=== PATIENT | female | born 1985 | race American Indian/Alaskan Native ===

== ENCOUNTER 2016-11-04 12:05 | Emergency (ER) | payer MEDICARE, OTHER ==
--- NOTE | 2016-11-04 12:19 | C.PDOC ---
History Of Present Illness 31F c/o pain in both knees after a fall last night. she says she was walking and tripped outside on the street and fell forward onto both knees. she was able to walk home after. today pain mainly in left knee. has not taken anything for pain. Time Seen by Provider: 11/04/16 12:19 Chief Complaint (Nursing): Lower Extremity Problem/Injury Past Medical History Vital Signs: Last Vital Signs Temp 97.9 F 11/04/16 12:12 Pulse 92 H 11/04/16 12:12 Resp 18 11/04/16 12:12 BP 122/84 11/04/16 12:12 Pulse Ox 99 11/04/16 12:29 - Medical History PMH: Diabetes, Gastritis, Multiple Sclerosis (Pseudo), Chronic Kidney Disease - [facility] Procedures CENTRAL VENOUS CATHETER PLACEMENT WITH GUIDANCE (04/06/14) INCIS W REM OF FORIEGN BODY OR DEV FROM SKIN & SUBCUT TISSUE (02/28/14) INSERTION OF TOTALLY IMPLANTABLE VASC ACCESS DEVIC (02/13/14) SERUM TRANSFUSION NEC (02/13/14) THERAPEUTIC PLASMAPHERESIS (02/13/14) Family History: States: Other Other Family History: nc - Social History Hx Tobacco Use: No Hx Alcohol Use: No Hx Substance Use: No - Immunization History Hx Tetanus Toxoid Vaccination: Yes Hx Influenza Vaccination: No Hx Pneumococcal Vaccination: No Review Of Systems Constitutional: Negative for: Fever Cardiovascular: Negative for: Chest Pain Respiratory: Negative for: Shortness of Breath Gastrointestinal: Negative for: Vomiting Musculoskeletal: Negative for: Neck Pain Neurological: Negative for: Headache Physical Exam - Physical Exam Appears: Well, Non-toxic, No Acute Distress Skin: Warm, Dry Head: Atraumatic Oral Mucosa: Moist Neck: Normal ROM Cardiovascular: Rhythm Regular Respiratory: No Accessory Muscle Use Extremity: Normal ROM, No Deformity, Other (superficial abrasion over left anterior knee. ttp over both anterior knees. rom is wnl. strength normal. DP pulses 2+. ankles and tib/fib non-tender. ) Neurological/Psych: Oriented x3, Normal Motor, Normal Sensation ED Course And Treatment O2 Sat by Pulse Oximetry: 99 Medical Decision Making Medical Decision Making: xr kay knees- no acute fracture seen Disposition - Disposition Disposition: HOME/ ROUTINE Disposition Time: 12:51 Condition: STABLE Forms: [employer] (Vietnamese) - Clinical Impression Clinical Impression: Knee injury
[2016-11-04 12:21] VITALS: BP 122/84; RESP 18; TEMP 97.9
[2016-11-04 12:22] VITALS: BMI 27.4
--- NOTE | 2016-11-04 12:53 | RAD ---
PROCEDURE: Bilateral Knee Radiographs. HISTORY: fell on both knees COMPARISON: 12/20/2014 FINDINGS: BONES: No fracture. The bilateral patchy D mineralization and lesser and sclerotic changes throughout each distal femur and each proximal tibia is similar in appearance a benign bone island in the left proximal diaphysis is appreciated on the current study likely due to current greater field of view JOINTS: Right Knee: Mild osteoarthritis. Medial femoral tibial knee joint line spurring progressive since prior exam Left knee: Normal. No osteoarthritis. SOFT TISSUES: Right Knee: Normal. Left Knee: Normal. JOINT EFFUSION: Right Knee: Interval small right effusion Left Knee: None. OTHER FINDINGS: None. IMPRESSION: The patchy bone mineralization mostly demineralized pattern is similar in appearance this patient with prior history provided of neuromyelitis optica . No interval fracture or lytic lesion. Interval right progressive medial femoral tibial osteoarthrosis. Interval right small joint effusion
[2016-11-04] MEDS ORDERED: Bacitracin 500 Units/gm Oint Foilpak UD ONE (13:05)
[2016-11-04 13:08] VITALS: PULSE 85; O2SAT 98
== END 2016-11-04 13:08 | disposition home or self-care (01) ==
LOC: C.ER 12:05
DX: S80.212A Abrasion, left knee, initial encounter (principal); S89.91XA Unspecified injury of right lower leg, initial encounter; W01.0XXA Fall on same level from slipping, tripping and stumbling without subsequent striking against object, initial encounter; Y93.01 Activity, walking, marching and hiking; Y92.414 Local residential or business street as the place of occurrence of the external cause
CPT/HCPCS: 73562; 96372; 99285; J1885

== ENCOUNTER 2017-12-09 16:36 | Inpatient (IN) | payer MEDICAID, MEDICARE ==
[2017-12-09 16:53] VITALS: BMI 28.3
--- NOTE | 2017-12-09 18:50 | C.PDOC ---
History Of Present Illness Patient is a 32 y/o female with PMHx of Rajat tumor, s/p left kidney removal, type 1 diabetes mellitus, and neuromyelitis optica, for which she receives chemotherapy via port q6 months. Patient presents with complaints of pressure in her head, especially behind her eyes and ears, developing for the past 2 days. Family and friends also noticed swelling throughout her face, neck, and around eyes. Otherwise she denies difficulty breathing or swelling of the lips/tongue. Also complains of having some palpitations today. She went to see Dr. Guillermo in the office, was found to be tachycardic at 130, and sent here for evaluation. Time Seen by Provider: 12/09/17 18:22 Chief Complaint (Nursing): Abnormal Skin Integrity History Per: Patient History/Exam Limitations: no limitations Onset/Duration Of Symptoms: Days Current Symptoms Are (Timing): Still Present Past Medical History Reviewed: Historical Data, Nursing Documentation, Vital Signs Vital Signs: Last Vital Signs Temp 97.6 F 12/09/17 16:53 Pulse 93 H 12/09/17 16:53 Resp 20 12/09/17 16:53 BP 124/83 12/09/17 16:53 Pulse Ox 100 12/09/17 16:53 - Medical History PMH: Diabetes, Gastritis, Multiple Sclerosis (Pseudo), Chronic Kidney Disease Other PMH: neuromyelitis optica Other Surgeries: Left nephrectomy - [facility] Procedures CENTRAL VENOUS CATHETER PLACEMENT WITH GUIDANCE (04/06/14) INCIS W REM OF FORIEGN BODY OR DEV FROM SKIN & SUBCUT TISSUE (02/28/14) INSERTION OF TOTALLY IMPLANTABLE VASC ACCESS DEVIC (02/13/14) SERUM TRANSFUSION NEC (02/13/14) THERAPEUTIC PLASMAPHERESIS (02/13/14) Family History: States: Unknown Family Hx - Social History Hx Tobacco Use: No Hx Alcohol Use: No Hx Substance Use: No - Immunization History Hx Tetanus Toxoid Vaccination: Yes Hx Influenza Vaccination: No Hx Pneumococcal Vaccination: No Review Of Systems Constitutional: Negative for: Fever ENT: Positive for: Other (Swelling to face, neck, and around eyes). Negative for: Mouth Swelling, Throat Swelling Cardiovascular: Positive for: Palpitations Respiratory: Negative for: Cough, Shortness of Breath Gastrointestinal: Negative for: Vomiting, Abdominal Pain, Diarrhea Neurological: Positive for: Headache (pressure-like, behind eyes and ears). Negative for: Weakness, Numbness, Dizziness Physical Exam - Physical Exam Appears: Non-toxic, No Acute Distress Skin: Normal Color, Warm, Dry Head: Atraumatic, Normacephalic, Other (Swelling throughout cheeks, neck, and supraclavicular areas) Eye(s): bilateral: Normal Inspection (with no eyelid inflammation/swelling), PERRL, EOMI Neck: Normal ROM, Supple Chest: Symmetrical, No Tenderness, No Subcutaneous Emphysema Cardiovascular: Rhythm Regular (but tachycardic) Respiratory: Normal Breath Sounds, No Rales, No Rhonchi, No Wheezing Gastrointestinal/Abdominal: Soft, No Tenderness, No Distention Extremity: Bilateral: Atraumatic, Normal Color And Temperature, Normal ROM Neurological/Psych: Oriented x3, Normal Speech, Normal Cranial Nerves, Other (Neurologically intact) ED Course And Treatment - Laboratory Results Result Diagrams: 12/09/17 19:24 12/09/17 19:24 Lab Interpretation: No Acute Changes O2 Sat by Pulse Oximetry: 100 (RA) Pulse Ox Interpretation: Normal - CT Scan/US CT Neck Soft Tissue Other Rad Studies (CT/US): Read By Radiologist, Radiology Report Reviewed CT/US Interpretation: Name:MITCHELL SOLER Exam Date:Dec 09, 2017 8:29:03 PM EDT. Modality Type:CT. Description:CT - NECK SOFT TISSUE. Gender:F Laterality:Not applicable. :83 Referring Physician:Sharita Pacheco). EXAM: CT Neck with Intravenous Contrast. CLINICAL HISTORY: Right side face and neck swelling. TECHNIQUE: Axial computed tomography images of the neck with 100 mL of Visipaque intravenous contrast. Sagittal and coronal reformatted images were generated. CONTRAST: With; VISI 100 MLS. COMPARISON: None provided. FINDINGS: PHARYNX: Unremarkable appearance of the nasopharynx, oropharyx, and hypopharynx. No pharyngeal mucosal based mass lesions. LARYNX: The larynx is unremarkable. The epiglottis appears normal. RETROPHARYNGEAL SPACE: No retropharyngeal soft ti ssue swelling or gas. SALIVARY GLANDS: No salivary gland abnormality evident. Unremarkable appearance of the parotid, submandibular, and sublingual glands. LYMPH NODES: there is bilateral cervical adenopathy. THYROID: The thyroid gland is unremarkable. No nodule is evident. BONES: although study was not performed in bone algorithm, there appears to be a moderately large periapical abscess around the right second mandibular molar. Additionally,coronal image 34 demonstrates an osseous density within the right side of the mandible which may be a third molar remanent. Other etiologies exist. Subcutaneous tissues: There is stranding of the subcutaneous tissues especially around the level of the mandible more prominently on the right side.there is a Port-A-Cath in the right chest subcutaneous tissues entering the IVC via the right IJ approach. Mediastinum: Images through the upper thorax demonstrate soft tissue density, denser than a thymus, in the superior mediastinum. impression: Suspect moderately large dental abscess as described above. Cervical adenopathy. Superior mediastinal soft tissue density. Predominantly right sided inflammatory changes in the subcutaneous tissues. Recommend CT of the chest with contrast. The reason the patient has a Port-A-Cath Within It with the Patient's Presence State. The Reason for the Port-A-Cath Is Unknown. . Electronically signed on Dec 09, 2017 9:16:57 PM EDT by: Ronaldo Napoles M.D., Certified by [facility] CT CHEST Other Rad Studies (CT/US): Read By Radiologist, Radiology Report Reviewed CT/US Interpretation: Name:MITCHELL SOLER Exam Date:Dec 09, 2017 8:32:42 PM EDT. Modality Type:CT. Description:CT - CHEST. Gender:F Laterality:Not applicable. :83 Referring Physician:Sharita Pacheco). EXAM: CT Chest with Intravenous Contrast. CLINICAL HISTORY: Right side neck and chest swelling,. TECHNIQUE: Axial computed tomography images of the chest with intravenous contrast. 365.78 mGy-cm. CONTRAST: With; VISI 100 MLS. COMPARISON: None provided. FINDINGS: LUNGS: The lungs appear essentially clear. No pulmonary mass. PLEURAL SPACES: No pneumothorax evident. No pleural effusions. HEART: No cardiomegaly. No significant pericardial effusion. LYMPH NODES: No lymphadenopathy is evident. BONES: No focal osseous abnormality or acute fracture. UPPER ABDOMEN: The upper abdominal solid organs are unremarkable. MISCELLANEOUS: Port-A-Cath is in place. Nonspecific anterior chest wall swelling, somewhat more prominent on the right. Incidentally noted relatively severe gastroenteritis. IMPRESSION: 1. Port-A-Cath is in place. 2. Nonspecific anterior chest wall swelling, somewhat more prominent on the right. 3. Incidentally noted relatively severe gastroenteritis. . Electronically signed on Dec 09, 2017 9:23:47 PM EDT by: Vaughn Zamora M.D., MBA Certified By [facility] & [facility]. Fellowship Trained MRI and CT Specialist - Physician Consult Information Time Consulting Physician Contacted: 21:40 Physician Contacted: Manpreet Guillermo Outcome Of Conversation: patient to be admitted to service, needs OMF consult. 21:[address] Fontenot. He will accept patient on his service and arrange for antibiotics and comsultations. Medical Decision Making Medical Decision Making: Plan: --EKG --CMP --Thyroid panel --Pro-BNP --CBC --Urine HCG --UA --Chest x-ray --Reassess and dispo CT scans of the Neck/Soft Tissue and Chest ordered with contrast. Reviewed radiology reports and labs. Paged Dr. Guillermo Disposition - Disposition Disposition: HOSPITALIZED Disposition Time: 21:59 Condition: STABLE - POA Present On Arrival: None - Clinical Impression Clinical Impression: Neuromyelitis optica, Dental abscess, UTI (urinary tract infection) - Scribe Statement The provider has reviewed the documentation as recorded by the Scribe (Kayla Pat) Provider Attestation: All medical record entries made by the Scribe were at my direction and personally dictated by me. I have reviewed the chart and agree that the record accurately reflects my personal performance of the history, physical exam, [facility] decision making, and the department course for this patient. I have also personally directed, reviewed, and agree with the discharge instructions and disposition.
[2017-12-09 19:30] LABS: BASO % 0.4 % (0.0-2.0); EOS # 0.1 K/uL (0.0-0.7); EOS % 1.6 % (0.0-4.0); HEMOGLOBIN 11.2 g/dL (11.0-16.0); LYMPH # 2.2 K/uL (1.0-4.3); LYMPH % 31.1 % (20.0-40.0); MEAN CORPUSCULAR HEMOGLOBIN 31.3 pg (27.0-31.0); MEAN CORPUSCULAR HGB CONC 33.4 g/dL (33.0-37.0); MEAN PLATELET VOLUME 9.3 fL (7.2-11.7); MONO # 0.7 K/uL (0.0-0.8); MONO % 9.7 % (0.0-10.0); NEUT # 4.1 K/uL (1.8-7.0); NEUT % 57.2 % (50.0-75.0); RBC 3.57 Mil/uL (3.80-5.20); RED CELL DISTRIBUTION WIDTH 14.3 % (11.5-14.5); WHITE BLOOD COUNT 7.2 K/uL (4.8-10.8)
[2017-12-09 19:32] LABS: MEAN CELL VOLUME 93.6 fL (81.0-99.0)
[2017-12-09 19:35] LABS: HCG,QUALITATIVE URINE NEGATIVE (NEGATIVE)
[2017-12-09 19:40] LABS: SQUAMOUS EPITHIAL 5 /hpf (0-5); URINE BACTERIA MANY (<OCC); URINE BILIRUBIN NEGATIVE (NEGATIVE); URINE BLOOD 2+ (NEGATIVE); URINE CLARITY Hazy (Clear); URINE COLOR Yellow (YELLOW); URINE GLUCOSE (UA) NORMAL (Normal); URINE LEUKOCYTE ESTERASE 2+ Leu/uL (Negative); URINE PROTEIN 1+ mg/dL (NEGATIVE); URINE UROBILINOGEN NORMAL mg/dL (0.2-1.0)
[2017-12-09 19:45] LABS: ALB/GLOB RATIO 1.5 (1.0-2.1); ALBUMIN 4.6 g/dL (3.5-5.0); ALT/SGPT 21 U/L (9-52); AST/SGOT 13 U/L (14-36); BLOOD UREA NITROGEN 8 mg/dL (7-17); GFR NON-AFRICAN AMERICAN > 60
[2017-12-09 19:59] LABS: B-TYPE NATRIURETIC PEPTIDE 47.3 pg/mL (0-450)
[2017-12-09] MEDS ORDERED: Iodixanol 320 MG/ML 100 ML BOTTLE IV ONE (20:11)
[2017-12-09 20:23] LABS: FREE T4 1.41 ng/dL (0.78-2.19)
[2017-12-09] MEDS ORDERED: DiphenhydrAMINE 50 mg/ml Inj IVP STA (20:57)
[2017-12-09] MEDS ORDERED: DiphenhydrAMINE 50 mg/ml Inj ONE (21:01)
[2017-12-09] MEDS ORDERED: Piperacillin/Tazobact 3.375 gm 100 ML IVPB ONE (22:46)
[2017-12-09] MEDS: Sodium Chloride 0.9% 1,000 ML IV SCH (23:02)
[2017-12-09] MEDS: Piperacillin/Tazobact 3.375 GM in Sodium Chloride 100 ML IVPB SCH (23:03)
[2017-12-10] MEDS: Piperacillin/Tazobact 3.375 GM in Sodium Chloride 100 ML IVPB SCH ×4 (03:40→22:17)
[2017-12-10] MEDS ORDERED: Morphine 4 MG/ML VIAL IM PRN (03:45)
[2017-12-10 04:46] VITALS: RESP 20
[2017-12-10] MEDS: Sodium Chloride 0.9% 1,000 ML IV SCH ×2 (08:51→19:05)
[2017-12-10] MEDS: DiphenhydrAMINE 50 mg/ml Inj IVP PRN ×2 (08:51→22:59)
--- NOTE | 2017-12-10 11:35 | CT ---
Date of service: 12/09/2017 PROCEDURE: CT NECK WITH CONTRAST HISTORY: neck swelling COMPARISON: 02/15/2016 MRI brain and orbits TECHNIQUE: CT of the neck with intravenous contrast. Coronal and sagittal reformats generated. Intravenous contrast dose: 100 cc Visipaque 320. Radiation dose: DLP 528.57. mGy-cm This CT exam was performed using one or more of the following dose reduction techniques: Automated exposure control, adjustment of the mA and/or kV according to patient size, and/or use of iterative reconstruction technique. FINDINGS: NASOPHARYNX: Unremarkable. SUPRAHYOID NECK: Unremarkable oropharynx, oral cavity, parapharyngeal space and retropharyngeal space. INFRAHYOID NECK: Unremarkable larynx, hypopharynx, and supraglottic space. Vocal cords intact. MASS: None. GLANDS: Parotid and submandibular glands unremarkable. Normal size thyroid gland, without nodule. LYMPH NODES: Normal. No lymphadenopathy. CERVICAL SPINE: No fracture or focal lesion. Reversal of the anatomic lordosis with kyphosis. Degree: Mild. VASCULAR STRUCTURES: Unremarkable. OTHER FINDINGS: Unilateral, right facial soft tissue swelling. This extends posteriorly from the body of the mandible to the masseter muscle and adjacent soft tissues. Soft tissue swelling about the Port-A-Cath insertion site. No discrete collection. IMPRESSION: Right facial soft tissue swelling without drainable collection. Additional benign and/or incidental findings described above. Concordant results (preliminary interpretation) provided by [facility]. Procedure Completed: 20:31. Preliminary Report: Dictated and Authenticated: 21:16 Final Interpretation: 23:32. December 09, 2017
--- NOTE | 2017-12-10 11:38 | CT ---
Date of service: 12/09/2017 PROCEDURE: CT Chest with contrast HISTORY: neck swelling with hx port COMPARISON: None available. TECHNIQUE: Contiguous axial images were obtained through the chest with intravenous contrast enhancement. Sagittal and coronal reconstructions were performed. IV contrast: 100 cc Visipaque 320. Radiation dose (DLP): 365.78 mGy-cm. This CT exam was performed using one or more of the following dose reduction techniques: Automated exposure control, adjustment of the mA and/or kV according to patient size, and/or use of iterative reconstruction technique. FINDINGS: LUNGS: Clear lungs. Visualized airway clear. MEDIASTINUM: Unremarkable thoracic aorta. No aneurysm or dissection. Normal sized heart. Main pulmonary artery unremarkable. No vascular congestion. No lymphadenopathy. PLEURA: No pleural fluid. No pneumothorax. BONES: No fracture. No destructive lesion. UPPER ABDOMEN: Grossly unremarkable. OTHER FINDINGS: Port-A-Cath identified in satisfactory position. Mild soft tissue swelling about the catheter site insertion without discrete collection. No evidence of associated IJ thrombosis. No collaterals identified. The catheter appears to be in satisfactory position. IMPRESSION: Soft tissue swelling anterior right chest without drainable collection. No evidence of IJ thrombosis or other vascular pathologic process. No suspicious pulmonary nodules or masses.
--- NOTE | 2017-12-10 12:14 | RAD ---
Date of service: 12/09/2017 HISTORY: SOB COMPARISON: 03/07/2016. TECHNIQUE: Chest PA and lateral FINDINGS: LUNGS: No active pulmonary disease. PLEURA: No significant pleural effusion identified. No pneumothorax apparent. CARDIOVASCULAR: Normal.Venous access catheter in stable, satisfactory position. OSSEOUS STRUCTURES: No significant abnormalities. VISUALIZED UPPER ABDOMEN: Normal. OTHER FINDINGS: None. IMPRESSION: No active disease. No significant interval change compared to the prior examination(s).
[2017-12-10 13:24] LABS: BASO % 0.8 % (0.0-2.0); EOS # 0.1 K/uL (0.0-0.7); EOS % 1.9 % (0.0-4.0); LYMPH # 1.4 K/uL (1.0-4.3); LYMPH % 27.5 % (20.0-40.0); MEAN CELL VOLUME 94.9 fL (81.0-99.0); MEAN CORPUSCULAR HEMOGLOBIN 31.7 pg (27.0-31.0); MEAN CORPUSCULAR HGB CONC 33.4 g/dL (33.0-37.0); MEAN PLATELET VOLUME 9.9 fL (7.2-11.7); MONO # 0.5 K/uL (0.0-0.8); MONO % 9.8 % (0.0-10.0); NRBC % 0.1 % (0.0-2.0); RBC 2.76 Mil/uL (3.80-5.20); RED CELL DISTRIBUTION WIDTH 14.6 % (11.5-14.5)
[2017-12-10 13:28] LABS: HEMOGLOBIN 8.8 g/dL (11.0-16.0)
[2017-12-10 14:37] LABS: ALB/GLOB RATIO 1.1 (1.0-2.1); ALT/SGPT 24 U/L (9-52); AST/SGOT 10 U/L (14-36); BLOOD UREA NITROGEN 5 mg/dL (7-17); GFR NON-AFRICAN AMERICAN > 60
[2017-12-10 14:48] LABS: ALBUMIN 2.6 g/dL (3.5-5.0); CALCIUM 6.8 mg/dl (8.6-10.4)
[2017-12-10 15:26] LABS: HEMOGLOBIN 10.5 g/dL (11.0-16.0); MEAN CELL VOLUME 94.1 fL (81.0-99.0); MEAN CORPUSCULAR HGB CONC 32.9 g/dL (33.0-37.0); RBC 3.39 Mil/uL (3.80-5.20); RED CELL DISTRIBUTION WIDTH 14.2 % (11.5-14.5); WHITE BLOOD COUNT 6.8 K/uL (4.8-10.8)
[2017-12-10 16:11] LABS: ALB/GLOB RATIO 1.3 (1.0-2.1); ALBUMIN 3.7 g/dL (3.5-5.0); ALT/SGPT 18 U/L (9-52); AST/SGOT 13 U/L (14-36); BLOOD UREA NITROGEN 7 mg/dL (7-17); GFR NON-AFRICAN AMERICAN > 60
--- NOTE | 2017-12-10 17:28 | CP.PCM.CON ---
History of Present Illness - History of Present Illness History of Present Illness: 32 year old female with a history of Wilms tumor s/p left nephrectomy in 1991, DM, neuromyelitis optica s/p rituximab treatment in 03/2017, admitted with facial swelling. The patient notes sudden swelling of her face this past weekend. She denies pain, fevers, and chills. She also notes to swelling of her right arm but no pain. She denies trauma. Past medical history: Wilms tumor s/p left nephrectomy in 1991, DM, neuromyelitis optica s/p rituximab, DM Past surgical history: Nephrectomy, right leg infection surgery Family history: Denies hematologic and oncologic problems Social history: Denies tobacco, alcohol, and illicit drug use Allergies: Iohexol Review of systems: All remaining review of systems including HEENT, cardiovascular, respiratory, gastrointestinal, genitourinary, musculoskeletal, dermatologic, neurologic, and psychiatric are negative unless mentioned in the HPI. 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 - RENAL Hx Chronic Kidney Disease: Yes - ENDOCRINE/METABOLIC Hx Endocrine Disorders: Yes Hx Diabetes Mellitus Type 1: Yes - HEMATOLOGICAL/ONCOLOGICAL Hx Blood Disorders: Yes Hx Blood Transfusions: Yes (2014) Hx Blood Transfusion Reaction: No Other/Comment: wilms tumor 7yo - INTEGUMENTARY Hx Dermatological Problems: No - MUSCULOSKELETAL/RHEUMATOLOGICAL Hx Musculoskeletal Disorders: Yes Hx Falls: No Hx Osteomyelitis: Yes - GASTROINTESTINAL Hx Gastrointestinal Disorders: Yes Hx Gastritis: Yes - GENITOURINARY/GYNECOLOGICAL Hx Genitourinary Disorders: No - PSYCHIATRIC Hx Psychophysiologic Disorder: No Hx Substance Use: No - SURGICAL HISTORY Hx Surgeries: Yes Hx Amputation: No Hx Orthopedic Surgery: Yes Other/Comment: RIGHT LEG SURGERY;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;LEFT NEPHRECTOMY/INSERTION AND REMOVAL OF LIFEPORT-2X - ANESTHESIA Hx Anesthesia: Yes Hx Anesthesia Reactions: No Hx Malignant Hyperthermia: No Meds Allergies/Adverse Reactions: Allergies Allergy/AdvReac Type Severity Reaction Status Date / Time iohexol [From Omnipaque] Allergy Verified 12/09/17 22:08 - Medications Medications: Current Medications Diphenhydramine HCl (Benadryl) 25 mg IVP Q6 PRN PRN Reason: Itching / Pruritus Last Admin: 12/10/17 08:51 Dose: 25 mg Sodium Chloride (Sodium Chloride 0.9%) 1,000 mls @ 100 mls/hr IV .Q10H KIMBERLY Last Admin: 12/10/17 08:51 Dose: 100 mls/hr Piperacillin Sod/Tazobactam (Sod 3.375 gm/ Sodium Chloride) 100 mls @ 200 mls/hr IVPB Q6H KIMBERLY; Protocol Last Admin: 12/10/17 09:49 Dose: 200 mls/hr Insulin Detemir (Levemir) 8 unit SC DAILY ON LICENSE OF [facility] Metformin HCl (Glucophage) 1,000 mg PO BIDCC ON LICENSE OF [facility] Morphine Sulfate (Morphine) 2 mg IV Q4 PRN PRN Reason: Pain, moderate (4-7) Last Admin: 12/10/17 13:57 Dose: 2 mg Physical Exam - Head Exam Head Exam: ATRAUMATIC - Eye Exam Eye Exam: Normal appearance - ENT Exam ENT Exam: Mucous Membranes Dry - Respiratory Exam Respiratory Exam: NORMAL BREATHING PATTERN - Cardiovascular Exam Cardiovascular Exam: +S1, +S2 - GI/Abdominal Exam GI & Abdominal Exam: Normal Bowel Sounds - Extremities Exam Extremities exam: Positive for: normal inspection Results - Vital Signs Recent Vital Signs: Last Vital Signs Temp 97.5 F L 12/10/17 15:00 Pulse 88 12/10/17 15:00 Resp 20 12/10/17 15:00 BP 118/80 12/10/17 15:00 Pulse Ox 99 12/10/17 15:00 - Labs Result Diagrams: 12/10/17 15:22 12/10/17 15:22 Labs: Laboratory Results - last 24 hr 12/09/17 12/09/17 12/09/17 19:24 19:24 19:24 WBC 7.2 RBC 3.57 L Hgb 11.2 Hct 33.4 L MCV 93.6 D MCH 31.3 H MCHC 33.4 RDW 14.3 Plt Count 256 MPV 9.3 Neut % (Auto) 57.2 Lymph % (Auto) 31.1 [place] % (Auto) 9.7 Eos % (Auto) 1.6 Baso % (Auto) 0.4 Neut # (Auto) 4.1 Lymph # (Auto) 2.2 [place] # (Auto) 0.7 Eos # (Auto) 0.1 Baso # (Auto) 0.0 Sodium 139 Potassium 3.7 Chloride 103 Carbon Dioxide 24 Anion Gap 16 BUN 8 Creatinine 0.5 L Est GFR ( Amer) > 60 Est GFR (Non-Af Amer) > 60 POC Glucose (mg/dL) Random Glucose 152 H Calcium 10.0 Total Bilirubin 0.4 AST 13 L ALT 21 Alkaline Phosphatase 118 NT-Pro-B Natriuret Pep 47.3 Total Protein 7.7 Albumin 4.6 Globulin 3.1 Albumin/Globulin Ratio 1.5 Free T4 TSH 3rd Generation Urine Color Yellow Urine Clarity Hazy Urine pH 6.0 Ur Specific [place] 1.018 Urine Protein 1+ H Urine Glucose (UA) Normal Urine Ketones Negative Urine Blood 2+ H Urine Nitrate Positive H Urine Bilirubin Negative Urine Urobilinogen Normal Ur Leukocyte Esterase 2+ H Urine WBC (Auto) 25 H Urine RBC (Auto) 17 H Ur Squamous Epith Cells 5 Urine Bacteria Many H Urine HCG, Qual Negative 12/09/17 12/10/17 12/10/17 19:24 00:15 06:26 WBC RBC Hgb Hct MCV MCH MCHC RDW Plt Count MPV Neut % (Auto) Lymph % (Auto) [place] % (Auto) Eos % (Auto) Baso % (Auto) Neut # (Auto) Lymph # (Auto) [place] # (Auto) Eos # (Auto) Baso # (Auto) Sodium Potassium Chloride Carbon Dioxide Anion Gap BUN Creatinine Est GFR ( Amer) Est GFR (Non-Af Amer) POC Glucose (mg/dL) 244 H 265 H Random Glucose Calcium Total Bilirubin AST ALT Alkaline Phosphatase NT-Pro-B Natriuret Pep Total Protein Albumin Globulin Albumin/Globulin Ratio Free T4 1.41 TSH 3rd Generation 0.74 Urine Color Urine Clarity Urine pH Ur Specific [place] Urine Protein Urine Glucose (UA) Urine Ketones Urine Blood Urine Nitrate Urine Bilirubin Urine Urobilinogen Ur Leukocyte Esterase Urine WBC (Auto) Urine RBC (Auto) Ur Squamous Epith Cells Urine Bacteria Urine HCG, Qual 12/10/17 12/10/17 12/10/17 13:19 13:19 15:22 WBC 5.0 6.8 RBC 2.76 L 3.39 L Hgb 8.8 L D 10.5 L Hct 26.2 L 31.9 L MCV 94.9 94.1 MCH 31.7 H 31.0 MCHC 33.4 32.9 L RDW 14.6 H 14.2 Plt Count 138 D 218 MPV 9.9 10.0 Neut % (Auto) 60.0 Lymph % (Auto) 27.5 [place] % (Auto) 9.8 Eos % (Auto) 1.9 Baso % (Auto) 0.8 Neut # (Auto) 3.0 Lymph # (Auto) 1.4 [place] # (Auto) 0.5 Eos # (Auto) 0.1 Baso # (Auto) 0.0 Sodium 140 Potassium 2.8 L Chloride 114 H Carbon Dioxide 17 L Anion Gap 12 BUN 5 L Creatinine 0.5 L Est GFR ( Amer) > 60 Est GFR (Non-Af Amer) > 60 POC Glucose (mg/dL) Random Glucose 237 H Calcium 6.8 L Total Bilirubin 0.3 AST 10 L D ALT 24 Alkaline Phosphatase 71 NT-Pro-B Natriuret Pep Total Protein 5.1 L Albumin 2.6 L D Globulin 2.4 Albumin/Globulin Ratio 1.1 Free T4 TSH 3rd Generation Urine Color Urine Clarity Urine pH Ur Specific [place] Urine Protein Urine Glucose (UA) Urine Ketones Urine Blood Urine Nitrate Urine Bilirubin Urine Urobilinogen Ur Leukocyte Esterase Urine WBC (Auto) Urine RBC (Auto) Ur Squamous Epith Cells Urine Bacteria Urine HCG, Qual 12/10/17 15:22 WBC RBC Hgb Hct MCV MCH MCHC RDW Plt Count MPV Neut % (Auto) Lymph % (Auto) [place] % (Auto) Eos % (Auto) Baso % (Auto) Neut # (Auto) Lymph # (Auto) [place] # (Auto) Eos # (Auto) Baso # (Auto) Sodium 138 Potassium 4.1 Chloride 107 Carbon Dioxide 20 L Anion Gap 15 BUN 7 Creatinine 0.7 Est GFR ( Amer) > 60 Est GFR (Non-Af Amer) > 60 POC Glucose (mg/dL) Random Glucose 258 H Calcium 9.0 Total Bilirubin 0.5 AST 13 L D ALT 18 Alkaline Phosphatase 99 NT-Pro-B Natriuret Pep Total Protein 6.7 Albumin 3.7 Globulin 3.0 Albumin/Globulin Ratio 1.3 Free T4 TSH 3rd Generation Urine Color Urine Clarity Urine pH Ur Specific [place] Urine Protein Urine Glucose (UA) Urine Ketones Urine Blood Urine Nitrate Urine Bilirubin Urine Urobilinogen Ur Leukocyte Esterase Urine WBC (Auto) Urine RBC (Auto) Ur Squamous Epith Cells Urine Bacteria Urine HCG, Qual Assessment & Plan (1) Neuromyelitis optica Assessment and Plan: s/p Rituximab, treated 03/2017 will check quantitative immunoglobulins given past Rituximab and current soft tissue infection/swelling Status: Acute Priority: High Onset Date: 01/24/14 (2) Anemia Assessment and Plan: will check retic count, b12, folate, ferritin to further characterize Thank you for this interesting consult. Status: Acute
--- NOTE | 2017-12-10 22:19 | CP.PCM.HP ---
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 - RENAL Hx Chronic Kidney Disease: Yes - ENDOCRINE/METABOLIC Hx Endocrine Disorders: Yes Hx Diabetes Mellitus Type 1: Yes - HEMATOLOGICAL/ONCOLOGICAL Hx Blood Disorders: Yes Hx Blood Transfusions: Yes (2014) Hx Blood Transfusion Reaction: No Other/Comment: wilms tumor 7yo - INTEGUMENTARY Hx Dermatological Problems: No - MUSCULOSKELETAL/RHEUMATOLOGICAL Hx Musculoskeletal Disorders: Yes Hx Falls: No Hx Osteomyelitis: Yes - GASTROINTESTINAL Hx Gastrointestinal Disorders: Yes Hx Gastritis: Yes - GENITOURINARY/GYNECOLOGICAL Hx Genitourinary Disorders: No - PSYCHIATRIC Hx Psychophysiologic Disorder: No Hx Substance Use: No - SURGICAL HISTORY Hx Surgeries: Yes Hx Amputation: No Hx Orthopedic Surgery: Yes Other/Comment: RIGHT LEG SURGERY;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;LEFT NEPHRECTOMY/INSERTION AND REMOVAL OF LIFEPORT-2X - ANESTHESIA Hx Anesthesia: Yes Hx Anesthesia Reactions: No Hx Malignant Hyperthermia: No Meds Allergies/Adverse Reactions: Allergies Allergy/AdvReac Type Severity Reaction Status Date / Time iohexol [From Omnipaque] Allergy Verified 12/09/17 22:08 Results - Vital Signs Recent Vital Signs: Last Vital Signs Temp 97.5 F L 12/10/17 15:00 Pulse 88 12/10/17 15:00 Resp 20 12/10/17 15:00 BP 118/80 12/10/17 15:00 Pulse Ox 99 12/10/17 15:00 - Labs Result Diagrams: 12/10/17 15:22 12/10/17 15:22 Labs: Laboratory Results - last 24 hr 12/10/17 12/10/17 12/10/17 00:15 06:26 10:53 WBC RBC Hgb Hct MCV MCH MCHC RDW Plt Count MPV Neut % (Auto) Lymph % (Auto) [place] % (Auto) Eos % (Auto) Baso % (Auto) Neut # (Auto) Lymph # (Auto) [place] # (Auto) Eos # (Auto) Baso # (Auto) Sodium Potassium Chloride Carbon Dioxide Anion Gap BUN Creatinine Est GFR ( Amer) Est GFR (Non-Af Amer) POC Glucose (mg/dL) 244 H 265 H 221 H Random Glucose Calcium Total Bilirubin AST ALT Alkaline Phosphatase Total Protein Albumin Globulin Albumin/Globulin Ratio 12/10/17 12/10/17 12/10/17 13:19 13:19 15:22 WBC 5.0 6.8 RBC 2.76 L 3.39 L Hgb 8.8 L D 10.5 L Hct 26.2 L 31.9 L MCV 94.9 94.1 MCH 31.7 H 31.0 MCHC 33.4 32.9 L RDW 14.6 H 14.2 Plt Count 138 D 218 MPV 9.9 10.0 Neut % (Auto) 60.0 Lymph % (Auto) 27.5 [place] % (Auto) 9.8 Eos % (Auto) 1.9 Baso % (Auto) 0.8 Neut # (Auto) 3.0 Lymph # (Auto) 1.4 [place] # (Auto) 0.5 Eos # (Auto) 0.1 Baso # (Auto) 0.0 Sodium 140 Potassium 2.8 L Chloride 114 H Carbon Dioxide 17 L Anion Gap 12 BUN 5 L Creatinine 0.5 L Est GFR ( Amer) > 60 Est GFR (Non-Af Amer) > 60 POC Glucose (mg/dL) Random Glucose 237 H Calcium 6.8 L Total Bilirubin 0.3 AST 10 L D ALT 24 Alkaline Phosphatase 71 Total Protein 5.1 L Albumin 2.6 L D Globulin 2.4 Albumin/Globulin Ratio 1.1 12/10/17 12/10/17 12/10/17 15:22 16:40 21:09 WBC RBC Hgb Hct MCV MCH MCHC RDW Plt Count MPV Neut % (Auto) Lymph % (Auto) [place] % (Auto) Eos % (Auto) Baso % (Auto) Neut # (Auto) Lymph # (Auto) [place] # (Auto) Eos # (Auto) Baso # (Auto) Sodium 138 Potassium 4.1 Chloride 107 Carbon Dioxide 20 L Anion Gap 15 BUN 7 Creatinine 0.7 Est GFR ( Amer) > 60 Est GFR (Non-Af Amer) > 60 POC Glucose (mg/dL) 282 H 252 H Random Glucose 258 H Calcium 9.0 Total Bilirubin 0.5 AST 13 L D ALT 18 Alkaline Phosphatase 99 Total Protein 6.7 Albumin 3.7 Globulin 3.0 Albumin/Globulin Ratio 1.3
--- NOTE | 2017-12-10 23:05 | CARD ---
APPROVED REPORT Date of service: 12/09/2017 EKG Measurement Heart [id number] <Conclusion> Normal sinus rhythm Normal EKG
[2017-12-11] MEDS: Piperacillin/Tazobact 3.375 GM in Sodium Chloride 100 ML IVPB SCH ×4 (03:50→22:12)
[2017-12-11] MEDS: Sodium Chloride 0.9% 1,000 ML IV SCH ×3 (04:00→22:11)
[2017-12-11] MEDS: DiphenhydrAMINE 50 mg/ml Inj IVP PRN ×3 (06:11→22:59)
--- NOTE | 2017-12-11 06:50 | HP ---
HISTORY OF PRESENT ILLNESS: This is a 32-year-old female with a history of diabetes, hypertension, morbid obesity who has a history of Wilms tumor, status post left-sided nephrectomy in 1991. She had neuromyelitis optica, status post rituximab treatment in 03/2017. The patient is in her usual state of health, is ambulatory and independent in activities of daily living. She is compliant with diet, medication, and followup and since the weekend she is having swelling of the face as well as the lower jaw. She is having a lot of pain, body aches, tiredness. According to the patient, she also has pain in the right arm. The patient felt feverish. She felt a lot of headache. She denies any blurring of vision. She has pressure in the head which is behind the eyes, swelling in the face, neck, jaw and around the eyes was noticeable. She also complained of palpitation on the day of admission. She was seen in the Hematology/Oncology as she was tachycardic, and she was sent to emergency room. There is no history of abdominal pain, nausea, or vomiting. She denies any history of polyuria, polydipsia, polyphagia. She has frequency of urination. She denies any nausea. She denies any chest pain or neck pain. She denies any history of sneezing, itchy eyes, itchy nose. PAST MEDICAL HISTORY: Type 2 diabetes, Wilms tumor, chronic kidney disease, hypertension, morbid obesity, neuromyelitis optica. SOCIAL HISTORY: She is nonsmoker, non-ETOH user. CURRENT MEDICATIONS: At home, she is on Ambien, Toprol-XL, Glucophage, Levemir, and NovoLog. PHYSICAL EXAMINATION: GENERAL: Young female, in no distress. She has lot of complaints. VITAL SIGNS: Blood pressure 114/70, pulse 78, respiratory rate 20, temperature 98.4. SKIN: No rashes. No bruises. No purpura. HEENT: The patient has extensive swelling of the face including eyes, jaw, and neck. Extraocular movements are intact. Oral cavity, she has some caries teeth. NECK: Supple. Flat neck veins. No JVD. She has submandibular lymph node positive. LUNGS: Bilaterally clear. No rales. No rhonchi. CEREBROVASCULAR SYSTEM: S1 and S2, regular. No heave. No thrill. ABDOMEN: Soft. Nontender. Bowel sounds are positive. EXTREMITIES: No cyanosis, clubbing, or edema. CENTRAL NERVOUS SYSTEM: Awake, alert, oriented x3. ASSESSMENT: 1. Most likely it is gum infection which is extensive. 2. Hypertension. 3. Type 2 diabetes. 4. Wilms tumor, status post nephrectomy and neuromyelitis optica. PLAN: Accu-Chek, sliding scale. Antibiotic. ENT consult. Monitor the patient. Dru Fontenot MD
[2017-12-11] MEDS: Insulin Detemir 100 units/ml Vial (Levemir) SC SCH (09:17)
[2017-12-11 11:48] LABS: BASO % 0.7 % (0.0-2.0); EOS # 0.2 K/uL (0.0-0.7); EOS % 2.7 % (0.0-4.0); HEMOGLOBIN 10.2 g/dL (11.0-16.0); LYMPH # 1.7 K/uL (1.0-4.3); LYMPH % 26.4 % (20.0-40.0); MEAN CELL VOLUME 93.4 fL (81.0-99.0); MEAN CORPUSCULAR HEMOGLOBIN 31.7 pg (27.0-31.0); MEAN CORPUSCULAR HGB CONC 33.9 g/dL (33.0-37.0); MEAN PLATELET VOLUME 9.9 fL (7.2-11.7); MONO # 0.6 K/uL (0.0-0.8); MONO % 9.1 % (0.0-10.0); NEUT % 61.1 % (50.0-75.0); RBC 3.22 Mil/uL (3.80-5.20); RED CELL DISTRIBUTION WIDTH 14.6 % (11.5-14.5); WHITE BLOOD COUNT 6.5 K/uL (4.8-10.8)
[2017-12-11 12:33] LABS: IMMUNOGLOBULIN A 192.6 mg/dL (70.0-400.0); IMMUNOGLOBULIN G 693.9 mg/dL (700.0-1600.0); IMMUNOGLOBULIN M 50.2 mg/dL (40.0-230.0)
[2017-12-11] MEDS: (Novolog) Insulin Aspart, Recombinant 100 u/ml 10 ml vial SC SCH ×3 (12:53→22:10)
--- NOTE | 2017-12-11 13:11 | CP.PCM.PN ---
Subjective - Date & Time of Evaluation Date of Evaluation: 12/11/17 Time of Evaluation: 13:00 - Subjective Subjective: Feeling better, facial swelling. Objective - Vital Signs/Intake and Output Vital Signs (last 24 hours): Temp Pulse Resp BP Pulse Ox 98.0 F 85 20 119/75 100 12/11/17 07:00 12/11/17 07:00 12/11/17 07:00 12/11/17 07:00 12/11/17 07:00 Intake and Output: 12/11/17 12/11/17 06:59 18:59 Intake Total 1280 Balance 1280 - Medications Medications: Current Medications Diphenhydramine HCl (Benadryl) 25 mg IVP Q6 PRN PRN Reason: Itching / Pruritus Last Admin: 12/11/17 06:11 Dose: 25 mg Sodium Chloride (Sodium Chloride 0.9%) 1,000 mls @ 100 mls/hr IV .Q10H [facility] Last Admin: 12/11/17 13:09 Dose: Not Given Piperacillin Sod/Tazobactam (Sod 3.375 gm/ Sodium Chloride) 100 mls @ 200 mls/hr IVPB Q6H [facility]; Protocol Last Admin: 12/11/17 09:21 Dose: 200 mls/hr Insulin Aspart (Novolog) 0 unit SC ACHS [facility]; Protocol Last Admin: 12/11/17 12:53 Dose: 3 units Insulin Detemir (Levemir) 8 unit SC DAILY [facility] Last Admin: 12/11/17 09:17 Dose: 8 units Metformin HCl (Glucophage) 1,000 mg PO BIDCC [facility] Last Admin: 12/11/17 09:12 Dose: 1,000 mg Morphine Sulfate (Morphine) 2 mg IV Q4 PRN PRN Reason: Pain, moderate (4-7) Last Admin: 12/11/17 12:50 Dose: 2 mg Rosuvastatin Calcium (Crestor) 10 mg PO HS [facility] - Labs Labs: 12/11/17 11:29 12/10/17 15:22 - Head Exam Head Exam: ATRAUMATIC - Eye Exam Eye Exam: Normal appearance - ENT Exam ENT Exam: Mucous Membranes Dry - Respiratory Exam Respiratory Exam: NORMAL BREATHING PATTERN - Cardiovascular Exam Cardiovascular Exam: +S1, +S2 - GI/Abdominal Exam GI & Abdominal Exam: Normal Bowel Sounds Assessment and Plan (1) Neuromyelitis optica Assessment & Plan: s/p Rituximab, treated 03/2017 quantitative immunoglobulins do not suggest significant deficiency Status: Acute (2) Anemia Assessment & Plan: f/u retic count, b12, folate, ferritin to further characterize Status: Acute
[2017-12-11 13:28] LABS: FOLATE 7.3 ng/mL
--- NOTE | 2017-12-11 16:05 | CP.PCM.PN ---
Subjective - Date & Time of Evaluation Date of Evaluation: 12/11/17 Time of Evaluation: 15:58 - Subjective Subjective: PT SEEN BY DR. WALKER THIS AFTERNOON FOR DENTAL ABSCESS. PER DR. WALKER, HE RECOMMENDS THAT PT NOT BE D/C HOME WITH PO ABX AND INSTEAD BE TRANSFERRED TO ANOTHER HOSPITAL FOR FURTHER TREATMENT. PER DR. KLEIN, "START THE PROCESS" FOR TRANSFER. [facility] DOES NOT HAVE A MAXILLOFACIAL SURGEON WAREHOUSE PRODUCTION WORKER; I CALLED [facility] TO SEE IF THEY HAVE ONE BUT PER THE CUTTER AND PRESSER THEY DO NOT. I CALLED [facility] ([phone]) TO DISCUSS PT CASE AND SEE IF THE FACILITY CAN ACCEPT THE PT FOR TRANSFER. MESSAGE LEFT WITH ANSWERING SERVICE SINCE OFFICE HOURS ON FRIDAYS ARE FROM 8AM-12PM. REQUESTED A CALL BACK STAT TO DISCUSS CASE, HOWEVER, I STILL HAVE NOT REC'D A CALL BACK (LEFT MY HOSPITAL CELL NUMBER AND THE 6 TOWER NUMBER). PT IN AGREEMENT WITH TRANSFER PENDING ACCEPTING FACILITY AND PROVIDER. PT HAS NO VOICE HOARSENESS OR DYSPHAGIA AND TOLERATED LUNCH VERY WELL. PT ALSO C/O RUE SWELLING WITHOUT PAIN THAT START YESTERDAY. PT DOES HAVE A SUNDEEP CATH TO THE RIGHT ACW; PER RN ANA SUNDEEP CATH HAS NO BLOOD FLOW HOWEVER IVF AND IV MEDS HAVE BEEN INFUSING TO SUNDEEP CATH SINCE ADMISSION. PT SENT FOR A STAT VENOUS DOPPLER OF THE UPPER EXTREMITIES TO R/O DVT RUE. DR. KLEIN TO BE NOTIFIED IF DOPPLER IS POSITIVE. DR. KLEIN ALSO MADE AWARE OF THE TRANSFER SITUATION; NO RESPONSE FROM HIM OF YET. I WILL LEAVE A REPORT FOR THURSDAY STOCK GRADER AND REQUEST THAT HE F/U WITH THE TRANSFER. NO FURTHER ORDERS. Objective - Vital Signs/Intake and Output Vital Signs (last 24 hours): Temp Pulse Resp BP Pulse Ox 98 F 90 20 99/63 L 98 12/11/17 15:00 12/11/17 15:00 12/11/17 15:00 12/11/17 15:00 12/11/17 15:00 Intake and Output: 12/11/17 12/11/17 06:59 18:59 Intake Total 1280 1100 Balance 1280 1100 - Medications Medications: Current Medications Diphenhydramine HCl (Benadryl) 25 mg IVP Q6 PRN PRN Reason: Itching / Pruritus Last Admin: 12/11/17 06:11 Dose: 25 mg Sodium Chloride (Sodium Chloride 0.9%) 1,000 mls @ 100 mls/hr IV .Q10H [facility] Last Admin: 12/11/17 13:09 Dose: Not Given Piperacillin Sod/Tazobactam (Sod 3.375 gm/ Sodium Chloride) 100 mls @ 200 mls/hr IVPB Q6H [facility]; Protocol Last Admin: 12/11/17 09:21 Dose: 200 mls/hr Insulin Aspart (Novolog) 0 unit SC ACHS [facility]; Protocol Last Admin: 12/11/17 12:53 Dose: 3 units Insulin Detemir (Levemir) 8 unit SC DAILY [facility] Last Admin: 12/11/17 09:17 Dose: 8 units Metformin HCl (Glucophage) 1,000 mg PO BIDCC [facility] Last Admin: 12/11/17 09:12 Dose: 1,000 mg Morphine Sulfate (Morphine) 2 mg IV Q4 PRN PRN Reason: Pain, moderate (4-7) Last Admin: 12/11/17 12:50 Dose: 2 mg Rosuvastatin Calcium (Crestor) 10 mg PO HS [facility] - Labs Labs: 12/11/17 11:29 12/10/17 15:22
--- NOTE | 2017-12-11 23:37 | CP.PCM.PN ---
Subjective - Subjective Subjective: dictated Objective - Vital Signs/Intake and Output Vital Signs (last 24 hours): Temp Pulse Resp BP Pulse Ox 98 F 90 20 99/63 L 98 12/11/17 15:00 12/11/17 15:00 12/11/17 15:00 12/11/17 15:00 12/11/17 15:00 Intake and Output: 12/11/17 12/12/17 18:59 06:59 Intake Total 1100 Balance 1100 - Medications Medications: Current Medications Diphenhydramine HCl (Benadryl) 25 mg IVP Q6 PRN PRN Reason: Itching / Pruritus Last Admin: 12/11/17 22:59 Dose: 25 mg Sodium Chloride (Sodium Chloride 0.9%) 1,000 mls @ 100 mls/hr IV .Q10H [facility] Last Admin: 12/11/17 22:11 Dose: 100 mls/hr Piperacillin Sod/Tazobactam (Sod 3.375 gm/ Sodium Chloride) 100 mls @ 200 mls/hr IVPB Q6H [facility]; Protocol Last Admin: 12/11/17 22:12 Dose: 200 mls/hr Insulin Aspart (Novolog) 0 unit SC ACHS [facility]; Protocol Last Admin: 12/11/17 22:10 Dose: 2 units Insulin Detemir (Levemir) 8 unit SC DAILY [facility] Last Admin: 12/11/17 09:17 Dose: 8 units Metformin HCl (Glucophage) 1,000 mg PO BIDCC [facility] Last Admin: 12/11/17 16:58 Dose: 1,000 mg Morphine Sulfate (Morphine) 2 mg IV Q4 PRN PRN Reason: Pain, moderate (4-7) Last Admin: 12/11/17 22:59 Dose: 2 mg Rosuvastatin Calcium (Crestor) 10 mg PO HS [facility] Last Admin: 12/11/17 22:01 Dose: 10 mg - Labs Labs: 12/11/17 11:29 12/10/17 15:22
--- NOTE | 2017-12-11 23:56 | CON ---
DATE: 12/11/2017 REFERRING PHYSICIAN: Dr. Fontenot. REASON FOR CONSULTATION: Dental abscess and facial swelling. HISTORY: This is a 32-year-old female with one-week history of right facial swelling and pain. It is constant, moderate in intensity on the right. No trismus, no dysphagia, no difficulty breathing. PAST MEDICAL HISTORY: As noted in the chart by me. MEDICATIONS: As noted in the chart by me. PHYSICAL EXAMINATION: HEAD: Atraumatic, normocephalic. FACE: Good facial movements bilaterally. There is mild edema of the right face. EXTERNAL NOSE AND EARS: No masses. No lesions. No erythema. No edema. COMMUNICATION: Communicates well and appropriately. CONSTITUTIONAL: Well fed, well nourished. INTERNAL NOSE: Deviated septum. No masses. No lesions. No erythema. No edema. ORAL CAVITY AND OROPHARYNX: No masses. No lesions. No erythema. No edema. No trismus. LIPS AND GUMS: No masses. No lesions. No erythema. No edema. NECK: There is edema of the right superior aspect of the neck, going over to the midline of the neck superiorly. LYMPH NODES: No lymphadenopathy of the neck palpated. THYROID: No thyromegaly, no goiter. LABORATORY DATA: A CAT scan was done, which shows a dental abscess/dental infection. ASSESSMENT: 1. Facial edema. 2. Dental abscess/dental infection. PLAN: Recommend transferring the patient to a hospital that has an oral surgeon or a dentist. Jl Perez MD
[2017-12-12] MEDS: Piperacillin/Tazobact 3.375 GM in Sodium Chloride 100 ML IVPB SCH ×3 (04:37→15:57)
[2017-12-12] MEDS: DiphenhydrAMINE 50 mg/ml Inj IVP PRN ×2 (07:06→14:14)
[2017-12-12] MEDS: (Novolog) Insulin Aspart, Recombinant 100 u/ml 10 ml vial SC SCH ×3 (08:00→17:41)
[2017-12-12] MEDS: Insulin Detemir 100 units/ml Vial (Levemir) SC SCH (10:15)
[2017-12-12] MEDS: Sodium Chloride 0.9% 1,000 ML IV SCH ×2 (10:23)
[2017-12-12 18:35] VITALS: BP 149/97; PULSE 129; TEMP 97.9; O2SAT 96
--- NOTE | 2017-12-12 22:09 | CP.PCM.DIS ---
Provider - Provider Date of Admission: 12/09/17 22:01 Attending physician: Dru Fontenot MD Hospital Course - Lab Results Lab Results: Micro Results 12/09/17 20:08 Urine,Clean Catch Urine Culture - Final 50-100,000 CFU/ML. MULTIPLE SPECIES. SUGGEST REPEAT SPECIMEN. Most Recent Lab Values WBC 6.5 K/uL (4.8-10.8) 12/11/17 11: RBC 3.22 Mil/uL (3.80-5.20) L 12/11/17 11:29 Hgb 10.2 g/dL (11.0-16.0) L 12/11/17 11:29 Hct 30.0 % (34.0-47.0) L 12/11/17 11: MCV 93.4 fL (81.0-99.0) 12/11/17 11:29 MCH 31.7 pg (27.0-31.0) H 12/11/17 11: MCHC 33.9 g/dL (33.0-37.0) 12/11/17 11:29 RDW 14.6 % (11.5-14.5) H 12/11/17 11:29 Plt Count 222 K/uL (130-400) 12/11/17 11: MPV 9.9 fL (7.2-11.7) 12/11/17 11: Neut % (Auto) 61.1 % (50.0-75.0) 12/11/17 11: Lymph % (Auto) 26.4 % (20.0-40.0) 12/11/17 11:29 [place] % (Auto) 9.1 % (0.0-10.0) 12/11/17 11:29 Eos % (Auto) 2.7 % (0.0-4.0) 12/11/17 11: Baso % (Auto) 0.7 % (0.0-2.0) 12/11/17 11:29 Neut # (Auto) 4.0 K/uL (1.8-7.0) 12/11/17 11:29 Lymph # (Auto) 1.7 K/uL (1.0-4.3) 12/11/17 11:29 [place] # (Auto) 0.6 K/uL (0.0-0.8) 12/11/17 11:29 Eos # (Auto) 0.2 K/uL (0.0-0.7) 12/11/17 11:29 Baso # (Auto) 0.0 K/uL (0.0-0.2) 12/11/17 11:29 Retic Count 1.3 % (0.5-1.5) 12/11/17 11:29 Sodium 138 mmol/L (132-148) 12/10/17 15:22 Potassium 4.1 mmol/L (3.6-5.2) 12/10/17 15:22 Chloride 107 mmol/L (98-107) 12/10/17 15:22 Carbon Dioxide 20 mmol/L (22-30) L 12/10/17 15:22 Anion Gap 15 (10-20) 12/10/17 15:22 BUN 7 mg/dL (7-17) 12/10/17 15:22 Creatinine 0.7 mg/dL (0.7-1.2) 12/10/17 15:22 Est GFR ( Amer) > 60 12/10/17 15:22 Est GFR (Non-Af Amer) > 60 12/10/17 15:22 POC Glucose (mg/dL) 98 mg/dL (65-110) 12/12/17 16:47 Random Glucose 258 mg/dL (65-105) H 12/10/17 15:22 Calcium 9.0 mg/dl (8.6-10.4) 12/10/17 15:22 Ferritin 61.0 ng/mL 12/11/17 11:29 Total Bilirubin 0.5 mg/dL (0.2-1.3) 12/10/17 15:22 AST 13 U/L (14-36) L D 12/10/17 15:22 ALT 18 U/L (9-52) 12/10/17 15:22 Alkaline Phosphatase 99 U/L (38-126) 12/10/17 15:22 NT-Pro-B Natriuret Pep 47.3 pg/mL (0-450) 12/09/17 19:24 Total Protein 6.7 g/dL (6.3-8.3) 12/10/17 15:22 Albumin 3.7 g/dL (3.5-5.0) 12/10/17 15:22 Globulin 3.0 gm/dL (2.2-3.9) 12/10/17 15:22 Albumin/Globulin Ratio 1.3 (1.0-2.1) 12/10/17 15:22 Vitamin B12 617 pg/mL (239-931) 12/11/17 11:29 Folate 7.3 ng/mL 12/11/17 11:29 Free T4 1.41 ng/dL (0.78-2.19) 12/09/17 19:24 TSH 3rd Generation 0.74 mIU/L (0.46-4.68) 12/09/17 19:24 Urine Color Yellow (YELLOW) 12/09/17 19:24 Urine Clarity Hazy (Clear) 12/09/17 19:24 Urine pH 6.0 (5.0-8.0) 12/09/17 19:24 Ur Specific [place] 1.018 (1.003-1.030) 12/09/17 19:24 Urine Protein 1+ mg/dL (NEGATIVE) H 12/09/17 19:24 Urine Glucose (UA) Normal mg/dL (Normal) 12/09/17 19:24 Urine Ketones Negative mg/dL (NEGATIVE) 12/09/17 19:24 Urine Blood 2+ (NEGATIVE) H 12/09/17 19:24 Urine Nitrate Positive (NEGATIVE) H 12/09/17 19:24 Urine Bilirubin Negative (NEGATIVE) 12/09/17 19:24 Urine Urobilinogen Normal mg/dL (0.2-1.0) 12/09/17 19:24 Ur Leukocyte Esterase 2+ Celia/uL (Negative) H 12/09/17 19:24 Urine WBC (Auto) 25 /hpf (0-5) H 12/09/17 19:24 Urine RBC (Auto) 17 /hpf (0-3) H 12/09/17 19:24 Ur Squamous Epith Cells 5 /hpf (0-5) 12/09/17 19:24 Urine Bacteria Many (<OCC) H 12/09/17 19:24 Urine HCG, Qual Negative (NEGATIVE) 12/09/17 19:24 IgG 693.9 mg/dL (700.0-1600.0) L 12/11/17 11:29 IgA 192.6 mg/dL (70.0-400.0) 12/11/17 11:29 IgM 50.2 mg/dL (40.0-230.0) 12/11/17 11:29 IgE 16 kU/L (<jc=134) 12/11/17 11:29 Discharge Exam - Head Exam Head Exam: ATRAUMATIC Discharge Plan - Follow Up Plan Condition: STABLE Disposition: Trans to Other Acute Care Hosp
--- NOTE | 2017-12-13 22:07 | CP.PCM.PN ---
Subjective - Date & Time of Evaluation Date of Evaluation: 12/12/17 Time of Evaluation: 16:00 - Subjective Subjective: Face is swollen Objective - Vital Signs/Intake and Output Vital Signs (last 24 hours): Temp Pulse Resp BP Pulse Ox 97.9 F 129 H 20 149/97 H 96 12/12/17 18:34 12/12/17 18:34 12/12/17 18:34 12/12/17 18:34 12/12/17 18:34 - Labs Labs: 12/11/17 11:29 12/10/17 15:22 - Head Exam Head Exam: ATRAUMATIC - ENT Exam ENT Exam: Mucous Membranes Dry - Respiratory Exam Respiratory Exam: NORMAL BREATHING PATTERN - Cardiovascular Exam Cardiovascular Exam: +S1, +S2 - GI/Abdominal Exam GI & Abdominal Exam: Normal Bowel Sounds Assessment and Plan (1) Neuromyelitis optica Assessment & Plan: s/p Rituximab, treated 03/2017 quantitative immunoglobulins do not suggest significant deficiency Status: Acute (2) Anemia Assessment & Plan: chronic disease Status: Acute
--- NOTE | 2017-12-14 09:06 | DS ---
ADMISSION DIAGNOSIS: Headache. DISCHARGE DIAGNOSES: 1. Rule out osteomyelitis of the jaw. 2. Wilms tumor, status post resection. 3. Type 2 diabetes. 4. Neuromyelitis optica. HISTORY OF PRESENT ILLNESS: This is a 32-year-old female with a history of obesity, diabetes, hypertension, Wilms tumor, status post resection six years ago with history of neuromyelitis optica, and she is under treatment of oncologist. She gets chemotherapy. Energy status well. The patient is ambulatory and independent on activities of daily living. She came in because of headache, pain and swelling in the jaw area. The patient was admitted to the floor, found to have urinary tract infection as well. She was placed on Zosyn covering both UTI and oral infection. The patient needed to be seen by oral and maxillofacial surgeon. We do not have an oral maxillofacial surgeon available on staff at , and the patient is for transfer to [facility] for OMF consult. PHYSICAL EXAMINATION: VITAL SIGNS: BP 132/88, pulse 108, respiratory rate 20, temperature 98.5. LUNGS: Clear. CARDIOVASCULAR SYSTEM: S1 and S2, regular. ABDOMEN: Soft. PLAN: Discharge the patient to [facility]. Follow up IV. Dru Fontenot MD
== END 2017-12-12 19:30 | disposition short-term general hospital (02) | DRG 158 ==
LOC: C.ER 16:36 → C.9E 22:01 → C.6T 23:03
PROVIDERS: ADMIT Internal Medicine; ATTEND Internal Medicine
DX: K04.7 Periapical abscess without sinus (principal); G36.0 Neuromyelitis optica [Devic]; N39.0 Urinary tract infection, site not specified; Z79.4 Long term (current) use of insulin; N18.9 Chronic kidney disease, unspecified; I12.9 Hypertensive chronic kidney disease with stage 1 through stage 4 chronic kidney disease, or unspecified chronic kidney disease; K05.10 Chronic gingivitis, plaque induced; Z85.528 Personal history of other malignant neoplasm of kidney; G35 Multiple sclerosis; E66.01 Morbid (severe) obesity due to excess calories; E11.22 Type 2 diabetes mellitus with diabetic chronic kidney disease; Z68.28 Body mass index [BMI] 28.0-28.9, adult

== ENCOUNTER 2018-05-17 17:32 | Inpatient (IN) | payer MEDICARE, MEDICAID ==
[2018-05-17 17:57] VITALS: BMI 24.2
[2018-05-17] MEDS ORDERED: Sodium Chloride 0.9% 1,000 ML IV ONE ×2 (18:11→18:32)
[2018-05-17] MEDS ORDERED: Insulin Human Regular 100 UNIT in Sodium Chloride 0.9% 99 ML IV STA (18:35)
[2018-05-17 18:51] LABS: HEMOGLOBIN 9.6 g/dL (11.0-16.0); LYMPH # 0.9 K/uL (1.0-4.3); LYMPH % 3.5 % (20.0-40.0); MEAN CELL VOLUME 91.4 fL (81.0-99.0); MEAN CORPUSCULAR HEMOGLOBIN 27.9 pg (27.0-31.0); MEAN CORPUSCULAR HGB CONC 30.5 g/dL (33.0-37.0); MEAN PLATELET VOLUME 10.6 fL (7.2-11.7); MONO # 1.7 K/uL (0.0-0.8); MONO % 6.4 % (0.0-10.0); NEUT # 23.9 K/uL (1.8-7.0); NEUT % 90.1 % (50.0-75.0); PLATELET COUNT 366 K/uL (130-400); RBC 3.43 Mil/uL (3.80-5.20); RED CELL DISTRIBUTION WIDTH 15.9 % (11.5-14.5); WHITE BLOOD COUNT 26.6 K/uL (4.8-10.8)
[2018-05-17 18:59] LABS: ABG ALLEN TEST POS; ARTERIAL BLOOD GAS HCO3 16.2 mmol/L (21-28); ARTERIAL BLOOD GAS HEMOGLOBIN 8.9 g/dL (11.7-17.4); ARTERIAL BLOOD GAS PCO2 21 mm/Hg (35-45); ARTERIAL BLOOD GAS PH 7.38 (7.35-7.45); ARTERIAL BLOOD GAS PO2 102 mm/Hg (80-100)
[2018-05-17 19:01] LABS: ALB/GLOB RATIO 1.2 (1.0-2.1); ALBUMIN 3.8 g/dL (3.5-5.0); ALT/SGPT < 6 U/L (9-52); AST/SGOT 7 U/L (14-36); BLOOD UREA NITROGEN 24 mg/dL (7-17); CALCIUM 9.6 mg/dl (8.6-10.4); GFR NON-AFRICAN AMERICAN 51; LIPASE 49 U/L (23-300)
--- NOTE | 2018-05-17 19:05 | C.PDOC ---
History Of Present Illness 33 year old female presents to ED with complaint of generalized weakness, lack of appetite, and shortness of breath for the past 2 weeks. Patient has a PMHx of diabetes. Patient is currently taking metformin and eliquis. Patient states that she has been urinating frequently has only moved her bowels twice since she has not been eating. Patient states that she is allergic to iodine. Patient denies nausea, vomiting, cough, chills, and fever. <Yris Chang - Last Filed: 05/17/18 19:29> History Per: Patient History/Exam Limitations: no limitations Onset/Duration Of Symptoms: Other (2 weeks) Current Symptoms Are (Timing): Still Present Associated Symptoms: denies: Fever, Chills, Chest Pain, Productive Cough <Yris Chang - Last Filed: 05/17/18 19:29> <Christina Dominguez - Last Filed: 05/17/18 21:04> Time Seen by Provider: 05/17/18 18:07 Chief Complaint (Nursing): Shortness Of Breath Past Medical History Reviewed: Historical Data, Nursing Documentation, Vital Signs Vital Signs: Last Vital Signs Temp 98.4 F 05/17/18 17:57 Pulse 157 H 05/17/18 17:57 Resp 20 05/17/18 18:19 BP 126/84 05/17/18 17:57 Pulse Ox 100 05/17/18 18:19 - Medical History PMH: Diabetes, Gastritis, HTN, Multiple Sclerosis (Pseudo), Chronic Kidney Disease Surgical History: No Surg Hx - [facility] Procedures CENTRAL VENOUS CATHETER PLACEMENT WITH GUIDANCE (04/06/14) INCIS W REM OF FORIEGN BODY OR DEV FROM SKIN & SUBCUT TISSUE (02/28/14) INSERTION OF TOTALLY IMPLANTABLE VASC ACCESS DEVIC (02/13/14) SERUM TRANSFUSION NEC (02/13/14) THERAPEUTIC PLASMAPHERESIS (02/13/14) Family History: States: Unknown Family Hx - Social History Hx Tobacco Use: No Hx Alcohol Use: No Hx Substance Use: No - Immunization History Hx Tetanus Toxoid Vaccination: Yes Hx Influenza Vaccination: No Hx Pneumococcal Vaccination: No <Yris Chang - Last Filed: 05/17/18 19:29> Vital Signs: Last Vital Signs Temp 98.4 F 05/17/18 17:57 Pulse 157 H 05/17/18 17:57 Resp 20 05/17/18 18:19 BP 126/84 05/17/18 17:57 Pulse Ox 100 05/17/18 19:29 - [facility] Procedures CENTRAL VENOUS CATHETER PLACEMENT WITH GUIDANCE (04/06/14) INCIS W REM OF FORIEGN BODY OR DEV FROM SKIN & SUBCUT TISSUE (02/28/14) INSERTION OF TOTALLY IMPLANTABLE VASC ACCESS DEVIC (02/13/14) SERUM TRANSFUSION NEC (02/13/14) THERAPEUTIC PLASMAPHERESIS (02/13/14) <Christina Dominguez - Last Filed: 05/17/18 21:04> Review Of Systems Constitutional: Positive for: Weakness, Other (decreased PO intake). Negative for: Fever, Chills Cardiovascular: Negative for: Chest Pain, Palpitations Respiratory: Positive for: Shortness of Breath Gastrointestinal: Negative for: Nausea, Vomiting Genitourinary: Positive for: Frequency Neurological: Negative for: Weakness, Numbness, Dizziness <Yris Chang - Last Filed: 05/17/18 19:29> Physical Exam - Physical Exam Appears: Non-toxic Skin: Normal Color, Warm, Dry Head: Atraumatic, Normacephalic Oral Mucosa: Dry Neck: Normal ROM, Supple Chest: Deformity, No Tenderness, Other (right chest port) Cardiovascular: Rhythm Regular, Other (tachycardic) Respiratory: No Accessory Muscle Use, No Rales, No Rhonchi, No Wheezing Gastrointestinal/Abdominal: Bowel Sounds, Soft, Tenderness (epigastric area) Extremity: Bilateral: Atraumatic, Normal Color And Temperature, Normal ROM Pulses: Left Dorsalis Pedis: Normal, Right Dorsalis Pedis: Normal Neurological/Psych: Oriented x3, Normal Speech, Normal Cognition <Yris Chang - Last Filed: 05/17/18 19:29> ED Course And Treatment - Laboratory Results Result Diagrams: 05/17/18 18:38 05/17/18 18:38 Lab Results: Puncture Site Rba 05/17/18 18:57 pCO2 21 mm/Hg (35-45) L 05/17/18 18:57 pO2 102 mm/Hg (80-100) H 05/17/18 18:57 HCO3 16.2 mmol/L (21-28) L 05/17/18 18:57 ABG pH 7.38 (7.35-7.45) 05/17/18 18:57 ABG Total CO2 13.0 mmol/L (22-28) L 05/17/18 18:57 ABG O2 Saturation 99.0 % (95-98) H 05/17/18 18:57 ABG Base Excess -11.2 mmol/L (-2.0-3.0) L 05/17/18 18:57 ABG Hemoglobin 8.9 g/dL (11.7-17.4) L 05/17/18 18:57 ABG Carboxyhemoglobin 2.1 % (0.5-1.5) H 05/17/18 18:57 POC ABG HHb (Measured) 1.0 % (0.0-5.0) 05/17/18 18:57 ABG Methemoglobin 1.5 % (0.0-3.0) 05/17/18 18:57 Renzo Test Pos 05/17/18 18:57 A-a O2 Difference 21.0 mm/Hg 05/17/18 18:57 Respiratory Index 0.2 05/17/18 18:57 Hgb O2 Saturation 95.4 % (95.0-98.0) 05/17/18 18:57 Liter Flow 0 05/17/18 18:57 FiO2 21.0 % 05/17/18 18:57 Total Bilirubin 0.6 mg/dL (0.2-1.3) 05/17/18 18:38 AST 7 U/L (14-36) L D 05/17/18 18:38 ALT < 6 U/L (9-52) L D 05/17/18 18:38 Alkaline Phosphatase 187 U/L (38-126) H D 05/17/18 18:38 Total Protein 7.0 g/dL (6.3-8.3) 05/17/18 18:38 Albumin 3.8 g/dL (3.5-5.0) 05/17/18 18:38 Globulin 3.1 gm/dL (2.2-3.9) 05/17/18 18:38 Albumin/Globulin Ratio 1.2 (1.0-2.1) 05/17/18 18:38 Lipase 49 U/L (23-300) 05/17/18 18:38 ECG: Interpreted By Me, Viewed By Me ECG Rhythm: Sinus Tachycardia Interpretation Of ECG: Normal interval. Normal axis. No ST-elevation or depression. Rate From EC O2 Sat by Pulse Oximetry: 100 (in RA) <Yris Chang - Last Filed: 05/17/18 19:29> - Laboratory Results Result Diagrams: 05/17/18 18:38 05/17/18 18:38 Lab Results: Puncture Site Rba 05/17/18 18:57 pCO2 21 mm/Hg (35-45) L 05/17/18 18:57 pO2 102 mm/Hg (80-100) H 05/17/18 18:57 HCO3 16.2 mmol/L (21-28) L 05/17/18 18:57 ABG pH 7.38 (7.35-7.45) 05/17/18 18:57 ABG Total CO2 13.0 mmol/L (22-28) L 05/17/18 18:57 ABG O2 Saturation 99.0 % (95-98) H 05/17/18 18:57 ABG Base Excess -11.2 mmol/L (-2.0-3.0) L 05/17/18 18:57 ABG Hemoglobin 8.9 g/dL (11.7-17.4) L 05/17/18 18:57 ABG Carboxyhemoglobin 2.1 % (0.5-1.5) H 05/17/18 18:57 POC ABG HHb (Measured) 1.0 % (0.0-5.0) 05/17/18 18:57 ABG Methemoglobin 1.5 % (0.0-3.0) 05/17/18 18:57 Renzo Test Pos 05/17/18 18:57 A-a O2 Difference 21.0 mm/Hg 05/17/18 18:57 Respiratory Index 0.2 05/17/18 18:57 Hgb O2 Saturation 95.4 % (95.0-98.0) 05/17/18 18:57 Liter Flow 0 05/17/18 18:57 FiO2 21.0 % 05/17/18 18:57 Troponin I < 0.0120 ng/mL (0.00-0.120) 05/17/18 18:38 Total Bilirubin 0.6 mg/dL (0.2-1.3) 05/17/18 18:38 AST 7 U/L (14-36) L D 05/17/18 18:38 ALT < 6 U/L (9-52) L D 05/17/18 18:38 Alkaline Phosphatase 187 U/L (38-126) H D 05/17/18 18:38 Total Protein 7.0 g/dL (6.3-8.3) 05/17/18 18:38 Albumin 3.8 g/dL (3.5-5.0) 05/17/18 18:38 Globulin 3.1 gm/dL (2.2-3.9) 05/17/18 18:38 Albumin/Globulin Ratio 1.2 (1.0-2.1) 05/17/18 18:38 Lipase 49 U/L (23-300) 05/17/18 18:38 <Christina Dominguez - Last Filed: 05/17/18 21:04> Progress - Re-Evaluation Re-evaluation Note: 05/17/18 19:36 history of Wilms tumor s/p left nephrectomy in 1991, DM, neuromyelitis optica s/p rituximab treatment in 03/2017 INTERMIT GEN WEAKNESS, DECR APPETITE, SUBJ FEVER, ABD PAIN X 2 WEEKS. PS COMPLIANT W DM MEDS, STATES BASELINE GLU "IN THE 300S". EXAM MOD DIST NONTOXIC VSS. IVF INSULIN DRIP, IN PROGRESS. D/W DR ROMO AWARE OF ER FINDINGS. NOT AN ICU CANDIDATE AT THIS TIME. ADVISES CT, IVF, INSULIN 05/17/18 21:04 D/W DR SULMA DUCKWORTH [employer] MANAGER AWARE OF ER FINDINGS WILL ADMIT. CT PENDING - Data Reviewed Data Reviewed: Lab, Diagnostic imaging, EKG, Old records - Critical Care Citical Care: Excluding Proc Time Critical Care Time: 90 minutes <Christina Dominguez - Last Filed: 05/17/18 21:04> Medical Decision Making Medical Decision Making: Impression: 33 year old female with generalized weakness, SOB, and lack of appetite Plan: EKG and CXR ordered for patient Patient given IV fluids and Novolon Labs ordered with ABG and UA CXR:right chest port. unchanged prior. no infiltrate <Yris Chnag - Last Filed: 05/17/18 19:29> Disposition <Yris Chang - Last Filed: 05/17/18 19:29> Counseled Patient/Family Regarding: Studies Performed, Diagnosis - Disposition Disposition Time: 21:04 - POA Present On Arrival: Poor Glycemic Control <Christina Dominguez - Last Filed: 05/17/18 21:04> - Disposition Disposition: HOSPITALIZED Condition: SERIOUS Forms: [facility] ([place]) - Clinical Impression Clinical Impression: UTI (urinary tract infection), Uncontrolled diabetes mellitus, Abdominal pain - Scribe Statement The provider has reviewed the documentation as recorded by the Scribe (Karla Serrano) All medical record entries made by the Scribe were at my direction and personally dictated by me. I have reviewed the chart and agree that the record accurately reflects my personal performance of the history, physical exam, medical decision making, and the department course for this patient. I have also personally directed, reviewed, and agree with the discharge instructions and disposition. <Yris Chang - Last Filed: 05/17/18 19:29> Physician Patient Turnover Patient Signed Over To: Christina Dominguez Handoff Comments: pending labs, cxr, dispo <Yris Chang - Last Filed: 05/17/18 19:29>
[2018-05-17 19:13] LABS: CK-MB < 0.22 ng/mL (0.0-3.38)
[2018-05-17 20:20] LABS: VENOUS BLOOD GAS BASE EXCESS -10.6 mmol/L (0.0-2.0); VENOUS BLOOD GAS PCO2 27 mmHg (40-60); VENOUS BLOOD GAS PO2 34 mm/Hg (30-55); VENOUS BLOOD PH 7.32 (7.32-7.43)
[2018-05-17 20:56] LABS: SQUAMOUS EPITHIAL 4 /hpf (0-5); URINE BACTERIA FEW (<OCC); URINE BILIRUBIN NEGATIVE (NEGATIVE); URINE BLOOD 3+ (NEGATIVE); URINE CLARITY Hazy (Clear); URINE COLOR Yellow (YELLOW); URINE GLUCOSE (UA) 3+ mg/dL (Normal); URINE LEUKOCYTE ESTERASE 2+ Leu/uL (Negative); URINE PROTEIN NEGATIVE (NEGATIVE); URINE UROBILINOGEN NORMAL mg/dL (0.2-1.0)
[2018-05-17] MEDS ORDERED: Piperacillin/Tazobact 3.375 gm 100 ML IV STA (20:59)
[2018-05-17] MEDS ORDERED: Iodixanol 320 MG/ML 100 ML BOTTLE IV ONE (20:59)
[2018-05-17] MEDS ORDERED: Piperacillin/Tazobact 3.375 gm 100 ML IVPB ONE (21:37)
[2018-05-17 23:49] LABS: PLATELET ESTIMATE NORMAL (NORMAL)
[2018-05-17 23:51] LABS: BANDS 9 % (0-2); LYMPHOCYTE 5 % (20-40); MONOCYTE 5 % (0-10); NEUTROPHIL 81 % (50-75); TOTAL CELLS COUNTED 100
[2018-05-17 23:52] LABS: ANISOCYTOSIS SLIGHT; HYPERSEGMENTATION PRESENT; HYPOCHROMIC SLIGHT; LARGE PLATELETS PRESENT; MICROCYTOSIS SLIGHT; POIKILOCYTOSIS SLIGHT; POLYCHROMIC SLIGHT; SMUDGE CELLS PRESENT; SPHEROCYTES SLIGHT; TEARDROP CELLS SLIGHT
[2018-05-18] MEDS: (Novolog) Insulin Aspart, Recombinant 100 u/ml 10 ml vial SC SCH ×7 (00:29→21:14)
[2018-05-18 02:10] LABS: ALBUMIN 3.1 g/dL (3.5-5.0); ALT/SGPT < 6 U/L (9-52); AST/SGOT 16 U/L (14-36); BLOOD UREA NITROGEN 15 mg/dL (7-17); CALCIUM 8.5 mg/dl (8.6-10.4); GFR NON-AFRICAN AMERICAN > 60
[2018-05-18] MEDS ORDERED: Sodium Chloride 0.9% 1,000 ML IV ONE ×2 (02:28→06:46)
[2018-05-18] MEDS: Insulin Detemir 100 units/ml Vial (Levemir) SC SCH ×2 (09:07→18:28)
[2018-05-18] MEDS: Enoxaparin 40 mg Syringe SC SCH (09:07)
[2018-05-18] MEDS: Metoprolol Succinate 100 mg XL Tab PO SCH ×3 (09:08→14:01)
[2018-05-18] MEDS ORDERED: Metoprolol 1 mg/ml Inj IVP ONE (09:30)
--- NOTE | 2018-05-18 09:56 | RAD ---
Date of service: 05/17/2018 HISTORY: Diabetic COMPARISON: 12/09/2017 FINDINGS: LUNGS: No focal infiltrate or effusion. Mild venous congestion. Mild right hilar prominence. Bibasilar breast and nipple shadows. PLEURA: No significant pleural effusion identified, no pneumothorax apparent. CARDIOVASCULAR: No aortic atherosclerotic calcification present. Normal cardiac size. Mild venous congestion. OSSEOUS STRUCTURES: No significant abnormalities. VISUALIZED UPPER ABDOMEN: Normal. OTHER FINDINGS: None. IMPRESSION: No focal infiltrate or effusion. Mild venous congestion. Mild right hilar prominence. Bibasilar breast and nipple shadows.
[2018-05-18] MEDS ORDERED: (Novolog) Insulin Aspart, Recombinant 100 u/ml 10 ml vial SC SCH (10:00)
[2018-05-18] MEDS ORDERED: cefTRIAXone IV 1 gm in Dextros 1 GM in Dextrose 5% In Water 50 ML IVPB SCH (10:00)
--- NOTE | 2018-05-18 10:59 | CT ---
PROCEDURE: CT Abdomen and Pelvis without Oral or IV contrast. HISTORY: ABD PAIN COMPARISON: CT abdomen and pelvis without IV contrast performed 02/29/16 TECHNIQUE: Contiguous axial images of the abdomen and pelvis. No oral or IV contrast administered. Coronal and Sagittal reformats generated and reviewed. Radiation dose: Total exam DLP = 526.41 mGy-cm. This CT exam was performed using one or more of the following dose reduction techniques: Automated exposure control, adjustment of the mA and/or kV according to patient size, and/or use of iterative reconstruction technique. FINDINGS: There is limited evaluation of the solid organs without the administration of IV contrast. LOWER THORAX: No visible consolidation, pleural effusion, or pneumothorax. LIVER: Unremarkable unenhanced appearance. GALLBLADDER AND BILE DUCTS: Unremarkable unenhanced appearance. PANCREAS: Unremarkable unenhanced appearance. SPLEEN: Unremarkable unenhanced appearance. ADRENALS: Unremarkable unenhanced appearance. KIDNEYS AND URETERS: Left nephrectomy. Evidence of compensatory hypertrophy of the right kidney. Subtle right renal edema/peripheral haziness suggestive of infection/pyelonephritis. No obstructing calculus identified. BLADDER: The urinary bladder appears unremarkable. REPRODUCTIVE: Uterus is present. APPENDIX: The appendix appears within normal limits of caliber. No secondary signs of acute appendicitis. BOWEL: The stomach is nondistended. Lack of oral contrast limits evaluation for bowel pathology. The bowel loops appear within normal limits of caliber without evidence of intestinal obstruction. PERITONEUM: No significant free fluid. No definite free air. LYMPH NODES: No bulky lymphadenopathy identified. VASCULATURE: Atherosclerotic calcifications. No aortic aneurysm. BONES: No acute osseous abnormality is detected. OTHER FINDINGS: None. IMPRESSION: Evidence of compensatory hypertrophy of the right kidney. Subtle right renal edema/peripheral haziness suggestive of infection/pyelonephritis. No obstructing calculus identified. Correlate clinically. Left nephrectomy. Preliminary impression was provided by [facility]
--- NOTE | 2018-05-18 12:13 | CP.PCM.CON ---
History of Present Illness - History of Present Illness History of Present Illness: INFECTIOUS DISEASE CONSULT; DICTATED; DICTATION #[id number]. SEE ORDER SHEETS 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 - RENAL Hx Chronic Kidney Disease: Yes - ENDOCRINE/METABOLIC Hx Endocrine Disorders: Yes Hx Diabetes Mellitus Type 1: Yes - HEMATOLOGICAL/ONCOLOGICAL Hx Blood Disorders: Yes Hx Blood Transfusions: Yes (2014) Hx Blood Transfusion Reaction: No Other/Comment: wilms tumor 7yo - INTEGUMENTARY Hx Dermatological Problems: No - MUSCULOSKELETAL/RHEUMATOLOGICAL Hx Musculoskeletal Disorders: Yes Hx Falls: No Hx Osteomyelitis: Yes - GASTROINTESTINAL Hx Gastritis: Yes Other/Comment: SBO - GENITOURINARY/GYNECOLOGICAL Hx Genitourinary Disorders: No - PSYCHIATRIC Hx Substance Use: No - SURGICAL HISTORY Hx Surgeries: Yes Hx Amputation: No Hx Orthopedic Surgery: Yes Other/Comment: RIGHT LEG SURGERY;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;LEFT NEPHRECTOMY/INSERTION AND REMOVAL OF LIFEPORT-2X - ANESTHESIA Hx Anesthesia: Yes Hx Anesthesia Reactions: No Hx Malignant Hyperthermia: No Meds Allergies/Adverse Reactions: Allergies Allergy/AdvReac Type Severity Reaction Status Date / Time Iodinated Contrast- Oral and Allergy Verified 05/17/18 21:29 IV Dye iohexol [From Omnipaque] Allergy RASH Verified 05/17/18 17:55 - Medications Medications: Current Medications Acetaminophen (Tylenol 325mg Tab) 650 mg PO Q6 PRN PRN Reason: Other Last Admin: 05/18/18 09:08 Dose: 650 mg Enoxaparin Sodium (Lovenox) 40 mg SC DAILY [facility] Last Admin: 05/18/18 09:07 Dose: 40 mg Imipenem/Cilastatin Sodium 500 (mg/ Sodium Chloride) 100 mls @ 100 mls/hr IVPB Q6H [facility]; Protocol Insulin Aspart (Novolog) 0 unit SC ACHS [facility]; Protocol Last Admin: 05/18/18 11:53 Dose: Not Given Insulin Aspart (Novolog) 12 unit SC TIDCC [facility] Last Admin: 05/18/18 11:54 Dose: Not Given Insulin Detemir (Levemir) 8 unit SC BID [facility] Last Admin: 05/18/18 09:07 Dose: 8 unit Metformin HCl (Glucophage) 1,000 mg PO BIDCC [facility] Metoprolol Succinate (Toprol Xl) 100 mg PO DAILY [facility] Last Admin: 05/18/18 09:08 Dose: 100 mg Tramadol HCl (Ultram) 50 mg PO TID PRN PRN Reason: Pain, severe (8-10) Last Admin: 05/18/18 06:22 Dose: 50 mg Zolpidem Tartrate (Ambien) 5 mg PO HS PRN PRN Reason: Insomnia Last Admin: 05/18/18 03:25 Dose: 5 mg Results - Vital Signs Recent Vital Signs: Last Vital Signs Temp 100.4 F H 05/18/18 09:08 Pulse 120 H 05/18/18 10:00 Resp 20 05/18/18 07:48 BP 132/83 05/18/18 07:48 Pulse Ox 99 05/18/18 07:48 - Labs Result Diagrams: 05/17/18 18:38 05/18/18 01:23 Labs: Laboratory Results - last 24 hr 05/17/18 05/17/18 05/17/18 18:03 18:38 18:38 WBC 26.6 H D RBC 3.43 L Hgb 9.6 L Hct 31.4 L MCV 91.4 D MCH 27.9 MCHC 30.5 L RDW 15.9 H Plt Count 366 D MPV 10.6 Neut % (Auto) 90.1 H Lymph % (Auto) 3.5 L [place] % (Auto) 6.4 Eos % (Auto) 0.0 Baso % (Auto) 0.0 Neut # (Auto) 23.9 H Lymph # (Auto) 0.9 L [place] # (Auto) 1.7 H Eos # (Auto) 0.0 Baso # (Auto) 0.0 Neutrophils % (Manual) 81 H Band Neutrophils % 9 H Lymphocytes % (Manual) 5 L Monocytes % (Manual) 5 Hypersegmented Polys Present Smudge Cells Present Platelet Estimate Normal Large Platelets Present Polychromasia Slight Hypochromasia (manual) Slight Poikilocytosis (manual Slight Anisocytosis (manual) Slight Microcytosis (manual) Slight Spherocytes Slight Tear Drop Cells Slight Puncture Site pCO2 pO2 HCO3 ABG pH ABG Total CO2 ABG O2 Saturation ABG Base Excess ABG Hemoglobin ABG Carboxyhemoglobin POC ABG HHb (Measured) ABG Methemoglobin Renzo Test VBG pH VBG pCO2 VBG HCO3 VBG Total CO2 VBG O2 Sat (Calc) VBG Base Excess VBG Potassium A-a O2 Difference Respiratory Index Hgb O2 Saturation Glucose Lactate Liter Flow FiO2 Crit Value Called To Crit Value Called By Crit Value Read Back Blood Gas Notified Time Sodium 130 L Potassium 4.3 Chloride 89 L Carbon Dioxide 17 L Anion Gap 29 H BUN 24 H Creatinine 1.2 Est GFR ( Amer) > 60 Est GFR (Non-Af Amer) 51 POC Glucose (mg/dL) > 500 H* Random Glucose 774 H* D Calcium 9.6 Total Bilirubin 0.6 AST 7 L D ALT < 6 L D Alkaline Phosphatase 187 H D Total Creatine Kinase < 20 L CK-MB (Mass) < 0.22 Troponin I < 0.0120 Total Protein 7.0 Albumin 3.8 Globulin 3.1 Albumin/Globulin Ratio 1.2 Lipase 49 Venous Blood Potassium Urine Color Urine Clarity Urine pH Ur Specific [place] Urine Protein Urine Glucose (UA) Urine Ketones Urine Blood Urine Nitrate Urine Bilirubin Urine Urobilinogen Ur Leukocyte Esterase Urine WBC (Auto) Urine RBC (Auto) Ur Squamous Epith Cells Urine Bacteria B-Hydroxybutyrate 7.69 H 05/17/18 05/17/18 05/17/18 18:57 20:16 20:34 WBC RBC Hgb Hct MCV MCH MCHC RDW Plt Count MPV Neut % (Auto) Lymph % (Auto) [place] % (Auto) Eos % (Auto) Baso % (Auto) Neut # (Auto) Lymph # (Auto) [place] # (Auto) Eos # (Auto) Baso # (Auto) Neutrophils % (Manual) Band Neutrophils % Lymphocytes % (Manual) Monocytes % (Manual) Hypersegmented Polys Smudge Cells Platelet Estimate Large Platelets Polychromasia Hypochromasia (manual) Poikilocytosis (manual Anisocytosis (manual) Microcytosis (manual) Spherocytes Tear Drop Cells Puncture Site Rba pCO2 21 L pO2 102 H 34 HCO3 16.2 L ABG pH 7.38 ABG Total CO2 13.0 L ABG O2 Saturation 99.0 H ABG Base Excess -11.2 L ABG Hemoglobin 8.9 L ABG Carboxyhemoglobin 2.1 H POC ABG HHb (Measured) 1.0 ABG Methemoglobin 1.5 Renzo Test Pos VBG pH 7.32 VBG pCO2 27 L VBG HCO3 15.6 VBG Total CO2 14.7 L VBG O2 Sat (Calc) 64.2 VBG Base Excess -10.6 L VBG Potassium 4.1 A-a O2 Difference 21.0 Respiratory Index 0.2 Hgb O2 Saturation 95.4 Glucose 486 H* Lactate 1.6 Liter Flow 0 FiO2 21.0 Crit Value Called To pushpa Oconnell Crit Value Called By Justin guzmán Crit Value Read Back Y Blood Gas Notified Time 2019 Sodium 137.0 Potassium Chloride 103.0 Carbon Dioxide Anion Gap BUN Creatinine Est GFR ( Amer) Est GFR (Non-Af Amer) POC Glucose (mg/dL) Random Glucose Calcium Total Bilirubin AST ALT Alkaline Phosphatase Total Creatine Kinase CK-MB (Mass) Troponin I Total Protein Albumin Globulin Albumin/Globulin Ratio Lipase Venous Blood Potassium 4.1 Urine Color Yellow Urine Clarity Hazy Urine pH 5.0 Ur Specific [place] 1.018 Urine Protein Negative Urine Glucose (UA) 3+ H Urine Ketones 1+ H Urine Blood 3+ H Urine Nitrate Positive H Urine Bilirubin Negative Urine Urobilinogen Normal Ur Leukocyte Esterase 2+ H Urine WBC (Auto) 55 H Urine RBC (Auto) 56 H Ur Squamous Epith Cells 4 Urine Bacteria Few H B-Hydroxybutyrate 05/17/18 05/18/18 05/18/18 22:28 00:21 01:23 WBC RBC Hgb Hct MCV MCH MCHC RDW Plt Count MPV Neut % (Auto) Lymph % (Auto) [place] % (Auto) Eos % (Auto) Baso % (Auto) Neut # (Auto) Lymph # (Auto) [place] # (Auto) Eos # (Auto) Baso # (Auto) Neutrophils % (Manual) Band Neutrophils % Lymphocytes % (Manual) Monocytes % (Manual) Hypersegmented Polys Smudge Cells Platelet Estimate Large Platelets Polychromasia Hypochromasia (manual) Poikilocytosis (manual Anisocytosis (manual) Microcytosis (manual) Spherocytes Tear Drop Cells Puncture Site pCO2 pO2 HCO3 ABG pH ABG Total CO2 ABG O2 Saturation ABG Base Excess ABG Hemoglobin ABG Carboxyhemoglobin POC ABG HHb (Measured) ABG Methemoglobin Renzo Test VBG pH VBG pCO2 VBG HCO3 VBG Total CO2 VBG O2 Sat (Calc) VBG Base Excess VBG Potassium A-a O2 Difference Respiratory Index Hgb O2 Saturation Glucose Lactate Liter Flow FiO2 Crit Value Called To Crit Value Called By Crit Value Read Back Blood Gas Notified Time Sodium 139 Potassium 3.9 Chloride 107 D Carbon Dioxide 15 L Anion Gap 20 BUN 15 Creatinine 0.9 Est GFR ( Amer) > 60 Est GFR (Non-Af Amer) > 60 POC Glucose (mg/dL) 372 H 348 H Random Glucose 319 H D Calcium 8.5 L Total Bilirubin 0.7 AST 16 ALT < 6 L Alkaline Phosphatase 149 H D Total Creatine Kinase CK-MB (Mass) Troponin I Total Protein 6.1 L Albumin 3.1 L Globulin 3.0 Albumin/Globulin Ratio 1.0 Lipase Venous Blood Potassium Urine Color Urine Clarity Urine pH Ur Specific [place] Urine Protein Urine Glucose (UA) Urine Ketones Urine Blood Urine Nitrate Urine Bilirubin Urine Urobilinogen Ur Leukocyte Esterase Urine WBC (Auto) Urine RBC (Auto) Ur Squamous Epith Cells Urine Bacteria B-Hydroxybutyrate 05/18/18 05/18/18 06:41 11:40 WBC RBC Hgb Hct MCV MCH MCHC RDW Plt Count MPV Neut % (Auto) Lymph % (Auto) [place] % (Auto) Eos % (Auto) Baso % (Auto) Neut # (Auto) Lymph # (Auto) [place] # (Auto) Eos # (Auto) Baso # (Auto) Neutrophils % (Manual) Band Neutrophils % Lymphocytes % (Manual) Monocytes % (Manual) Hypersegmented Polys Smudge Cells Platelet Estimate Large Platelets Polychromasia Hypochromasia (manual) Poikilocytosis (manual Anisocytosis (manual) Microcytosis (manual) Spherocytes Tear Drop Cells Puncture Site pCO2 pO2 HCO3 ABG pH ABG Total CO2 ABG O2 Saturation ABG Base Excess ABG Hemoglobin ABG Carboxyhemoglobin POC ABG HHb (Measured) ABG Methemoglobin Renzo Test VBG pH VBG pCO2 VBG HCO3 VBG Total CO2 VBG O2 Sat (Calc) VBG Base Excess VBG Potassium A-a O2 Difference Respiratory Index Hgb O2 Saturation Glucose Lactate Liter Flow FiO2 Crit Value Called To Crit Value Called By Crit Value Read Back Blood Gas Notified Time Sodium Potassium Chloride Carbon Dioxide Anion Gap BUN Creatinine Est GFR ( Amer) Est GFR (Non-Af Amer) POC Glucose (mg/dL) 267 H 127 H Random Glucose Calcium Total Bilirubin AST ALT Alkaline Phosphatase Total Creatine Kinase CK-MB (Mass) Troponin I Total Protein Albumin Globulin Albumin/Globulin Ratio Lipase Venous Blood Potassium Urine Color Urine Clarity Urine pH Ur Specific [place] Urine Protein Urine Glucose (UA) Urine Ketones Urine Blood Urine Nitrate Urine Bilirubin Urine Urobilinogen Ur Leukocyte Esterase Urine WBC (Auto) Urine RBC (Auto) Ur Squamous Epith Cells Urine Bacteria B-Hydroxybutyrate
--- NOTE | 2018-05-18 12:45 | CARD ---
APPROVED REPORT Date of service: 05/17/2018 EKG Measurement Heart [id number] <Conclusion> Sinus tachycardia Possible Left atrial enlargement Nonspecific T wave abnormality Abnormal ECG
[2018-05-18 17:02] LABS: HDL CHOLESTEROL 19 mg/dL (30-70)
[2018-05-18 17:13] LABS: LDL CHOLESTEROL 60 mg/dL (0-129)
[2018-05-18 17:29] LABS: IRON < 10 ug/dL (37-170); TOTAL IRON BINDING CAPACITY 182 ug/dL (250-450)
[2018-05-18 18:05] LABS: % IRON SATURATION 0.53 (20-55)
[2018-05-18 18:52] LABS: FOLATE 7.6 ng/mL
--- NOTE | 2018-05-18 19:01 | CP.PCM.CON ---
History of Present Illness - History of Present Illness History of Present Illness: 33 year old female presents to ED with complaint of generalized weakness, lack of appetite, and shortness of breath for the past 2 weeks. Patient has a PMHx of diabetes. Patient is currently taking metformin and eliquis. Patient states that she has been urinating frequently has only moved her bowels twice since she has not been eating. Patient states that she is allergic to iodine. Patient denies nausea, vomiting, cough, chills, and fever. At the time of not much alert or want to talk. I have told them everything. we were called for tachycardia. 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 - RENAL Hx Chronic Kidney Disease: Yes - ENDOCRINE/METABOLIC Hx Endocrine Disorders: Yes Hx Diabetes Mellitus Type 1: Yes - HEMATOLOGICAL/ONCOLOGICAL Hx Blood Disorders: Yes Hx Blood Transfusions: Yes (2014) Hx Blood Transfusion Reaction: No Other/Comment: wilms tumor 7yo - INTEGUMENTARY Hx Dermatological Problems: No - MUSCULOSKELETAL/RHEUMATOLOGICAL Hx Musculoskeletal Disorders: Yes Hx Falls: No Hx Osteomyelitis: Yes - GASTROINTESTINAL Hx Gastritis: Yes Other/Comment: SBO - GENITOURINARY/GYNECOLOGICAL Hx Genitourinary Disorders: No - PSYCHIATRIC Hx Substance Use: No - SURGICAL HISTORY Hx Surgeries: Yes Hx Amputation: No Hx Orthopedic Surgery: Yes Other/Comment: RIGHT LEG SURGERY;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;LEFT NEPHRECTOMY/INSERTION AND REMOVAL OF LIFEPORT-2X - ANESTHESIA Hx Anesthesia: Yes Hx Anesthesia Reactions: No Hx Malignant Hyperthermia: No Meds Allergies/Adverse Reactions: Allergies Allergy/AdvReac Type Severity Reaction Status Date / Time Iodinated Contrast- Oral and Allergy Verified 05/17/18 21:29 IV Dye iohexol [From Omnipaque] Allergy RASH Verified 05/17/18 17:55 - Medications Medications: Current Medications Acetaminophen (Tylenol 325mg Tab) 650 mg PO Q6 PRN PRN Reason: Other Last Admin: 05/18/18 13:52 Dose: 650 mg Enoxaparin Sodium (Lovenox) 40 mg SC DAILY [facility] Last Admin: 05/18/18 09:07 Dose: 40 mg Imipenem/Cilastatin Sodium 500 (mg/ Sodium Chloride) 100 mls @ 100 mls/hr IVPB Q6H [facility]; Protocol Last Admin: 05/18/18 17:02 Dose: Not Given Insulin Aspart (Novolog) 0 unit SC ACHS [facility]; Protocol Last Admin: 05/18/18 16:50 Dose: Not Given Insulin Aspart (Novolog) 12 unit SC TIDCC [facility] Last Admin: 05/18/18 17:01 Dose: Not Given Insulin Detemir (Levemir) 8 unit SC BID [facility] Last Admin: 05/18/18 18:28 Dose: Not Given Metformin HCl (Glucophage) 1,000 mg PO BIDCC [facility] Last Admin: 05/18/18 17:01 Dose: Not Given Metoprolol Succinate (Toprol Xl) 100 mg PO DAILY [facility] Last Admin: 05/18/18 14:01 Dose: 100 mg Metoprolol Tartrate (Lopressor) 5 mg IVP Q8H PRN PRN Reason: Other Tramadol HCl (Ultram) 50 mg PO TID PRN PRN Reason: Pain, severe (8-10) Last Admin: 05/18/18 12:31 Dose: 50 mg Zolpidem Tartrate (Ambien) 5 mg PO HS PRN PRN Reason: Insomnia Last Admin: 05/18/18 03:25 Dose: 5 mg Physical Exam - Head Exam Head Exam: NORMOCEPHALIC - Neck Exam Neck exam: Positive for: Normal Inspection - Respiratory Exam Respiratory Exam: NORMAL BREATHING PATTERN - Cardiovascular Exam Cardiovascular Exam: Tachycardia - Extremities Exam Extremities exam: Positive for: normal inspection - Neurological Exam Neurological exam: Alert Results - Vital Signs Recent Vital Signs: Last Vital Signs Temp 99.6 F 05/18/18 15:00 Pulse 117 H 05/18/18 16:20 Resp 20 05/18/18 15:00 BP 113/69 05/18/18 15:00 Pulse Ox 97 05/18/18 15:00 - Labs Result Diagrams: 05/19/18 07:23 05/19/18 07:23 Labs: Laboratory Results - last 24 hr 05/17/18 05/17/18 05/17/18 18:38 18:38 18:57 WBC 26.6 H D RBC 3.43 L Hgb 9.6 L Hct 31.4 L MCV 91.4 D MCH 27.9 MCHC 30.5 L RDW 15.9 H Plt Count 366 D MPV 10.6 Neut % (Auto) 90.1 H Lymph % (Auto) 3.5 L [place] % (Auto) 6.4 Eos % (Auto) 0.0 Baso % (Auto) 0.0 Neut # (Auto) 23.9 H Lymph # (Auto) 0.9 L [place] # (Auto) 1.7 H Eos # (Auto) 0.0 Baso # (Auto) 0.0 Neutrophils % (Manual) 81 H Band Neutrophils % 9 H Lymphocytes % (Manual) 5 L Monocytes % (Manual) 5 Hypersegmented Polys Present Smudge Cells Present Platelet Estimate Normal Large Platelets Present Polychromasia Slight Hypochromasia (manual) Slight Poikilocytosis (manual Slight Anisocytosis (manual) Slight Microcytosis (manual) Slight Spherocytes Slight Tear Drop Cells Slight Puncture Site Rba pCO2 21 L pO2 102 H HCO3 16.2 L ABG pH 7.38 ABG Total CO2 13.0 L ABG O2 Saturation 99.0 H ABG Base Excess -11.2 L ABG Hemoglobin 8.9 L ABG Carboxyhemoglobin 2.1 H POC ABG HHb (Measured) 1.0 ABG Methemoglobin 1.5 Renzo Test Pos VBG pH VBG pCO2 VBG HCO3 VBG Total CO2 VBG O2 Sat (Calc) VBG Base Excess VBG Potassium A-a O2 Difference 21.0 Respiratory Index 0.2 Hgb O2 Saturation 95.4 Glucose Lactate Liter Flow 0 FiO2 21.0 Crit Value Called To Crit Value Called By Crit Value Read Back Blood Gas Notified Time Sodium 130 L Potassium 4.3 Chloride 89 L Carbon Dioxide 17 L Anion Gap 29 H BUN 24 H Creatinine 1.2 Est GFR ( Amer) > 60 Est GFR (Non-Af Amer) 51 POC Glucose (mg/dL) Random Glucose 774 H* D Hemoglobin A1c Calcium 9.6 Iron TIBC % Saturation Total Bilirubin 0.6 AST 7 L D ALT < 6 L D Alkaline Phosphatase 187 H D Total Creatine Kinase < 20 L CK-MB (Mass) < 0.22 Troponin I < 0.0120 Total Protein 7.0 Albumin 3.8 Globulin 3.1 Albumin/Globulin Ratio 1.2 Triglycerides Cholesterol LDL Cholesterol Direct HDL Cholesterol Lipase 49 Vitamin B12 Folate Venous Blood Potassium Urine Color Urine Clarity Urine pH Ur Specific [place] Urine Protein Urine Glucose (UA) Urine Ketones Urine Blood Urine Nitrate Urine Bilirubin Urine Urobilinogen Ur Leukocyte Esterase Urine WBC (Auto) Urine RBC (Auto) Ur Squamous Epith Cells Urine Bacteria B-Hydroxybutyrate 7.69 H 05/17/18 05/17/18 05/17/18 20:16 20:34 22:28 WBC RBC Hgb Hct MCV MCH MCHC RDW Plt Count MPV Neut % (Auto) Lymph % (Auto) [place] % (Auto) Eos % (Auto) Baso % (Auto) Neut # (Auto) Lymph # (Auto) [place] # (Auto) Eos # (Auto) Baso # (Auto) Neutrophils % (Manual) Band Neutrophils % Lymphocytes % (Manual) Monocytes % (Manual) Hypersegmented Polys Smudge Cells Platelet Estimate Large Platelets Polychromasia Hypochromasia (manual) Poikilocytosis (manual Anisocytosis (manual) Microcytosis (manual) Spherocytes Tear Drop Cells Puncture Site pCO2 pO2 34 HCO3 ABG pH ABG Total CO2 ABG O2 Saturation ABG Base Excess ABG Hemoglobin ABG Carboxyhemoglobin POC ABG HHb (Measured) ABG Methemoglobin Renzo Test VBG pH 7.32 VBG pCO2 27 L VBG HCO3 15.6 VBG Total CO2 14.7 L VBG O2 Sat (Calc) 64.2 VBG Base Excess -10.6 L VBG Potassium 4.1 A-a O2 Difference Respiratory Index Hgb O2 Saturation Glucose 486 H* Lactate 1.6 Liter Flow FiO2 Crit Value Called To pushpa Oconnell Crit Value Called By Justin guzmán Crit Value Read Back Y Blood Gas Notified Time 2019 Sodium 137.0 Potassium Chloride 103.0 Carbon Dioxide Anion Gap BUN Creatinine Est GFR ( Amer) Est GFR (Non-Af Amer) POC Glucose (mg/dL) 372 H Random Glucose Hemoglobin A1c Calcium Iron TIBC % Saturation Total Bilirubin AST ALT Alkaline Phosphatase Total Creatine Kinase CK-MB (Mass) Troponin I Total Protein Albumin Globulin Albumin/Globulin Ratio Triglycerides Cholesterol LDL Cholesterol Direct HDL Cholesterol Lipase Vitamin B12 Folate Venous Blood Potassium 4.1 Urine Color Yellow Urine Clarity Hazy Urine pH 5.0 Ur Specific [place] 1.018 Urine Protein Negative Urine Glucose (UA) 3+ H Urine Ketones 1+ H Urine Blood 3+ H Urine Nitrate Positive H Urine Bilirubin Negative Urine Urobilinogen Normal Ur Leukocyte Esterase 2+ H Urine WBC (Auto) 55 H Urine RBC (Auto) 56 H Ur Squamous Epith Cells 4 Urine Bacteria Few H B-Hydroxybutyrate 05/18/18 05/18/18 05/18/18 00:21 01:23 06:41 WBC RBC Hgb Hct MCV MCH MCHC RDW Plt Count MPV Neut % (Auto) Lymph % (Auto) [place] % (Auto) Eos % (Auto) Baso % (Auto) Neut # (Auto) Lymph # (Auto) [place] # (Auto) Eos # (Auto) Baso # (Auto) Neutrophils % (Manual) Band Neutrophils % Lymphocytes % (Manual) Monocytes % (Manual) Hypersegmented Polys Smudge Cells Platelet Estimate Large Platelets Polychromasia Hypochromasia (manual) Poikilocytosis (manual Anisocytosis (manual) Microcytosis (manual) Spherocytes Tear Drop Cells Puncture Site pCO2 pO2 HCO3 ABG pH ABG Total CO2 ABG O2 Saturation ABG Base Excess ABG Hemoglobin ABG Carboxyhemoglobin POC ABG HHb (Measured) ABG Methemoglobin Renzo Test VBG pH VBG pCO2 VBG HCO3 VBG Total CO2 VBG O2 Sat (Calc) VBG Base Excess VBG Potassium A-a O2 Difference Respiratory Index Hgb O2 Saturation Glucose Lactate Liter Flow FiO2 Crit Value Called To Crit Value Called By Crit Value Read Back Blood Gas Notified Time Sodium 139 Potassium 3.9 Chloride 107 D Carbon Dioxide 15 L Anion Gap 20 BUN 15 Creatinine 0.9 Est GFR ( Amer) > 60 Est GFR (Non-Af Amer) > 60 POC Glucose (mg/dL) 348 H 267 H Random Glucose 319 H D Hemoglobin A1c Calcium 8.5 L Iron TIBC % Saturation Total Bilirubin 0.7 AST 16 ALT < 6 L Alkaline Phosphatase 149 H D Total Creatine Kinase CK-MB (Mass) Troponin I Total Protein 6.1 L Albumin 3.1 L Globulin 3.0 Albumin/Globulin Ratio 1.0 Triglycerides Cholesterol LDL Cholesterol Direct HDL Cholesterol Lipase Vitamin B12 Folate Venous Blood Potassium Urine Color Urine Clarity Urine pH Ur Specific [place] Urine Protein Urine Glucose (UA) Urine Ketones Urine Blood Urine Nitrate Urine Bilirubin Urine Urobilinogen Ur Leukocyte Esterase Urine WBC (Auto) Urine RBC (Auto) Ur Squamous Epith Cells Urine Bacteria B-Hydroxybutyrate 05/18/18 05/18/18 05/18/18 11:40 16:26 16:46 WBC RBC Hgb Hct MCV MCH MCHC RDW Plt Count MPV Neut % (Auto) Lymph % (Auto) [place] % (Auto) Eos % (Auto) Baso % (Auto) Neut # (Auto) Lymph # (Auto) [place] # (Auto) Eos # (Auto) Baso # (Auto) Neutrophils % (Manual) Band Neutrophils % Lymphocytes % (Manual) Monocytes % (Manual) Hypersegmented Polys Smudge Cells Platelet Estimate Large Platelets Polychromasia Hypochromasia (manual) Poikilocytosis (manual Anisocytosis (manual) Microcytosis (manual) Spherocytes Tear Drop Cells Puncture Site pCO2 pO2 HCO3 ABG pH ABG Total CO2 ABG O2 Saturation ABG Base Excess ABG Hemoglobin ABG Carboxyhemoglobin POC ABG HHb (Measured) ABG Methemoglobin Renzo Test VBG pH VBG pCO2 VBG HCO3 VBG Total CO2 VBG O2 Sat (Calc) VBG Base Excess VBG Potassium A-a O2 Difference Respiratory Index Hgb O2 Saturation Glucose Lactate Liter Flow FiO2 Crit Value Called To Crit Value Called By Crit Value Read Back Blood Gas Notified Time Sodium Potassium Chloride Carbon Dioxide Anion Gap BUN Creatinine Est GFR ( Amer) Est GFR (Non-Af Amer) POC Glucose (mg/dL) 127 H 99 Random Glucose Hemoglobin A1c Calcium Iron TIBC % Saturation Total Bilirubin AST ALT Alkaline Phosphatase Total Creatine Kinase CK-MB (Mass) Troponin I Total Protein Albumin Globulin Albumin/Globulin Ratio Triglycerides 81 Cholesterol 84 LDL Cholesterol Direct 60 HDL Cholesterol 19 L Lipase Vitamin B12 > 1000 H Folate 7.6 Venous Blood Potassium Urine Color Urine Clarity Urine pH Ur Specific [place] Urine Protein Urine Glucose (UA) Urine Ketones Urine Blood Urine Nitrate Urine Bilirubin Urine Urobilinogen Ur Leukocyte Esterase Urine WBC (Auto) Urine RBC (Auto) Ur Squamous Epith Cells Urine Bacteria B-Hydroxybutyrate 05/18/18 05/18/18 16:46 16:46 WBC RBC Hgb Hct MCV MCH MCHC RDW Plt Count MPV Neut % (Auto) Lymph % (Auto) [place] % (Auto) Eos % (Auto) Baso % (Auto) Neut # (Auto) Lymph # (Auto) [place] # (Auto) Eos # (Auto) Baso # (Auto) Neutrophils % (Manual) Band Neutrophils % Lymphocytes % (Manual) Monocytes % (Manual) Hypersegmented Polys Smudge Cells Platelet Estimate Large Platelets Polychromasia Hypochromasia (manual) Poikilocytosis (manual Anisocytosis (manual) Microcytosis (manual) Spherocytes Tear Drop Cells Puncture Site pCO2 pO2 HCO3 ABG pH ABG Total CO2 ABG O2 Saturation ABG Base Excess ABG Hemoglobin ABG Carboxyhemoglobin POC ABG HHb (Measured) ABG Methemoglobin Renzo Test VBG pH VBG pCO2 VBG HCO3 VBG Total CO2 VBG O2 Sat (Calc) VBG Base Excess VBG Potassium A-a O2 Difference Respiratory Index Hgb O2 Saturation Glucose Lactate Liter Flow FiO2 Crit Value Called To Crit Value Called By Crit Value Read Back Blood Gas Notified Time Sodium Potassium Chloride Carbon Dioxide Anion Gap BUN Creatinine Est GFR ( Amer) Est GFR (Non-Af Amer) POC Glucose (mg/dL) Random Glucose Hemoglobin A1c 13.5 H Calcium Iron < 10 L TIBC 182 L % Saturation 0.53 L Total Bilirubin AST ALT Alkaline Phosphatase Total Creatine Kinase CK-MB (Mass) Troponin I Total Protein Albumin Globulin Albumin/Globulin Ratio Triglycerides Cholesterol LDL Cholesterol Direct HDL Cholesterol Lipase Vitamin B12 Folate Venous Blood Potassium Urine Color Urine Clarity Urine pH Ur Specific [place] Urine Protein Urine Glucose (UA) Urine Ketones Urine Blood Urine Nitrate Urine Bilirubin Urine Urobilinogen Ur Leukocyte Esterase Urine WBC (Auto) Urine RBC (Auto) Ur Squamous Epith Cells Urine Bacteria B-Hydroxybutyrate Assessment & Plan (1) Sinus tachycardia Assessment and Plan: Multiple causes, discussed wit team, PRN IV beta blockers. Continue PO beta blockers. Most of her symptoms are secondary to non-compliance with medicine an diet. Correct underlying electrolyte abnormalities. discussed with team. Status: Acute
--- NOTE | 2018-05-18 19:24 | CARD ---
APPROVED REPORT Date of service: 05/18/2018 EXAM: Two-dimensional and M-mode echocardiogram with Doppler and color Doppler. Other Information Quality : GoodRhythm : INDICATION Infection: LV Function:Systolic RISK FACTORS Hypertension Diabetes 2D DIMENSIONS IVSd0.8 (0.7-1.1cm)LVDd4.2 (3.9-5.9cm) PWd0.7 (0.7-1.1cm)LA Tyekks96 (18-58mL) LVDs3.4 (2.5-4.0cm)FS (%) 19.8 % LVEF (%)41.0 (>50%)LVEF (Marroquin's)50.24 % IVC0.00 cm M-Mode DIMENSIONS RVDd1.44 (2.1-3.2cm)Left Atrium (MM)3.47 (2.5-4.0cm) IVSd0.51 (0.7-1.1cm)Aortic Root2.75 (2.2-3.7cm) LVDd4.85 (4.0-5.6cm)Aortic Cusp Exc.1.93 (1.5-2.0cm) PWd0.65 (0.7-1.1cm)FS (%) 20 % LVDs3.86 (2.0-3.8cm)LVEF (%)42 (>50%) Mitral Valve MV E Uyjmzqkh83.6cm/sMV A Dmdpkjuq555.9cm/sE/A ratio0.6 TDI Lateral E' Peak V16.22cm/sMedial E' Peak V10.42cm/sE/Lateral E'3.5 E/Medial E'5.4 Tricuspid Valve TR Peak Desvrfum829zp/sTR Peak Gr.[id number] LEFT VENTRICLE The left ventricle is normal size. There is normal left ventricular wall thickness. Left ventricle systolic function is borderline. The Ejection Fraction is 50-55%.Tachycardia can under estimate EF There is normal LV segmental wall motion. The left ventricular diastolic function is normal. There is no ventricular septal defect visualized. RIGHT VENTRICLE The right ventricle is normal size. The right ventricular systolic function is normal. ATRIA The left atrium size is normal. The right atrium size is normal. AORTIC VALVE The aortic valve is tri-cuspid. The aortic valve is normal in structure. No aortic regurgitation is present. There is no aortic valvular stenosis. MITRAL VALVE The mitral valve is normal in structure. There is no evidence of mitral valve prolapse. There is no mitral valve regurgitation noted. TRICUSPID VALVE The tricuspid valve is normal in structure. There is trace tricuspid regurgitation. Right ventricular systolic pressure is estimated at less than 30 mmHg. There is no pulmonary hypertension. PULMONIC VALVE The pulmonary valve is normal in structure. There is no pulmonic valvular regurgitation. GREAT VESSELS The aortic root is normal in size. The ascending aorta is normal in size. The IVC is normal in size and collapses >50% with inspiration. PERICARDIAL EFFUSION There is no pericardial effusion. <Conclusion> Left ventricle systolic function is borderline. The Ejection Fraction is 50-55%.Tachycardia can under estimate EF The left ventricular diastolic function is normal.
--- NOTE | 2018-05-18 20:49 | CP.PCM.CON ---
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 - RENAL Hx Chronic Kidney Disease: Yes - ENDOCRINE/METABOLIC Hx Endocrine Disorders: Yes Hx Diabetes Mellitus Type 1: Yes - HEMATOLOGICAL/ONCOLOGICAL Hx Blood Disorders: Yes Hx Blood Transfusions: Yes (2014) Hx Blood Transfusion Reaction: No Other/Comment: wilms tumor 7yo - INTEGUMENTARY Hx Dermatological Problems: No - MUSCULOSKELETAL/RHEUMATOLOGICAL Hx Musculoskeletal Disorders: Yes Hx Falls: No Hx Osteomyelitis: Yes - GASTROINTESTINAL Hx Gastritis: Yes Other/Comment: SBO - GENITOURINARY/GYNECOLOGICAL Hx Genitourinary Disorders: No - PSYCHIATRIC Hx Substance Use: No - SURGICAL HISTORY Hx Surgeries: Yes Hx Amputation: No Hx Orthopedic Surgery: Yes Other/Comment: RIGHT LEG SURGERY;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;LEFT NEPHRECTOMY/INSERTION AND REMOVAL OF LIFEPORT-2X - ANESTHESIA Hx Anesthesia: Yes Hx Anesthesia Reactions: No Hx Malignant Hyperthermia: No Meds Allergies/Adverse Reactions: Allergies Allergy/AdvReac Type Severity Reaction Status Date / Time Iodinated Contrast- Oral and Allergy Verified 05/17/18 21:29 IV Dye iohexol [From Omnipaque] Allergy RASH Verified 05/17/18 17:55 - Medications Medications: Current Medications Acetaminophen (Tylenol 325mg Tab) 650 mg PO Q6 PRN PRN Reason: Other Last Admin: 05/18/18 13:52 Dose: 650 mg Enoxaparin Sodium (Lovenox) 40 mg SC DAILY [facility] Last Admin: 05/18/18 09:07 Dose: 40 mg Imipenem/Cilastatin Sodium 500 (mg/ Sodium Chloride) 100 mls @ 100 mls/hr IVPB Q6H [facility]; Protocol Last Admin: 05/18/18 17:02 Dose: Not Given Insulin Aspart (Novolog) 0 unit SC ACHS [facility]; Protocol Last Admin: 05/18/18 16:50 Dose: Not Given Insulin Aspart (Novolog) 12 unit SC TIDCC [facility] Last Admin: 05/18/18 17:01 Dose: Not Given Insulin Detemir (Levemir) 8 unit SC BID [facility] Last Admin: 05/18/18 18:28 Dose: Not Given Metformin HCl (Glucophage) 1,000 mg PO BIDCC [facility] Last Admin: 05/18/18 17:01 Dose: Not Given Metoprolol Succinate (Toprol Xl) 100 mg PO DAILY [facility] Last Admin: 05/18/18 14:01 Dose: 100 mg Metoprolol Tartrate (Lopressor) 5 mg IVP Q8H PRN PRN Reason: Other Tramadol HCl (Ultram) 50 mg PO TID PRN PRN Reason: Pain, severe (8-10) Last Admin: 05/18/18 20:31 Dose: 50 mg Zolpidem Tartrate (Ambien) 5 mg PO HS PRN PRN Reason: Insomnia Last Admin: 05/18/18 03:25 Dose: 5 mg Results - Vital Signs Recent Vital Signs: Last Vital Signs Temp 99.6 F 05/18/18 15:00 Pulse 117 H 05/18/18 16:20 Resp 20 05/18/18 15:00 BP 113/69 05/18/18 15:00 Pulse Ox 97 05/18/18 15:00 - Labs Result Diagrams: 05/17/18 18:38 05/18/18 01:23 Labs: Laboratory Results - last 24 hr 05/17/18 05/17/18 05/17/18 18:38 20:34 22:28 Neutrophils % (Manual) 81 H Band Neutrophils % 9 H Lymphocytes % (Manual) 5 L Monocytes % (Manual) 5 Hypersegmented Polys Present Smudge Cells Present Platelet Estimate Normal Large Platelets Present Polychromasia Slight Hypochromasia (manual) Slight Poikilocytosis (manual Slight Anisocytosis (manual) Slight Microcytosis (manual) Slight Spherocytes Slight Tear Drop Cells Slight Sodium Potassium Chloride Carbon Dioxide Anion Gap BUN Creatinine Est GFR ( Amer) Est GFR (Non-Af Amer) POC Glucose (mg/dL) 372 H Random Glucose Hemoglobin A1c Calcium Iron TIBC % Saturation Total Bilirubin AST ALT Alkaline Phosphatase Total Protein Albumin Globulin Albumin/Globulin Ratio Triglycerides Cholesterol LDL Cholesterol Direct HDL Cholesterol Vitamin B12 Folate Urine Color Yellow Urine Clarity Hazy Urine pH 5.0 Ur Specific [place] 1.018 Urine Protein Negative Urine Glucose (UA) 3+ H Urine Ketones 1+ H Urine Blood 3+ H Urine Nitrate Positive H Urine Bilirubin Negative Urine Urobilinogen Normal Ur Leukocyte Esterase 2+ H Urine WBC (Auto) 55 H Urine RBC (Auto) 56 H Ur Squamous Epith Cells 4 Urine Bacteria Few H 05/18/18 05/18/18 05/18/18 00:21 01:23 06:41 Neutrophils % (Manual) Band Neutrophils % Lymphocytes % (Manual) Monocytes % (Manual) Hypersegmented Polys Smudge Cells Platelet Estimate Large Platelets Polychromasia Hypochromasia (manual) Poikilocytosis (manual Anisocytosis (manual) Microcytosis (manual) Spherocytes Tear Drop Cells Sodium 139 Potassium 3.9 Chloride 107 D Carbon Dioxide 15 L Anion Gap 20 BUN 15 Creatinine 0.9 Est GFR ( Amer) > 60 Est GFR (Non-Af Amer) > 60 POC Glucose (mg/dL) 348 H 267 H Random Glucose 319 H D Hemoglobin A1c Calcium 8.5 L Iron TIBC % Saturation Total Bilirubin 0.7 AST 16 ALT < 6 L Alkaline Phosphatase 149 H D Total Protein 6.1 L Albumin 3.1 L Globulin 3.0 Albumin/Globulin Ratio 1.0 Triglycerides Cholesterol LDL Cholesterol Direct HDL Cholesterol Vitamin B12 Folate Urine Color Urine Clarity Urine pH Ur Specific [place] Urine Protein Urine Glucose (UA) Urine Ketones Urine Blood Urine Nitrate Urine Bilirubin Urine Urobilinogen Ur Leukocyte Esterase Urine WBC (Auto) Urine RBC (Auto) Ur Squamous Epith Cells Urine Bacteria 05/18/18 05/18/18 05/18/18 11:40 16:26 16:46 Neutrophils % (Manual) Band Neutrophils % Lymphocytes % (Manual) Monocytes % (Manual) Hypersegmented Polys Smudge Cells Platelet Estimate Large Platelets Polychromasia Hypochromasia (manual) Poikilocytosis (manual Anisocytosis (manual) Microcytosis (manual) Spherocytes Tear Drop Cells Sodium Potassium Chloride Carbon Dioxide Anion Gap BUN Creatinine Est GFR ( Amer) Est GFR (Non-Af Amer) POC Glucose (mg/dL) 127 H 99 Random Glucose Hemoglobin A1c Calcium Iron TIBC % Saturation Total Bilirubin AST ALT Alkaline Phosphatase Total Protein Albumin Globulin Albumin/Globulin Ratio Triglycerides 81 Cholesterol 84 LDL Cholesterol Direct 60 HDL Cholesterol 19 L Vitamin B12 > 1000 H Folate 7.6 Urine Color Urine Clarity Urine pH Ur Specific [place] Urine Protein Urine Glucose (UA) Urine Ketones Urine Blood Urine Nitrate Urine Bilirubin Urine Urobilinogen Ur Leukocyte Esterase Urine WBC (Auto) Urine RBC (Auto) Ur Squamous Epith Cells Urine Bacteria 05/18/18 05/18/18 16:46 16:46 Neutrophils % (Manual) Band Neutrophils % Lymphocytes % (Manual) Monocytes % (Manual) Hypersegmented Polys Smudge Cells Platelet Estimate Large Platelets Polychromasia Hypochromasia (manual) Poikilocytosis (manual Anisocytosis (manual) Microcytosis (manual) Spherocytes Tear Drop Cells Sodium Potassium Chloride Carbon Dioxide Anion Gap BUN Creatinine Est GFR ( Amer) Est GFR (Non-Af Amer) POC Glucose (mg/dL) Random Glucose Hemoglobin A1c 13.5 H Calcium Iron < 10 L TIBC 182 L % Saturation 0.53 L Total Bilirubin AST ALT Alkaline Phosphatase Total Protein Albumin Globulin Albumin/Globulin Ratio Triglycerides Cholesterol LDL Cholesterol Direct HDL Cholesterol Vitamin B12 Folate Urine Color Urine Clarity Urine pH Ur Specific [place] Urine Protein Urine Glucose (UA) Urine Ketones Urine Blood Urine Nitrate Urine Bilirubin Urine Urobilinogen Ur Leukocyte Esterase Urine WBC (Auto) Urine RBC (Auto) Ur Squamous Epith Cells Urine Bacteria Assessment & Plan - Assessment and Plan (Free Text) Assessment: IMP: UTI R 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
[2018-05-18] MEDS ORDERED: Magnesium Hydroxide Susp 30 ml UD PO ONE (21:26)
--- NOTE | 2018-05-19 05:19 | CON ---
DATE: 05/18/2018 INFECTIOUS DISEASE CONSULTATION REQUESTED BY: Sommer Spaulding MD REASON FOR CONSULTATION: Leukocytosis, sepsis, UTI, history of diabetes mellitus. 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 The patient states she has been currently taking her metformin and Eliquis as before but does not understand why she is feeling so weak. The patient also states she has been urinating frequently but denies any dysuria or hematuria. She states she has been taking liquids most of the time in the past two weeks and has moved her bowels only twice as she has not been eating well. Presently, she denies any nausea or vomiting. Denies any cough. The patient also spiked a fever of 100.8 in the ER as reported by the nurse. The patient denies any headaches or seizure disorder. She was started on Zosyn 3.375 g one dose was given and was placed on ceftriaxone 1 g every 24 hourly by the private MD. On admission, she was found to have leukocytosis with a WBC count of 26.6 and an elevated blood sugar of 744. Also, she was positive for beta-hydroxybutyric acid with a level of 7.69. Infectious Disease consultation was requested by the PMD for sepsis, probable pyelonephritis, and UTI. The patient had a CAT scan of the abdomen and pelvis done today that is 05/18/2018 which showed right renal peripheral edema and peripheral haziness consistent with questionable evolving infection and pyelonephritis. There were no obstructive calculi seen in the CAT scan, and history of left nephrectomy was noted. PAST MEDICAL HISTORY: As above, history of diabetes mellitus, multiple sclerosis, hypertension, gastritis, chronic kidney disease. PAST SURGICAL HISTORY: Consists of left nephrectomy in 1991 because of Wilms tumor. The patient also has history of neuromyelitis optica, status post rituximab in 2018 treatment as stated by her. SOCIAL HISTORY: The patient denies any smoking or drinking. Denies any substance abuse. ALLERGIES: ONLY TO IODINATED CONTRAST, ORAL AND IV DYE, AND IOHEXOL. IMMUNIZATION HISTORY: She is up-to-date on tetanus. Denies any history of influenza vaccination or pneumococcal vaccination. The patient is not very sure. REVIEW OF SYSTEMS: RESPIRATORY: Denies any cough but does complain of some difficulty or shortness of breath intermittently. CARDIOVASCULAR: Denies any chest discomfort, chest pain or pleuritic pain. Only complains of tachycardia. She states she has history of rapid heart rate. ABDOMEN: Does complain of abdominal pain which she states started today on admission. GASTROINTESTINAL: As reported above. Denies any diarrhea or obstipation. Does complain of abdominal pain and some nausea but no vomiting. GENITOURINARY: Frequency of urination. No hematuria. No history of kidney stones or bladder stones. ALLERGIES: As reported above. Rest of the review of systems is unremarkable. MEDICATIONS: As per chart reviewed. See MAR. PHYSICAL EXAMINATION: VITAL SIGNS: The patient's temperature is 100.8, blood pressure 126/84, respirations 20, pulse ox was 100%. HEENT: Pupils are equal and reactive to light and accommodation. Extraocular movements full. Fundus negative. Sclerae nonicteric. Conjunctivae normal. JVP not elevated. NECK: Appears to be supple. LUNGS: Fair air entry. CARDIOVASCULAR SYSTEM: Sinus tachycardia. Heart rate of 130 to 157 as noted. RESPIRATORY: No rales or rhonchi. No wheeze. No accessory muscles noted. GASTROINTESTINAL: Some tenderness in the epigastric and upper quadrants noted especially both upper quadrants. EXTREMITIES: No cyanosis, clubbing, or edema. CENTRAL NERVOUS SYSTEM: No gross deficits. Moves all extremities. Reflexes are equal and symmetrical. Normal cognition. Normal speech. Oriented x3. LABORATORY DATA: WBC is 26.6, H and H of 9.6 and 31.4, platelets 366. Creatinine 1.2, BUN of 24. Blood sugar on admission was 774. BUN and creatinine on 05/18/2018, creatinine of 0.9 and BUN of 15. Liver function tests: LFTs noted to be decreasing alkaline phosphatase. Transaminase is normal. Blood sugar this morning was 319. Urinalysis is 2+ leukocyte esterase, positive nitrites, wbc's 55, rbc's 56. Chest x-ray was unremarkable. CT of the abdomen and pelvis as reported right renal edema and peripheral haziness consistent with evolving infection versus pyelonephritis. No obstructive calculi seen. History of left nephrectomy. IMPRESSION: 1. Leukocytosis, rule out septicemia. 2. Abdominal pain with etiology not very clear. 3. Right pyelonephritis with positive CT scan findings. 4. History of left nephrectomy in 1991 for Wilms tumor. 5. Uncontrolled diabetes mellitus. 6. History of neuromyelitis optica, status post rituximab. 7. History of Port-A-Cath in place. PLAN: Claudio cultures. We will get sed rate and C reactive protein. Blood cultures x2 stat, not done in the ER. Follow up urine cultures. Discontinue IV ceftriaxone. We will start her on IV Primaxin 500 every 6 hourly one stat dose. Follow up blood work, CBC, SMA-19, and lipid profile in the morning. We will follow up with you and make further recommendations as needed. Awaiting cultures. Consider evaluation also. The patient has history of left nephrectomy and only one kidney. Thank you very much for allowing me to participate in the care of your patient. We will discuss with PMD. Bonnie Cornejo MD
--- NOTE | 2018-05-19 06:53 | HP ---
CHIEF COMPLAINT: Lower abdominal pain. HISTORY OF PRESENT ILLNESS: The patient is a 33-year-old female who came into [facility] emergency room with generalized weakness, lack of appetite, and shortness of breath for the past two weeks. The patient has history of diabetes. The patient is currently taking metformin and Eliquis. The patient said she has been urinating frequently but has only moved her bowels twice since she has not been eating. The patient states that she is allergic to iodine. The patient denies nausea, vomiting, cough, or chills, fever, hematuria, hematochezia and complaining of shortness of breath. PAST MEDICAL HISTORY: Diabetes mellitus, gastritis, hypertension, multiple sclerosis pseudo, chronic kidney disease. FAMILY HISTORY: Father and mother noncontributory. HABITS: No smoking, no drugs, no ethanol. REVIEW OF SYSTEMS: The patient was seen and examined at the bedside, looking comfortable. Still complaining about lower abdominal pain and shortness of breath. No fever, no chills, no hematuria, no hematochezia. PHYSICAL EXAMINATION: VITAL SIGNS: Temperature 98.4, pulse 157, respiratory rate 20, blood pressure 120/84, pulse oximetry 100. HEENT: Head: Normocephalic, atraumatic. Eyes: PERRLA. Extraocular muscles intact. Conjunctivae clear. Nose patent. Mucosal membranes moist. NECK: Supple. No carotid bruit. No JVD or thyromegaly. CHEST: Bilaterally symmetrical. HEART: S1 and S2 positive. LUNGS: Clear to auscultation. ABDOMEN: Soft. Bowel sounds present. No organomegaly. EXTREMITIES: No edema. No cyanosis. NEUROLOGICAL: The patient is awake and alert, moving all four extremities. No focal deficits. LABORATORY DATA: White blood cell 26.6, hemoglobin 9.6, hematocrit 31.4, platelets 366. Sodium 130, potassium 4.3, BUN 24, creatinine 1.2, glucose 774. ASSESSMENT AND PLAN: The patient is 33-year-old female with leukocytosis, anemia, hyponatremia, hypochloremia, hyperglycemia, history of diabetes mellitus, gastritis, hypertension, and multiple sclerosis pseudo, chronic kidney disease, came with shortness of breath. CAT scan of the abdomen and pelvis was done, shows evidence of compensatory hypertrophy of the right kidney, subtle right renal edema/peripheral haziness, suggestive of infections/pyelonephritis, nonobstructing left nephrectomy. Seen by Dr. Bonnie Cornejo, Infectious Disease. Continue antibiotics as per Infectious Disease. I saw notes of Dr. Bonnie Cornejo, but they did not plan. We will call consult with the Urology, cultures are sent. Consult called with Dr. Emile Stubbs, facility maintenance supervisor; Dr. Izzy Vidal, social media analyst; Dr. Bonnie Cornejo, Infectious Disease. We will call Nephrology also. Continue metformin, normal saline, Lovenox, Zyvox. Repeat labs. We will follow up. Sommer Spaulding MD MTDD
[2018-05-19 07:36] LABS: BASO % 0.2 % (0.0-2.0); EOS # 0.1 K/uL (0.0-0.7); EOS % 0.5 % (0.0-4.0); LYMPH # 1.5 K/uL (1.0-4.3); LYMPH % 8.2 % (20.0-40.0); MEAN CELL VOLUME 90.1 fL (81.0-99.0); MEAN CORPUSCULAR HEMOGLOBIN 28.7 pg (27.0-31.0); MEAN CORPUSCULAR HGB CONC 31.8 g/dL (33.0-37.0); MEAN PLATELET VOLUME 9.8 fL (7.2-11.7); MONO # 1.5 K/uL (0.0-0.8); MONO % 8.6 % (0.0-10.0); NEUT # 14.8 K/uL (1.8-7.0); NEUT % 82.5 % (50.0-75.0); RBC 2.57 Mil/uL (3.80-5.20); RED CELL DISTRIBUTION WIDTH 15.9 % (11.5-14.5); WHITE BLOOD COUNT 17.9 K/uL (4.8-10.8)
[2018-05-19 07:45] LABS: HEMOGLOBIN 7.4 g/dL (11.0-16.0); PLATELET COUNT 259 K/uL (130-400)
[2018-05-19 07:48] LABS: ALBUMIN 2.7 g/dL (3.5-5.0); ALT/SGPT 8 U/L (9-52); AST/SGOT 17 U/L (14-36); BLOOD UREA NITROGEN 9 mg/dL (7-17); GFR NON-AFRICAN AMERICAN > 60
[2018-05-19] MEDS: (Novolog) Insulin Aspart, Recombinant 100 u/ml 10 ml vial SC SCH ×7 (08:30→21:08)
[2018-05-19 08:44] LABS: BANDS 1 % (0-2); LYMPHOCYTE 4 % (20-40); MONOCYTE 2 % (0-10); NEUTROPHIL 93 % (50-75); TOTAL CELLS COUNTED 100
[2018-05-19 08:45] LABS: ANISOCYTOSIS SLIGHT; HYPOCHROMIC SLIGHT; PLATELET ESTIMATE NORMAL (NORMAL)
[2018-05-19 08:46] LABS: POLYCHROMIC SLIGHT
[2018-05-19] MEDS: Insulin Detemir 100 units/ml Vial (Levemir) SC SCH ×2 (09:10→17:07)
[2018-05-19] MEDS: Enoxaparin 40 mg Syringe SC SCH (09:12)
[2018-05-19] MEDS: Metoprolol Succinate 100 mg XL Tab PO SCH (09:17)
[2018-05-19] MEDS ORDERED: Amikacin Sulfate 1,000 MG in Sodium Chloride 0.9% 250 ML IVPB ONE (11:30)
[2018-05-19] MEDS ORDERED: Potassium Chloride 20 mEq ER Tab PO ONE (13:30)
--- NOTE | 2018-05-19 14:10 | CP.PCM.PN ---
Subjective - Date & Time of Evaluation Date of Evaluation: 05/19/18 Time of Evaluation: 14:10 - Subjective Subjective: CHIEF COMPLAINTS TODAY : TMAX 100, VS BP 109/61 C/O RT FLANK PAIN GOING TO THE BACK. ROS. HEENT : N. Resp : No cough, wheezing ,pleuritic CP ,or hemoptysis Cardio : No anginal CP, PND, orthopnea, palpitation GI : +VE RT FLANK AND EPIGASTRIC PAIN, NO n/v ,diarrhea or GI bleeding . PHYSICIAN OBSTETRICIAN : No headache, vertigo, focal deficit. Musculoskel : No joint swelling , Derm : No rash Psych : Normal affect. Ext : No swelling ,calf pain PE. Pt. is alert awake in no distress. V.S As noted in the chart Head ,ear nose,throat and eyes : Normal. Neck : Supple with normal carotids. Lungs: Clear air entry. Heart : S1 & S2 normal, SINUS TACHYCARDIA Abd : SOFT , MILD TENDERNESS RT FLANK AND CVA, with normal bowel sounds. Neuro : Moves all ext. with no localized deficit. Ext : No edema with intact pulses.Non tender calves Derm : No rashes or decubitus ulcer. LABS/RADIOLOGY: wbc 17.9, H/H /7.4 23.2 PLATELETS ADEQUATE RENAL FUNCTIONS OKAY 0.6//bun 9 BLOOD CULTURES 05/18/18 2: 2 SETS +VE GRAM-NEGATIVE DIEGO. URINE CULTURE 05/18/18 -GRAM-NEGATIVE DIEGO ASSESSMENT GRAM-NEGATIVE BACTEREMIA RT. PYELONEPHRITIS-COMPLICATED/? DEVELOPING ABSCESS HISTORY OF LEFT NEPHRECTOMY. ( WILMS TUMOUR ) DKA.-IDDM HX OF NEUROMYELITIS OPTICA S/P RITUXIMAB-2018 ANAEMIA- IRON DEFICIENCY/ CH BLOOD LOSS PLAN : CONTINUE iv PRIMAXIN 500 MG EVERY 6 HOURLY 05/18/18. STAT DOSE OF IV AMIKACIN 1000MG IVPB TODAY 05/19/18. ADD IV FLAGYL 500MG IVPB Q 8HRLY 05/19/18 fOLLOW-UP CULTURES TO ADJUST ANTIBIOTICS. ON BOARD . PER pmd AND CONSULTANTS Objective - Vital Signs/Intake and Output Vital Signs (last 24 hours): Temp Pulse Resp BP Pulse Ox 97.9 F 110 H 18 100/65 100 05/19/18 07:30 05/19/18 09:17 05/19/18 07:30 05/19/18 09:17 05/19/18 07:30 Intake and Output: 05/19/18 05/19/18 06:59 18:59 Intake Total 3760 Balance 3760 - Medications Medications: Current Medications Acetaminophen (Tylenol 325mg Tab) 650 mg PO Q6 PRN PRN Reason: Other Last Admin: 05/19/18 01:00 Dose: 650 mg Enoxaparin Sodium (Lovenox) 40 mg SC DAILY [facility] Last Admin: 05/19/18 09:12 Dose: Not Given Imipenem/Cilastatin Sodium 500 (mg/ Sodium Chloride) 100 mls @ 100 mls/hr IVPB Q6H [facility]; Protocol Last Admin: 05/19/18 10:23 Dose: 100 mls/hr Insulin Aspart (Novolog) 0 unit SC ACHS [facility]; Protocol Last Admin: 05/19/18 12:30 Dose: Not Given Insulin Aspart (Novolog) 12 unit SC TIDCC [facility] Last Admin: 05/19/18 13:20 Dose: 12 units Insulin Detemir (Levemir) 8 unit SC BID [facility] Last Admin: 05/19/18 09:10 Dose: 8 unit [facility] Admin: 05/19/18 09:00 Dose: 1,000 mg Metoprolol Succinate (Toprol Xl) 100 mg PO DAILY [facility] Last Admin: 05/19/18 09:17 Dose: Not Given Metoprolol Tartrate (Lopressor) 5 mg IVP Q8H PRN PRN Reason: Other Tramadol HCl (Ultram) 50 mg PO TID PRN PRN Reason: Pain, severe (8-10) Last Admin: 05/19/18 10:23 Dose: 50 mg Zolpidem Tartrate (Ambien) 5 mg PO HS PRN PRN Reason: Insomnia Last Admin: 05/18/18 23:46 Dose: 5 mg - Labs Labs: 05/19/18 07:23 05/19/18 07:23
--- NOTE | 2018-05-19 18:29 | CP.PCM.PN ---
Subjective - Date & Time of Evaluation Date of Evaluation: 05/19/18 Time of Evaluation: 18:29 - Subjective Subjective: Today appears to be more alerted. However still in not a good mood. Palpitation has improved. Objective - Vital Signs/Intake and Output Vital Signs (last 24 hours): Temp Pulse Resp BP Pulse Ox 98.8 F 130 H 20 125/68 100 05/19/18 15:00 05/19/18 16:24 05/19/18 15:00 05/19/18 15:00 05/19/18 15:00 Intake and Output: 05/19/18 05/19/18 06:59 18:59 Intake Total 3760 Balance 3760 - Medications Medications: Current Medications Acetaminophen (Tylenol 325mg Tab) 650 mg PO Q6 PRN PRN Reason: Other Last Admin: 05/19/18 01:00 Dose: 650 mg Enoxaparin Sodium (Lovenox) 40 mg SC DAILY [facility] Last Admin: 05/19/18 09:12 Dose: Not Given Imipenem/Cilastatin Sodium 500 (mg/ Sodium Chloride) 100 mls @ 100 mls/hr IVPB Q6H [facility]; Protocol Last Admin: 05/19/18 17:14 Dose: 100 mls/hr Insulin Aspart (Novolog) 0 unit SC ACHS [facility]; Protocol Last Admin: 05/19/18 16:20 Dose: Not Given Insulin Aspart (Novolog) 12 unit SC TIDCC [facility] Last Admin: 05/19/18 16:20 Dose: Not Given Insulin Detemir (Levemir) 8 unit SC BID [facility] Last Admin: 05/19/18 17:07 Dose: Not Given [facility] Admin: 05/19/18 17:08 Dose: Not Given Metoprolol Succinate (Toprol Xl) 100 mg PO DAILY [facility] Last Admin: 05/19/18 09:17 Dose: Not Given Metoprolol Tartrate (Lopressor) 5 mg IVP Q8H PRN PRN Reason: Other Tramadol HCl (Ultram) 50 mg PO TID PRN PRN Reason: Pain, severe (8-10) Last Admin: 05/19/18 17:16 Dose: 50 mg Zolpidem Tartrate (Ambien) 5 mg PO HS PRN PRN Reason: Insomnia Last Admin: 05/18/18 23:46 Dose: 5 mg - Labs Labs: 05/19/18 07:23 05/19/18 07:23 - Head Exam Head Exam: NORMOCEPHALIC - Neck Exam Neck Exam: Normal Inspection - Respiratory Exam Respiratory Exam: NORMAL BREATHING PATTERN - Cardiovascular Exam Cardiovascular Exam: REGULAR RHYTHM - Extremities Exam Extremities Exam: Normal Inspection - Neurological Exam Neurological Exam: Alert, Oriented x3 Assessment and Plan (1) Sinus tachycardia Assessment & Plan: Sinus tachycardia has improved. Adjust beta blockers as needed. Maintain fluid and electrolyte balance. Status: Acute
--- NOTE | 2018-05-19 21:39 | CP.PCM.CON ---
History of Present Illness - History of Present Illness History of Present Illness: uncontrolled IDDM 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 - RENAL Hx Chronic Kidney Disease: Yes - ENDOCRINE/METABOLIC Hx Endocrine Disorders: Yes Hx Diabetes Mellitus Type 1: Yes - HEMATOLOGICAL/ONCOLOGICAL Hx Blood Disorders: Yes Hx Blood Transfusions: Yes (2014) Hx Blood Transfusion Reaction: No Other/Comment: wilms tumor 7yo - INTEGUMENTARY Hx Dermatological Problems: No - MUSCULOSKELETAL/RHEUMATOLOGICAL Hx Musculoskeletal Disorders: Yes Hx Falls: No Hx Osteomyelitis: Yes - GASTROINTESTINAL Hx Gastritis: Yes Other/Comment: SBO - GENITOURINARY/GYNECOLOGICAL Hx Genitourinary Disorders: No - PSYCHIATRIC Hx Substance Use: No - SURGICAL HISTORY Hx Surgeries: Yes Hx Amputation: No Hx Orthopedic Surgery: Yes Other/Comment: RIGHT LEG SURGERY;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;LEFT NEPHRECTOMY/INSERTION AND REMOVAL OF LIFEPORT-2X - ANESTHESIA Hx Anesthesia: Yes Hx Anesthesia Reactions: No Hx Malignant Hyperthermia: No Meds Allergies/Adverse Reactions: Allergies Allergy/AdvReac Type Severity Reaction Status Date / Time Iodinated Contrast- Oral and Allergy Verified 05/17/18 21:29 IV Dye iohexol [From Omnipaque] Allergy RASH Verified 05/17/18 17:55 - Medications Medications: Current Medications Acetaminophen (Tylenol 325mg Tab) 650 mg PO Q6 PRN PRN Reason: Other Last Admin: 05/19/18 01:00 Dose: 650 mg Enoxaparin Sodium (Lovenox) 40 mg SC DAILY [facility] Last Admin: 05/19/18 09:12 Dose: Not Given Imipenem/Cilastatin Sodium 500 (mg/ Sodium Chloride) 100 mls @ 100 mls/hr IVPB Q6H [facility]; Protocol Last Admin: 05/19/18 17:14 Dose: 100 mls/hr Insulin Aspart (Novolog) 0 unit SC ACHS [facility]; Protocol Last Admin: 05/19/18 21:08 Dose: Not Given Insulin Aspart (Novolog) 12 unit SC TIDCC [facility] Last Admin: 05/19/18 16:20 Dose: Not Given Insulin Detemir (Levemir) 8 unit SC BID [facility] Last Admin: 05/19/18 17:07 Dose: Not Given [facility] Last Admin: 05/19/18 17:08 Dose: Not Given Metoprolol Succinate (Toprol Xl) 100 mg PO DAILY [facility] Last Admin: 05/19/18 09:17 Dose: Not Given Metoprolol Tartrate (Lopressor) 5 mg IVP Q8H PRN PRN Reason: Other Tramadol HCl (Ultram) 50 mg PO TID PRN PRN Reason: Pain, severe (8-10) Last Admin: 05/19/18 17:16 Dose: 50 mg Zolpidem Tartrate (Ambien) 5 mg PO HS PRN PRN Reason: Insomnia Last Admin: 05/18/18 23:46 Dose: 5 mg Results - Vital Signs Recent Vital Signs: Last Vital Signs Temp 98.8 F 05/19/18 15:00 Pulse 130 H 05/19/18 16:24 Resp 20 05/19/18 15:00 BP 125/68 05/19/18 15:00 Pulse Ox 100 05/19/18 15:00 - Labs Result Diagrams: 05/19/18 07:23 05/19/18 07:23 Labs: Laboratory Results - last 24 hr 05/19/18 05/19/18 05/19/18 06:44 07:23 07:23 WBC 17.9 H RBC 2.57 L Hgb 7.4 L D Hct 23.2 L MCV 90.1 MCH 28.7 MCHC 31.8 L RDW 15.9 H Plt Count 259 D MPV 9.8 Neut % (Auto) 82.5 H Lymph % (Auto) 8.2 L [place] % (Auto) 8.6 Eos % (Auto) 0.5 Baso % (Auto) 0.2 Neut # (Auto) 14.8 H Lymph # (Auto) 1.5 [place] # (Auto) 1.5 H Eos # (Auto) 0.1 Baso # (Auto) 0.0 Neutrophils % (Manual) 93 H Band Neutrophils % 1 Lymphocytes % (Manual) 4 L Monocytes % (Manual) 2 Platelet Estimate Normal Polychromasia Slight Hypochromasia (manual) Slight Anisocytosis (manual) Slight Sodium 134 Potassium 3.2 L Chloride 105 Carbon Dioxide 18 L Anion Gap 14 BUN 9 Creatinine 0.6 L Est GFR ( Amer) > 60 Est GFR (Non-Af Amer) > 60 POC Glucose (mg/dL) 239 H Random Glucose 207 H D Calcium 8.0 L Total Bilirubin 0.4 AST 17 ALT 8 L D Alkaline Phosphatase 126 Total Protein 5.5 L Albumin 2.7 L Globulin 2.8 Albumin/Globulin Ratio 1.0 TSH 3rd Generation 1.07 05/19/18 05/19/18 05/19/18 11:34 15:22 15:23 WBC RBC Hgb Hct MCV MCH MCHC RDW Plt Count MPV Neut % (Auto) Lymph % (Auto) [place] % (Auto) Eos % (Auto) Baso % (Auto) Neut # (Auto) Lymph # (Auto) [place] # (Auto) Eos # (Auto) Baso # (Auto) Neutrophils % (Manual) Band Neutrophils % Lymphocytes % (Manual) Monocytes % (Manual) Platelet Estimate Polychromasia Hypochromasia (manual) Anisocytosis (manual) Sodium Potassium Chloride Carbon Dioxide Anion Gap BUN Creatinine Est GFR ( Amer) Est GFR (Non-Af Amer) POC Glucose (mg/dL) 123 H 53 L 52 L Random Glucose Calcium Total Bilirubin AST ALT Alkaline Phosphatase Total Protein Albumin Globulin Albumin/Globulin Ratio TSH 3rd Generation 05/19/18 05/19/18 16:14 21:03 WBC RBC Hgb Hct MCV MCH MCHC RDW Plt Count MPV Neut % (Auto) Lymph % (Auto) [place] % (Auto) Eos % (Auto) Baso % (Auto) Neut # (Auto) Lymph # (Auto) [place] # (Auto) Eos # (Auto) Baso # (Auto) Neutrophils % (Manual) Band Neutrophils % Lymphocytes % (Manual) Monocytes % (Manual) Platelet Estimate Polychromasia Hypochromasia (manual) Anisocytosis (manual) Sodium Potassium Chloride Carbon Dioxide Anion Gap BUN Creatinine Est GFR ( Amer) Est GFR (Non-Af Amer) POC Glucose (mg/dL) 96 121 H Random Glucose Calcium Total Bilirubin AST ALT Alkaline Phosphatase Total Protein Albumin Globulin Albumin/Globulin Ratio TSH 3rd Generation Assessment & Plan (1) Diabetic hypoglycemia Assessment and Plan: Endocrine consult reason for consult: uncontrolled diabetes Source: patient and chart review Binh Garcia is 33 y/o admitted for weakness & poor intake found with UTI found with glucose > 400 as per pt. 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 HEENT: denies earache, change in voice .Respiratory: denies cough, sob . CVS :no chest pain, no palpitations . Abdomen: (+) abdominal pain, no nausea /vomiting, no change bowel movement. RECORD CUTTER : denies light-headedness, dizziness. Extremities: no edema, no tremors. Skin: no itching, no rash LMP 05/2018 spotting Physical exam Well-developed AAO x3 , ,NAD VSS HEENT: norm cephalic, atraumatic, no lid lag , no exophthalmos NECK: supple, no palpable lymphadenopathy THYROID: no palpable thyromegaly, not tender CHEST: fair air entry, bilateral, CVS: S1,S2 ABDOMEN: bowel sound present, benign, obese, no wide purple striae , no bruises EXTREMITIES: no edema, clubbing or cyanosis, no palpable hand tremors Skin: (+) acanthosis nigricans -lab: tsh 1.07 , a1c 13.5 , ldl 60, tg 81 , wbc 17.9 , u/a (+) glucose , blood & nitrate Assessment: symptomatic hypoglycemia uncontrolled IDDM UTI abdominal pain plan : obtain urine pregnacy test tonight continue Levemir 8 units bid hold metfomin for now with poor intake& abdominal pain continue Novolog low dose coverage tid & hs decrease novolog 10 units tid with meals if eat > 60% Thank you for allowing me to participate in the care of the patient, we will follow with you. Marcy Knowles # [phone] office Fridays & Saturdays address: [address] [place] [address] ,phone # [phone] ,FAX [phone] Status: Acute (2) Diabetes mellitus, insulin dependent (IDDM), uncontrolled Status: Acute (3) UTI (urinary tract infection) Status: Acute (4) Abdominal pain Status: Acute - Date & Time Date: 05/19/18 Time: 08:30
[2018-05-20] MEDS: metroNIDAZOLE IV 500 mg/100 ml 500 MG/100 ML BAG IVPB SCH ×3 (01:31→17:01)
--- NOTE | 2018-05-20 06:08 | PN ---
DATE: 05/19/2018 SUBJECTIVE: The patient is a 33-year-old female. The patient was seen and examined at the bedside on 05/19/2018. Sleepy, arousable, cooperative. Still complaining about lower abdominal pain. No fever. No chills. No hematuria or hematochezia. No headache or dizziness. No chest pain. No palpitation. PHYSICAL EXAMINATION: VITAL SIGNS: Temperature 98.8, pulse 130, respiratory rate 20, blood pressure 125/68, and pulse oximetry 100%. HEENT: Head; normocephalic and atraumatic. Eyes; PERRLA, extraocular muscles intact, conjunctivae clear. Nose patent. Mucous membrane moist. NECK: Supple. No carotid bruit. No JVD or thyromegaly. CHEST: Bilaterally symmetrical. HEART: S1, S2 positive. LUNGS: Clear to auscultation. ABDOMEN: Soft. Positive bowel sounds. No organomegaly. EXTREMITIES: No edema. No cyanosis. NEUROLOGIC: The patient is sleepy, arousable. Moving all four extremities. Very cooperative. MEDICATIONS: Tylenol, Lovenox, insulin, adjust made by sports commentator, metformin, metoprolol because of tachycardia, tramadol, and Ambien. LABORATORY DATA: White blood cell 17, hemoglobin 7.4, hematocrit 23.2, platelets 259. Sodium 135, potassium 3.2, BUN 9, creatinine noted , and glucose 207. ASSESSMENT AND PLAN: The patient is a 33-year-old lady with leukocytosis, anemia, hypokalemia, replete I gave 20 units of potassium, and uncontrolled diabetes mellitus. Dr. Marcy Magana increased the Levemir to 35 twice a day. Stopped NovoLog. Started on Novolin R low dose coverage three times a day. Diabetes mellitus, insulin dependent, uncontrolled. Urinary tract infection. Abdominal pain. The patient has history of Wilms' tumor at age of [age], right knee surgery, left nephrectomy due to Wilms' tumor at age of [age], came with fever, abdominal pain, and anemia. We will repeat hemoglobin tomorrow. Seen by Dr. Baptiste due to tachycardia, metoprolol given. Dr. Marcy Magana is on the case for diabetes. Dr. Bonnie Cornejo is for infection. Getting Lovenox for deep vein thrombosis prophylaxis. Tylenol as needed for pain and tramadol. We will repeat laboratories. Gastrointestinal and deep venous thrombosis prophylaxis. We will follow up. Sommer Spaulding MD CODI
[2018-05-20] MEDS: (Novolog) Insulin Aspart, Recombinant 100 u/ml 10 ml vial SC SCH ×7 (08:30→21:13)
--- NOTE | 2018-05-20 08:53 | PQF ---
PROVIDER RESPONSE TEXT: Sepsis due to UTI in the setting of Fever, Tachycardia ,Leukocytosis , Positive U/A treated with Prim axin IV REVIEWER QUERY TEXT: Clarification of Clinical Diagnostic Findings Please clarify documentation or clinical relevance for the clinical / diagnostic findings or whether those are insignificant or unable to be further specified. Sepsis due to UTI in the setting of Fever, Tachycardia ,Leukocytosis , Positive U/a treated with [place] maxin IV . -Other Explanation. -Unable to Determine . The patient's Clinical Indicators include: Clinical Findings: Fever T-Max= 101.5, P= 157, Labs showing : Wbc= 26.6, Neuts= 90.1 , Bands= 9 , Glu=> 500, 774 . U/A: Nitrites: Positive, LE =2+, Wbc= 55, Bacteria= Few Treatment: Primaxin IV, ID Consult Risk Factors: Infection UTI. Query created by: Ruma Curiel on 05/18/2018 6:24 PM Electronically signed by: Sommer Spaulding MD 05/20/2018 8:49 AM
[2018-05-20] MEDS ORDERED: Ferric Sodium Gluconat Complex 62.5 mg/5 ml Vial IVPB SCH (10:00)
[2018-05-20] MEDS: Insulin Detemir 100 units/ml Vial (Levemir) SC SCH ×2 (10:22→18:19)
[2018-05-20] MEDS: Metoprolol Succinate 100 mg XL Tab PO SCH (10:22)
[2018-05-20] MEDS: Enoxaparin 40 mg Syringe SC SCH (10:23)
--- NOTE | 2018-05-20 10:40 | CP.PCM.PN ---
Subjective - Date & Time of Evaluation Date of Evaluation: 05/20/18 Time of Evaluation: 10:38 - Subjective Subjective: Sitting in bed taking her medicine. Objective - Vital Signs/Intake and Output Vital Signs (last 24 hours): Temp Pulse Resp BP Pulse Ox 98.5 F 123 H 20 111/69 100 05/20/18 07:45 05/20/18 10:21 05/20/18 07:45 05/20/18 10:21 05/20/18 07:45 Intake and Output: 05/20/18 05/20/18 06:59 18:59 Intake Total 440 Balance 440 - Medications Medications: Current Medications Diphenhydramine HCl (Benadryl) 25 mg PO HS PRN PRN Reason: Insomnia Last Admin: 05/19/18 22:48 Dose: 25 mg Enoxaparin Sodium (Lovenox) 40 mg SC DAILY [facility] Last Admin: 05/20/18 10:23 Dose: Not Given Ferric Sodium Gluconate Complex (Ferrlecit) 125 mg IVPB DAILY [facility] Stop: 05/28/18 10:01 Last Admin: 05/20/18 10:32 Dose: 125 mg Imipenem/Cilastatin Sodium 500 (mg/ Sodium Chloride) 100 mls @ 100 mls/hr IVPB Q6H [facility]; Protocol Last Admin: 05/20/18 05:18 Dose: 100 mls/hr Metronidazole (Flagyl) 500 mg in 100 mls @ 100 mls/hr IVPB Q8H [facility]; Protocol Last Admin: 05/20/18 01:31 Dose: 100 mls/hr Insulin Aspart (Novolog) 0 unit SC ACHS [facility]; Protocol Last Admin: 05/20/18 08:30 Dose: 3 units Insulin Aspart (Novolog) 10 unit SC TIDCC [facility] Last Admin: 05/20/18 08:54 Dose: 10 units Insulin Detemir (Levemir) 8 unit SC BID [facility] Last Admin: 05/20/18 10:22 Dose: 8 unit Metoprolol Succinate (Toprol Xl) 100 mg PO DAILY [facility] Last Admin: 05/20/18 10:22 Dose: 100 mg Metoprolol Tartrate (Lopressor) 5 mg IVP Q8H PRN PRN Reason: Other Tramadol HCl (Ultram) 50 mg PO TID PRN PRN Reason: Pain, severe (8-10) Last Admin: 05/20/18 02:58 Dose: 50 mg - Labs Labs: 05/19/18 07:23 05/19/18 07:23 - Neck Exam Neck Exam: Normal Inspection - Respiratory Exam Respiratory Exam: NORMAL BREATHING PATTERN - Cardiovascular Exam Cardiovascular Exam: REGULAR RHYTHM Assessment and Plan (1) Sinus tachycardia Assessment & Plan: Beta blockers and correct underlying electrolyte abnormalities. Labs reviewed low K. Keep K4 and Mg>2. Status: Acute
[2018-05-20 12:08] LABS: HEMOGLOBIN 7.1 g/dL (11.0-16.0); MEAN CELL VOLUME 88.3 fL (81.0-99.0); MEAN CORPUSCULAR HEMOGLOBIN 27.8 pg (27.0-31.0); MEAN CORPUSCULAR HGB CONC 31.5 g/dL (33.0-37.0); MEAN PLATELET VOLUME 10.1 fL (7.2-11.7); RBC 2.54 Mil/uL (3.80-5.20); RED CELL DISTRIBUTION WIDTH 15.8 % (11.5-14.5); WHITE BLOOD COUNT 15.9 K/uL (4.8-10.8)
[2018-05-20 12:09] LABS: BLOOD UREA NITROGEN 5 mg/dL (7-17); CALCIUM 8.3 mg/dl (8.6-10.4); GFR NON-AFRICAN AMERICAN > 60
--- NOTE | 2018-05-20 12:14 | CP.PCM.PN ---
Subjective - Date & Time of Evaluation Date of Evaluation: 05/20/18 Time of Evaluation: 12:14 - Subjective Subjective: CHIEF COMPLAINTS TODAY : AFEBRILE, STILL C/O RT FLANK PAIN GOING TO THE BACK. PERIODS OF HYPOGLYCEMIA PT NOT EATING ROS. HEENT : N. Resp : No cough, wheezing ,pleuritic CP ,or hemoptysis Cardio : No anginal CP, PND, orthopnea, palpitation GI : +VE RT FLANK AND EPIGASTRIC PAIN, NO n/v ,diarrhea or GI bleeding . SPECIAL NEEDS CHILD CAREGIVER : No headache, vertigo, focal deficit. Musculoskel : No joint swelling , Derm : No rash Psych : Normal affect. Ext : No swelling ,calf pain PE. Pt. is alert awake in no distress. V.S As noted in the chart Head ,ear nose,throat and eyes : Normal. Neck : Supple with normal carotids. Lungs: Clear air entry. Heart : S1 & S2 normal, SINUS TACHYCARDIA Abd : SOFT , MILD TENDERNESS RT FLANK AND CVA, with normal bowel sounds. Neuro : Moves all ext. with no localized deficit. Ext : No edema with intact pulses.Non tender calves Derm : No rashes or decubitus ulcer. LABS/RADIOLOGY: wbc 15.9 , 7.1/22.5 PLATELETS ADEQUATE RENAL FUNCTIONS OKAY 0.6//bun 5 BLOOD CULTURES 05/18/18 2: 2 SETS +VE GRAM-NEGATIVE DIEGO. URINE CULTURE 05/18/18 ESBL+VE E.COLI S- MERREM ASSESSMENT GRAM-NEGATIVE BACTEREMIA RT. PYELONEPHRITIS-COMPLICATED/? DEVELOPING ABSCESS UROSEPSIS +VE ESBL E.COLI HISTORY OF LEFT NEPHRECTOMY. ( WILMS TUMOUR ) DKA.-IDDM HX OF NEUROMYELITIS OPTICA S/P RITUXIMAB-2018 ANAEMIA- IRON DEFICIENCY/ CH BLOOD LOSS PLAN : START IV MERREM 500MG IVPB Q 8HRLY 05/20/18. D/C IV PRIMAXIN 500 MG EVERY 6 HOURLY 05/18/18. STAT DOSE OF IV AMIKACIN 1000MG IVPB TODAY 05/19/18. ADD IV FLAGYL 500MG IVPB Q 8HRLY 05/19/18 fOLLOW-UP CULTURES TO ADJUST ANTIBIOTICS. PT FOR BLOOD TRANSFUSION TODAY. CONTACT ISOLATION. PT REFUSED REPEAT BLOOD CULTURES TODAY. DISCUSSED W RN TO ORDER BLOOD CULTURES FOR TOMORROW. ON BOARD . PER pmd AND CONSULTANTS Objective - Vital Signs/Intake and Output Vital Signs (last 24 hours): Temp Pulse Resp BP Pulse Ox 98.5 F 58 L 20 118/65 100 05/20/18 07:45 05/20/18 10:59 05/20/18 07:45 05/20/18 10:59 05/20/18 07:45 Intake and Output: 05/20/18 05/20/18 06:59 18:59 Intake Total 440 Balance 440 - Medications Medications: Current Medications Diphenhydramine HCl (Benadryl) 25 mg PO HS PRN PRN Reason: Insomnia Last Admin: 05/19/18 22:48 Dose: 25 mg Enoxaparin Sodium (Lovenox) 40 mg SC DAILY [facility] Last Admin: 05/20/18 10:23 Dose: Not Given Ferric Sodium Gluconate Complex (Ferrlecit) 125 mg IVPB DAILY [facility] Stop: 05/28/18 10:01 Last Admin: 05/20/18 10:32 Dose: 125 mg Imipenem/Cilastatin Sodium 500 (mg/ Sodium Chloride) 100 mls @ 100 mls/hr IVPB Q6H [facility]; Protocol Last Admin: 05/20/18 05:18 Dose: 100 mls/hr Metronidazole (Flagyl) 500 mg in 100 mls @ 100 mls/hr IVPB Q8H [facility]; Protocol Last Admin: 05/20/18 10:15 Dose: 100 mls/hr Insulin Aspart (Novolog) 0 unit SC ACHS [facility]; Protocol Last Admin: 05/20/18 08:30 Dose: 3 units Insulin Aspart (Novolog) 10 unit SC TIDCC [facility] Last Admin: 05/20/18 08:54 Dose: 10 units Insulin Detemir (Levemir) 8 unit SC BID [facility] Last Admin: 05/20/18 10:22 Dose: 8 unit Metoprolol Succinate (Toprol Xl) 100 mg PO DAILY [facility] Last Admin: 05/20/18 10:22 Dose: 100 mg Metoprolol Tartrate (Lopressor) 5 mg IVP Q8H PRN PRN Reason: Other Tramadol HCl (Ultram) 50 mg PO TID PRN PRN Reason: Pain, severe (8-10) Last Admin: 05/20/18 02:58 Dose: 50 mg - Labs Labs: 05/20/18 11:15 05/20/18 11:15
[2018-05-20] MEDS: Meropenem 500 MG in Sodium Chloride 0.9% 100 ML IVPB SCH ×2 (14:02→20:38)
[2018-05-20] MEDS ORDERED: Potassium Chloride 20 mEq ER Tab PO SCH (14:45)
[2018-05-20] MEDS ORDERED: Potassium Chloride 20 mEq ER Tab PO ONE (15:00)
--- NOTE | 2018-05-20 16:51 | CP.PCM.CON ---
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 The patient on admission had a hgb of 9 and has drifted down to 7 today. She does report to worsening fatigue but denies chest pain and shortness of breath. She denies abnormal bleeding and b ruising. 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 Allergies: oral and IV iodinated contrast Review of systems: All remaining review of systems including HEENT, cardiovascular, respiratory, gastrointestinal, geniturinary, musculoskeletal, de rmatologic, neurologic, and psychiatric are negative unless mentioned in the HPI. 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 - RENAL Hx Chronic Kidney Disease: Yes - ENDOCRINE/METABOLIC Hx Endocrine Disorders: Yes Hx Diabetes Mellitus Type 1: Yes - HEMATOLOGICAL/ONCOLOGICAL Hx Blood Disorders: Yes Hx Blood Transfusions: Yes (2014) Hx Blood Transfusion Reaction: No Other/Comment: wilms tumor 7yo - INTEGUMENTARY Hx Dermatological Problems: No - MUSCULOSKELETAL/RHEUMATOLOGICAL Hx Musculoskeletal Disorders: Yes Hx Falls: No Hx Osteomyelitis: Yes - GASTROINTESTINAL Hx Gastritis: Yes Other/Comment: SBO - GENITOURINARY/GYNECOLOGICAL Hx Genitourinary Disorders: No - PSYCHIATRIC Hx Substance Use: No - SURGICAL HISTORY Hx Surgeries: Yes Hx Amputation: No Hx Orthopedic Surgery: Yes Other/Comment: RIGHT LEG SURGERY;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;LEFT NEPHRECTOMY/INSERTION AND REMOVAL OF LIFEPORT-2X - ANESTHESIA Hx Anesthesia: Yes Hx Anesthesia Reactions: No Hx Malignant Hyperthermia: No Meds Allergies/Adverse Reactions: Allergies Allergy/AdvReac Type Severity Reaction Status Date / Time Iodinated Contrast- Oral and Allergy Verified 05/17/18 21:29 IV Dye iohexol [From Omnipaque] Allergy RASH Verified 05/17/18 17:55 - Medications Medications: Current Medications Diphenhydramine HCl (Benadryl) 25 mg PO HS PRN PRN Reason: Insomnia Last Admin: 05/19/18 22:48 Dose: 25 mg Enoxaparin Sodium (Lovenox) 40 mg SC DAILY [facility] Last Admin: 05/20/18 10:23 Dose: Not Given Ferric Sodium Gluconate Complex (Ferrlecit) 125 mg IVPB DAILY [facility] Stop: 05/28/18 10:01 Last Admin: 05/20/18 10:32 Dose: 125 mg Metronidazole (Flagyl) 500 mg in 100 mls @ 100 mls/hr IVPB Q8H [facility]; Protocol Last Admin: 05/20/18 10:15 Dose: 100 mls/hr Meropenem 500 mg/ Sodium (Chloride) 100 mls @ 100 mls/hr IVPB Q8H [facility]; Protocol Last Admin: 05/20/18 14:02 Dose: 100 mls/hr Potassium Chloride (Potassium Chloride 20 Meq/100 Ml) 20 meq in 100 mls @ 50 mls/hr IVPB ONCE ONE Stop: 05/20/18 17:29 Last Admin: 05/20/18 14:51 Dose: 50 mls/hr Potassium Chloride (Potassium Chloride 20 Meq/100 Ml) 20 meq in 100 mls @ 50 mls/hr IVPB ONCE ONE Stop: 05/20/18 19:59 Insulin Aspart (Novolog) 0 unit SC ACHS [facility]; Protocol Last Admin: 05/20/18 12:30 Dose: Not Given Insulin Aspart (Novolog) 10 unit SC TIDCC [facility] Last Admin: 05/20/18 12:30 Dose: Not Given Insulin Detemir (Levemir) 8 unit SC BID [facility] Last Admin: 05/20/18 10:22 Dose: 8 unit Metoprolol Succinate (Toprol Xl) 100 mg PO DAILY [facility] Last Admin: 05/20/18 10:22 Dose: 100 mg Metoprolol Tartrate (Lopressor) 5 mg IVP Q8H PRN PRN Reason: Other Tramadol HCl (Ultram) 50 mg PO TID PRN PRN Reason: Pain, severe (8-10) Last Admin: 05/20/18 02:58 Dose: 50 mg Physical Exam - Head Exam Head Exam: ATRAUMATIC - Eye Exam Eye Exam: Normal appearance - ENT Exam ENT Exam: Mucous Membranes Dry - Respiratory Exam Respiratory Exam: NORMAL BREATHING PATTERN - Cardiovascular Exam Cardiovascular Exam: +S1, +S2 - GI/Abdominal Exam GI & Abdominal Exam: Normal Bowel Sounds - Neurological Exam Neurological exam: Oriented x3 - Psychiatric Exam Psychiatric exam: Normal Affect, Normal Mood - Skin Skin Exam: Warm Results - Vital Signs Recent Vital Signs: Last Vital Signs Temp 98.7 F 05/20/18 15:00 Pulse 121 H 05/20/18 16:29 Resp 20 05/20/18 15:00 BP 111/68 05/20/18 15:00 Pulse Ox 100 05/20/18 15:00 - Labs Result Diagrams: 05/20/18 11:15 05/20/18 11:15 Labs: Laboratory Results - last 24 hr 05/19/18 05/20/18 05/20/18 21:03 03:13 08:13 WBC RBC Hgb Hct MCV MCH MCHC RDW Plt Count MPV Sodium Potassium Chloride Carbon Dioxide Anion Gap BUN Creatinine Est GFR ( Amer) Est GFR (Non-Af Amer) POC Glucose (mg/dL) 121 H 287 H Random Glucose Calcium Magnesium Urine HCG, Qual Negative 05/20/18 05/20/18 05/20/18 11:15 11:15 11:35 WBC 15.9 H RBC 2.54 L Hgb 7.1 L Hct 22.5 L MCV 88.3 MCH 27.8 MCHC 31.5 L RDW 15.8 H Plt Count 271 MPV 10.1 Sodium 134 Potassium 2.8 L Chloride 105 Carbon Dioxide 20 L Anion Gap 12 BUN 5 L Creatinine 0.6 L Est GFR ( Amer) > 60 Est GFR (Non-Af Amer) > 60 POC Glucose (mg/dL) 96 Random Glucose 135 H D Calcium 8.3 L Magnesium 1.6 Urine HCG, Qual 05/20/18 16:07 WBC RBC Hgb Hct MCV MCH MCHC RDW Plt Count MPV Sodium Potassium Chloride Carbon Dioxide Anion Gap BUN Creatinine Est GFR ( Amer) Est GFR (Non-Af Amer) POC Glucose (mg/dL) 190 H Random Glucose Calcium Magnesium Urine HCG, Qual Assessment & Plan (1) Anemia Assessment and Plan: retic count, b12, folate, ferritin, FOBT to further characterize element of anemia of chronic disease from infection given fatigue, to receive 2U PRBC will hold IV iron given recently identified bacteremia Status: Acute (2) Leukocytosis Assessment and Plan: secondary to infection improving with antibiotics Thank you for this interesting consult. Status: Acute
--- NOTE | 2018-05-20 21:02 | PCM.URO ---
Urology Progress Note - General General: Tolerating Diet - Subjective Abdominal Pain: Yes (R and Suprpubic) Flank Pain: Yes (R) Hematuria: Yes (pink urine) Stone Passed: No Dsypnea: No Chest Pain: No Fever & Chills: Yes (pt reports fever, not dcoumented today. Prev T snh=378.5) - Objective Lab Studies: Reviewed (leukocytosis - less anemia) Lab Results Last 24 Hours: Laboratory Results - last 24 hr 05/19/18 05/20/18 05/20/18 21:03 03:13 08:13 WBC RBC Hgb Hct MCV MCH MCHC RDW Plt Count MPV Sodium Potassium Chloride Carbon Dioxide Anion Gap BUN Creatinine Est GFR ( Amer) Est GFR (Non-Af Amer) POC Glucose (mg/dL) 121 H 287 H Random Glucose Calcium Magnesium Urine HCG, Qual Negative Blood Type Antibody Screen 05/20/18 05/20/18 05/20/18 11:15 11:15 11:35 WBC 15.9 H RBC 2.54 L Hgb 7.1 L Hct 22.5 L MCV 88.3 MCH 27.8 MCHC 31.5 L RDW 15.8 H Plt Count 271 MPV 10.1 Sodium 134 Potassium 2.8 L Chloride 105 Carbon Dioxide 20 L Anion Gap 12 BUN 5 L Creatinine 0.6 L Est GFR ( Amer) > 60 Est GFR (Non-Af Amer) > 60 POC Glucose (mg/dL) 96 Random Glucose 135 H D Calcium 8.3 L Magnesium 1.6 Urine HCG, Qual Blood Type Antibody Screen 05/20/18 05/20/18 05/20/18 16:07 16:28 20:33 WBC RBC Hgb Hct MCV MCH MCHC RDW Plt Count MPV Sodium Potassium Chloride Carbon Dioxide Anion Gap BUN Creatinine Est GFR ( Amer) Est GFR (Non-Af Amer) POC Glucose (mg/dL) 190 H 42 L Random Glucose Calcium Magnesium Urine HCG, Qual Blood Type O POSITIVE Antibody Screen Negative Intake & Output: Intake & Output 05/20/18 05/20/18 05/21/18 06:59 18:59 06:59 Intake Total 440 Balance 440 Intake: Intake, IV Amount 200 Right Port-a-Cath 200 Oral 240 Other: # Voids Urine, Voided 1 Vital Signs: Vital Signs - 24 hr 03/05/20/18 05/20/18 23:45 04:02 07:18 Temperature 98.5 F Pulse Rate 120 H 116 H 118 H Respiratory 20 Rate Blood Pressure 94/56 L O2 Sat by Pulse 98 Oximetry 05/20/18 05/20/18 05/20/18 07:45 10:21 10:59 Temperature 98.5 F Pulse Rate 120 H 123 H 58 L Respiratory 20 Rate Blood Pressure 109/69 111/69 118/65 O2 Sat by Pulse 100 Oximetry 05/20/18 05/20/18 05/20/18 12:02 15:00 16:29 Temperature 98.7 F Pulse Rate 127 H 111 H 121 H Respiratory 20 Rate Blood Pressure 111/68 O2 Sat by Pulse 100 Oximetry 05/20/18 05/20/18 17:26 20:40 Temperature Pulse Rate 117 H 120 H Respiratory Rate Blood Pressure 113/71 O2 Sat by Pulse Oximetry - Physical Exam Abdominal Exam: Soft, Non-Distended. absent: Non-Tender Back: CVA Tenderness (Rcva tenderness, much less) - Plan Additional Information: IMP: UTI, E Coli. Bacteremia. R pyelonephritis. P/Rec: antibiotics as per ID. on Meropenem - Date & Time of Note Date: 05/20/18 Time: 21:03
[2018-05-21] MEDS: metroNIDAZOLE IV 500 mg/100 ml 500 MG/100 ML BAG IVPB SCH ×3 (01:06→17:07)
--- NOTE | 2018-05-21 02:47 | PN ---
DATE: 05/20/2018 SUBJECTIVE: The patient is a 33-year-old female. The patient was seen and examined at the bedside on 05/20/2018. Feeling little better. Still having abdominal pain. No fever. No chills. No hematuria. No hematochezia. No headache. No dizziness. No chest pain. No palpitation. Seen by the marketing co op and urologist. PHYSICAL EXAMINATION: VITAL SIGNS: Temperature 98.7, pulse 110, respiratory rate 20, blood pressure 111/68, pulse oximetry 100%. HEENT: Head is normocephalic and atraumatic. Eyes: PERRLA. Extraocular muscles are intact. Conjunctivae clear. Nose patent. Mucous membrane moist. NECK: Supple. No carotid bruits, JVD or thyromegaly. CHEST: Bilaterally symmetrical. HEART: S1 and S2 positive. LUNGS: Clear to auscultation. ABDOMEN: Soft. Bowel sounds present. No organomegaly. EXTREMITIES: No edema, no cyanosis. NEUROLOGIC: The patient is awake and alert, moving all four extremities. No focal deficits. LABORATORY DATA: White blood cells 15.9, hemoglobin 7.1, hematocrit 22.5, platelets 271. Sodium 134, potassium 2.8, BUN 5, creatinine 0.6, glucose 135. ASSESSMENT AND PLAN: Mr. Billy Purcell is a 33-year-old lady with leukocytosis, anemia, will get blood transfusion, marketing co op is on the case. Hypokalemia, replaced. Hyperglycemia, blood glucose count is noted. Fecal occult blood test ordered. According to the marketing co op, the patient needs 2 units of packed red blood cell in full intravenous iron given recently, identified bacteremia, leukocytosis secondary to infection. The patient has history of multiple medical problems in the past. 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 Dr. Marshall Gagnon is on the case. Assisted Living Manager is also on the case. We will repeat labs. We will follow up. Sommer Jasson, MD
[2018-05-21] MEDS: Meropenem 500 MG in Sodium Chloride 0.9% 100 ML IVPB SCH ×3 (05:05→21:42)
[2018-05-21] MEDS: (Novolog) Insulin Aspart, Recombinant 100 u/ml 10 ml vial SC SCH ×7 (08:15→21:42)
[2018-05-21] MEDS: Insulin Detemir 100 units/ml Vial (Levemir) SC SCH ×2 (10:45→17:06)
[2018-05-21] MEDS: Enoxaparin 40 mg Syringe SC SCH (10:46)
[2018-05-21] MEDS: Metoprolol Succinate 100 mg XL Tab PO SCH (10:46)
[2018-05-21 11:50] LABS: BASO % 0.3 % (0.0-2.0); EOS # 0.1 K/uL (0.0-0.7); EOS % 0.6 % (0.0-4.0); LYMPH # 1.6 K/uL (1.0-4.3); LYMPH % 10.8 % (20.0-40.0); MEAN CELL VOLUME 88.1 fL (81.0-99.0); MEAN CORPUSCULAR HEMOGLOBIN 28.6 pg (27.0-31.0); MEAN CORPUSCULAR HGB CONC 32.4 g/dL (33.0-37.0); MEAN PLATELET VOLUME 9.6 fL (7.2-11.7); MONO # 1.2 K/uL (0.0-0.8); MONO % 8.4 % (0.0-10.0); NEUT # 11.8 K/uL (1.8-7.0); NEUT % 79.9 % (50.0-75.0); RBC 3.38 Mil/uL (3.80-5.20); RED CELL DISTRIBUTION WIDTH 15.5 % (11.5-14.5); WHITE BLOOD COUNT 14.8 K/uL (4.8-10.8)
[2018-05-21 11:55] LABS: HEMOGLOBIN 9.7 g/dL (11.0-16.0)
[2018-05-21 12:03] LABS: BLOOD UREA NITROGEN 3 mg/dL (7-17); CALCIUM 8.5 mg/dl (8.6-10.4); GFR NON-AFRICAN AMERICAN > 60
--- NOTE | 2018-05-21 13:10 | CP.PCM.PN ---
Subjective - Date & Time of Evaluation Date of Evaluation: 05/21/18 Time of Evaluation: 12:00 - Subjective Subjective: Feeling better s/p 2U PRBC Objective - Vital Signs/Intake and Output Vital Signs (last 24 hours): Temp Pulse Resp BP Pulse Ox 98.8 F 121 H 20 112/73 100 05/21/18 07:00 05/21/18 08:28 05/21/18 07:00 05/21/18 07:00 05/21/18 07:00 Intake and Output: 05/21/18 05/21/18 06:59 18:59 Intake Total 1430 Balance 1430 - Medications Medications: Current Medications Diphenhydramine HCl (Benadryl) 25 mg PO HS PRN PRN Reason: Insomnia Last Admin: 05/21/18 00:45 Dose: 25 mg Enoxaparin Sodium (Lovenox) 40 mg SC DAILY [facility] Last Admin: 05/21/18 10:46 Dose: Not Given Metronidazole (Flagyl) 500 mg in 100 mls @ 100 mls/hr IVPB Q8H [facility]; Protocol Last Admin: 05/21/18 10:44 Dose: 100 mls/hr Meropenem 500 mg/ Sodium (Chloride) 100 mls @ 100 mls/hr IVPB Q8H [facility]; Protocol Last Admin: 05/21/18 05:05 Dose: 100 mls/hr Insulin Aspart (Novolog) 0 unit SC ACHS [facility]; Protocol Last Admin: 05/21/18 12:03 Dose: Not Given Insulin Aspart (Novolog) 10 unit SC TIDCC [facility] Last Admin: 05/21/18 12:03 Dose: Not Given Insulin Detemir (Levemir) 8 unit SC BID [facility] Last Admin: 05/21/18 10:45 Dose: 8 unit Metoprolol Succinate (Toprol Xl) 100 mg PO DAILY [facility] Last Admin: 05/21/18 10:46 Dose: 100 mg Metoprolol Tartrate (Lopressor) 5 mg IVP Q8H PRN PRN Reason: Other Tramadol HCl (Ultram) 50 mg PO TID PRN PRN Reason: Pain, severe (8-10) Last Admin: 05/20/18 17:08 Dose: 50 mg - Labs Labs: 05/21/18 11:03 05/21/18 11:03 - Head Exam Head Exam: ATRAUMATIC - Eye Exam Eye Exam: Normal appearance - ENT Exam ENT Exam: Mucous Membranes Dry - Respiratory Exam Respiratory Exam: NORMAL BREATHING PATTERN - Cardiovascular Exam Cardiovascular Exam: +S1, +S2 - GI/Abdominal Exam GI & Abdominal Exam: Normal Bowel Sounds Assessment and Plan (1) Anemia Assessment & Plan: chronic disease evaluating iron stores; f/u ferritin s/p 2U PRBC iron held due to bacteremia Status: Acute (2) Leukocytosis Assessment & Plan: on antibiotics Status: Acute
--- NOTE | 2018-05-21 14:18 | PN ---
DATE: 05/21/2018 SUBJECTIVE: The patient is a 33-year-old female. The patient was seen and examined at the bedside in her room, still complaining about abdominal pain. No fever, no chills, no hematuria or hematochezia, no headache or dizziness, and no chest pain, no palpitation. PHYSICAL EXAMINATION: VITAL SIGNS: Temperature 98.8, pulse 121, blood pressure 112/73, and respiratory rate 20. HEENT: Head is normocephalic and atraumatic. Eyes: PERRLA. Extraocular muscles intact. Conjunctivae clear. Nose patent. Mucous membranes moist. NECK: Supple. No carotid bruit. No JVD or thyromegaly. CHEST: Bilaterally symmetrical. HEART: S1 and S2 positive. LUNGS: Clear to auscultation. ABDOMEN: Soft. Bowel sounds present. No organomegaly. EXTREMITIES: No edema. No cyanosis. NEUROLOGIC: The patient is awake and alert, moving all four extremities. No focal deficits. LABORATORY DATA: White blood cells 14.8, hemoglobin 9.7, hematocrit 29.8, and platelets 316. Sodium 137, potassium 3.3, BUN 3, creatinine 0.6, glucose 136, and calcium 8.5. ASSESSMENT AND PLAN: Mrs. Binh Cervantes is a 33-year-old lady with leukocytosis, improving, trending down, anemia, hypokalemia, hyperchloremia, hyperglycemia, uncontrolled diabetes mellitus, proteinuria, glucosuria, ketonuria, and urinary tract infection. Beta-hydroxybutyrate is 7.69, high, seen by the urologist, Dr. Jennifer Gagnon, and outboard motorboat operator, Dr. Guillermo. The patient has urinary tract infection with Escherichia coli bacteremia and right pyelonephritis. The patient is getting meropenem. We will continue antibiotics as per Infectious Disease, Dr. Bonnie Cornejo. Cardiology, Dr. Baptiste, is on the case for tachycardia. Discussion done with nurse practitioner. Repeat labs. Sommer Spaulding MD
[2018-05-21] MEDS ORDERED: Potassium Chloride 20 mEq ER Tab PO ONE (14:58)
[2018-05-21] MEDS: Potassium Chloride 20 mEq ER Tab PO SCH (16:12)
--- NOTE | 2018-05-21 18:44 | PCM.URO ---
Urology Progress Note - General General: Tolerating Diet (feeling better Having R flank pain, but less) - Subjective Flank Pain: Yes Nausea: No Vomiting: No Voiding Well: Yes Dysuria: No Hematuria: No Good Stream: Yes Chest Pain: No Fever & Chills: No - Objective Lab Studies: Reviewed Lab Results Last 24 Hours: Laboratory Results - last 24 hr 05/20/18 05/20/18 05/20/18 16:28 20:33 20:55 WBC RBC Hgb Hct MCV MCH MCHC RDW Plt Count MPV Neut % (Auto) Lymph % (Auto) [place] % (Auto) Eos % (Auto) Baso % (Auto) Neut # (Auto) Lymph # (Auto) [place] # (Auto) Eos # (Auto) Baso # (Auto) Sodium Potassium Chloride Carbon Dioxide Anion Gap BUN Creatinine Est GFR ( Amer) Est GFR (Non-Af Amer) POC Glucose (mg/dL) 42 L 57 L Random Glucose Calcium Blood Type O POSITIVE Antibody Screen Negative 05/20/18 05/21/18 05/21/18 21:18 06:52 11:03 WBC 14.8 H RBC 3.38 L Hgb 9.7 L D Hct 29.8 L MCV 88.1 MCH 28.6 MCHC 32.4 L RDW 15.5 H Plt Count 316 MPV 9.6 Neut % (Auto) 79.9 H Lymph % (Auto) 10.8 L [place] % (Auto) 8.4 Eos % (Auto) 0.6 Baso % (Auto) 0.3 Neut # (Auto) 11.8 H Lymph # (Auto) 1.6 [place] # (Auto) 1.2 H Eos # (Auto) 0.1 Baso # (Auto) 0.0 Sodium Potassium Chloride Carbon Dioxide Anion Gap BUN Creatinine Est GFR ( Amer) Est GFR (Non-Af Amer) POC Glucose (mg/dL) 81 155 H Random Glucose Calcium Blood Type Antibody Screen 05/21/18 05/21/18 11:03 12:02 WBC RBC Hgb Hct MCV MCH MCHC RDW Plt Count MPV Neut % (Auto) Lymph % (Auto) [place] % (Auto) Eos % (Auto) Baso % (Auto) Neut # (Auto) Lymph # (Auto) [place] # (Auto) Eos # (Auto) Baso # (Auto) Sodium 137 Potassium 3.3 L Chloride 109 H Carbon Dioxide 22 Anion Gap 10 BUN 3 L Creatinine 0.6 L Est GFR ( Amer) > 60 Est GFR (Non-Af Amer) > 60 POC Glucose (mg/dL) 144 H Random Glucose 136 H Calcium 8.5 L Blood Type Antibody Screen Intake & Output: Intake & Output 05/20/18 05/21/18 05/21/18 18:59 06:59 18:59 Intake Total 1430 600 Balance 1430 600 Weight 147 lb Intake: Intake, IV Amount 300 300 Right Port-a-Cath 300 300 Oral 400 300 Blood Product 650 Apheresis Rbc Cp2d As3 Lr 325 2nd Unit [id number] Apheresis Rbc Cp2d As3 Lr 325 2nd Unit [id number] Other 80 Apheresis Rbc Cp2d As3 Lr 50 2nd Unit [id number] Apheresis Rbc Cp2d As3 Lr 30 2nd Unit [id number] Other: # Voids Urine, Voided 1 2 # Bowel Movements 0 0 Vital Signs: Vital Signs - 24 hr 05/20/18 05/20/18 05/20/18 20:00 20:40 22:05 Temperature 98.1 F Pulse Rate 116 H 120 H 115 H Respiratory 18 Rate Blood Pressure 113/71 111/75 O2 Sat by Pulse Oximetry 05/20/18 05/20/18 05/20/18 22:06 22:21 22:36 Temperature 98.1 F 97.8 F 98.1 F Pulse Rate 115 H 116 H 114 H Respiratory 18 18 18 Rate Blood Pressure 111/75 114/76 109/74 O2 Sat by Pulse Oximetry 05/20/18 05/20/18 05/20/18 23:00 23:06 23:42 Temperature 98 F 97.7 F Pulse Rate 111 H 114 H 109 H Respiratory 18 18 Rate Blood Pressure 112/75 115/78 O2 Sat by Pulse 98 Oximetry 05/21/18 05/21/18 05/21/18 00:37 02:23 02:31 Temperature 98.1 F 98.2 F 98.2 F Pulse Rate 109 H 107 H 106 H Respiratory 18 18 18 Rate Blood Pressure 117/75 121/80 120/82 O2 Sat by Pulse Oximetry 05/21/18 05/21/18 05/21/18 02:46 03:01 03:31 Temperature 98.5 F 98.5 F 98.5 F Pulse Rate 110 H 110 H 105 H Respiratory 18 18 18 Rate Blood Pressure 125/82 113/76 117/78 O2 Sat by Pulse Oximetry 05/21/18 05/21/18 05/21/18 05:00 07:00 08:28 Temperature 98.4 F 98.8 F Pulse Rate 105 H 110 H 121 H Respiratory 18 20 Rate Blood Pressure 113/77 112/73 O2 Sat by Pulse 100 Oximetry Imaging Studies: Reviewed (CT: solitary and large R kidney Incomplete bladder e mptying / distended bladder) - Plan Ambulation - Out of Bed: Yes See Orders: Yes Additional Information: IMP: UTI. improving. Possible chronic retention. P/Rec: ANTIBIOTIC RX. REPEAT CULTURE. BLADDER SCAN TO CHECK RESIDUAL. OCTAVIO Grajeda PT. - Date & Time of Note Date: 05/21/18 Time: 12:30
--- NOTE | 2018-05-21 20:33 | CP.PCM.PN ---
Subjective - Date & Time of Evaluation Date of Evaluation: 05/21/18 Time of Evaluation: 20:33 - Subjective Subjective: CHIEF COMPLAINTS TODAY : AFEBRILE, FEELING SLIGHTLY BETTER ROS. HEENT : N. Resp : No cough, wheezing ,pleuritic CP ,or hemoptysis Cardio : No anginal CP, PND, orthopnea, palpitation GI : +VE RT FLANK AND EPIGASTRIC PAIN, NO n/v ,diarrhea or GI bleeding . 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 Musculoskel : No joint swelling , Derm : No rash Psych : Normal affect. Ext : No swelling ,calf pain PE. Pt. is alert awake in no distress. V.S As noted in the chart Head ,ear nose,throat and eyes : Normal. Neck : Supple with normal carotids. Lungs: Clear air entry. Heart : S1 & S2 normal, SINUS TACHYCARDIA Abd : SOFT , MILD TENDERNESS RT FLANK AND CVA, with normal bowel sounds. Neuro : Moves all ext. with no localized deficit. Ext : No edema with intact pulses.Non tender calves Derm : No rashes or decubitus ulcer. LABS/RADIOLOGY: wbc 14.8 BETTER H/H 9.7/29.8 PLATELETS ADEQUATE RENAL FUNCTIONS OKAY 0.6//bun 5 BLOOD CULTURES 05/18/18 2: 2 SETS +VE E. COLI URINE CULTURE 05/18/18 ESBL+VE E.COLI S- MERREM ASSESSMENT GRAM-NEGATIVE BACTEREMIA -E.COLI RT. PYELONEPHRITIS-COMPLICATED/? DEVELOPING ABSCESS UROSEPSIS +VE ESBL E.COLI HISTORY OF LEFT NEPHRECTOMY. ( WILMS TUMOUR ) DKA.-IDDM HX OF NEUROMYELITIS OPTICA S/P RITUXIMAB-2018 ANAEMIA- IRON DEFICIENCY/ CH BLOOD LOSS PLAN : ON IV MERREM 500MG IVPB Q 8HRLY 05/20/18. ON IV FLAGYL 500MG IVPB Q 8HRLY 05/19/18 CONTACT ISOLATION. F/U REPEAT BLOOD CULTURES 05/21 -P ON BOARD . PER pmd AND CONSULTANTS Objective - Vital Signs/Intake and Output Vital Signs (last 24 hours): Temp Pulse Resp BP Pulse Ox 98.1 F 115 H 20 124/87 100 05/21/18 15:00 05/21/18 20:00 05/21/18 15:00 05/21/18 15:00 05/21/18 15:00 Intake and Output: 05/21/18 05/22/18 18:59 06:59 Intake Total 600 Balance 600 - Medications Medications: Current Medications Diphenhydramine HCl (Benadryl) 25 mg PO HS PRN PRN Reason: Insomnia Last Admin: 05/21/18 00:45 Dose: 25 mg Enoxaparin Sodium (Lovenox) 40 mg SC DAILY [facility] Last Admin: 05/21/18 10:46 Dose: Not Given Metronidazole (Flagyl) 500 mg in 100 mls @ 100 mls/hr IVPB Q8H [facility]; Protocol Last Admin: 05/21/18 17:07 Dose: 100 mls/hr Meropenem 500 mg/ Sodium (Chloride) 100 mls @ 100 mls/hr IVPB Q8H [facility]; Protocol Last Admin: 05/21/18 13:14 Dose: 100 mls/hr Insulin Aspart (Novolog) 0 unit SC ACHS [facility]; Protocol Last Admin: 05/21/18 17:06 Dose: 1 units Insulin Aspart (Novolog) 10 unit SC TIDCC COUNT [facility] Last Admin: 05/21/18 17:06 Dose: Not Given Insulin Detemir (Levemir) 8 unit SC BID [facility] Last Admin: 05/21/18 17:06 Dose: 8 unit Metoprolol Succinate (Toprol Xl) 100 mg PO DAILY [facility] Last Admin: 05/21/18 10:46 Dose: 100 mg Metoprolol Tartrate (Lopressor) 5 mg IVP Q8H PRN PRN Reason: Other Potassium Chloride (K-Dur 20 Meq Er Tab) 20 meq PO DAILY [facility] Stop: 05/24/18 16:31 Last Admin: 05/21/18 16:12 Dose: 20 meq Tramadol HCl (Ultram) 50 mg PO TID PRN PRN Reason: Pain, severe (8-10) Last Admin: 05/21/18 13:14 Dose: 50 mg - Labs Labs: 05/21/18 11:03 05/21/18 11:03
[2018-05-22] MEDS: metroNIDAZOLE IV 500 mg/100 ml 500 MG/100 ML BAG IVPB SCH ×3 (01:13→16:16)
[2018-05-22] MEDS: Meropenem 500 MG in Sodium Chloride 0.9% 100 ML IVPB SCH ×3 (05:35→21:10)
[2018-05-22] MEDS: (Novolog) Insulin Aspart, Recombinant 100 u/ml 10 ml vial SC SCH ×7 (09:02→21:29)
[2018-05-22] MEDS: Enoxaparin 40 mg Syringe SC SCH (10:01)
[2018-05-22] MEDS: Metoprolol Succinate 100 mg XL Tab PO SCH (10:06)
[2018-05-22] MEDS: Insulin Detemir 100 units/ml Vial (Levemir) SC SCH ×2 (10:06→18:48)
[2018-05-22] MEDS: Potassium Chloride 20 mEq ER Tab PO SCH (10:07)
--- NOTE | 2018-05-22 14:03 | CP.PCM.PN ---
Subjective - Date & Time of Evaluation Date of Evaluation: 05/22/18 Time of Evaluation: 14:01 - Subjective Subjective: Non compliant and in isolation Objective - Vital Signs/Intake and Output Vital Signs (last 24 hours): Temp Pulse Resp BP Pulse Ox 98.3 F 125 H 20 127/79 99 05/22/18 08:47 05/22/18 08:47 05/22/18 08:47 05/22/18 08:47 05/22/18 08:47 Intake and Output: 05/22/18 05/22/18 06:59 18:59 Intake Total 550 Balance 550 - Medications Medications: Current Medications Diphenhydramine HCl (Benadryl) 25 mg PO HS PRN PRN Reason: Insomnia Last Admin: 05/22/18 01:24 Dose: 25 mg Enoxaparin Sodium (Lovenox) 40 mg SC DAILY [facility] Last Admin: 05/22/18 10:01 Dose: Not Given Metronidazole (Flagyl) 500 mg in 100 mls @ 100 mls/hr IVPB Q8H [facility]; Protocol Last Admin: 05/22/18 10:06 Dose: 100 mls/hr Meropenem 500 mg/ Sodium (Chloride) 100 mls @ 100 mls/hr IVPB Q8H [facility]; Protocol Last Admin: 05/22/18 13:07 Dose: 100 mls/hr Insulin Aspart (Novolog) 0 unit SC ACHS [facility]; Protocol Last Admin: 05/22/18 11:46 Dose: 1 units Insulin Aspart (Novolog) 10 unit SC TIDCC [facility] Last Admin: 05/22/18 11:47 Dose: 10 units Insulin Detemir (Levemir) 8 unit SC BID [facility] Last Admin: 05/22/18 10:06 Dose: 8 unit Metoprolol Succinate (Toprol Xl) 100 mg PO DAILY [facility] Last Admin: 05/22/18 10:06 Dose: 100 mg Metoprolol Tartrate (Lopressor) 5 mg IVP Q8H PRN PRN Reason: Other Potassium Chloride (K-Dur 20 Meq Er Tab) 20 meq PO DAILY [facility] Stop: 05/24/18 16:31 Last Admin: 05/22/18 10:07 Dose: 20 meq Tramadol HCl (Ultram) 50 mg PO TID PRN PRN Reason: Pain, severe (8-10) Last Admin: 05/22/18 06:03 Dose: 50 mg - Labs Labs: 05/21/18 11:03 05/21/18 11:03 - Cardiovascular Exam Cardiovascular Exam: REGULAR RHYTHM Assessment and Plan (1) Sinus tachycardia Assessment & Plan: Needs compliance with medicine and diet. Continue beta blockers and increase as tolerated. Status: Acute
--- NOTE | 2018-05-22 21:27 | CP.PCM.PN ---
Subjective - Date & Time of Evaluation Date of Evaluation: 05/22/18 Time of Evaluation: 07:20 - Subjective Subjective: dictated Objective - Vital Signs/Intake and Output Vital Signs (last 24 hours): Temp Pulse Resp BP Pulse Ox 98.3 F 110 H 20 101/67 99 05/22/18 15:00 05/22/18 15:00 05/22/18 15:00 05/22/18 15:00 05/22/18 15:00 - Medications Medications: Current Medications Diphenhydramine HCl (Benadryl) 25 mg PO HS PRN PRN Reason: Insomnia Last Admin: 05/22/18 01:24 Dose: 25 mg Enoxaparin Sodium (Lovenox) 40 mg SC DAILY [facility] [place] Last Admin: 05/22/18 10:01 Dose: Not Given Gabapentin (Neurontin) 100 mg PO BID [facility] Last Admin: 05/22/18 20:06 Dose: 100 mg Metronidazole (Flagyl) 500 mg in 100 mls @ 100 mls/hr IVPB Q8H [facility]; Protocol Last Admin: 05/22/18 16:16 Dose: 100 mls/hr Meropenem 500 mg/ Sodium (Chloride) 100 mls @ 100 mls/hr IVPB Q8H [facility]; Protocol Last Admin: 05/22/18 21:10 Dose: 100 mls/hr Insulin Aspart (Novolog) 0 unit SC ACHS [facility]; Protocol Last Admin: 05/22/18 16:44 Dose: Not Given Insulin Aspart (Novolog) 10 unit SC TIDCC [facility] Last Admin: 05/22/18 16:44 Dose: Not Given Insulin Detemir (Levemir) 8 unit SC BID [facility] Last Admin: 05/22/18 18:48 Dose: Not Given Metoprolol Succinate (Toprol Xl) 100 mg PO DAILY [facility] [place] Last Admin: 05/22/18 10:06 Dose: 100 mg Metoprolol Tartrate (Lopressor) 5 mg IVP Q8H PRN PRN Reason: Other Potassium Chloride (K-Dur 20 Meq Er Tab) 20 meq PO DAILY [facility] Stop: 05/24/18 16:31 Last Admin: 05/22/18 10:07 Dose: 20 meq Tramadol HCl (Ultram) 50 mg PO TID PRN PRN Reason: Pain, severe (8-10) Last Admin: 05/22/18 16:12 Dose: 50 mg - Labs Labs: 05/21/18 11:03 05/21/18 11:03
--- NOTE | 2018-05-22 23:03 | CP.PCM.PN ---
Subjective - Date & Time of Evaluation Date of Evaluation: 05/22/18 Time of Evaluation: 19:00 - Subjective Subjective: Feeling better. Objective - Vital Signs/Intake and Output Vital Signs (last 24 hours): Temp Pulse Resp BP Pulse Ox 98.3 F 110 H 20 101/67 99 05/22/18 15:00 05/22/18 15:00 05/22/18 15:00 05/22/18 15:00 05/22/18 15:00 Intake and Output: 05/22/18 05/23/18 18:59 06:59 Intake Total 550 Balance 550 - Medications Medications: Current Medications Diphenhydramine HCl (Benadryl) 25 mg PO HS PRN PRN Reason: Insomnia Last Admin: 05/22/18 01:24 Dose: 25 mg Enoxaparin Sodium (Lovenox) 40 mg SC DAILY [facility] Last Admin: 05/22/18 10:01 Dose: Not Given Gabapentin (Neurontin) 100 mg PO BID [facility] Last Admin: 05/22/18 20:06 Dose: 100 mg Metronidazole (Flagyl) 500 mg in 100 mls @ 100 mls/hr IVPB Q8H [facility]; Protocol Last Admin: 05/22/18 16:16 Dose: 100 mls/hr Meropenem 500 mg/ Sodium (Chloride) 100 mls @ 100 mls/hr IVPB Q8H [facility]; Protocol Last Admin: 05/22/18 21:10 Dose: 100 mls/hr Insulin Aspart (Novolog) 0 unit SC ACHS [facility]; Protocol Last Admin: 05/22/18 21:29 Dose: Not Given Insulin Aspart (Novolog) 10 unit SC TIDCC [facility] Last Admin: 05/22/18 16:44 Dose: Not Given Insulin Detemir (Levemir) 8 unit SC BID [facility] Last Admin: 05/22/18 18:48 Dose: Not Given Metoprolol Succinate (Toprol Xl) 100 mg PO DAILY [facility] Last Admin: 05/22/18 10:06 Dose: 100 mg Metoprolol Tartrate (Lopressor) 5 mg IVP Q8H PRN PRN Reason: Other Potassium Chloride (K-Dur 20 Meq Er Tab) 20 meq PO DAILY [facility] Stop: 05/24/18 16:31 Last Admin: 05/22/18 10:07 Dose: 20 meq Tramadol HCl (Ultram) 50 mg PO TID PRN PRN Reason: Pain, severe (8-10) Last Admin: 05/22/18 16:12 Dose: 50 mg - Labs Labs: 05/21/18 11:03 05/21/18 11:03 - Head Exam Head Exam: ATRAUMATIC - Eye Exam Eye Exam: Normal appearance - ENT Exam ENT Exam: Mucous Membranes Dry - Respiratory Exam Respiratory Exam: NORMAL BREATHING PATTERN - Cardiovascular Exam Cardiovascular Exam: +S1, +S2 - GI/Abdominal Exam GI & Abdominal Exam: Normal Bowel Sounds Assessment and Plan (1) Anemia Assessment & Plan: chronic disease iron deficiency s/p 2U PRBC iron held due to bacteremia Status: Acute (2) Leukocytosis Assessment & Plan: on antibiotics Status: Acute
--- NOTE | 2018-05-22 23:08 | CP.PCM.PN ---
Subjective - Date & Time of Evaluation Date of Evaluation: 05/22/18 Time of Evaluation: 23:08 - Subjective Subjective: CHIEF COMPLAINTS TODAY : AFEBRILE, TACHYCARDIC ENDO ON BOARD- BS HIGH ROS. HEENT : N. Resp : No cough, wheezing ,pleuritic CP ,or hemoptysis Cardio : No anginal CP, PND, orthopnea, palpitation GI : +VE RT FLANK AND EPIGASTRIC PAIN, NO n/v ,diarrhea or GI bleeding . 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 Musculoskel : No joint swelling , Derm : No rash Psych : Normal affect. Ext : No swelling ,calf pain PE. Pt. is alert awake in no distress. V.S As noted in the chart Head ,ear nose,throat and eyes : Normal. Neck : Supple with normal carotids. Lungs: Clear air entry. Heart : S1 & S2 normal, SINUS TACHYCARDIA HR 110/MIN Abd : SOFT , MILD TENDERNESS RT FLANK AND CVA, with normal bowel sounds. Neuro : Moves all ext. with no localized deficit. Ext : No edema with intact pulses.Non tender calves Derm : No rashes or decubitus ulcer. LABS/RADIOLOGY: wbc 14.8 BETTER H/H 9.7/29.8 PLATELETS ADEQUATE RENAL FUNCTIONS OKAY 0.6//bun 5 BLOOD CULTURES 05/18/18 2: 2 SETS +VE E. COLI URINE CULTURE 05/18/18 ESBL+VE E.COLI S- MERREM ASSESSMENT GRAM-NEGATIVE BACTEREMIA -E.COLI RT. PYELONEPHRITIS-COMPLICATED/? DEVELOPING ABSCESS UROSEPSIS +VE ESBL E.COLI HISTORY OF LEFT NEPHRECTOMY. ( WILMS TUMOUR ) DKA.-IDDM-UNCONTROLLED HX OF NEUROMYELITIS OPTICA S/P RITUXIMAB-2018 ANAEMIA- IRON DEFICIENCY/ CH BLOOD LOSS PLAN : ON IV MERREM 500MG IVPB Q 8HRLY 05/20/18. ON IV FLAGYL 500MG IVPB Q 8HRLY 05/19/18 CONTACT ISOLATION. F/U REPEAT BLOOD CULTURES 05/21 -P ON BOARD . PER pmd AND CONSULTANTS Objective - Vital Signs/Intake and Output Vital Signs (last 24 hours): Temp Pulse Resp BP Pulse Ox 98.3 F 110 H 20 101/67 99 05/22/18 15:00 05/22/18 15:00 05/22/18 15:00 05/22/18 15:00 05/22/18 15:00 Intake and Output: 05/22/18 05/23/18 18:59 06:59 Intake Total 550 Balance 550 - Medications Medications: Current Medications Diphenhydramine HCl (Benadryl) 25 mg PO HS PRN PRN Reason: Insomnia Last Admin: 05/22/18 01:24 Dose: 25 mg Enoxaparin Sodium (Lovenox) 40 mg SC DAILY [facility] Last Admin: 05/22/18 10:01 Dose: Not Given Gabapentin (Neurontin) 100 mg PO BID [facility] Last Admin: 05/22/18 20:06 Dose: 100 mg Metronidazole (Flagyl) 500 mg in 100 mls @ 100 mls/hr IVPB Q8H [facility]; Protocol Last Admin: 05/22/18 16:16 Dose: 100 mls/hr Meropenem 500 mg/ Sodium (Chloride) 100 mls @ 100 mls/hr IVPB Q8H [facility]; Protocol Last Admin: 05/22/18 21:10 Dose: 100 mls/hr Insulin Aspart (Novolog) 0 unit SC ACHS [facility]; Protocol Last Admin: 05/22/18 21:29 Dose: Not Given Insulin Aspart (Novolog) 10 unit SC TIDCC [facility] Last Admin: 05/22/18 16:44 Dose: Not Given Insulin Detemir (Levemir) 8 unit SC BID [facility] Last Admin: 05/22/18 18:48 Dose: Not Given Metoprolol Succinate (Toprol Xl) 100 mg PO DAILY [facility] Last Admin: 05/22/18 10:06 Dose: 100 mg Metoprolol Tartrate (Lopressor) 5 mg IVP Q8H PRN PRN Reason: Other Potassium Chloride (K-Dur 20 Meq Er Tab) 20 meq PO DAILY [facility] Stop: 05/24/18 16:31 Last Admin: 05/22/18 10:07 Dose: 20 meq Tramadol HCl (Ultram) 50 mg PO TID PRN PRN Reason: Pain, severe (8-10) Last Admin: 05/22/18 16:12 Dose: 50 mg - Labs Labs: 05/21/18 11:03 05/21/18 11:03
[2018-05-23] MEDS: Metoprolol 1 mg/ml Inj IVP PRN ×2 (00:25→18:15)
[2018-05-23] MEDS: metroNIDAZOLE IV 500 mg/100 ml 500 MG/100 ML BAG IVPB SCH ×3 (00:25→18:15)
--- NOTE | 2018-05-23 01:04 | PN ---
DATE: 05/22/2018 SUBJECTIVE: The patient has bilateral axillary lymphadenopathy and she is complaining of pain. The patient remains tachycardic. She is afebrile. She is on antibiotics. She is being seen by ID and Cardiology. She denies any dyspnea. She is weak. PHYSICAL EXAMINATION: VITAL SIGNS: Blood pressure 101/67, pulse 110, respiratory rate 20, temperature 98.3. LUNGS: Clear. No rale, no rhonchi. CARDIOVASCULAR SYSTEM: S1, S2. Tachycardic. ABDOMEN: Soft, nontender. Bowel sounds are positive. ASSESSMENT: 1. Gram-negative septicemia with Escherichia coli due to urinary tract infection. The patient's repeat blood cultures are negative. She is tachycardic. Her tachycardia is multifactorial induced by anemia plus infection. 2. Anemia. 3. Urinary tract infection. 4. Dehydration. PLAN: Continue current medications, IV fluid, blood culture, urine cultures, and antibiotics. Dru Fontenot MD
[2018-05-23] MEDS: Meropenem 500 MG in Sodium Chloride 0.9% 100 ML IVPB SCH ×3 (04:31→21:28)
[2018-05-23 08:10] LABS: BASO % 0.2 % (0.0-2.0); EOS # 0.2 K/uL (0.0-0.7); LYMPH % 12.8 % (20.0-40.0); MEAN CELL VOLUME 88.7 fL (81.0-99.0); MEAN CORPUSCULAR HEMOGLOBIN 29.1 pg (27.0-31.0); MEAN CORPUSCULAR HGB CONC 32.9 g/dL (33.0-37.0); MEAN PLATELET VOLUME 8.6 fL (7.2-11.7); MONO # 1.1 K/uL (0.0-0.8); MONO % 6.8 % (0.0-10.0); NEUT # 12.4 K/uL (1.8-7.0); NEUT % 79.2 % (50.0-75.0); RBC 3.43 Mil/uL (3.80-5.20); RED CELL DISTRIBUTION WIDTH 15.7 % (11.5-14.5); WHITE BLOOD COUNT 15.7 K/uL (4.8-10.8)
[2018-05-23 08:24] LABS: BLOOD UREA NITROGEN 2 mg/dL (7-17); CALCIUM 8.8 mg/dl (8.6-10.4); GFR NON-AFRICAN AMERICAN > 60
[2018-05-23] MEDS: (Novolog) Insulin Aspart, Recombinant 100 u/ml 10 ml vial SC SCH ×5 (08:55→16:44)
[2018-05-23] MEDS: Enoxaparin 40 mg Syringe SC SCH (09:09)
[2018-05-23] MEDS ORDERED: Potassium Chloride 20 mEq/15 ml LIQ UD PO ONE ×2 (09:14→10:15)
[2018-05-23] MEDS: Magnesium Sulfate 1 gm in D5W 1 GM/100 ML BAG IVPB SCH ×2 (09:38→11:05)
[2018-05-23] MEDS: Metoprolol Succinate 100 mg XL Tab PO SCH (09:59)
[2018-05-23] MEDS: Insulin Detemir 100 units/ml Vial (Levemir) SC SCH ×2 (10:07→21:35)
--- NOTE | 2018-05-23 14:10 | CP.PCM.PN ---
Subjective - Date & Time of Evaluation Date of Evaluation: 05/23/18 Time of Evaluation: 14:07 - Subjective Subjective: Does not want to be examined and not happy. Objective - Vital Signs/Intake and Output Vital Signs (last 24 hours): Temp Pulse Resp BP Pulse Ox 98.4 F 100 H 20 132/86 98 05/23/18 08:00 05/23/18 08:00 05/23/18 08:00 05/23/18 08:00 05/23/18 08:00 Intake and Output: 05/23/18 05/23/18 06:59 18:59 Intake Total 1000 Balance 1000 - Medications Medications: Current Medications Diphenhydramine HCl (Benadryl) 25 mg PO HS PRN PRN Reason: Insomnia Last Admin: 05/23/18 04:31 Dose: 25 mg Enoxaparin Sodium (Lovenox) 40 mg SC DAILY [facility] Last Admin: 05/23/18 09:09 Dose: Not Given Gabapentin (Neurontin) 100 mg PO BID [facility] Last Admin: 05/23/18 09:08 Dose: 100 mg Metronidazole (Flagyl) 500 mg in 100 mls @ 100 mls/hr IVPB Q8H [facility]; Protocol Last Admin: 05/23/18 08:56 Dose: 100 mls/hr Meropenem 500 mg/ Sodium (Chloride) 100 mls @ 100 mls/hr IVPB Q8H [facility]; Protocol Last Admin: 05/23/18 13:24 Dose: 100 mls/hr Insulin Aspart (Novolog) 0 unit SC ACHS [facility]; Protocol Last Admin: 05/23/18 13:20 Dose: 2 units Insulin Aspart (Novolog) 10 unit SC TIDCC [facility] Last Admin: 05/23/18 13:16 Dose: 10 units Insulin Detemir (Levemir) 8 unit SC BID [facility] Last Admin: 05/23/18 10:07 Dose: 8 unit Magnesium Oxide (Mag-Ox) 400 mg PO DAILY [facility] Stop: 05/27/18 10:01 Metoprolol Succinate (Toprol Xl) 100 mg PO DAILY [facility] Last Admin: 05/23/18 09:59 Dose: 100 mg Metoprolol Tartrate (Lopressor) 5 mg IVP Q8H PRN PRN Reason: Other Last Admin: 05/23/18 00:25 Dose: 5 mg Potassium Chloride (Potassium Chloride Oral Soln) 20 meq PO DAILY [facility] Tramadol HCl (Ultram) 50 mg PO TID PRN PRN Reason: Pain, severe (8-10) Last Admin: 05/23/18 13:25 Dose: 50 mg - Labs Labs: 05/23/18 07:59 05/23/18 07:59 - Cardiovascular Exam Cardiovascular Exam: Tachycardia Additional comments: Telemetry sinus tachycardia. Assessment and Plan (1) Sinus tachycardia Assessment & Plan: Discussed with team. Correct electrolyte abnormalities and increase beta block ers as tolerated. Status: Acute
[2018-05-23] MEDS ORDERED: Dextrose 50% SYRINGE Inj (50 ml) IV ONE (15:30)
[2018-05-23] MEDS ORDERED: Dextrose 50% VIAL Inj (50 ml) IV ONE (15:31)
[2018-05-23] MEDS ORDERED: (Novolog) Insulin Aspart, Recombinant 100 u/ml 10 ml vial SC SCH (17:00)
--- NOTE | 2018-05-23 21:07 | CP.PCM.PN ---
Subjective - Date & Time of Evaluation Date of Evaluation: 05/23/18 Time of Evaluation: 21:02 - Subjective Subjective: uncontrolled IDDM Objective - Vital Signs/Intake and Output Vital Signs (last 24 hours): Temp Pulse Resp BP Pulse Ox 98 F 112 H 20 128/85 99 05/23/18 16:22 05/23/18 16:22 05/23/18 16:22 05/23/18 16:22 05/23/18 16:22 Intake and Output: 05/23/18 05/24/18 18:59 06:59 Intake Total 680 Balance 680 - Medications Medications: Current Medications Diphenhydramine HCl (Benadryl) 25 mg PO HS PRN PRN Reason: Insomnia Last Admin: 05/23/18 04:31 Dose: 25 mg Enoxaparin Sodium (Lovenox) 40 mg SC DAILY [facility] Last Admin: 05/23/18 09:09 Dose: Not Given Gabapentin (Neurontin) 100 mg PO BID [facility] Last Admin: 05/23/18 18:16 Dose: 100 mg Metronidazole (Flagyl) 500 mg in 100 mls @ 100 mls/hr IVPB Q8H [facility]; Protocol Last Admin: 05/23/18 18:15 Dose: 100 mls/hr Meropenem 500 mg/ Sodium (Chloride) 100 mls @ 100 mls/hr IVPB Q8H [facility]; Protocol Last Admin: 05/23/18 13:24 Dose: 100 mls/hr Insulin Detemir (Levemir) 8 unit SC Q12H [facility] Insulin Human Regular (Novolin R) 0 unit SC ACHS [facility]; Protocol Insulin Human Regular (Novolin R) 7 unit SC TIDPC [facility] Magnesium Oxide (Mag-Ox) 400 mg PO DAILY [facility] Stop: 05/27/18 10:01 Metoprolol Succinate (Toprol Xl) 100 mg PO DAILY [facility] Last Admin: 05/23/18 09:59 Dose: 100 mg Metoprolol Tartrate (Lopressor) 5 mg IVP Q8H PRN PRN Reason: Other Last Admin: 05/23/18 18:15 Dose: 5 mg Potassium Chloride (Potassium Chloride Oral Soln) 20 meq PO DAILY [facility] Tramadol HCl (Ultram) 50 mg PO TID PRN PRN Reason: Pain, severe (8-10) Last Admin: 05/23/18 13:25 Dose: 50 mg - Labs Labs: 03/17/19 07:59 05/23/18 07:59 Assessment and Plan (1) Diabetic hypoglycemia Assessment & Plan: Endocrine consult reason for consult: uncontrolled diabetes Source: patient and chart review Binh Garcia is 33 y/o admitted for weakness & poor intake found with UTI found with glucose > 400 as per pt. 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 HEENT: denies earache, change in voice .Respiratory: denies cough, sob . CVS :no chest pain, no palpitations . Abdomen: (-) abdominal pain, no nausea /vomiting, no change bowel movement. 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 Extremities: no edema, no tremors. Skin: no itching, no rash LMP 05/2018 spotting Physical exam Well-developed AAO x3 , ,NAD VSS HEENT: norm cephalic, atraumatic, no lid lag , no exophthalmos NECK: supple, no palpable lymphadenopathy THYROID: no palpable thyromegaly, not tender CHEST: fair air entry, bilateral, CVS: S1,S2 ABDOMEN: bowel sound present, benign, obese, no wide purple striae , no bruises EXTREMITIES: no edema, clubbing or cyanosis, no palpable hand tremors Skin: (+) acanthosis nigricans -lab: wbc 15.7 urine test (-) tsh 1.07 , a1c 13.5 , ldl 60, tg 81 , wbc 17.9 , u/a (+) glucose , blood & nitrate Assessment: symptomatic hypoglycemia uncontrolled IDDM UTI /bactremia plan : increase Levemir 8 units q 12 h , was decrease to 6 units bid off metfomin stop Novolog scale & prandial start novoloin R low dose coverage tid & hs start novoloin R 7 units tid with meals if eat > 60% we will follow with you. Marcy Knowles # [phone] office Fridays & Saturdays address: [address] [place] [address] ,phone # [phone] ,FAX [phone] Status: Acute (2) Diabetes mellitus, insulin dependent (IDDM), uncontrolled Status: Acute (3) UTI (urinary tract infection) Status: Acute (4) Abdominal pain Status: Acute
[2018-05-23] MEDS: (Novolin R) Insulin Human Regular 100 units/ml vial SC SCH (21:33)
[2018-05-23] MEDS ORDERED: Insulin Detemir 100 units/ml Vial (Levemir) SC SCH (22:00)
--- NOTE | 2018-05-23 23:16 | CP.PCM.PN ---
Subjective - Date & Time of Evaluation Date of Evaluation: 05/23/18 Time of Evaluation: 16:00 - Subjective Subjective: dictated Objective - Vital Signs/Intake and Output Vital Signs (last 24 hours): Temp Pulse Resp BP Pulse Ox 98 F 112 H 20 128/85 99 05/23/18 16:22 05/23/18 16:22 05/23/18 16:22 05/23/18 16:22 05/23/18 16:22 Intake and Output: 05/23/18 05/24/18 18:59 06:59 Intake Total 680 Balance 680 - Medications Medications: Current Medications Diphenhydramine HCl (Benadryl) 25 mg PO HS PRN PRN Reason: Insomnia Last Admin: 05/23/18 04:31 Dose: 25 mg Enoxaparin Sodium (Lovenox) 40 mg SC DAILY [facility] Last Admin: 05/23/18 09:09 Dose: Not Given Gabapentin (Neurontin) 100 mg PO BID [facility] Last Admin: 05/23/18 18:16 Dose: 100 mg Metronidazole (Flagyl) 500 mg in 100 mls @ 100 mls/hr IVPB Q8H [facility]; Protocol Last Admin: 05/23/18 18:15 Dose: 100 mls/hr Meropenem 500 mg/ Sodium (Chloride) 100 mls @ 100 mls/hr IVPB Q8H [facility]; Protocol Last Admin: 05/23/18 21:28 Dose: 100 mls/hr Insulin Detemir (Levemir) 8 unit SC Q12H [facility] Last Admin: 05/23/18 21:35 Dose: Not Given Insulin Human Regular (Novolin R) 0 unit SC ACHS [facility]; Protocol Last Admin: 05/23/18 21:33 Dose: Not Given Insulin Human Regular (Novolin R) 7 unit SC TIDPC [facility] Magnesium Oxide (Mag-Ox) 400 mg PO DAILY [facility] Stop: 05/27/18 10:01 Metoprolol Succinate (Toprol Xl) 100 mg PO DAILY [facility] Last Admin: 05/23/18 09:59 Dose: 100 mg Metoprolol Tartrate (Lopressor) 5 mg IVP Q8H PRN PRN Reason: Other Last Admin: 05/23/18 18:15 Dose: 5 mg Potassium Chloride (Potassium Chloride Oral Soln) 20 meq PO DAILY [facility] Tramadol HCl (Ultram) 50 mg PO TID PRN PRN Reason: Pain, severe (8-10) Last Admin: 05/23/18 21:29 Dose: 50 mg - Labs Labs: 05/23/18 07:59 05/23/18 07:59
[2018-05-24] MEDS: metroNIDAZOLE IV 500 mg/100 ml 500 MG/100 ML BAG IVPB SCH ×3 (00:26→17:53)
--- NOTE | 2018-05-24 03:53 | PN ---
DATE: 05/23/2018 SUBJECTIVE: The patient still has some axillary pain in the lymph node. She has decreased tachycardia. Decreased shortness of breath. No chest pain. PHYSICAL EXAMINATION: VITAL SIGNS: Blood pressure 132/56, pulse 100, respiratory rate 20, temperature 98.4. LUNGS: Bilaterally clear. No rales. No rhonchi. CVS: S1 and S2 regular. Tachycardic. ABDOMEN: Soft, nontender. Bowel sounds are positive. ASSESSMENT: 1. Sinus tachycardia, multifactorial; sepsis anemia plus dehydration. 2. Anemia. 3. Diabetes with low blood sugars. PLAN: Antibiotics and Tylenol. Beta-stanton. Monitor patient. Dru Fontenot MD
--- NOTE | 2018-05-24 03:54 | CON ---
DATE: 05/18/2018 UROLOGY CONSULTATION UROLOGY CONSULTATION REQUESTED BY: Sommer Spaulding MD UROLOGY CONSULTATION FILLED BY: Jennifer Gagnon MD HISTORY OF PRESENT ILLNESS: The patient is a 33-year-old female admitted with urinary tract infection. The patient is in otherwise fair health. The patient presented to the emergency room on 05/17/2018. The patient presented with generalized weakness and shortness of breath. The patient had poor appetite. The patient was found to have severe hyperglycemia. See attached reports. The patient was found to have marked leukocytosis. The patient was found to have diabetic ketoacidosis with a sugar of 774 and a bicarb of 17. The patient was also found to have marked leukocytosis with a white blood count of 26,600. The patient reports that she had abdominal pain. She had marked urinary frequency. She has right upper quadrant pain as well as right back pain. The patient complained of dyspnea. PAST MEDICAL HISTORY: Ms. Cervantes has a significant past history. 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 The patient had previously been treated with rituximab for this. The patient has history of insulin-dependent diabetes mellitus. During this admission, the patient has had infectious disease consultation. See attached reports. The patient additionally has had cardiology consultation regarding her tachycardia. During admission, had some improvement of the patient's overall status. She reports that she still has pain, although is feeling better. The patient also reports that she still has shaking chills, although has been improvement on her fever curve. The further details are as reviewed from the chart as well as obtained by talking to the patient. MEDICATIONS: The patient's medications have included Lovenox, imipenem, insulin, metformin, and metoprolol. PHYSICAL EXAMINATION: GENERAL: The patient is a well-developed, well-nourished female, appearing her stated age. The patient is awake and alert. The patient is in bed. The patient is oriented. ABDOMEN: Soft. There is moderate diffuse abdominal tenderness which is noted to a greater degree, involving the right upper quadrant. There is right CVA tenderness as well. LABORATORY DATA; Reviewed. There was noted to be a E-coli bacteriuria as well as bacteremia. See attached reports. Additionally, the patient had a CT scan which I have not yet reviewed. IMPRESSION: A 33-year-old female with urinary tract infection. Solitary right kidney. Right pyelonephritis. The patient has had poorly controlled diabetes. The infection may have exacerbated her diabetes. Additionally, the uncontrolled diabetes may have predisposed her to urinary tract infection. RECOMMENDATION AND PLAN: Continue antibiotic therapy. Possible need for further urologic intervention and evaluation. Review CT scan. Repeat urinalysis and urine culture. Anemia is noted as well. Further therapy to follow according to the patient's clinical course. Thank you for recommending the patient for urology consultation. Also obtain bladder scan to check postvoid residual. The patient will need further urologic followup regarding urinary tract infection. Other predisposing causes to the urinary tract infection include possible diabetic, autonomic . Avon MD Kalin cc: Sommer Spaulding MD
[2018-05-24] MEDS: Meropenem 500 MG in Sodium Chloride 0.9% 100 ML IVPB SCH ×3 (04:50→22:29)
[2018-05-24 07:25] LABS: BASO # 0.1 K/uL (0.0-0.2); BASO % 0.4 % (0.0-2.0); EOS # 0.2 K/uL (0.0-0.7); EOS % 1.2 % (0.0-4.0); HEMOGLOBIN 9.6 g/dL (11.0-16.0); LYMPH # 1.9 K/uL (1.0-4.3); LYMPH % 12.9 % (20.0-40.0); MEAN CELL VOLUME 88.7 fL (81.0-99.0); MEAN CORPUSCULAR HEMOGLOBIN 30.1 pg (27.0-31.0); MEAN PLATELET VOLUME 8.4 fL (7.2-11.7); MONO # 1.2 K/uL (0.0-0.8); MONO % 7.9 % (0.0-10.0); NEUT # 11.4 K/uL (1.8-7.0); NEUT % 77.6 % (50.0-75.0); RBC 3.18 Mil/uL (3.80-5.20); RED CELL DISTRIBUTION WIDTH 15.2 % (11.5-14.5); WHITE BLOOD COUNT 14.7 K/uL (4.8-10.8)
[2018-05-24 07:33] LABS: SQUAMOUS EPITHIAL 1 /hpf (0-5); URINE BACTERIA RARE (<OCC); URINE BILIRUBIN NEGATIVE (NEGATIVE); URINE BLOOD NEGATIVE (NEGATIVE); URINE CLARITY Clear (Clear); URINE COLOR Yellow (YELLOW); URINE GLUCOSE (UA) 3+ mg/dL (Normal); URINE LEUKOCYTE ESTERASE 1+ Leu/uL (Negative); URINE PROTEIN NEGATIVE (NEGATIVE); URINE UROBILINOGEN NORMAL mg/dL (0.2-1.0)
[2018-05-24] MEDS: (Novolin R) Insulin Human Regular 100 units/ml vial SC SCH ×7 (07:46→22:05)
[2018-05-24 08:20] LABS: ALB/GLOB RATIO 1.1 (1.0-2.1); ALBUMIN 2.8 g/dL (3.5-5.0); ALT/SGPT 11 U/L (9-52); AST/SGOT 25 U/L (14-36); BILIRUBIN,DIRECT 0.2 mg/dL (0.0-0.4); BLOOD UREA NITROGEN 3 mg/dL (7-17); CALCIUM 8.8 mg/dl (8.6-10.4); GFR NON-AFRICAN AMERICAN > 60
[2018-05-24] MEDS: Potassium Chloride 20 mEq/15 ml LIQ UD PO SCH (09:03)
[2018-05-24] MEDS: Metoprolol Succinate 100 mg XL Tab PO SCH (09:04)
[2018-05-24] MEDS: Magnesium Oxide 400 mg Tab UD PO SCH (09:04)
[2018-05-24] MEDS: Enoxaparin 40 mg Syringe SC SCH (09:05)
[2018-05-24] MEDS: Insulin Detemir 100 units/ml Vial (Levemir) SC SCH ×2 (09:12→22:28)
[2018-05-24] MEDS ORDERED: Potassium Chloride 20 mEq/15 ml LIQ UD PO STA (13:48)
[2018-05-24] MEDS: Magnesium Sulfate 1 gm in D5W 1 GM/100 ML BAG IVPB SCH ×2 (14:01→14:37)
--- NOTE | 2018-05-24 16:47 | CP.PCM.CON ---
<Leandro Childers - Last Filed: 05/24/18 16:54> History of Present Illness - History of Present Illness History of Present Illness: General Surgery Consult: Dr Turner Re: Left Axillary Access Pt is a 33F with PMH of DM, HTN, MS, CKD. Pt presented on 05/17/18 with generalized weakness, anemia, and sob x 2 weeks. Found to be in DKA and was admitted to ICU. Pt also found to have UTI. Currently on isolation. During her stay pt developed progressively worsening left axillary pain and swelling. Pt reports this started 3 days ago. Has associated tenderness and numbness towards the posterior aspect of the axillae. Pt denies any fevers or chills, but has had intermittent tachycardia. Pt is extremely anxious about arm tenderness. Refused to allow me to examine her arm via palpation. We discussed need to drain the abscess, and pt was adamant she would only undergo procedure with sedation due to pain and fear of contamination given her concomitant infections. Review of Systems - Review of Systems All systems: reviewed and no additional remarkable complaints except (as per hpi) 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 - RENAL Hx Chronic Kidney Disease: Yes - ENDOCRINE/METABOLIC Hx Diabetes Mellitus Type 1: Yes - HEMATOLOGICAL/ONCOLOGICAL Hx Blood Disorders: Yes Hx Blood Transfusions: Yes (2014) Hx Blood Transfusion Reaction: No Other/Comment: wilms tumor 7yo - INTEGUMENTARY Hx Dermatological Problems: No - MUSCULOSKELETAL/RHEUMATOLOGICAL Hx Musculoskeletal Disorders: Yes Hx Falls: No Hx Osteomyelitis: Yes - GASTROINTESTINAL Hx Gastritis: Yes Other/Comment: SBO - GENITOURINARY/GYNECOLOGICAL Hx Genitourinary Disorders: No - PSYCHIATRIC Hx Substance Use: No - SURGICAL HISTORY Hx Surgeries: Yes Hx Amputation: No Hx Orthopedic Surgery: Yes Other/Comment: RIGHT LEG SURGERY;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;LEFT NEPHRECTOMY/INSERTION AND REMOVAL OF LIFEPORT-2X - ANESTHESIA Hx Anesthesia: Yes Hx Anesthesia Reactions: No Hx Malignant Hyperthermia: No Meds Allergies/Adverse Reactions: Allergies Allergy/AdvReac Type Severity Reaction Status Date / Time Iodinated Contrast- Oral and Allergy Verified 05/17/18 21:29 IV Dye iohexol [From Omnipaque] Allergy RASH Verified 05/17/18 17:55 - Medications Medications: Current Medications Diphenhydramine HCl (Benadryl) 25 mg PO HS PRN PRN Reason: Insomnia Last Admin: 05/24/18 02:15 Dose: 25 mg Enoxaparin Sodium (Lovenox) 40 mg SC DAILY [facility] Last Admin: 05/24/18 09:05 Dose: Not Given Gabapentin (Neurontin) 100 mg PO BID [facility] Last Admin: 05/24/18 09:04 Dose: 100 mg Metronidazole (Flagyl) 500 mg in 100 mls @ 100 mls/hr IVPB Q8H [facility]; Protocol Last Admin: 05/24/18 08:39 Dose: 100 mls/hr Meropenem 500 mg/ Sodium (Chloride) 100 mls @ 100 mls/hr IVPB Q8H [facility]; Protocol Last Admin: 05/24/18 14:04 Dose: 100 mls/hr Insulin Detemir (Levemir) 8 unit SC Q12H [facility] Last Admin: 05/24/18 09:12 Dose: 8 units Insulin Human Regular (Novolin R) 0 unit SC ACHS [facility]; Protocol Last Admin: 05/24/18 11:39 Dose: 1 units Insulin Human Regular (Novolin R) 7 unit SC TIDPC [facility] Last Admin: 05/24/18 13:59 Dose: 7 units Magnesium Oxide (Mag-Ox) 400 mg PO DAILY [facility] Stop: 05/27/18 10:01 Last Admin: 05/24/18 09:04 Dose: 400 mg Magnesium Oxide (Mag-Ox) 400 mg PO DAILY [facility] Stop: 05/30/18 10:01 Metoprolol Succinate (Toprol Xl) 100 mg PO DAILY [facility] Last Admin: 05/24/18 09:04 Dose: 100 mg Metoprolol Tartrate (Lopressor) 5 mg IVP Q8H PRN PRN Reason: Other Last Admin: 05/23/18 18:15 Dose: 5 mg Potassium Chloride (Potassium Chloride Oral Soln) 20 meq PO DAILY [facility] Last Admin: 05/24/18 09:03 Dose: 20 meq Tramadol HCl (Ultram) 50 mg PO TID PRN PRN Reason: Pain, severe (8-10) Last Admin: 05/24/18 14:44 Dose: 50 mg Physical Exam - Constitutional Appears: Non-toxic, No Acute Distress - Eye Exam Eye Exam: Normal appearance - ENT Exam ENT Exam: Mucous Membranes Moist - Respiratory Exam Respiratory Exam: absent: Accessory Muscle Use, Respiratory Distress - Cardiovascular Exam Cardiovascular Exam: Tachycardia, REGULAR RHYTHM - GI/Abdominal Exam GI & Abdominal Exam: Soft. absent: Tenderness - Extremities Exam Additional comments: 3x6cm abscess and additional 2x2cm abscess in left axillae, tender to palpation, fluctuant Results - Vital Signs Recent Vital Signs: Last Vital Signs Temp 98.2 F 05/24/18 15:00 Pulse 118 H 05/24/18 15:00 Resp 20 05/24/18 15:00 BP 134/82 05/24/18 15:00 Pulse Ox 99 05/24/18 15:00 - Labs Result Diagrams: 05/24/18 07:09 05/24/18 07:09 Labs: Laboratory Results - last 24 hr 05/23/18 05/24/18 05/24/18 21:26 02:04 06:49 WBC RBC Hgb Hct MCV MCH MCHC RDW Plt Count MPV Neut % (Auto) Lymph % (Auto) [place] % (Auto) Eos % (Auto) Baso % (Auto) Neut # (Auto) Lymph # (Auto) [place] # (Auto) Eos # (Auto) Baso # (Auto) Sodium Potassium Chloride Carbon Dioxide Anion Gap BUN Creatinine Est GFR ( Amer) Est GFR (Non-Af Amer) POC Glucose (mg/dL) 179 H 201 H 242 H Random Glucose Calcium Phosphorus Magnesium Total Bilirubin Direct Bilirubin AST ALT Alkaline Phosphatase Total Protein Albumin Globulin Albumin/Globulin Ratio Urine Color Urine Clarity Urine pH Ur Specific [place] Urine Protein Urine Glucose (UA) Urine Ketones Urine Blood Urine Nitrate Urine Bilirubin Urine Urobilinogen Ur Leukocyte Esterase Urine WBC (Auto) Urine RBC (Auto) Ur Squamous Epith Cells Urine Bacteria 05/24/18 05/24/18 05/24/18 07:09 07:09 07:16 WBC 14.7 H RBC 3.18 L Hgb 9.6 L Hct 28.3 L MCV 88.7 MCH 30.1 MCHC 34.0 RDW 15.2 H Plt Count 478 H MPV 8.4 Neut % (Auto) 77.6 H Lymph % (Auto) 12.9 L [place] % (Auto) 7.9 Eos % (Auto) 1.2 Baso % (Auto) 0.4 Neut # (Auto) 11.4 H Lymph # (Auto) 1.9 [place] # (Auto) 1.2 H Eos # (Auto) 0.2 Baso # (Auto) 0.1 Sodium 136 Potassium 3.5 L Chloride 104 Carbon Dioxide 26 Anion Gap 9 L BUN 3 L Creatinine 0.5 L Est GFR ( Amer) > 60 Est GFR (Non-Af Amer) > 60 POC Glucose (mg/dL) Random Glucose 253 H Calcium 8.8 Phosphorus 3.1 Magnesium 1.5 L Total Bilirubin 0.2 Direct Bilirubin 0.2 AST 25 ALT 11 Alkaline Phosphatase 137 H Total Protein 5.4 L Albumin 2.8 L Globulin 2.6 Albumin/Globulin Ratio 1.1 Urine Color Yellow Urine Clarity Clear Urine pH 6.0 Ur Specific [place] 1.005 Urine Protein Negative Urine Glucose (UA) 3+ H Urine Ketones Negative Urine Blood Negative Urine Nitrate Negative Urine Bilirubin Negative Urine Urobilinogen Normal Ur Leukocyte Esterase 1+ H Urine WBC (Auto) 6 H Urine RBC (Auto) 1 Ur Squamous Epith Cells 1 Urine Bacteria Rare 05/24/18 05/24/18 11:07 16:01 WBC RBC Hgb Hct MCV MCH MCHC RDW Plt Count MPV Neut % (Auto) Lymph % (Auto) [place] % (Auto) Eos % (Auto) Baso % (Auto) Neut # (Auto) Lymph # (Auto) [place] # (Auto) Eos # (Auto) Baso # (Auto) Sodium Potassium Chloride Carbon Dioxide Anion Gap BUN Creatinine Est GFR ( Amer) Est GFR (Non-Af Amer) POC Glucose (mg/dL) 195 H 120 H Random Glucose Calcium Phosphorus Magnesium Total Bilirubin Direct Bilirubin AST ALT Alkaline Phosphatase Total Protein Albumin Globulin Albumin/Globulin Ratio Urine Color Urine Clarity Urine pH Ur Specific [place] Urine Protein Urine Glucose (UA) Urine Ketones Urine Blood Urine Nitrate Urine Bilirubin Urine Urobilinogen Ur Leukocyte Esterase Urine WBC (Auto) Urine RBC (Auto) Ur Squamous Epith Cells Urine Bacteria Assessment & Plan - Assessment and Plan (Free Text) Assessment: 33F with resolving DKA, UTI; now with left axillary abscess Plan: NPO @ [place] cont Merrem hold anti-coagulation OR tomorrow in the morning for I&D d/w Dr Yue Childers, PGY4 <Josh Turner - Last Filed: 05/30/18 13:22> Meds - Medications Medications: Current Medications Diphenhydramine HCl (Benadryl) 25 mg PO HS PRN PRN Reason: Insomnia Last Admin: 05/30/18 00:27 Dose: 25 mg Enoxaparin Sodium (Lovenox) 40 mg SC DAILY [facility] Last Admin: 05/30/18 09:39 Dose: Not Given Gabapentin (Neurontin) 100 mg PO BID [facility] Last Admin: 05/30/18 09:38 Dose: 100 mg Hydromorphone HCl (Dilaudid) 1 mg IVP Q4H PRN PRN Reason: Pain, severe (8-10) Last Admin: 05/30/18 12:10 Dose: 1 mg Metronidazole (Flagyl) 500 mg in 100 mls @ 100 mls/hr IVPB Q8H [facility]; Protocol Last Admin: 05/30/18 08:44 Dose: 100 mls/hr Meropenem 500 mg/ Sodium (Chloride) 100 mls @ 100 mls/hr IVPB Q8H [facility]; Protocol Last Admin: 05/30/18 12:50 Dose: 100 mls/hr Insulin Detemir (Levemir) 8 unit SC Q12H [facility] Last Admin: 05/30/18 09:43 Dose: 8 units Insulin Human Regular (Novolin R) 0 unit SC ACHS [facility]; Protocol Last Admin: 05/30/18 12:30 Dose: Not Given Insulin Human Regular (Novolin R) 7 unit SC ACBD [facility] Last Admin: 05/30/18 08:30 Dose: 7 unit Insulin Human Regular (Novolin R) 5 unit SC ACL [facility] Last Admin: 05/30/18 12:30 Dose: 5 unit Metoprolol Succinate (Toprol Xl) 100 mg PO DAILY [facility] Last Admin: 05/30/18 09:39 Dose: 100 mg Metoprolol Tartrate (Lopressor) 5 mg IVP Q8H PRN PRN Reason: Other Last Admin: 05/23/18 18:15 Dose: 5 mg Tramadol HCl (Ultram) 50 mg PO TID PRN PRN Reason: Pain, severe (8-10) Last Admin: 05/26/18 02:33 Dose: 50 mg Results - Vital Signs Recent Vital Signs: Last Vital Signs Temp 98.0 F 05/30/18 07:15 Pulse 116 H 05/30/18 09:38 Resp 18 05/30/18 07:15 BP 123/87 05/30/18 09:38 Pulse Ox 99 05/30/18 07:15 - Labs Result Diagrams: 05/29/18 09:05 05/29/18 09:05 Labs: Laboratory Results - last 24 hr 05/29/18 05/29/18 05/30/18 16:18 21:34 06:12 POC Glucose (mg/dL) 95 191 H 199 H 05/30/18 11:33 POC Glucose (mg/dL) 149 H Attending/Attestation - Attestation I have personally seen and examined this patient.: Yes I have fully participated in the care of the patient.: Yes I have reviewed all pertinent clinical information: Yes Notes (Text): Pt was seen and examined at bedside Agree with above note and assessment Pt with left axillary abscess Left Axillary tenderness with abscess present Labs and radiology reviewed Ass: Left Axillary abscess, Mild cellulitis Plan: I & D of left axillary abscess Consent IV Antibiotics NPO, IVF c.w current mx Plan d.w pt in detail Risk and benefit explained in detail.
--- NOTE | 2018-05-24 18:15 | CP.PCM.PN ---
Subjective - Date & Time of Evaluation Date of Evaluation: 05/24/18 Time of Evaluation: 18:12 - Subjective Subjective: Today in good mood. Complains of pain in the left arm secondary to infection. Objective - Vital Signs/Intake and Output Vital Signs (last 24 hours): Temp Pulse Resp BP Pulse Ox 98.2 F 118 H 20 134/82 99 05/24/18 15:00 05/24/18 15:00 05/24/18 15:00 05/24/18 15:00 05/24/18 15:00 Intake and Output: 05/24/18 05/24/18 06:59 18:59 Intake Total 1440 Balance 1440 - Medications Medications: Current Medications Diphenhydramine HCl (Benadryl) 25 mg PO HS PRN PRN Reason: Insomnia Last Admin: 05/24/18 02:15 Dose: 25 mg Enoxaparin Sodium (Lovenox) 40 mg SC DAILY [facility] Last Admin: 05/24/18 09:05 Dose: Not Given Gabapentin (Neurontin) 100 mg PO BID [facility] Last Admin: 05/24/18 17:54 Dose: 100 mg Metronidazole (Flagyl) 500 mg in 100 mls @ 100 mls/hr IVPB Q8H [facility]; Protocol Last Admin: 05/24/18 17:53 Dose: 100 mls/hr Meropenem 500 mg/ Sodium (Chloride) 100 mls @ 100 mls/hr IVPB Q8H [facility]; Protocol Last Admin: 05/24/18 14:04 Dose: 100 mls/hr Insulin Detemir (Levemir) 8 unit SC Q12H [facility] Last Admin: 05/24/18 09:12 Dose: 8 units Insulin Human Regular (Novolin R) 0 unit SC ACHS [facility]; Protocol Last Admin: 05/24/18 17:55 Dose: Not Given Insulin Human Regular (Novolin R) 7 unit SC TIDPC [facility] Last Admin: 05/24/18 17:54 Dose: 7 units Magnesium Oxide (Mag-Ox) 400 mg PO DAILY [facility] Stop: 05/27/18 10:01 Last Admin: 05/24/18 09:04 Dose: 400 mg Magnesium Oxide (Mag-Ox) 400 mg PO DAILY [facility] Stop: 05/30/18 10:01 Metoprolol Succinate (Toprol Xl) 100 mg PO DAILY [facility] Last Admin: 05/24/18 09:04 Dose: 100 mg Metoprolol Tartrate (Lopressor) 5 mg IVP Q8H PRN PRN Reason: Other Last Admin: 05/23/18 18:15 Dose: 5 mg Potassium Chloride (Potassium Chloride Oral Soln) 20 meq PO DAILY [facility] Last Admin: 05/24/18 09:03 Dose: 20 meq Tramadol HCl (Ultram) 50 mg PO TID PRN PRN Reason: Pain, severe (8-10) Last Admin: 05/24/18 14:44 Dose: 50 mg - Labs Labs: 05/24/18 07:09 05/24/18 07:09 - Head Exam Head Exam: NORMOCEPHALIC - Neck Exam Neck Exam: Normal Inspection - Respiratory Exam Respiratory Exam: NORMAL BREATHING PATTERN - Cardiovascular Exam Cardiovascular Exam: REGULAR RHYTHM - Extremities Exam Extremities Exam: Normal Inspection - Neurological Exam Neurological Exam: Alert, Oriented x3 Assessment and Plan (1) Sinus tachycardia Assessment & Plan: Improved. Significant electrolyte abnormalities. Discussed with team. Correct and keep K.4 and Mg>2. Continue beta blockers. Status: Acute
--- NOTE | 2018-05-24 21:10 | CP.PCM.PN ---
Subjective - Date & Time of Evaluation Date of Evaluation: 05/24/18 Time of Evaluation: 07:00 - Subjective Subjective: dictated Objective - Vital Signs/Intake and Output Vital Signs (last 24 hours): Temp Pulse Resp BP Pulse Ox 98.2 F 118 H 20 134/82 99 05/24/18 15:00 05/24/18 15:00 05/24/18 15:00 05/24/18 15:00 05/24/18 15:00 Intake and Output: 05/24/18 05/25/18 18:59 06:59 Intake Total 1440 Balance 1440 - Medications Medications: Current Medications Diphenhydramine HCl (Benadryl) 25 mg PO HS PRN PRN Reason: Insomnia Last Admin: 05/24/18 02:15 Dose: 25 mg Enoxaparin Sodium (Lovenox) 40 mg SC DAILY [facility] Last Admin: 05/24/18 09:05 Dose: Not Given Gabapentin (Neurontin) 100 mg PO BID [facility] Last Admin: 05/24/18 17:54 Dose: 100 mg Metronidazole (Flagyl) 500 mg in 100 mls @ 100 mls/hr IVPB Q8H [facility]; Protocol Last Admin: 05/24/18 17:53 Dose: 100 mls/hr Meropenem 500 mg/ Sodium (Chloride) 100 mls @ 100 mls/hr IVPB Q8H [facility]; Protocol Last Admin: 05/24/18 14:04 Dose: 100 mls/hr Insulin Detemir (Levemir) 8 unit SC Q12H [facility] Last Admin: 05/24/18 09:12 Dose: 8 units Insulin Human Regular (Novolin R) 0 unit SC ACHS [facility]; Protocol Last Admin: 05/24/18 17:55 Dose: Not Given Insulin Human Regular (Novolin R) 7 unit SC TIDPC [facility] Last Admin: 05/24/18 17:54 Dose: 7 units Magnesium Oxide (Mag-Ox) 400 mg PO DAILY [facility] Stop: 05/27/18 10:01 Last Admin: 05/24/18 09:04 Dose: 400 mg Magnesium Oxide (Mag-Ox) 400 mg PO DAILY [facility] Stop: 05/30/18 10:01 Metoprolol Succinate (Toprol Xl) 100 mg PO DAILY [facility] Last Admin: 05/24/18 09:04 Dose: 100 mg Metoprolol Tartrate (Lopressor) 5 mg IVP Q8H PRN PRN Reason: Other Last Admin: 05/23/18 18:15 Dose: 5 mg Potassium Chloride (Potassium Chloride Oral Soln) 20 meq PO DAILY [facility] Last Admin: 05/24/18 09:03 Dose: 20 meq Tramadol HCl (Ultram) 50 mg PO TID PRN PRN Reason: Pain, severe (8-10) Last Admin: 05/24/18 14:44 Dose: 50 mg - Labs Labs: 05/24/18 07:09 05/24/18 07:09
--- NOTE | 2018-05-24 22:27 | CP.PCM.PN ---
Subjective - Date & Time of Evaluation Date of Evaluation: 05/24/18 Time of Evaluation: 22:27 - Subjective Subjective: CHIEF COMPLAINTS TODAY : AFEBRILE, TACHYCARDIC EVENTS NOTED LT. +VE AXILLARY ABSCESS Seen by surgery-for OR in a.m. ROS. HEENT : N. Resp : No cough, wheezing ,pleuritic CP ,or hemoptysis Cardio : No anginal CP, PND, orthopnea, palpitation GI : +VE RT FLANK AND EPIGASTRIC PAIN, NO n/v ,diarrhea or GI bleeding . [employer] : No headache, vertigo, focal deficit. Musculoskel : No joint swelling , Derm : No rash Psych : Normal affect. Ext : No swelling ,calf pain PE. Pt. is alert awake in no distress. V.S As noted in the chart Head ,ear nose,throat and eyes : Normal. Neck : Supple with normal carotids. Lungs: Clear air entry. Heart : S1 & S2 normal, SINUS TACHYCARDIA HR 110/MIN Abd : SOFT , MILD TENDERNESS RT FLANK AND CVA, with normal bowel sounds. Neuro : Moves all ext. with no localized deficit. Ext : No edema with intact pulses.Non tender calves Derm : No rashes or decubitus ulcer. LABS/RADIOLOGY: blood cultures repeat 05/21/18 -ve to date. BLOOD CULTURES 05/18/18 2: 2 SETS +VE E. COLI URINE CULTURE 05/18/18 ESBL+VE E.COLI S- MERREM ASSESSMENT GRAM-NEGATIVE BACTEREMIA -E.COLI RT. PYELONEPHRITIS-COMPLICATED/? DEVELOPING ABSCESS UROSEPSIS +VE ESBL E.COLI HISTORY OF LEFT NEPHRECTOMY. ( WILMS TUMOUR ) DKA.-IDDM-UNCONTROLLED HX OF NEUROMYELITIS OPTICA S/P RITUXIMAB-2018 ANAEMIA- IRON DEFICIENCY/ CH BLOOD LOSS PLAN : ADD IV VANCOMYCIN 1GM IVPB ONE HOUR PRIOR TO SURGERY/AND DAILY 05/25/18 ON IV MERREM 500MG IVPB Q 8HRLY 05/20/18. ON IV FLAGYL 500MG IVPB Q 8HRLY 05/19/18 FOR OR IN AM. CONTACT [facility]. ON BOARD . PER pmd AND CONSULTANTS Objective - Vital Signs/Intake and Output Vital Signs (last 24 hours): Temp Pulse Resp BP Pulse Ox 98.2 F 118 H 20 134/82 99 05/24/18 15:00 05/24/18 15:00 05/24/18 15:00 05/24/18 15:00 05/24/18 15:00 Intake and Output: 05/24/18 05/25/18 18:59 06:59 Intake Total 1440 Balance 1440 - Medications Medications: Current Medications Diphenhydramine HCl (Benadryl) 25 mg PO HS PRN PRN Reason: Insomnia Last Admin: 05/24/18 02:15 Dose: 25 mg Enoxaparin Sodium (Lovenox) 40 mg SC DAILY [facility] Last Admin: 05/24/18 09:05 Dose: Not Given Gabapentin (Neurontin) 100 mg PO BID [facility] Last Admin: 05/24/18 17:54 Dose: 100 mg Metronidazole (Flagyl) 500 mg in 100 mls @ 100 mls/hr IVPB Q8H [facility]; Protocol Last Admin: 05/24/18 17:53 Dose: 100 mls/hr Meropenem 500 mg/ Sodium (Chloride) 100 mls @ 100 mls/hr IVPB Q8H [facility]; Protocol Last Admin: 05/24/18 14:04 Dose: 100 mls/hr Insulin Detemir (Levemir) 8 unit SC Q12H [facility] Last Admin: 05/24/18 09:12 Dose: 8 units Insulin Human Regular (Novolin R) 0 unit SC ACHS [facility]; Protocol Last Admin: 05/24/18 22:05 Dose: Not Given Insulin Human Regular (Novolin R) 7 unit SC TIDPC [facility] Last Admin: 05/24/18 17:54 Dose: 7 units Magnesium Oxide (Mag-Ox) 400 mg PO DAILY [facility] Stop: 05/27/18 10:01 Last Admin: 05/24/18 09:04 Dose: 400 mg Magnesium Oxide (Mag-Ox) 400 mg PO DAILY [facility] Stop: 05/30/18 10:01 Metoprolol Succinate (Toprol Xl) 100 mg PO DAILY [facility] Last Admin: 05/24/18 09:04 Dose: 100 mg Metoprolol Tartrate (Lopressor) 5 mg IVP Q8H PRN PRN Reason: Other Last Admin: 05/23/18 18:15 Dose: 5 mg Potassium Chloride (Potassium Chloride Oral Soln) 20 meq PO DAILY [facility] Last Admin: 05/24/18 09:03 Dose: 20 meq Tramadol HCl (Ultram) 50 mg PO TID PRN PRN Reason: Pain, severe (8-10) Last Admin: 05/24/18 14:44 Dose: 50 mg - Labs Labs: 05/24/18 07:09 05/24/18 07:09
--- NOTE | 2018-05-25 00:03 | PCM.URO ---
Urology Progress Note - General General: No Complaints, Tolerating Diet - Subjective Abdominal Pain: No Flank Pain: Yes (MILD, RIGHT ) Nausea: No Vomiting: No Voiding Well: Yes Hematuria: No Good Stream: Yes Weak Stream: No Stone Passed: No Dsypnea: No Chest Pain: No Fever & Chills: No - Objective Lab Studies: Reviewed (S) Lab Results Last 24 Hours: Laboratory Results - last 24 hr 05/24/18 05/24/18 05/24/18 02:04 06:49 07:09 WBC 14.7 H RBC 3.18 L Hgb 9.6 L Hct 28.3 L MCV 88.7 MCH 30.1 MCHC 34.0 RDW 15.2 H Plt Count 478 H MPV 8.4 Neut % (Auto) 77.6 H Lymph % (Auto) 12.9 L [place] % (Auto) 7.9 Eos % (Auto) 1.2 Baso % (Auto) 0.4 Neut # (Auto) 11.4 H Lymph # (Auto) 1.9 [place] # (Auto) 1.2 H Eos # (Auto) 0.2 Baso # (Auto) 0.1 Sodium Potassium Chloride Carbon Dioxide Anion Gap BUN Creatinine Est GFR ( Amer) Est GFR (Non-Af Amer) POC Glucose (mg/dL) 201 H 242 H Random Glucose Calcium Phosphorus Magnesium Total Bilirubin Direct Bilirubin AST ALT Alkaline Phosphatase Total Protein Albumin Globulin Albumin/Globulin Ratio Urine Color Urine Clarity Urine pH Ur Specific Higgins Urine Protein Urine Glucose (UA) Urine Ketones Urine Blood Urine Nitrate Urine Bilirubin Urine Urobilinogen Ur Leukocyte Esterase Urine WBC (Auto) Urine RBC (Auto) Ur Squamous Epith Cells Urine Bacteria 05/24/18 05/24/18 05/24/18 07:09 07:16 11:07 WBC RBC Hgb Hct MCV MCH MCHC RDW Plt Count MPV Neut % (Auto) Lymph % (Auto) [place] % (Auto) Eos % (Auto) Baso % (Auto) Neut # (Auto) Lymph # (Auto) [place] # (Auto) Eos # (Auto) Baso # (Auto) Sodium 136 Potassium 3.5 L Chloride 104 Carbon Dioxide 26 Anion Gap 9 L BUN 3 L Creatinine 0.5 L Est GFR ( Amer) > 60 Est GFR (Non-Af Amer) > 60 POC Glucose (mg/dL) 195 H Random Glucose 253 H Calcium 8.8 Phosphorus 3.1 Magnesium 1.5 L Total Bilirubin 0.2 Direct Bilirubin 0.2 AST 25 ALT 11 Alkaline Phosphatase 137 H Total Protein 5.4 L Albumin 2.8 L Globulin 2.6 Albumin/Globulin Ratio 1.1 Urine Color Yellow Urine Clarity Clear Urine pH 6.0 Ur Specific Higgins 1.005 Urine Protein Negative Urine Glucose (UA) 3+ H Urine Ketones Negative Urine Blood Negative Urine Nitrate Negative Urine Bilirubin Negative Urine Urobilinogen Normal Ur Leukocyte Esterase 1+ H Urine WBC (Auto) 6 H Urine RBC (Auto) 1 Ur Squamous Epith Cells 1 Urine Bacteria Rare 05/24/18 16:01 WBC RBC Hgb Hct MCV MCH MCHC RDW Plt Count MPV Neut % (Auto) Lymph % (Auto) [place] % (Auto) Eos % (Auto) Baso % (Auto) Neut # (Auto) Lymph # (Auto) [place] # (Auto) Eos # (Auto) Baso # (Auto) Sodium Potassium Chloride Carbon Dioxide Anion Gap BUN Creatinine Est GFR ( Amer) Est GFR (Non-Af Amer) POC Glucose (mg/dL) 120 H Random Glucose Calcium Phosphorus Magnesium Total Bilirubin Direct Bilirubin AST ALT Alkaline Phosphatase Total Protein Albumin Globulin Albumin/Globulin Ratio Urine Color Urine Clarity Urine pH Ur Specific Higgins Urine Protein Urine Glucose (UA) Urine Ketones Urine Blood Urine Nitrate Urine Bilirubin Urine Urobilinogen Ur Leukocyte Esterase Urine WBC (Auto) Urine RBC (Auto) Ur Squamous Epith Cells Urine Bacteria Intake & Output: Intake & Output 05/24/18 05/24/18 05/25/18 06:59 18:59 06:59 Intake Total 1440 Balance 1440 Intake: Intake, IV Amount 520 Right Port-a-Cath 520 Oral 920 Other: # Voids Urine, Voided 2 # Bowel Movements 0 Vital Signs: Vital Signs - 24 hr 05/24/18 05/24/18 05/24/18 03:28 07:11 08:15 Temperature 98.2 F Pulse Rate 108 H 108 H 100 H Respiratory 20 Rate Blood Pressure 124/71 O2 Sat by Pulse 98 Oximetry 05/24/18 15:00 Temperature 98.2 F Pulse Rate 118 H Respiratory 20 Rate Blood Pressure 134/82 O2 Sat by Pulse 99 Oximetry - Physical Exam Abdominal Exam: Soft, Non-Tender, Non-Distended Back: CVA Tenderness (MILD TENDERNESS R FLANK) Urine Color: Yellow - Plan Additional Information: IMP: IMPROVING RE UTI, UROSEPSIS, BACTEREMIA. INCOMPLETE BLADDER EMPTYING, WITH REISDUAL OF 240 CC FROM PRE-VOID VOLUME OF 750CC. DM. REC/P: ANTIBIOTIC RX. SCHEDULED VOIDING, DOUBLE VOIDING, AND CREDE MEANEUVER. DISCUSSED W PT AND NURSING STAFF - Date & Time of Note Date: 05/24/18 Time: 11:00
--- NOTE | 2018-05-25 01:34 | PN ---
DATE: 05/24/2018 SUBJECTIVE: The patient is feeling better. She is slightly tachycardic. No fever. No chills. No nausea, vomiting. No chest pain. PHYSICAL EXAMINATION: GENERAL: She has axillary pain. She has lymph nodes in bilateral axilla. VITAL SIGNS: Blood pressure 134/82, pulse 118, respiratory rate 20, temperature 98.2. LUNGS: Clear. No rales. No rhonchi. CARDIOVASCULAR SYSTEM: PMI not localized. S1, S2 regular. ABDOMEN: Soft, nontender. Bowel sounds are positive. ASSESSMENT: 1. Septicemia with urinary tract infection with Escherichia coli. The patient is on antibiotic. 2. Sinus tachycardia which is multifactorial. 3. Diabetes. 4. Hypertension. PLAN: Continue antibiotics. Correct anemia. Correct sepsis. Continue heart rate lowering medication. Monitor the patient. Dru Fontenot MD
[2018-05-25] MEDS: metroNIDAZOLE IV 500 mg/100 ml 500 MG/100 ML BAG IVPB SCH ×3 (02:02→18:21)
[2018-05-25] MEDS: Meropenem 500 MG in Sodium Chloride 0.9% 100 ML IVPB SCH ×3 (05:30→21:43)
[2018-05-25] MEDS ORDERED: Bupivacaine 0.25% 20 ML INJ IJ ONE ×2 (07:14→16:25)
[2018-05-25] MEDS ORDERED: ceFAZolin 1 gm in NS 0 GM/0 ML BAG IVPB ONE (07:14)
[2018-05-25] MEDS ORDERED: Lidocaine/Epinephrine 1% 1:100000 10 ML IJ ONE ×2 (07:15→16:25)
[2018-05-25] MEDS: (Novolin R) Insulin Human Regular 100 units/ml vial SC SCH ×7 (09:10→21:39)
[2018-05-25] MEDS: Insulin Detemir 100 units/ml Vial (Levemir) SC SCH ×2 (09:20→21:48)
[2018-05-25] MEDS: Potassium Chloride 20 mEq/15 ml LIQ UD PO SCH (09:21)
[2018-05-25] MEDS: Magnesium Oxide 400 mg Tab UD PO SCH ×2 (09:21→09:22)
[2018-05-25] MEDS: Metoprolol Succinate 100 mg XL Tab PO SCH (09:21)
[2018-05-25] MEDS ORDERED: ceFAZolin 1 gm in NS 1 GM/100 ML BAG IVPB ONE (16:26)
[2018-05-25] MEDS ORDERED: Dextrose 50% SYRINGE Inj (50 ml) ONE (16:30)
[2018-05-25] MEDS ORDERED: Midazolam 2 MG/2 ML VIAL ONE ×2 (16:35→16:40)
[2018-05-25] MEDS ORDERED: Propofol 10 mg/ml Inj (20 ML) ONE (16:47)
--- NOTE | 2018-05-25 17:01 | CP.PCM.PN ---
Subjective - Date & Time of Evaluation Date of Evaluation: 05/25/18 Time of Evaluation: 17:00 - Subjective Subjective: Having I&D in the OR. Objective - Vital Signs/Intake and Output Vital Signs (last 24 hours): Temp Pulse Resp BP Pulse Ox 98.2 F 123 H 18 104/70 99 05/24/18 23:35 05/25/18 01:00 05/24/18 23:35 05/24/18 23:35 05/24/18 23:35 Intake and Output: 05/25/18 05/25/18 06:59 18:59 Intake Total 302 Balance 302 - Medications Medications: Current Medications Diphenhydramine HCl (Benadryl) 25 mg PO HS PRN PRN Reason: Insomnia Last Admin: 05/25/18 01:02 Dose: 25 mg Enoxaparin Sodium (Lovenox) 40 mg SC DAILY [facility] Last Admin: 05/24/18 09:05 Dose: Not Given Gabapentin (Neurontin) 100 mg PO BID [facility] Last Admin: 05/25/18 09:20 Dose: 100 mg Metronidazole (Flagyl) 500 mg in 100 mls @ 100 mls/hr IVPB Q8H [facility]; Protocol Last Admin: 05/25/18 09:20 Dose: 100 mls/hr Meropenem 500 mg/ Sodium (Chloride) 100 mls @ 100 mls/hr IVPB Q8H [facility]; Protocol Last Admin: 05/25/18 13:22 Dose: 100 mls/hr Vancomycin HCl 1 gm/ Sodium (Chloride) 250 mls @ 166.7 mls/hr IVPB Q24H [facility]; Protocol Last Admin: 05/25/18 11:25 Dose: 166.7 mls/hr Insulin Detemir (Levemir) 8 unit SC Q12H [facility] Last Admin: 05/25/18 09:20 Dose: 8 units Insulin Human Regular (Novolin R) 0 unit SC ACHS [facility]; Protocol Last Admin: 05/25/18 16:34 Dose: Not Given Insulin Human Regular (Novolin R) 7 unit SC TIDPC [facility] Last Admin: 05/25/18 13:25 Dose: Not Given Magnesium Oxide (Mag-Ox) 400 mg PO DAILY [facility] Stop: 05/27/18 10:01 Last Admin: 05/25/18 09:21 Dose: 400 mg Magnesium Oxide (Mag-Ox) 400 mg PO DAILY [facility] Stop: 05/30/18 10:01 Last Admin: 05/25/18 09:22 Dose: Not Given Metoprolol Succinate (Toprol Xl) 100 mg PO DAILY [facility] Last Admin: 05/25/18 09:21 Dose: 100 mg Metoprolol Tartrate (Lopressor) 5 mg IVP Q8H PRN PRN Reason: Other Last Admin: 05/23/18 18:15 Dose: 5 mg Potassium Chloride (Potassium Chloride Oral Soln) 20 meq PO DAILY [facility] Last Admin: 05/25/18 09:21 Dose: 20 meq Tramadol HCl (Ultram) 50 mg PO TID PRN PRN Reason: Pain, severe (8-10) Last Admin: 05/25/18 09:21 Dose: 50 mg - Labs Labs: 05/24/18 07:09 05/24/18 07:09 Assessment and Plan (1) Sinus tachycardia Assessment & Plan: Follow labs and continue monitoring. Status: Acute
--- NOTE | 2018-05-25 17:11 | PCM.SURG1 ---
Surgeon's Initial Post Op Note - Surgeon's Notes Surgeon: MD Yue Binding End Stitcher: Keith PGY3 Pre-Operative Diagnosis: Left axillary abscess Operative Findings: Left axillary abscess Post-Operative Diagnosis: Left axillary abscess Operation Performed: Incision and drainage of left axillary abscess with wall debridement Specimen/Specimens Removed: none Estimated Blood Loss: EBL {In ML}: 5 Date of Surgery/Procedure: 05/25/18 Time of Surgery/Procedure: 16:30
[2018-05-25] MEDS: HYDROmorphone 0.5 mg/0.5 ml ISec IVP PRN ×2 (17:15→17:31)
[2018-05-25] MEDS ORDERED: HYDROmorphone 0.5 mg/0.5 ml ISec ONE (17:17)
[2018-05-25] MEDS: HYDROmorphone 1 mg/ml ISec IVP PRN ×2 (18:40→23:45)
--- NOTE | 2018-05-25 23:37 | CP.PCM.PN ---
Subjective - Date & Time of Evaluation Date of Evaluation: 05/25/18 Time of Evaluation: 23:37 - Subjective Subjective: SEEN POST OPT.05/25/18 VSS C/O PAIN Post-Operative Diagnosis: Left axillary abscess Operation Performed: Incision and drainage of left axillary abscess with wall debridement Objective - Vital Signs/Intake and Output Vital Signs (last 24 hours): Temp Pulse Resp BP Pulse Ox 97.6 F 100 H 20 123/85 97 05/25/18 18:23 05/25/18 18:23 05/25/18 18:23 05/25/18 18:23 05/25/18 18:23 Intake and Output: 05/25/18 05/26/18 18:59 06:59 Intake Total 702 Balance 702 - Medications Medications: Current Medications Diphenhydramine HCl (Benadryl) 25 mg PO HS PRN PRN Reason: Insomnia Last Admin: 05/25/18 01:02 Dose: 25 mg Enoxaparin Sodium (Lovenox) 40 mg SC DAILY [facility] Last Admin: 05/24/18 09:05 Dose: Not Given Gabapentin (Neurontin) 100 mg PO BID [facility] Last Admin: 05/25/18 18:21 Dose: Not Given Hydromorphone HCl (Dilaudid) 1 mg IVP Q4H PRN PRN Reason: Pain, severe (8-10) Last Admin: 05/25/18 18:40 Dose: 1 mg Hydromorphone HCl (Dilaudid) 0.5 mg IVP Q15M PRN PRN Reason: Pain, severe (8-10) Last Admin: 05/25/18 17:31 Dose: 0.5 mg Metronidazole (Flagyl) 500 mg in 100 mls @ 100 mls/hr IVPB Q8H [facility]; Protocol Last Admin: 05/25/18 18:21 Dose: Not Given Meropenem 500 mg/ Sodium (Chloride) 100 mls @ 100 mls/hr IVPB Q8H [facility]; Protocol Last Admin: 05/25/18 21:43 Dose: 100 mls/hr Vancomycin HCl 1 gm/ Sodium (Chloride) 250 mls @ 166.7 mls/hr IVPB Q24H [facility]; Protocol Last Admin: 05/25/18 11:25 Dose: 166.7 mls/hr Insulin Detemir (Levemir) 8 unit SC Q12H [facility] Last Admin: 05/25/18 21:48 Dose: 8 units Insulin Human Regular (Novolin R) 0 unit SC ACHS [facility]; Protocol Last Admin: 05/25/18 21:39 Dose: Not Given Insulin Human Regular (Novolin R) 7 unit SC TIDPC [facility] Last Admin: 05/25/18 18:21 Dose: Not Given Magnesium Oxide (Mag-Ox) 400 mg PO DAILY [facility] Stop: 05/27/18 10:01 Last Admin: 05/25/18 09:21 Dose: 400 mg Magnesium Oxide (Mag-Ox) 400 mg PO DAILY [facility] Stop: 05/30/18 10:01 Last Admin: 05/25/18 09:22 Dose: Not Given Metoprolol Succinate (Toprol Xl) 100 mg PO DAILY [facility] Last Admin: 05/25/18 09:21 Dose: 100 mg Metoprolol Tartrate (Lopressor) 5 mg IVP Q8H PRN PRN Reason: Other Last Admin: 05/23/18 18:15 Dose: 5 mg Potassium Chloride (Potassium Chloride Oral Soln) 20 meq PO DAILY [facility] Last Admin: 05/25/18 09:21 Dose: 20 meq Tramadol HCl (Ultram) 50 mg PO TID PRN PRN Reason: Pain, severe (8-10) Last Admin: 05/25/18 09:21 Dose: 50 mg - Labs Labs: 05/24/18 07:09 05/24/18 07:09 - Constitutional Appears: No Acute Distress - Head Exam Head Exam: NORMAL INSPECTION - Eye Exam Eye Exam: EOMI, PERRL - ENT Exam ENT Exam: Normal Oropharynx - Neck Exam Neck Exam: Normal Inspection - Respiratory Exam Respiratory Exam: Clear to Ausculation Bilateral, NORMAL BREATHING PATTERN - GI/Abdominal Exam GI & Abdominal Exam: Soft, Normal Bowel Sounds - Extremities Exam Extremities Exam: Normal Capillary Refill. absent: Calf Tenderness, Pedal Edema Additional comments: LEFT AXILLA DRESSING IN PLACE - Neurological Exam Neurological Exam: Alert, Awake, CN II-XII Intact - Psychiatric Exam Psychiatric exam: Normal Mood - Skin Skin Exam: Normal Color, Warm Assessment and Plan - Assessment and Plan (Free Text) Assessment: ASSESSMENT POST OPT S/P I&D LEFT AXILLARY ABSCESS 05/25/18 GRAM-NEGATIVE BACTEREMIA -E.COLI RT. PYELONEPHRITIS-COMPLICATED/? DEVELOPING ABSCESS UROSEPSIS +VE ESBL E.COLI HISTORY OF LEFT NEPHRECTOMY. ( WILMS TUMOUR ) DKA.-IDDM-UNCONTROLLED HX OF NEUROMYELITIS OPTICA S/P RITUXIMAB-2018 ANAEMIA- IRON DEFICIENCY/ CH BLOOD LOSS PLAN : CONTINUE IV VANCOMYCIN 1GM IVPB Q 24HRLY - 05/25/18 ON IV MERREM 500MG IVPB Q 8HRLY 05/20/18. ON IV FLAGYL 500MG IVPB Q 8HRLY 05/19/18 F/U CULTURES TO ADJUST ABX CONTACT ISOLATION. PER PMD AND CONSULTANTS CASE DISCUSSED WITH STAFF.
--- NOTE | 2018-05-26 00:06 | CP.PCM.PN ---
Subjective - Date & Time of Evaluation Date of Evaluation: 05/25/18 Time of Evaluation: 19:00 - Subjective Subjective: dcitated Objective - Vital Signs/Intake and Output Vital Signs (last 24 hours): Temp Pulse Resp BP Pulse Ox 97.6 F 100 H 20 123/85 97 05/25/18 18:23 05/25/18 18:23 05/25/18 18:23 05/25/18 18:23 05/25/18 18:23 Intake and Output: 05/25/18 05/26/18 18:59 06:59 Intake Total 702 Balance 702 - Medications Medications: Current Medications Diphenhydramine HCl (Benadryl) 25 mg PO HS PRN PRN Reason: Insomnia Last Admin: 05/25/18 01:02 Dose: 25 mg Enoxaparin Sodium (Lovenox) 40 mg SC DAILY [facility] Last Admin: 05/24/18 09:05 Dose: Not Given Gabapentin (Neurontin) 100 mg PO BID [facility] Last Admin: 05/25/18 18:21 Dose: Not Given Hydromorphone HCl (Dilaudid) 1 mg IVP Q4H PRN PRN Reason: Pain, severe (8-10) Last Admin: 05/25/18 23:45 Dose: 1 mg Hydromorphone HCl (Dilaudid) 0.5 mg IVP Q15M PRN PRN Reason: Pain, severe (8-10) Last Admin: 05/25/18 17:31 Dose: 0.5 mg Metronidazole (Flagyl) 500 mg in 100 mls @ 100 mls/hr IVPB Q8H [facility]; Protocol Last Admin: 05/25/18 18:21 Dose: Not Given Meropenem 500 mg/ Sodium (Chloride) 100 mls @ 100 mls/hr IVPB Q8H [facility]; Protocol Last Admin: 05/25/18 21:43 Dose: 100 mls/hr Vancomycin HCl 1 gm/ Sodium (Chloride) 250 mls @ 166.7 mls/hr IVPB Q24H [facility]; Protocol Last Admin: 05/25/18 11:25 Dose: 166.7 mls/hr Insulin Detemir (Levemir) 8 unit SC Q12H [facility] Last Admin: 05/25/18 21:48 Dose: 8 units Insulin Human Regular (Novolin R) 0 unit SC ACHS [facility]; Protocol Last Admin: 05/25/18 21:39 Dose: Not Given Insulin Human Regular (Novolin R) 7 unit SC TIDPC [facility] Last Admin: 05/25/18 18:21 Dose: Not Given Magnesium Oxide (Mag-Ox) 400 mg PO DAILY [facility] Stop: 05/27/18 10:01 Last Admin: 05/25/18 09:21 Dose: 400 mg Magnesium Oxide (Mag-Ox) 400 mg PO DAILY [facility] Stop: 05/30/18 10:01 Last Admin: 05/25/18 09:22 Dose: Not Given Metoprolol Succinate (Toprol Xl) 100 mg PO DAILY [facility] Last Admin: 05/25/18 09:21 Dose: 100 mg Metoprolol Tartrate (Lopressor) 5 mg IVP Q8H PRN PRN Reason: Other Last Admin: 05/23/18 18:15 Dose: 5 mg Potassium Chloride (Potassium Chloride Oral Soln) 20 meq PO DAILY [facility] [place] Last Admin: 05/25/18 09:21 Dose: 20 meq Tramadol HCl (Ultram) 50 mg PO TID PRN PRN Reason: Pain, severe (8-10) Last Admin: 05/25/18 09:21 Dose: 50 mg - Labs Labs: 05/24/18 07:09 05/24/18 07:09
[2018-05-26] MEDS: metroNIDAZOLE IV 500 mg/100 ml 500 MG/100 ML BAG IVPB SCH ×3 (01:23→17:58)
--- NOTE | 2018-05-26 02:15 | CP.PCM.PN ---
Subjective - Date & Time of Evaluation Date of Evaluation: 05/24/18 Time of Evaluation: 20:00 - Subjective Subjective: left axillary abscess for I+D in AM Objective - Vital Signs/Intake and Output Vital Signs (last 24 hours): Temp Pulse Resp BP Pulse Ox 97.4 F L 114 H 20 118/80 99 05/25/18 23:00 05/26/18 01:00 05/25/18 23:00 05/25/18 23:00 05/25/18 23:00 Intake and Output: 05/25/18 05/26/18 18:59 06:59 Intake Total 702 Balance 702 - Medications Medications: Current Medications Diphenhydramine HCl (Benadryl) 25 mg PO HS PRN PRN Reason: Insomnia Last Admin: 05/25/18 01:02 Dose: 25 mg Enoxaparin Sodium (Lovenox) 40 mg SC DAILY [facility] Last Admin: 05/24/18 09:05 Dose: Not Given Gabapentin (Neurontin) 100 mg PO BID [facility] Last Admin: 05/25/18 18:21 Dose: Not Given Hydromorphone HCl (Dilaudid) 1 mg IVP Q4H PRN PRN Reason: Pain, severe (8-10) Last Admin: 05/25/18 23:45 Dose: 1 mg Hydromorphone HCl (Dilaudid) 0.5 mg IVP Q15M PRN PRN Reason: Pain, severe (8-10) Last Admin: 05/25/18 17:31 Dose: 0.5 mg Metronidazole (Flagyl) 500 mg in 100 mls @ 100 mls/hr IVPB Q8H [facility]; Protocol Last Admin: 05/25/18 18:21 Dose: Not Given Meropenem 500 mg/ Sodium (Chloride) 100 mls @ 100 mls/hr IVPB Q8H [facility]; Protocol Last Admin: 05/25/18 21:43 Dose: 100 mls/hr Vancomycin HCl 1 gm/ Sodium (Chloride) 250 mls @ 166.7 mls/hr IVPB Q24H [facility]; Protocol Last Admin: 05/25/18 11:25 Dose: 166.7 mls/hr Insulin Detemir (Levemir) 8 unit SC Q12H [facility] Last Admin: 05/25/18 21:48 Dose: 8 units Insulin Human Regular (Novolin R) 0 unit SC ACHS [facility]; Protocol Last Admin: 05/25/18 21:39 Dose: Not Given Insulin Human Regular (Novolin R) 7 unit SC TIDPC [facility] Last Admin: 05/25/18 18:21 Dose: Not Given Magnesium Oxide (Mag-Ox) 400 mg PO DAILY [facility] Stop: 05/27/18 10:01 Last Admin: 05/25/18 09:21 Dose: 400 mg Magnesium Oxide (Mag-Ox) 400 mg PO DAILY [facility] Stop: 05/30/18 10:01 Last Admin: 05/25/18 09:22 Dose: Not Given Metoprolol Succinate (Toprol Xl) 100 mg PO DAILY [facility] Last Admin: 05/25/18 09:21 Dose: 100 mg Metoprolol Tartrate (Lopressor) 5 mg IVP Q8H PRN PRN Reason: Other Last Admin: 05/23/18 18:15 Dose: 5 mg Potassium Chloride (Potassium Chloride Oral Soln) 20 meq PO DAILY [facility] Last Admin: 05/25/18 09:21 Dose: 20 meq Tramadol HCl (Ultram) 50 mg PO TID PRN PRN Reason: Pain, severe (8-10) Last Admin: 05/25/18 09:21 Dose: 50 mg - Labs Labs: 05/24/18 07:09 05/24/18 07:09 - Head Exam Head Exam: ATRAUMATIC - Eye Exam Eye Exam: Normal appearance - ENT Exam ENT Exam: Mucous Membranes Dry - Respiratory Exam Respiratory Exam: NORMAL BREATHING PATTERN - Cardiovascular Exam Cardiovascular Exam: +S1, +S2 - GI/Abdominal Exam GI & Abdominal Exam: Normal Bowel Sounds Assessment and Plan (1) Anemia Assessment & Plan: iron deficiency and chronic disease will supplement IV once clear of infection s/p PRBC transfusion Status: Acute (2) Leukocytosis Assessment & Plan: improving with abx Status: Acute
--- NOTE | 2018-05-26 02:17 | CP.PCM.PN ---
Subjective - Date & Time of Evaluation Date of Evaluation: 05/25/18 Time of Evaluation: 16:00 - Subjective Subjective: s/p I+D of left axillary abscess Objective - Vital Signs/Intake and Output Vital Signs (last 24 hours): Temp Pulse Resp BP Pulse Ox 97.4 F L 114 H 20 118/80 99 05/25/18 23:00 05/26/18 01:00 05/25/18 23:00 05/25/18 23:00 05/25/18 23:00 Intake and Output: 05/25/18 05/26/18 18:59 06:59 Intake Total 702 Balance 702 - Medications Medications: Current Medications Diphenhydramine HCl (Benadryl) 25 mg PO HS PRN PRN Reason: Insomnia Last Admin: 05/25/18 01:02 Dose: 25 mg Enoxaparin Sodium (Lovenox) 40 mg SC DAILY [facility] Last Admin: 05/24/18 09:05 Dose: Not Given Gabapentin (Neurontin) 100 mg PO BID [facility] Last Admin: 05/25/18 18:21 Dose: Not Given Hydromorphone HCl (Dilaudid) 1 mg IVP Q4H PRN PRN Reason: Pain, severe (8-10) Last Admin: 05/25/18 23:45 Dose: 1 mg Hydromorphone HCl (Dilaudid) 0.5 mg IVP Q15M PRN PRN Reason: Pain, severe (8-10) Last Admin: 05/25/18 17:31 Dose: 0.5 mg Metronidazole (Flagyl) 500 mg in 100 mls @ 100 mls/hr IVPB Q8H [facility]; Protocol Last Admin: 05/25/18 18:21 Dose: Not Given Meropenem 500 mg/ Sodium (Chloride) 100 mls @ 100 mls/hr IVPB Q8H [facility]; Protocol Last Admin: 05/25/18 21:43 Dose: 100 mls/hr Vancomycin HCl 1 gm/ Sodium (Chloride) 250 mls @ 166.7 mls/hr IVPB Q24H [facility]; Protocol Last Admin: 05/25/18 11:25 Dose: 166.7 mls/hr Insulin Detemir (Levemir) 8 unit SC Q12H [facility] Last Admin: 05/25/18 21:48 Dose: 8 units Insulin Human Regular (Novolin R) 0 unit SC ACHS [facility]; Protocol Last Admin: 05/25/18 21:39 Dose: Not Given Insulin Human Regular (Novolin R) 7 unit SC TIDPC [facility] Last Admin: 05/25/18 18:21 Dose: Not Given Magnesium Oxide (Mag-Ox) 400 mg PO DAILY [facility] Stop: 05/27/18 10:01 Last Admin: 05/25/18 09:21 Dose: 400 mg Magnesium Oxide (Mag-Ox) 400 mg PO DAILY [facility] Stop: 05/30/18 10:01 Last Admin: 05/25/18 09:22 Dose: Not Given Metoprolol Succinate (Toprol Xl) 100 mg PO DAILY [facility] Last Admin: 05/25/18 09:21 Dose: 100 mg Metoprolol Tartrate (Lopressor) 5 mg IVP Q8H PRN PRN Reason: Other Last Admin: 05/23/18 18:15 Dose: 5 mg Potassium Chloride (Potassium Chloride Oral Soln) 20 meq PO DAILY [facility] Last Admin: 05/25/18 09:21 Dose: 20 meq Tramadol HCl (Ultram) 50 mg PO TID PRN PRN Reason: Pain, severe (8-10) Last Admin: 05/25/18 09:21 Dose: 50 mg - Labs Labs: 05/24/18 07:09 05/24/18 07:09 - Head Exam Head Exam: ATRAUMATIC - Eye Exam Eye Exam: Normal appearance - ENT Exam ENT Exam: Mucous Membranes Dry - Respiratory Exam Respiratory Exam: NORMAL BREATHING PATTERN - Cardiovascular Exam Cardiovascular Exam: +S1, +S2 - GI/Abdominal Exam GI & Abdominal Exam: Normal Bowel Sounds Assessment and Plan (1) Anemia Assessment & Plan: iron deficiency and chronic disease will plan to supplement IV when clear of infections s/p PRBC transfusion Status: Acute (2) Leukocytosis Assessment & Plan: improving with antibiotics Status: Acute
--- NOTE | 2018-05-26 03:34 | PN ---
DATE: 05/25/2018 SUBJECTIVE: The patient is for incision and drainage of abscess in the axilla. The patient is on antibiotics, and she is afebrile. PHYSICAL EXAMINATION: VITAL SIGNS: Blood pressure 123/85, pulse 100, respiratory rate 20, temperature 97.6. SKIN: Bilateral axillary abscesses. LUNGS: Bilaterally clear. No rales. No rhonchi. CARDIOVASCULAR SYSTEM: S1, S2, regular. ASSESSMENT: 1. Bilateral axillary abscesses, for incision and drainage. 2. Gram-negative septicemia due to urinary tract infection. 3. Hypertension. 4. Diabetes. PLAN: Antibiotics. Monitor the patient. Accu-Chek, sliding scale. Dru Fontenot MD
[2018-05-26] MEDS: HYDROmorphone 1 mg/ml ISec IVP PRN ×5 (05:46→23:46)
[2018-05-26] MEDS: Meropenem 500 MG in Sodium Chloride 0.9% 100 ML IVPB SCH ×3 (05:47→21:36)
[2018-05-26] MEDS: (Novolin R) Insulin Human Regular 100 units/ml vial SC SCH ×7 (08:30→21:32)
[2018-05-26] MEDS: Magnesium Oxide 400 mg Tab UD PO SCH ×2 (09:55→09:56)
[2018-05-26] MEDS: Metoprolol Succinate 100 mg XL Tab PO SCH (09:55)
[2018-05-26] MEDS: Insulin Detemir 100 units/ml Vial (Levemir) SC SCH ×2 (09:55→21:36)
[2018-05-26] MEDS: Potassium Chloride 20 mEq/15 ml LIQ UD PO SCH (09:55)
[2018-05-26] MEDS: Enoxaparin 40 mg Syringe SC SCH (09:56)
--- NOTE | 2018-05-26 11:22 | CP.PCM.PN ---
<Parmjit Parker - Last Filed: 05/26/18 11:19> Subjective - Date & Time of Evaluation Date of Evaluation: 05/26/18 Time of Evaluation: 11:19 - Subjective Subjective: SURGERY NOTE FOR DR. TURNER 33F seen and examined at bedside. Patient pain controlled with medication, afebrile. Objective - Vital Signs/Intake and Output Vital Signs (last 24 hours): Temp Pulse Resp BP Pulse Ox 97.9 F 109 H 20 138/88 96 05/26/18 07:20 05/26/18 09:53 05/26/18 07:20 05/26/18 09:53 05/26/18 07:20 - Medications Medications: Current Medications Diphenhydramine HCl (Benadryl) 25 mg PO HS PRN PRN Reason: Insomnia Last Admin: 05/26/18 11:01 Dose: 25 mg Enoxaparin Sodium (Lovenox) 40 mg SC DAILY [facility] Last Admin: 05/26/18 09:56 Dose: Not Given Gabapentin (Neurontin) 100 mg PO BID [facility] Last Admin: 05/26/18 09:56 Dose: 100 mg Hydromorphone HCl (Dilaudid) 1 mg IVP Q4H PRN PRN Reason: Pain, severe (8-10) Last Admin: 05/26/18 09:54 Dose: 1 mg Hydromorphone HCl (Dilaudid) 0.5 mg IVP Q15M PRN PRN Reason: Pain, severe (8-10) Last Admin: 05/25/18 17:31 Dose: 0.5 mg Metronidazole (Flagyl) 500 mg in 100 mls @ 100 mls/hr IVPB Q8H [facility]; Protocol Last Admin: 05/26/18 08:57 Dose: 100 mls/hr Meropenem 500 mg/ Sodium (Chloride) 100 mls @ 100 mls/hr IVPB Q8H [facility]; Protocol Last Admin: 05/26/18 05:47 Dose: 100 mls/hr Vancomycin HCl 1 gm/ Sodium (Chloride) 250 mls @ 166.7 mls/hr IVPB Q24H [facility]; Protocol Last Admin: 05/26/18 09:53 Dose: 166.7 mls/hr Insulin Detemir (Levemir) 8 unit SC Q12H [facility] Last Admin: 05/26/18 09:55 Dose: 8 units Insulin Human Regular (Novolin R) 0 unit SC ACHS [facility]; Protocol Last Admin: 05/26/18 08:30 Dose: 1 units Insulin Human Regular (Novolin R) 7 unit SC TIDPC [facility] Last Admin: 05/26/18 08:55 Dose: 7 units Magnesium Oxide (Mag-Ox) 400 mg PO DAILY [facility] Stop: 05/27/18 10:01 Last Admin: 05/26/18 09:55 Dose: 400 mg Magnesium Oxide (Mag-Ox) 400 mg PO DAILY [facility] Stop: 05/30/18 10:01 Last Admin: 05/26/18 09:56 Dose: Not Given Metoprolol Succinate (Toprol Xl) 100 mg PO DAILY [facility] Last Admin: 05/26/18 09:55 Dose: 100 mg Metoprolol Tartrate (Lopressor) 5 mg IVP Q8H PRN PRN Reason: Other Last Admin: 05/23/18 18:15 Dose: 5 mg Potassium Chloride (Potassium Chloride Oral Soln) 20 meq PO DAILY [facility] Last Admin: 05/26/18 09:55 Dose: 20 meq Tramadol HCl (Ultram) 50 mg PO TID PRN PRN Reason: Pain, severe (8-10) Last Admin: 05/26/18 02:33 Dose: 50 mg - Labs Labs: 05/24/18 07:09 05/24/18 07:09 - Constitutional Appears: Non-toxic, No Acute Distress - Respiratory Exam Respiratory Exam: Clear to Ausculation Bilateral, NORMAL BREATHING PATTERN - Cardiovascular Exam Cardiovascular Exam: REGULAR RHYTHM, +S1, +S2 - GI/Abdominal Exam GI & Abdominal Exam: Soft. absent: Distended, Firm, Guarding, Rigid, Tenderness - Extremities Exam Additional comments: left axillary dressing CDI Assessment and Plan - Assessment and Plan (Free Text) Assessment: 33F s/p left axillary abscess incision and drainage POD#1 Plan: - Continue abx - packing change in afternoon Further recs discuss with Dr. Yue Parker, PGY3 <Josh Turner - Last Filed: 05/30/18 13:23> Objective - Vital Signs/Intake and Output Vital Signs (last 24 hours): Temp Pulse Resp BP Pulse Ox 98.0 F 116 H 18 123/87 99 05/30/18 07:15 05/30/18 09:38 05/30/18 07:15 05/30/18 09:38 05/30/18 07:15 Intake and Output: 05/30/18 05/30/18 06:59 18:59 Intake Total 940 Balance 940 - Medications Medications: Current Medications Diphenhydramine HCl (Benadryl) 25 mg PO HS PRN PRN Reason: Insomnia Last Admin: 05/30/18 00:27 Dose: 25 mg Enoxaparin Sodium (Lovenox) 40 mg SC DAILY [facility] Last Admin: 05/30/18 09:39 Dose: Not Given Gabapentin (Neurontin) 100 mg PO BID [facility] Last Admin: 05/30/18 09:38 Dose: 100 mg Hydromorphone HCl (Dilaudid) 1 mg IVP Q4H PRN PRN Reason: Pain, severe (8-10) Last Admin: 05/30/18 12:10 Dose: 1 mg Metronidazole (Flagyl) 500 mg in 100 mls @ 100 mls/hr IVPB Q8H [facility]; Protocol Last Admin: 05/30/18 08:44 Dose: 100 mls/hr Meropenem 500 mg/ Sodium (Chloride) 100 mls @ 100 mls/hr IVPB Q8H [facility]; Protocol Last Admin: 05/30/18 12:50 Dose: 100 mls/hr Insulin Detemir (Levemir) 8 unit SC Q12H [facility] Last Admin: 05/30/18 09:43 Dose: 8 units Insulin Human Regular (Novolin R) 0 unit SC ACHS [facility]; Protocol Last Admin: 05/30/18 12:30 Dose: Not Given Insulin Human Regular (Novolin R) 7 unit SC ACBD [facility] Last Admin: 05/30/18 08:30 Dose: 7 unit Insulin Human Regular (Novolin R) 5 unit SC ACL [facility] Last Admin: 05/30/18 12:30 Dose: 5 unit Metoprolol Succinate (Toprol Xl) 100 mg PO DAILY [facility] Last Admin: 05/30/18 09:39 Dose: 100 mg Metoprolol Tartrate (Lopressor) 5 mg IVP Q8H PRN PRN Reason: Other Last Admin: 05/23/18 18:15 Dose: 5 mg Tramadol HCl (Ultram) 50 mg PO TID PRN PRN Reason: Pain, severe (8-10) Last Admin: 05/26/18 02:33 Dose: 50 mg - Labs Labs: 05/29/18 09:05 05/29/18 09:05 Attending/Attestation - Attestation I have personally seen and examined this patient.: Yes I have fully participated in the care of the patient.: Yes I have reviewed all pertinent clinical information, including history, physical exam and plan: Yes Notes (Text): Pt was seen and examined at bedside Agree with above note and assessment Pt is s/p Left axillary abscess I & D C/w IV Antibiotics Local wound care c.w current mx Plan d.w pt in detail
--- NOTE | 2018-05-26 13:26 | OP ---
PROCEDURE DATE: 05/25/2018 PREOPERATIVE DIAGNOSES: 1. Left axillary abscess. 2. Diabetic ketoacidosis. 3. Uncontrolled diabetes. POSTOPERATIVE DIAGNOSES: 1. Left axillary abscess. 2. Diabetic ketoacidosis. 3. Uncontrolled diabetes. PROCEDURES DONE: 1. Incision and drainage of left axillary abscess. 2. Excisional debridement of left axillary abscess cavity. 3. Biopsy of underlying necrotic tissue. SURGEON: Josh Turner MD KEY ENTRY OPERATOR: Parmjit Parker, PGY-3 resident. ANESTHESIA: Local anesthesia plus deep sedation. ESTIMATED BLOOD LOSS: Around 10 mL. DRAINS: None. PATHOLOGY: The pus was sent for the culture and sensitivity and biopsy of the deep necrotic tissue was sent for the pathology. COMPLICATIONS: None. INTRAOPERATIVE FINDINGS: The patient had approximately 6 x 4 cm large abscess cavity of left axillary area and the patient had underlying necrotic possible lymph node with caseating necrosis and the biopsy was taken from underlying the necrotic tissue. DESCRIPTION OF PROCEDURE: On intraoperative steps, this is a 33-year-old female who was admitted with diabetic ketoacidosis and after control of the blood sugar and correction of acidosis and the patient found to have a left axillary abscess, the patient was consented for incision and drainage. The patient was brought to the OR and placed supine on operating table. After induction of the anesthesia, the left axilla was prepped and draped in usual sterile fashion. Local anesthesia was injected and deep sedation was given and the incision was made on the abscess cavity of approximately 4 cm size and approximately 30 to 40 mL of pus was drained and the wall of the abscess cavity was debrided and all the necrotic tissue was taken out and on the base of the abscess cavity, the patient found to have caseating necrosis or possible lymph node and biopsy was taken from that particular area and the abscess cavity was irrigated multiple times and hemostasis was achieved. The wound was packed with iodoform packing and a dry sterile dressing was applied. The patient tolerated the procedure well. Count of instrument and gauze was correct. There was no apparent complication. The patient was reversed from sedation and sent to the postanesthesia care unit in stable condition. Josh Turner MD [facility] # [id number]
--- NOTE | 2018-05-26 18:34 | CP.PCM.PN ---
Subjective - Date & Time of Evaluation Date of Evaluation: 05/26/18 Time of Evaluation: 18:34 - Subjective Subjective: # POD 1. AFEBRILE. PAIN CONTROLLED, TOLERATING DIET. DENIES ABDOMINAL PAINS. LT AXILLA +DRESSING CDI Objective - Vital Signs/Intake and Output Vital Signs (last 24 hours): Temp Pulse Resp BP Pulse Ox 98.1 F 104 H 20 126/84 96 05/26/18 15:00 05/26/18 16:33 05/26/18 15:00 05/26/18 15:00 05/26/18 15:00 - Medications Medications: Current Medications Diphenhydramine HCl (Benadryl) 25 mg PO HS PRN PRN Reason: Insomnia Last Admin: 05/26/18 11:01 Dose: 25 mg Enoxaparin Sodium (Lovenox) 40 mg SC DAILY [facility] Last Admin: 05/26/18 09:56 Dose: Not Given Gabapentin (Neurontin) 100 mg PO BID [facility] Last Admin: 05/26/18 17:58 Dose: 100 mg Hydromorphone HCl (Dilaudid) 1 mg IVP Q4H PRN PRN Reason: Pain, severe (8-10) Last Admin: 05/26/18 15:10 Dose: 1 mg Hydromorphone HCl (Dilaudid) 0.5 mg IVP Q15M PRN PRN Reason: Pain, severe (8-10) Last Admin: 05/25/18 17:31 Dose: 0.5 mg Metronidazole (Flagyl) 500 mg in 100 mls @ 100 mls/hr IVPB Q8H [facility]; Protocol Last Admin: 05/26/18 17:58 Dose: 100 mls/hr Meropenem 500 mg/ Sodium (Chloride) 100 mls @ 100 mls/hr IVPB Q8H [facility]; Protocol Last Admin: 05/26/18 13:31 Dose: 100 mls/hr Vancomycin HCl 1 gm/ Sodium (Chloride) 250 mls @ 166.7 mls/hr IVPB Q24H [facility]; Protocol Last Admin: 05/26/18 09:53 Dose: 166.7 mls/hr Insulin Detemir (Levemir) 8 unit SC Q12H [facility] Last Admin: 05/26/18 09:55 Dose: 8 units Insulin Human Regular (Novolin R) 0 unit SC ACHS [facility]; Protocol Last Admin: 05/26/18 16:54 Dose: Not Given Insulin Human Regular (Novolin R) 7 unit SC TIDPC [facility] Last Admin: 05/26/18 18:03 Dose: Not Given Magnesium Oxide (Mag-Ox) 400 mg PO DAILY [facility] Stop: 05/27/18 10:01 Last Admin: 05/26/18 09:55 Dose: 400 mg Magnesium Oxide (Mag-Ox) 400 mg PO DAILY [facility] Stop: 05/30/18 10:01 Last Admin: 05/26/18 09:56 Dose: Not Given Metoprolol Succinate (Toprol Xl) 100 mg PO DAILY [facility] Last Admin: 05/26/18 09:55 Dose: 100 mg Metoprolol Tartrate (Lopressor) 5 mg IVP Q8H PRN PRN Reason: Other Last Admin: 05/23/18 18:15 Dose: 5 mg Potassium Chloride (Potassium Chloride Oral Soln) 20 meq PO DAILY [facility] Last Admin: 05/26/18 09:55 Dose: 20 meq Tramadol HCl (Ultram) 50 mg PO TID PRN PRN Reason: Pain, severe (8-10) Last Admin: 05/26/18 02:33 Dose: 50 mg - Labs Labs: 05/24/18 07:09 05/24/18 07:09 - Constitutional Appears: No Acute Distress - Head Exam Head Exam: NORMAL INSPECTION - Eye Exam Eye Exam: EOMI, PERRL - ENT Exam ENT Exam: Normal Oropharynx - Neck Exam Neck Exam: Normal Inspection - Respiratory Exam Respiratory Exam: Clear to Ausculation Bilateral, NORMAL BREATHING PATTERN - Cardiovascular Exam Cardiovascular Exam: REGULAR RHYTHM, +S1, +S2 - Extremities Exam Extremities Exam: Normal Capillary Refill. absent: Calf Tenderness, Pedal Edema - Neurological Exam Neurological Exam: Alert, Awake, CN II-XII Intact, Normal Gait, Oriented x3, Reflexes Normal - Psychiatric Exam Psychiatric exam: Normal Mood - Skin Skin Exam: Normal Color, Warm Assessment and Plan - Assessment and Plan (Free Text) Assessment: ASSESSMENT POST OPT S/P I&D LEFT AXILLARY ABSCESS 05/25/18 GRAM-NEGATIVE BACTEREMIA -E.COLI RT. PYELONEPHRITIS-COMPLICATED/? DEVELOPING ABSCESS UROSEPSIS +VE ESBL E.COLI HISTORY OF LEFT NEPHRECTOMY. ( WILMS TUMOUR ) DKA.-IDDM-UNCONTROLLED HX OF NEUROMYELITIS OPTICA S/P RITUXIMAB-2018 ANAEMIA- IRON DEFICIENCY/ CH BLOOD LOSS PLAN : CONTINUE IV VANCOMYCIN 1GM IVPB Q 24HRLY - 05/25/18 ON IV MERREM 500MG IVPB Q 8HRLY 05/20/18. ON IV FLAGYL 500MG IVPB Q 8HRLY 05/19/18 F/U CULTURES TO ADJUST ABX CONTACT ISOLATION.
--- NOTE | 2018-05-26 19:19 | PCM.URO ---
Urology Progress Note - General General: No Complaints, Tolerating Diet - Subjective Abdominal Pain: No Flank Pain: No Nausea: No Vomiting: No Voiding Well: Yes Dysuria: No Hematuria: No Good Stream: Yes Dsypnea: No Chest Pain: No Fever & Chills: No - Objective Lab Results Last 24 Hours: Laboratory Results - last 24 hr 05/25/18 05/26/18 05/26/18 21:26 07:00 11:33 POC Glucose (mg/dL) 182 H 158 H 116 H 05/26/18 16:45 POC Glucose (mg/dL) 123 H Vital Signs: Vital Signs - 24 hr 05/25/18 05/26/18 05/26/18 23:00 01:00 07:20 Temperature 97.4 F L 97.9 F Pulse Rate 109 H 114 H 97 H Respiratory 20 20 Rate Blood Pressure 118/80 122/80 O2 Sat by Pulse 99 96 Oximetry 05/26/18 05/26/18 05/26/18 07:27 09:53 15:00 Temperature 98.1 F Pulse Rate 100 H 109 H 100 H Respiratory 20 Rate Blood Pressure 138/88 126/84 O2 Sat by Pulse 96 Oximetry 05/26/18 05/26/18 16:14 16:33 Temperature Pulse Rate 105 H 104 H Respiratory Rate Blood Pressure O2 Sat by Pulse Oximetry - Physical Exam Abdominal Exam: Soft, Non-Tender, Non-Distended Back: No CVA Tenderness - Plan Additional Information: IMP: improving clinically re UTI. Improved bladder emptying. Solitary R kidney. Rec/p: antibiotic rx as per ID. Discussed w pt re findings and further Rx. YS - Date & Time of Note Date: 05/26/18 Time: 13:10
[2018-05-26 20:44] LABS: BASO # 0.1 K/uL (0.0-0.2); EOS # 0.2 K/uL (0.0-0.7); HEMOGLOBIN 9.9 g/dL (11.0-16.0); LYMPH # 2.4 K/uL (1.0-4.3)
[2018-05-26 20:54] LABS: BASO % 0.6 % (0.0-2.0); EOS % 2.1 % (0.0-4.0); LYMPH % 22.2 % (20.0-40.0); MEAN CELL VOLUME 89.4 fL (81.0-99.0); MEAN CORPUSCULAR HEMOGLOBIN 29.9 pg (27.0-31.0); MEAN CORPUSCULAR HGB CONC 33.5 g/dL (33.0-37.0); MEAN PLATELET VOLUME 7.7 fL (7.2-11.7); MONO % 9.1 % (0.0-10.0); NEUT # 7.2 K/uL (1.8-7.0); NRBC % 0.1 % (0.0-2.0); RBC 3.32 Mil/uL (3.80-5.20); RED CELL DISTRIBUTION WIDTH 15.5 % (11.5-14.5); WHITE BLOOD COUNT 10.9 K/uL (4.8-10.8)
[2018-05-26 21:16] LABS: BLOOD UREA NITROGEN 4 mg/dL (7-17); GFR NON-AFRICAN AMERICAN > 60
--- NOTE | 2018-05-26 21:30 | CP.PCM.PN ---
Subjective - Date & Time of Evaluation Date of Evaluation: 05/26/18 Time of Evaluation: 19:00 - Subjective Subjective: No complaints. Objective - Vital Signs/Intake and Output Vital Signs (last 24 hours): Temp Pulse Resp BP Pulse Ox 98.1 F 99 H 20 126/84 96 05/26/18 15:00 05/26/18 20:18 05/26/18 15:00 05/26/18 15:00 05/26/18 15:00 - Medications Medications: Current Medications Diphenhydramine HCl (Benadryl) 25 mg PO HS PRN PRN Reason: Insomnia Last Admin: 05/26/18 11:01 Dose: 25 mg Enoxaparin Sodium (Lovenox) 40 mg SC DAILY [facility] Last Admin: 05/26/18 09:56 Dose: Not Given Gabapentin (Neurontin) 100 mg PO BID [facility] Last Admin: 05/26/18 17:58 Dose: 100 mg Hydromorphone HCl (Dilaudid) 1 mg IVP Q4H PRN PRN Reason: Pain, severe (8-10) Last Admin: 05/26/18 19:23 Dose: 1 mg Hydromorphone HCl (Dilaudid) 0.5 mg IVP Q15M PRN PRN Reason: Pain, severe (8-10) Last Admin: 05/25/18 17:31 Dose: 0.5 mg Metronidazole (Flagyl) 500 mg in 100 mls @ 100 mls/hr IVPB Q8H [facility]; Protocol Last Admin: 05/26/18 17:58 Dose: 100 mls/hr Meropenem 500 mg/ Sodium (Chloride) 100 mls @ 100 mls/hr IVPB Q8H [facility]; Protocol Last Admin: 05/26/18 13:31 Dose: 100 mls/hr Vancomycin HCl 1 gm/ Sodium (Chloride) 250 mls @ 166.7 mls/hr IVPB Q24H [facility]; Protocol Last Admin: 05/26/18 09:53 Dose: 166.7 mls/hr Insulin Detemir (Levemir) 8 unit SC Q12H [facility] Last Admin: 05/26/18 09:55 Dose: 8 units Insulin Human Regular (Novolin R) 0 unit SC ACHS [facility]; Protocol Last Admin: 05/26/18 16:54 Dose: Not Given Insulin Human Regular (Novolin R) 7 unit SC TIDPC [facility] Last Admin: 05/26/18 18:03 Dose: Not Given Magnesium Oxide (Mag-Ox) 400 mg PO DAILY [facility] Stop: 05/27/18 10:01 Last Admin: 05/26/18 09:55 Dose: 400 mg Magnesium Oxide (Mag-Ox) 400 mg PO DAILY [facility] Stop: 05/30/18 10:01 Last Admin: 05/26/18 09:56 Dose: Not Given Metoprolol Succinate (Toprol Xl) 100 mg PO DAILY [facility] Last Admin: 05/26/18 09:55 Dose: 100 mg Metoprolol Tartrate (Lopressor) 5 mg IVP Q8H PRN PRN Reason: Other Last Admin: 05/23/18 18:15 Dose: 5 mg Potassium Chloride (Potassium Chloride Oral Soln) 20 meq PO DAILY [facility] Last Admin: 05/26/18 09:55 Dose: 20 meq Tramadol HCl (Ultram) 50 mg PO TID PRN PRN Reason: Pain, severe (8-10) Last Admin: 05/26/18 02:33 Dose: 50 mg - Labs Labs: 05/26/18 20:37 05/26/18 20:37 - Head Exam Head Exam: ATRAUMATIC - Eye Exam Eye Exam: Normal appearance - ENT Exam ENT Exam: Mucous Membranes Dry - Respiratory Exam Respiratory Exam: NORMAL BREATHING PATTERN - Cardiovascular Exam Cardiovascular Exam: +S1, +S2 - GI/Abdominal Exam GI & Abdominal Exam: Normal Bowel Sounds Assessment and Plan (1) Anemia Assessment & Plan: iron deficiency and chronic disease will plan to supplement IV when clear of infections s/p PRBC transfusion Status: Acute (2) Leukocytosis Assessment & Plan: improving with antibiotics Status: Acute
--- NOTE | 2018-05-26 22:51 | CP.PCM.PN ---
Subjective - Date & Time of Evaluation Date of Evaluation: 05/26/18 Time of Evaluation: 08:00 - Subjective Subjective: dictated Objective - Vital Signs/Intake and Output Vital Signs (last 24 hours): Temp Pulse Resp BP Pulse Ox 98.1 F 99 H 20 126/84 96 05/26/18 15:00 05/26/18 20:18 05/26/18 15:00 05/26/18 15:00 05/26/18 15:00 Intake and Output: 05/26/18 05/27/18 18:59 06:59 Intake Total 600 Balance 600 - Medications Medications: Current Medications Diphenhydramine HCl (Benadryl) 25 mg PO HS PRN PRN Reason: Insomnia Last Admin: 05/26/18 22:36 Dose: 25 mg Enoxaparin Sodium (Lovenox) 40 mg SC DAILY [facility] Last Admin: 05/26/18 09:56 Dose: Not Given Gabapentin (Neurontin) 100 mg PO BID [facility] Last Admin: 05/26/18 17:58 Dose: 100 mg Hydromorphone HCl (Dilaudid) 1 mg IVP Q4H PRN PRN Reason: Pain, severe (8-10) Last Admin: 05/26/18 19:23 Dose: 1 mg Hydromorphone HCl (Dilaudid) 0.5 mg IVP Q15M PRN PRN Reason: Pain, severe (8-10) Last Admin: 05/25/18 17:31 Dose: 0.5 mg Metronidazole (Flagyl) 500 mg in 100 mls @ 100 mls/hr IVPB Q8H [facility]; Protocol Last Admin: 05/26/18 17:58 Dose: 100 mls/hr Meropenem 500 mg/ Sodium (Chloride) 100 mls @ 100 mls/hr IVPB Q8H [facility]; Protocol Last Admin: 05/26/18 21:36 Dose: 100 mls/hr Vancomycin HCl 1 gm/ Sodium (Chloride) 250 mls @ 166.7 mls/hr IVPB Q24H [facility]; Protocol Last Admin: 05/26/18 09:53 Dose: 166.7 mls/hr Insulin Detemir (Levemir) 8 unit SC Q12H [facility] Last Admin: 05/26/18 21:36 Dose: 8 units Insulin Human Regular (Novolin R) 0 unit SC ACHS [facility]; Protocol Last Admin: 05/26/18 21:32 Dose: Not Given Insulin Human Regular (Novolin R) 7 unit SC TIDPC [facility] Last Admin: 05/26/18 18:03 Dose: Not Given Magnesium Oxide (Mag-Ox) 400 mg PO DAILY [facility] Stop: 05/27/18 10:01 Last Admin: 05/26/18 09:55 Dose: 400 mg Magnesium Oxide (Mag-Ox) 400 mg PO DAILY [facility] Stop: 05/30/18 10:01 Last Admin: 05/26/18 09:56 Dose: Not Given Metoprolol Succinate (Toprol Xl) 100 mg PO DAILY [facility] Last Admin: 05/26/18 09:55 Dose: 100 mg Metoprolol Tartrate (Lopressor) 5 mg IVP Q8H PRN PRN Reason: Other Last Admin: 05/23/18 18:15 Dose: 5 mg Potassium Chloride (Potassium Chloride Oral Soln) 20 meq PO DAILY [facility] Last Admin: 05/26/18 09:55 Dose: 20 meq Tramadol HCl (Ultram) 50 mg PO TID PRN PRN Reason: Pain, severe (8-10) Last Admin: 05/26/18 02:33 Dose: 50 mg - Labs Labs: 05/26/18 20:37 05/26/18 20:37
[2018-05-27] MEDS: metroNIDAZOLE IV 500 mg/100 ml 500 MG/100 ML BAG IVPB SCH ×3 (01:15→17:26)
--- NOTE | 2018-05-27 03:58 | PN ---
DATE: 05/26/2018 SUBJECTIVE: The patient is status post I and D of the abscesses. She is afebrile. Her tachycardia is improving. No fever. No chills. No nausea or vomiting. PHYSICAL EXAMINATION: VITAL SIGNS: Blood pressure 126/84, pulse 100, respiratory rate 20, temperature 98.1. LUNGS: Clear. No rales. No rhonchi. CARDIOVASCULAR SYSTEM: S1, S2. Regular. ABDOMEN: Soft. Nontender. Bowel sounds are positive. ASSESSMENT: 1. Septicemia, improving status post incision and drainage of the axillary abscesses. 2. Hypertension, controlled. 3. Tachycardia, etiology of tachycardia is most likely due to underlying infection. 4. Diabetes. PLAN: Accu-Chek sliding scale, antibiotics, postop wound care. ID followup. Monitor the patient. Dru Fontenot MD
[2018-05-27] MEDS: HYDROmorphone 1 mg/ml ISec IVP PRN ×4 (04:43→20:27)
[2018-05-27] MEDS: Meropenem 500 MG in Sodium Chloride 0.9% 100 ML IVPB SCH ×3 (04:45→21:19)
[2018-05-27] MEDS: (Novolin R) Insulin Human Regular 100 units/ml vial SC SCH ×7 (08:00→21:03)
--- NOTE | 2018-05-27 08:14 | CP.PCM.PN ---
<SuzyTeresa - Last Filed: 05/27/18 08:11> Subjective - Date & Time of Evaluation Date of Evaluation: 05/27/18 Time of Evaluation: 07:00 - Subjective Subjective: General Surgery Dr. Turner Pt S&E @bedside. No acute events overnight. Pt sleeping on rounds w/ no complaints. Pt denies F/C, N/V. tolerating diet. Objective - Vital Signs/Intake and Output Vital Signs (last 24 hours): Temp Pulse Resp BP Pulse Ox 97.8 F 106 H 20 126/84 98 05/26/18 23:00 05/27/18 04:07 05/26/18 23:00 05/26/18 15:00 05/26/18 23:00 Intake and Output: 05/27/18 05/27/18 06:59 18:59 Intake Total 600 Balance 600 - Medications Medications: Current Medications Diphenhydramine HCl (Benadryl) 25 mg PO HS PRN PRN Reason: Insomnia Last Admin: 05/26/18 22:36 Dose: 25 mg Enoxaparin Sodium (Lovenox) 40 mg SC DAILY [facility] Last Admin: 05/26/18 09:56 Dose: Not Given Gabapentin (Neurontin) 100 mg PO BID [facility] Last Admin: 05/26/18 17:58 Dose: 100 mg Hydromorphone HCl (Dilaudid) 1 mg IVP Q4H PRN PRN Reason: Pain, severe (8-10) Last Admin: 05/27/18 04:43 Dose: 1 mg Hydromorphone HCl (Dilaudid) 0.5 mg IVP Q15M PRN PRN Reason: Pain, severe (8-10) Last Admin: 05/25/18 17:31 Dose: 0.5 mg Metronidazole (Flagyl) 500 mg in 100 mls @ 100 mls/hr IVPB Q8H [facility]; Protocol Last Admin: 05/27/18 01:15 Dose: 100 mls/hr Meropenem 500 mg/ Sodium (Chloride) 100 mls @ 100 mls/hr IVPB Q8H [facility]; Protocol Last Admin: 05/27/18 04:45 Dose: 100 mls/hr Vancomycin HCl 1 gm/ Sodium (Chloride) 250 mls @ 166.7 mls/hr IVPB Q24H [facility]; Protocol Last Admin: 05/26/18 09:53 Dose: 166.7 mls/hr Insulin Detemir (Levemir) [address] [facility] Last Admin: 05/26/18 21:36 Dose: 8 units Insulin Human Regular (Novolin R) [address] [facility]; Protocol Last Admin: 05/26/18 21:32 Dose: Not Given Insulin Human Regular (Novolin R) [address] [facility] Last Admin: 05/26/18 18:03 Dose: Not Given Magnesium Oxide (Mag-Ox) [address] [facility] Stop: 05/27/18 10:01 Last Admin: 05/26/18 09:55 Dose: 400 mg Magnesium Oxide (Mag-Ox) [address] [facility] Stop: 05/30/18 10:01 Last Admin: 05/26/18 09:56 Dose: Not Given Metoprolol Succinate (Toprol Xl) [address] [facility] Last Admin: 05/26/18 09:55 Dose: 100 mg Metoprolol Tartrate (Lopressor) 5 mg IVP Q8H PRN PRN Reason: Other Last Admin: 05/23/18 18:15 Dose: 5 mg Potassium Chloride (Potassium Chloride Oral Soln) [address] [facility] Last Admin: 05/26/18 09:55 Dose: 20 meq Tramadol HCl (Ultram) 50 mg PO TID PRN PRN Reason: Pain, severe (8-10) Last Admin: 05/26/18 02:33 Dose: 50 mg - Labs Labs: 05/26/18 20:37 05/26/18 20:37 - Constitutional Appears: Non-toxic, No Acute Distress - Head Exam Head Exam: NORMAL INSPECTION - Eye Exam Eye Exam: Normal appearance - ENT Exam ENT Exam: Mucous Membranes Moist - Respiratory Exam Respiratory Exam: NORMAL BREATHING PATTERN. absent: Accessory Muscle Use, Respiratory Distress - Cardiovascular Exam Cardiovascular Exam: REGULAR RHYTHM. absent: Bradycardia, Tachycardia - GI/Abdominal Exam GI & Abdominal Exam: Soft. absent: Distended, Tenderness - Extremities Exam Additional comments: left axilla dressing c/d/i - Neurological Exam Neurological Exam: Alert, Awake, Oriented x3 - Psychiatric Exam Psychiatric exam: Normal Affect, Normal Mood - Skin Skin Exam: Dry, Intact, Normal Color, Warm Assessment and Plan - Assessment and Plan (Free Text) Assessment: 33 y/o F POD#2 s/p Left axillary abscess I&D Plan: - cont IV Abx - cont pain management - packing removal vs change later today Pt discussed w/ Dr. Yue Almonte DO PGY3 <Josh Turner - Last Filed: 05/30/18 13:24> Objective - Vital Signs/Intake and Output Vital Signs (last 24 hours): Temp Pulse Resp BP Pulse Ox 98.0 F 116 H 18 123/87 99 05/30/18 07:15 05/30/18 09:38 05/30/18 07:15 05/30/18 09:38 05/30/18 07:15 Intake and Output: 05/30/18 05/30/18 06:59 18:59 Intake Total 940 Balance 940 - Medications Medications: Current Medications Diphenhydramine HCl (Benadryl) 25 mg PO HS PRN PRN Reason: Insomnia Last Admin: 05/30/18 00:27 Dose: 25 mg Enoxaparin Sodium (Lovenox) 40 mg SC DAILY [facility] Last Admin: 05/30/18 09:39 Dose: Not Given Gabapentin (Neurontin) 100 mg PO BID [facility] Last Admin: 05/30/18 09:38 Dose: 100 mg Hydromorphone HCl (Dilaudid) 1 mg IVP Q4H PRN PRN Reason: Pain, severe (8-10) Last Admin: 05/30/18 12:10 Dose: 1 mg Metronidazole (Flagyl) 500 mg in 100 mls @ 100 mls/hr IVPB Q8H [facility]; Protocol Last Admin: 05/30/18 08:44 Dose: 100 mls/hr Meropenem 500 mg/ Sodium (Chloride) 100 mls @ 100 mls/hr IVPB Q8H [facility]; Protocol Last Admin: 05/30/18 12:50 Dose: 100 mls/hr Insulin Detemir (Levemir) 8 unit SC Q12H [facility] Last Admin: 05/30/18 09:43 Dose: 8 units Insulin Human Regular (Novolin R) 0 unit SC ACHS [facility]; Protocol Last Admin: 05/30/18 12:30 Dose: Not Given Insulin Human Regular (Novolin R) 7 unit SC ACBD [facility] Last Admin: 05/30/18 08:30 Dose: 7 unit Insulin Human Regular (Novolin R) 5 unit SC ACL [facility] Last Admin: 05/30/18 12:30 Dose: 5 unit Metoprolol Succinate (Toprol Xl) 100 mg PO DAILY [facility] Last Admin: 05/30/18 09:39 Dose: 100 mg Metoprolol Tartrate (Lopressor) 5 mg IVP Q8H PRN PRN Reason: Other Last Admin: 05/23/18 18:15 Dose: 5 mg Tramadol HCl (Ultram) 50 mg PO TID PRN PRN Reason: Pain, severe (8-10) Last Admin: 05/26/18 02:33 Dose: 50 mg - Labs Labs: 05/29/18 09:05 05/29/18 09:05 Attending/Attestation - Attestation I have fully participated in the care of the patient.: Yes I have reviewed all pertinent clinical information, including history, physical exam and plan: Yes Notes (Text): Pt is improving clinically Local wound care IV Antibiotics c.w current mx Plan d.w pt in detail
[2018-05-27] MEDS: Magnesium Oxide 400 mg Tab UD PO SCH (09:58)
[2018-05-27] MEDS: Enoxaparin 40 mg Syringe SC SCH (09:58)
[2018-05-27] MEDS: Metoprolol Succinate 100 mg XL Tab PO SCH (09:58)
[2018-05-27] MEDS: Potassium Chloride 20 mEq/15 ml LIQ UD PO SCH (09:58)
[2018-05-27] MEDS: Insulin Detemir 100 units/ml Vial (Levemir) SC SCH ×2 (09:59→21:19)
--- NOTE | 2018-05-27 14:58 | CP.PCM.PN ---
Subjective - Date & Time of Evaluation Date of Evaluation: 05/27/18 Time of Evaluation: 14:55 - Subjective Subjective: Had dressing changed. Denies any chest pain. Objective - Vital Signs/Intake and Output Vital Signs (last 24 hours): Temp Pulse Resp BP Pulse Ox 98.0 F 110 H 20 98/63 L 96 05/27/18 07:12 05/27/18 08:49 05/27/18 07:12 05/27/18 07:12 05/27/18 07:12 Intake and Output: 05/27/18 05/27/18 06:59 18:59 Intake Total 600 Balance 600 - Medications Medications: Current Medications Diphenhydramine HCl (Benadryl) 25 mg PO HS PRN PRN Reason: Insomnia Last Admin: 05/26/18 22:36 Dose: 25 mg Enoxaparin Sodium (Lovenox) 40 mg SC DAILY [facility] Last Admin: 05/27/18 09:58 Dose: 40 mg Gabapentin (Neurontin) 100 mg PO BID [facility] Last Admin: 05/27/18 09:59 Dose: 100 mg Hydromorphone HCl (Dilaudid) 1 mg IVP Q4H PRN PRN Reason: Pain, severe (8-10) Last Admin: 05/27/18 10:39 Dose: 1 mg Hydromorphone HCl (Dilaudid) 0.5 mg IVP Q15M PRN PRN Reason: Pain, severe (8-10) Last Admin: 05/25/18 17:31 Dose: 0.5 mg Metronidazole (Flagyl) 500 mg in 100 mls @ 100 mls/hr IVPB Q8H [facility]; Protocol Last Admin: 05/27/18 09:56 Dose: 100 mls/hr Meropenem 500 mg/ Sodium (Chloride) 100 mls @ 100 mls/hr IVPB Q8H [facility]; Protocol Last Admin: 05/27/18 14:01 Dose: 100 mls/hr Vancomycin HCl 1 gm/ Sodium (Chloride) 250 mls @ 166.7 mls/hr IVPB Q24H [facility]; Protocol Last Admin: 05/27/18 09:57 Dose: 166.7 mls/hr Insulin Detemir (Levemir) 8 unit SC Q12H [facility] Last Admin: 05/27/18 09:59 Dose: 8 units Insulin Human Regular (Novolin R) 0 unit SC ACHS [facility]; Protocol Last Admin: 05/27/18 12:10 Dose: Not Given Insulin Human Regular (Novolin R) 7 unit SC TIDPC [facility] Last Admin: 05/27/18 14:00 Dose: 7 units Magnesium Oxide (Mag-Ox) 400 mg PO DAILY [facility] Stop: 05/30/18 10:01 Last Admin: 05/27/18 09:58 Dose: 400 mg Metoprolol Succinate (Toprol Xl) 100 mg PO DAILY [facility] Last Admin: 05/27/18 09:58 Dose: 100 mg Metoprolol Tartrate (Lopressor) 5 mg IVP Q8H PRN PRN Reason: Other Last Admin: 05/23/18 18:15 Dose: 5 mg Potassium Chloride (Potassium Chloride Oral Soln) 20 meq PO DAILY [facility] Last Admin: 05/27/18 09:58 Dose: 20 meq Tramadol HCl (Ultram) 50 mg PO TID PRN PRN Reason: Pain, severe (8-10) Last Admin: 05/26/18 02:33 Dose: 50 mg - Labs Labs: 05/26/18 20:37 05/26/18 20:37 - Head Exam Head Exam: NORMOCEPHALIC - Neck Exam Neck Exam: Normal Inspection - Respiratory Exam Respiratory Exam: NORMAL BREATHING PATTERN - Cardiovascular Exam Cardiovascular Exam: REGULAR RHYTHM - Extremities Exam Extremities Exam: Normal Inspection - Neurological Exam Neurological Exam: Alert, Oriented x3 Assessment and Plan (1) Sinus tachycardia Assessment & Plan: Had for a long time. No further cardiac work-up at this time. Pleas call if needed. Status: Acute
--- NOTE | 2018-05-27 20:19 | CP.PCM.PN ---
Subjective - Date & Time of Evaluation Date of Evaluation: 05/27/18 Time of Evaluation: :19 - Subjective Subjective: AFEBRILE, S/P DRESSING CHANGE BY SURGERY, NO NEW COMPLAINTS. LABS ; WOUND CULTURE LT AXILLA -STAPH COAGULASE NEGATIVE ? SKIN QING PLAN ; DC IV VANCOMYCIN. Objective - Vital Signs/Intake and Output Vital Signs (last 24 hours): Temp Pulse Resp BP Pulse Ox 98.1 F 107 H 20 124/84 97 05/27/18 15:00 05/27/18 15:00 05/27/18 15:00 05/27/18 15:00 05/27/18 15:00 - Medications Medications: Current Medications Diphenhydramine HCl (Benadryl) 25 mg PO HS PRN PRN Reason: Insomnia Last Admin: 05/26/18 22:36 Dose: 25 mg Enoxaparin Sodium (Lovenox) 40 mg SC DAILY [facility] Last Admin: 05/27/18 09:58 Dose: 40 mg Gabapentin (Neurontin) 100 mg PO BID [facility] Last Admin: 05/27/18 17:26 Dose: 100 mg Hydromorphone HCl (Dilaudid) 1 mg IVP Q4H PRN PRN Reason: Pain, severe (8-10) Last Admin: 05/27/18 15:54 Dose: 1 mg Hydromorphone HCl (Dilaudid) 0.5 mg IVP Q15M PRN PRN Reason: Pain, severe (8-10) Last Admin: 05/25/18 17:31 Dose: 0.5 mg Metronidazole (Flagyl) 500 mg in 100 mls @ 100 mls/hr IVPB Q8H [facility]; Protocol Last Admin: 05/27/18 17:26 Dose: 100 mls/hr Meropenem 500 mg/ Sodium (Chloride) 100 mls @ 100 mls/hr IVPB Q8H [facility]; Protocol Last Admin: 05/27/18 14:01 Dose: 100 mls/hr Vancomycin HCl 1 gm/ Sodium (Chloride) 250 mls @ 166.7 mls/hr IVPB Q24H [facility]; Protocol Last Admin: 05/27/18 09:57 Dose: 166.7 mls/hr Insulin Detemir (Levemir) 8 unit SC Q12H [facility] Last Admin: 05/27/18 09:59 Dose: 8 units Insulin Human Regular (Novolin R) 0 unit SC ACHS [facility]; Protocol Last Admin: 05/27/18 16:54 Dose: Not Given Insulin Human Regular (Novolin R) 7 unit SC TIDPC [facility] Last Admin: 05/27/18 17:25 Dose: Not Given Magnesium Oxide (Mag-Ox) 400 mg PO DAILY [facility] Stop: 05/30/18 10:01 Last Admin: 05/27/18 09:58 Dose: 400 mg Metoprolol Succinate (Toprol Xl) 100 mg PO DAILY [facility] Last Admin: 05/27/18 09:58 Dose: 100 mg Metoprolol Tartrate (Lopressor) 5 mg IVP Q8H PRN PRN Reason: Other Last Admin: 05/23/18 18:15 Dose: 5 mg Potassium Chloride (Potassium Chloride Oral Soln) 20 meq PO DAILY [facility] Last Admin: 05/27/18 09:58 Dose: 20 meq Tramadol HCl (Ultram) 50 mg PO TID PRN PRN Reason: Pain, severe (8-10) Last Admin: 05/26/18 02:33 Dose: 50 mg - Labs Labs: 05/26/18 20:37 05/26/18 20:37 - Constitutional Appears: No Acute Distress - Head Exam Head Exam: NORMAL INSPECTION - Eye Exam Eye Exam: EOMI, PERRL - ENT Exam ENT Exam: Normal Oropharynx - Neck Exam Neck Exam: Normal Inspection - Respiratory Exam Respiratory Exam: Decreased Breath Sounds, NORMAL BREATHING PATTERN - Cardiovascular Exam Cardiovascular Exam: Tachycardia, REGULAR RHYTHM, +S1, +S2 - GI/Abdominal Exam GI & Abdominal Exam: Soft, Normal Bowel Sounds. absent: Guarding, Tenderness - Extremities Exam Extremities Exam: Normal Capillary Refill. absent: Calf Tenderness, Pedal Edema, Tenderness - Neurological Exam Neurological Exam: Alert, Awake, CN II-XII Intact, Oriented x3, Reflexes Normal - Psychiatric Exam Psychiatric exam: Normal Mood - Skin Skin Exam: Normal Color, Warm Assessment and Plan - Assessment and Plan (Free Text) Assessment: ASSESSMENT POST OPT S/P I&D LEFT AXILLARY ABSCESS 05/25/18 GRAM-NEGATIVE BACTEREMIA -E.COLI RT. PYELONEPHRITIS-COMPLICATED/? DEVELOPING ABSCESS UROSEPSIS +VE ESBL E.COLI HISTORY OF LEFT NEPHRECTOMY. ( WILMS TUMOUR ) DKA.-IDDM-UNCONTROLLED HX OF NEUROMYELITIS OPTICA S/P RITUXIMAB-2018 ANAEMIA- IRON DEFICIENCY/ CH BLOOD LOSS PLAN : DC IV VANCOMYCIN 1GM IVPB Q 24HRLY - 05/25/18-05/27/18 ON IV MERREM 500MG IVPB Q 8HRLY 05/20/18.-DAY -8 ON IV FLAGYL 500MG IVPB Q 8HRLY 05/19/18 DAY [address] ABDOMEN /PELVIS W/O CONTRAST TO SEE FOR RESOLUTION OF EDEMA AND HAZINESS MARGINS OF SOLITARY RT KIDNEY.WILL DISCUSS WITH CONTACT ISOLATION.
--- NOTE | 2018-05-27 21:56 | CP.PCM.PN ---
Subjective - Date & Time of Evaluation Date of Evaluation: 05/27/18 Time of Evaluation: 08:00 - Subjective Subjective: dictated Objective - Vital Signs/Intake and Output Vital Signs (last 24 hours): Temp Pulse Resp BP Pulse Ox 98.1 F 115 H 20 124/84 97 05/27/18 15:00 05/27/18 16:00 05/27/18 15:00 05/27/18 15:00 05/27/18 15:00 - Medications Medications: Current Medications Diphenhydramine HCl (Benadryl) 25 mg PO HS PRN PRN Reason: Insomnia Last Admin: 05/26/18 22:36 Dose: 25 mg Enoxaparin Sodium (Lovenox) 40 mg SC DAILY [facility] Last Admin: 05/27/18 09:58 Dose: 40 mg Gabapentin (Neurontin) 100 mg PO BID [facility] Last Admin: 05/27/18 17:26 Dose: 100 mg Hydromorphone HCl (Dilaudid) 1 mg IVP Q4H PRN PRN Reason: Pain, severe (8-10) Last Admin: 05/27/18 20:27 Dose: 1 mg Hydromorphone HCl (Dilaudid) 0.5 mg IVP Q15M PRN PRN Reason: Pain, severe (8-10) Last Admin: 05/25/18 17:31 Dose: 0.5 mg Metronidazole (Flagyl) 500 mg in 100 mls @ 100 mls/hr IVPB Q8H [facility]; Protocol Last Admin: 05/27/18 17:26 Dose: 100 mls/hr Meropenem 500 mg/ Sodium (Chloride) 100 mls @ 100 mls/hr IVPB Q8H [facility]; Protocol Last Admin: 05/27/18 21:19 Dose: 100 mls/hr Vancomycin HCl 1 gm/ Sodium (Chloride) 250 mls @ 166.7 mls/hr IVPB Q24H [facility]; Protocol Last Admin: 05/27/18 09:57 Dose: 166.7 mls/hr Insulin Detemir (Levemir) 8 unit SC Q12H [facility] Last Admin: 05/27/18 21:19 Dose: 8 units Insulin Human Regular (Novolin R) 0 unit SC ACHS [facility]; Protocol Last Admin: 05/27/18 21:03 Dose: Not Given Insulin Human Regular (Novolin R) 7 unit SC TIDPC [facility] Last Admin: 05/27/18 17:25 Dose: Not Given Magnesium Oxide (Mag-Ox) 400 mg PO DAILY [facility] Stop: 05/30/18 10:01 Last Admin: 05/27/18 09:58 Dose: 400 mg Metoprolol Succinate (Toprol Xl) 100 mg PO DAILY [facility] Last Admin: 05/27/18 09:58 Dose: 100 mg Metoprolol Tartrate (Lopressor) 5 mg IVP Q8H PRN PRN Reason: Other Last Admin: 05/23/18 18:15 Dose: 5 mg Potassium Chloride (Potassium Chloride Oral Soln) 20 meq PO DAILY [facility] Last Admin: 05/27/18 09:58 Dose: 20 meq Tramadol HCl (Ultram) 50 mg PO TID PRN PRN Reason: Pain, severe (8-10) Last Admin: 05/26/18 02:33 Dose: 50 mg - Labs Labs: 05/26/18 20:37 05/26/18 20:37
[2018-05-28] MEDS: HYDROmorphone 1 mg/ml ISec IVP PRN (00:37)
[2018-05-28] MEDS: metroNIDAZOLE IV 500 mg/100 ml 500 MG/100 ML BAG IVPB SCH ×3 (00:38→17:13)
--- NOTE | 2018-05-28 00:41 | PN ---
DATE: 05/27/2018 SUBJECTIVE: The patient is afebrile, status post incision and drainage of the abscesses. PHYSICAL EXAMINATION: VITAL SIGNS: Blood pressure is 124/84, pulse 107, respiratory rate 20, temperature 98.1. LUNGS: Clear. No rales. No rhonchi. CARDIOVASCULAR SYSTEM: S1, S2. Regular. No heave. No thrill. ABDOMEN: Soft, nontender. Bowel sounds are positive. ASSESSMENT: 1. Sinus tachycardia, which is multifactorial with a combination of sepsis with anemia. 2. Type 2 diabetes. 3. Status post septicemia. PLAN: Continue wound care. ID followup of wound. Monitor the patient. Dru Fontenot MD
--- NOTE | 2018-05-28 01:28 | CP.PCM.PN ---
Subjective - Date & Time of Evaluation Date of Evaluation: 05/27/18 Time of Evaluation: 17:00 - Subjective Subjective: Feeling better. Objective - Vital Signs/Intake and Output Vital Signs (last 24 hours): Temp Pulse Resp BP Pulse Ox 98.2 F 135 H 18 114/72 96 05/27/18 22:17 05/27/18 22:17 05/27/18 22:17 05/27/18 22:17 05/27/18 22:17 - Medications Medications: Current Medications Diphenhydramine HCl (Benadryl) 25 mg PO HS PRN PRN Reason: Insomnia Last Admin: 05/26/18 22:36 Dose: 25 mg Enoxaparin Sodium (Lovenox) 40 mg SC DAILY [facility] Last Admin: 05/27/18 09:58 Dose: 40 mg Gabapentin (Neurontin) 100 mg PO BID [facility] Last Admin: 05/27/18 17:26 Dose: 100 mg Hydromorphone HCl (Dilaudid) 1 mg IVP Q4H PRN PRN Reason: Pain, severe (8-10) Last Admin: 05/28/18 00:37 Dose: 1 mg Hydromorphone HCl (Dilaudid) 0.5 mg IVP Q15M PRN PRN Reason: Pain, severe (8-10) Last Admin: 05/25/18 17:31 Dose: 0.5 mg Metronidazole (Flagyl) 500 mg in 100 mls @ 100 mls/hr IVPB Q8H [facility]; Protocol Last Admin: 05/28/18 00:38 Dose: 100 mls/hr Meropenem 500 mg/ Sodium (Chloride) 100 mls @ 100 mls/hr IVPB Q8H [facility]; Protocol Last Admin: 05/27/18 21:19 Dose: 100 mls/hr Insulin Detemir (Levemir) 8 unit SC Q12H [facility] Last Admin: 05/27/18 21:19 Dose: 8 units Insulin Human Regular (Novolin R) 0 unit SC ACHS [facility]; Protocol Last Admin: 05/27/18 21:03 Dose: Not Given Insulin Human Regular (Novolin R) 7 unit SC TIDPC [facility] Last Admin: 05/27/18 17:25 Dose: Not Given Magnesium Oxide (Mag-Ox) 400 mg PO DAILY [facility] Stop: 05/30/18 10:01 Last Admin: 05/27/18 09:58 Dose: 400 mg Metoprolol Succinate (Toprol Xl) 100 mg PO DAILY [facility] Last Admin: 05/27/18 09:58 Dose: 100 mg Metoprolol Tartrate (Lopressor) 5 mg IVP Q8H PRN PRN Reason: Other Last Admin: 05/23/18 18:15 Dose: 5 mg Potassium Chloride (Potassium Chloride Oral Soln) 20 meq PO DAILY [facility] Last Admin: 05/27/18 09:58 Dose: 20 meq Tramadol HCl (Ultram) 50 mg PO TID PRN PRN Reason: Pain, severe (8-10) Last Admin: 05/26/18 02:33 Dose: 50 mg - Labs Labs: 05/26/18 20:37 05/26/18 20:37 - Head Exam Head Exam: ATRAUMATIC - Eye Exam Eye Exam: Normal appearance - ENT Exam ENT Exam: Mucous Membranes Dry - Respiratory Exam Respiratory Exam: NORMAL BREATHING PATTERN - Cardiovascular Exam Cardiovascular Exam: +S1, +S2 - GI/Abdominal Exam GI & Abdominal Exam: Normal Bowel Sounds Assessment and Plan (1) Anemia Assessment & Plan: iron deficiency and chronic disease will plan to supplement IV when clear of infections s/p PRBC transfusion Status: Acute (2) Leukocytosis Assessment & Plan: improving with abx Status: Acute
[2018-05-28] MEDS: Meropenem 500 MG in Sodium Chloride 0.9% 100 ML IVPB SCH ×3 (06:06→21:17)
[2018-05-28] MEDS: HYDROmorphone 0.5 mg/0.5 ml ISec IVP PRN ×4 (06:15→21:17)
--- NOTE | 2018-05-28 08:57 | CP.PCM.PN ---
<Radha Galan - Last Filed: 05/28/18 09:43> Subjective - Date & Time of Evaluation Date of Evaluation: 05/28/18 Time of Evaluation: 08:54 - Subjective Subjective: Progress Note for Dr. Turner Patient seen and examined at bedside. No acute events overnight. Dressing to left axillary region changed yesterday. She also states she has slightly elevated area on her right axillary region. She denies fevers, chills, chest pain, shortness of breath, abdominal pain, nausea, vomiting, diarrhea. Objective - Vital Signs/Intake and Output Vital Signs (last 24 hours): Temp Pulse Resp BP Pulse Ox 97.7 F 87 20 145/92 H 98 05/28/18 07:00 05/28/18 07:00 05/28/18 07:00 05/28/18 07:00 05/28/18 07:00 - Medications Medications: Current Medications Diphenhydramine HCl (Benadryl) 25 mg PO HS PRN PRN Reason: Insomnia Last Admin: 05/26/18 22:36 Dose: 25 mg Enoxaparin Sodium (Lovenox) 40 mg SC DAILY [facility] Last Admin: 05/27/18 09:58 Dose: 40 mg Gabapentin (Neurontin) 100 mg PO BID [facility] Last Admin: 05/27/18 17:26 Dose: 100 mg Hydromorphone HCl (Dilaudid) 0.5 mg IVP Q15M PRN PRN Reason: Pain, severe (8-10) Last Admin: 05/25/18 17:31 Dose: 0.5 mg Hydromorphone HCl (Dilaudid) 1 mg IVP Q4H PRN PRN Reason: Pain, severe (8-10) Last Admin: 05/28/18 06:15 Dose: 1 mg Metronidazole (Flagyl) 500 mg in 100 mls @ 100 mls/hr IVPB Q8H [facility]; Protocol Last Admin: 05/28/18 00:38 Dose: 100 mls/hr Meropenem 500 mg/ Sodium (Chloride) 100 mls @ 100 mls/hr IVPB Q8H [facility]; Protocol Last Admin: 05/28/18 06:06 Dose: 100 mls/hr Insulin Detemir (Levemir) 8 unit SC Q12H [facility] Last Admin: 05/27/18 21:19 Dose: 8 units Insulin Human Regular (Novolin R) 0 unit SC ACHS [facility]; Protocol Last Admin: 05/27/18 21:03 Dose: Not Given Insulin Human Regular (Novolin R) 7 unit SC TIDPC [facility] Last Admin: 05/27/18 17:25 Dose: Not Given Magnesium Oxide (Mag-Ox) 400 mg PO DAILY [facility] Stop: 05/30/18 10:01 Last Admin: 05/27/18 09:58 Dose: 400 mg Metoprolol Succinate (Toprol Xl) 100 mg PO DAILY [facility] Last Admin: 05/27/18 09:58 Dose: 100 mg Metoprolol Tartrate (Lopressor) 5 mg IVP Q8H PRN PRN Reason: Other Last Admin: 05/23/18 18:15 Dose: 5 mg Potassium Chloride (Potassium Chloride Oral Soln) 20 meq PO DAILY [facility] Last Admin: 05/27/18 09:58 Dose: 20 meq Tramadol HCl (Ultram) 50 mg PO TID PRN PRN Reason: Pain, severe (8-10) Last Admin: 05/26/18 02:33 Dose: 50 mg - Labs Labs: 05/26/18 20:37 05/26/18 20:37 - Constitutional Appears: Well, No Acute Distress - Head Exam Head Exam: ATRAUMATIC, NORMOCEPHALIC - Eye Exam Eye Exam: EOMI, PERRL - ENT Exam ENT Exam: Mucous Membranes Moist - Neck Exam Neck Exam: Full ROM - Respiratory Exam Respiratory Exam: Clear to Ausculation Bilateral, NORMAL BREATHING PATTERN - Cardiovascular Exam Cardiovascular Exam: REGULAR RHYTHM, +S1, +S2 - GI/Abdominal Exam GI & Abdominal Exam: Soft, Normal Bowel Sounds - Extremities Exam Extremities Exam: absent: Calf Tenderness Additional comments: Left axillary dressing clean dry intact Right axillary region: slight thickening of skin, no erythema, no tenderness - Neurological Exam Neurological Exam: Alert, Awake, Oriented x3 Assessment and Plan - Assessment and Plan (Free Text) Assessment: 33 year old female POD3 left axillary I&D Plan: Packing removed today Apply warm compresses to right axillary region Continue antibiotics No further surgical intervention at this time Surgery will sign off, please reconsult as needed. Follow up with Dr. Turner in 1 to 2 weeks. Case discussed with Dr. Yue Galan, PGY1 <Josh Turner B - Last Filed: 05/30/18 13:26> Objective - Vital Signs/Intake and Output Vital Signs (last 24 hours): Temp Pulse Resp BP Pulse Ox 98.0 F 116 H 18 123/87 99 05/30/18 07:15 05/30/18 09:38 05/30/18 07:15 05/30/18 09:38 05/30/18 07:15 Intake and Output: 05/30/18 05/30/18 06:59 18:59 Intake Total 940 Balance 940 - Medications Medications: Current Medications Diphenhydramine HCl (Benadryl) 25 mg PO HS PRN PRN Reason: Insomnia Last Admin: 05/30/18 00:27 Dose: 25 mg Enoxaparin Sodium (Lovenox) 40 mg SC DAILY [facility] Last Admin: 05/30/18 09:39 Dose: Not Given Gabapentin (Neurontin) 100 mg PO BID [facility] Last Admin: 05/30/18 09:38 Dose: 100 mg Hydromorphone HCl (Dilaudid) 1 mg IVP Q4H PRN PRN Reason: Pain, severe (8-10) Last Admin: 05/30/18 12:10 Dose: 1 mg Metronidazole (Flagyl) 500 mg in 100 mls @ 100 mls/hr IVPB Q8H [facility]; Protocol Last Admin: 05/30/18 08:44 Dose: 100 mls/hr Meropenem 500 mg/ Sodium (Chloride) 100 mls @ 100 mls/hr IVPB Q8H [facility]; Protocol Last Admin: 05/30/18 12:50 Dose: 100 mls/hr Insulin Detemir (Levemir) 8 unit SC Q12H [facility] Last Admin: 05/30/18 09:43 Dose: 8 units Insulin Human Regular (Novolin R) 0 unit SC ACHS [facility]; Protocol Last Admin: 05/30/18 12:30 Dose: Not Given Insulin Human Regular (Novolin R) 7 unit SC ACBD [facility] Last Admin: 05/30/18 08:30 Dose: 7 unit Insulin Human Regular (Novolin R) 5 unit SC ACL [facility] Last Admin: 05/30/18 12:30 Dose: 5 unit Metoprolol Succinate (Toprol Xl) 100 mg PO DAILY [facility] Last Admin: 05/30/18 09:39 Dose: 100 mg Metoprolol Tartrate (Lopressor) 5 mg IVP Q8H PRN PRN Reason: Other Last Admin: 05/23/18 18:15 Dose: 5 mg Tramadol HCl (Ultram) 50 mg PO TID PRN PRN Reason: Pain, severe (8-10) Last Admin: 05/26/18 02:33 Dose: 50 mg - Labs Labs: 05/29/18 09:05 05/29/18 09:05 Attending/Attestation - Attestation I have fully participated in the care of the patient.: Yes I have reviewed all pertinent clinical information, including history, physical exam and plan: Yes Notes (Text): Pt is improved clinically IV Antibiotics c.w current mx Plan d.w pt in detail
[2018-05-28] MEDS: Potassium Chloride 20 mEq/15 ml LIQ UD PO SCH (09:19)
[2018-05-28] MEDS: Metoprolol Succinate 100 mg XL Tab PO SCH (09:19)
[2018-05-28] MEDS: Enoxaparin 40 mg Syringe SC SCH ×2 (09:19→09:23)
[2018-05-28] MEDS: Magnesium Oxide 400 mg Tab UD PO SCH (09:19)
[2018-05-28] MEDS: Insulin Detemir 100 units/ml Vial (Levemir) SC SCH ×2 (09:20→21:17)
[2018-05-28] MEDS: (Novolin R) Insulin Human Regular 100 units/ml vial SC SCH ×7 (09:21→21:17)
--- NOTE | 2018-05-28 11:16 | CP.PCM.PN ---
Subjective - Date & Time of Evaluation Date of Evaluation: 05/28/18 Time of Evaluation: 11:16 - Subjective Subjective: AFEBRILE, NO NEW COMPLAINTS. S/P CT SCAN ABD/PELVIS TODAY LABS ; WOUND CULTURE LT AXILLA -STAPH COAGULASE NEGATIVE ? SKIN QING Objective - Vital Signs/Intake and Output Vital Signs (last 24 hours): Temp Pulse Resp BP Pulse Ox 97.7 F 87 20 145/92 H 98 05/28/18 07:00 05/28/18 07:00 05/28/18 07:00 05/28/18 07:00 05/28/18 07:00 - Medications Medications: Current Medications Diphenhydramine HCl (Benadryl) 25 mg PO HS PRN PRN Reason: Insomnia Last Admin: 05/26/18 22:36 Dose: 25 mg Enoxaparin Sodium (Lovenox) 40 mg SC DAILY [facility] Last Admin: 05/28/18 09:23 Dose: Not Given Gabapentin (Neurontin) 100 mg PO BID [facility] Last Admin: 05/28/18 09:19 Dose: 100 mg Hydromorphone HCl (Dilaudid) 0.5 mg IVP Q15M PRN PRN Reason: Pain, severe (8-10) Last Admin: 05/25/18 17:31 Dose: 0.5 mg Hydromorphone HCl (Dilaudid) 1 mg IVP Q4H PRN PRN Reason: Pain, severe (8-10) Last Admin: 05/28/18 06:15 Dose: 1 mg Metronidazole (Flagyl) 500 mg in 100 mls @ 100 mls/hr IVPB Q8H [facility]; Protocol Last Admin: 05/28/18 09:25 Dose: 100 mls/hr Meropenem 500 mg/ Sodium (Chloride) 100 mls @ 100 mls/hr IVPB Q8H [facility]; Protocol Last Admin: 05/28/18 06:06 Dose: 100 mls/hr Insulin Detemir (Levemir) 8 unit SC Q12H [facility] Last Admin: 05/28/18 09:20 Dose: 8 units Insulin Human Regular (Novolin R) 0 unit SC ACHS [facility]; Protocol Last Admin: 05/28/18 09:21 Dose: 1 units Insulin Human Regular (Novolin R) 7 unit SC TIDPC [facility] Last Admin: 05/28/18 09:21 Dose: 8 units Magnesium Oxide (Mag-Ox) 400 mg PO DAILY [facility] Stop: 05/30/18 10:01 Last Admin: 05/28/18 09:19 Dose: 400 mg Metoprolol Succinate (Toprol Xl) 100 mg PO DAILY [facility] Last Admin: 05/28/18 09:19 Dose: 100 mg Metoprolol Tartrate (Lopressor) 5 mg IVP Q8H PRN PRN Reason: Other Last Admin: 05/23/18 18:15 Dose: 5 mg Potassium Chloride (Potassium Chloride Oral Soln) 20 meq PO DAILY [facility] Last Admin: 05/28/18 09:19 Dose: 20 meq Tramadol HCl (Ultram) 50 mg PO TID PRN PRN Reason: Pain, severe (8-10) Last Admin: 05/26/18 02:33 Dose: 50 mg - Labs Labs: 05/26/18 20:37 05/26/18 20:37 - Constitutional Appears: No Acute Distress - Head Exam Head Exam: NORMAL INSPECTION - Eye Exam Eye Exam: EOMI, PERRL - ENT Exam ENT Exam: Normal Oropharynx - Neck Exam Neck Exam: Normal Inspection - Respiratory Exam Respiratory Exam: Clear to Ausculation Bilateral, NORMAL BREATHING PATTERN - Cardiovascular Exam Cardiovascular Exam: REGULAR RHYTHM, +S1, +S2 - GI/Abdominal Exam GI & Abdominal Exam: Soft, Normal Bowel Sounds. absent: Tenderness - Extremities Exam Extremities Exam: Normal Capillary Refill. absent: Calf Tenderness, Pedal Edema Additional comments: LT AXILLA DRESSING CDI - Neurological Exam Neurological Exam: Alert, Awake, CN II-XII Intact, Oriented x3, Reflexes Normal - Psychiatric Exam Psychiatric exam: Normal Mood - Skin Skin Exam: Normal Color, Warm Assessment and Plan - Assessment and Plan (Free Text) Assessment: ASSESSMENT POST OPT S/P I&D LEFT AXILLARY ABSCESS 05/25/18 GRAM-NEGATIVE BACTEREMIA -E.COLI RT. PYELONEPHRITIS-COMPLICATED/? DEVELOPING ABSCESS UROSEPSIS +VE ESBL E.COLI HISTORY OF LEFT NEPHRECTOMY. ( WILMS TUMOUR ) DKA.-IDDM-UNCONTROLLED HX OF NEUROMYELITIS OPTICA S/P RITUXIMAB-2018 ANAEMIA- IRON DEFICIENCY/ CH BLOOD LOSS PLAN : CASE DISCUSSED WITH [employer]RAFTSMAN MR ROBERT ON IV MERREM 500MG IVPB Q 8HRLY 05/20/18. CONTINUE iv mERREM 500 MG EVERY 8 HOURLY X FOR 14 DAYS TO COMPLETE 3 WEEKS OF THERAPY 05/28/18 ON IV FLAGYL 500MG IVPB Q 8HRLY 05/19/18 DAY 10 . JULY D/C fLAGYL ON DISCHARGE CONTACT ISOLATION. PATIENT HAS HISTORY OF esbl E. COLI ( BACTEREMIA AND /UTI )
--- NOTE | 2018-05-28 11:43 | CT ---
Date of service: 05/28/2018 PROCEDURE: CT Abdomen and Pelvis without intravenous contrast HISTORY: f/u COMPARISON: 05/17/2018 TECHNIQUE: Technique. Contrast dose: Radiation dose: Total exam DLP = 864.8 mGy-cm. This CT exam was performed using one or more of the following dose reduction techniques: Automated exposure control, adjustment of the mA and/or kV according to patient size, and/or use of iterative reconstruction technique. FINDINGS: LOWER THORAX: New small loculated left pleural effusion with localized atelectatic change. LIVER: Unremarkable. No gross lesion or ductal dilatation. GALLBLADDER AND BILE DUCTS: Unremarkable. PANCREAS: Unremarkable. No gross lesion or ductal dilatation. SPLEEN: Unremarkable. ADRENALS: Unremarkable. No mass. KIDNEYS AND URETERS: Absent left kidney. Compensatory hypertrophy of the right kidney. No hydronephrosis. No solid mass. VASCULATURE: Unremarkable. No aortic aneurysm. No aortic atherosclerotic calcification or mural plaque present. BOWEL: Unremarkable. No obstruction. No gross mural thickening. APPENDIX: Unremarkable. Normal appendix. PERITONEUM: Unremarkable. No free fluid. No free air. LYMPH NODES: Unremarkable. No enlarged lymph nodes. BLADDER: Unremarkable. REPRODUCTIVE: Unremarkable. BONES: No acute fracture. OTHER FINDINGS: None. IMPRESSION: Absent left kidney. Compensatory hypertrophy of the right kidney. New small loculated left pleural effusion with localized atelectatic change.
--- NOTE | 2018-05-28 12:28 | CP.PCM.PN ---
Subjective - Date & Time of Evaluation Date of Evaluation: 05/28/18 Time of Evaluation: 12:24 - Subjective Subjective: PATIENT SEEN AND EXAMINED AT THE BEDSIDE DENIES SOB CHEST PAIN OR HEART PALPITATION PATIENT WILL REQUIRE 14 DAYS OF IV MERREM 500MG Q8H PER DR Maximilian DE LA CRUZ Objective - Vital Signs/Intake and Output Vital Signs (last 24 hours): Temp Pulse Resp BP Pulse Ox 97.7 F 87 20 145/92 H 98 05/28/18 07:00 05/28/18 07:00 05/28/18 07:00 05/28/18 07:00 05/28/18 07:00 - Medications Medications: Current Medications Diphenhydramine HCl (Benadryl) 25 mg PO HS PRN PRN Reason: Insomnia Last Admin: 05/26/18 22:36 Dose: 25 mg Enoxaparin Sodium (Lovenox) 40 mg SC DAILY [facility] Last Admin: 05/28/18 09:23 Dose: Not Given Gabapentin (Neurontin) 100 mg PO BID [facility] Last Admin: 05/28/18 09:19 Dose: 100 mg Hydromorphone HCl (Dilaudid) 0.5 mg IVP Q15M PRN PRN Reason: Pain, severe (8-10) Last Admin: 05/25/18 17:31 Dose: 0.5 mg Hydromorphone HCl (Dilaudid) 1 mg IVP Q4H PRN PRN Reason: Pain, severe (8-10) Last Admin: 05/28/18 06:15 Dose: 1 mg Metronidazole (Flagyl) 500 mg in 100 mls @ 100 mls/hr IVPB Q8H [facility]; Protocol Last Admin: 05/28/18 09:25 Dose: 100 mls/hr Meropenem 500 mg/ Sodium (Chloride) 100 mls @ 100 mls/hr IVPB Q8H [facility]; Protocol Last Admin: 05/28/18 06:06 Dose: 100 mls/hr Insulin Detemir (Levemir) 8 unit SC Q12H [facility] Last Admin: 05/28/18 09:20 Dose: 8 units Insulin Human Regular (Novolin R) 0 unit SC ACHS [facility]; Protocol Last Admin: 05/28/18 09:21 Dose: 1 units Insulin Human Regular (Novolin R) 7 unit SC TIDPC [facility] Last Admin: 05/28/18 09:21 Dose: 8 units Magnesium Oxide (Mag-Ox) 400 mg PO DAILY [facility] Stop: 05/30/18 10:01 Last Admin: 05/28/18 09:19 Dose: 400 mg Metoprolol Succinate (Toprol Xl) 100 mg PO DAILY [facility] Last Admin: 05/28/18 09:19 Dose: 100 mg Metoprolol Tartrate (Lopressor) 5 mg IVP Q8H PRN PRN Reason: Other Last Admin: 05/23/18 18:15 Dose: 5 mg Potassium Chloride (Potassium Chloride Oral Soln) 20 meq PO DAILY [facility] Last Admin: 05/28/18 09:19 Dose: 20 meq Tramadol HCl (Ultram) 50 mg PO TID PRN PRN Reason: Pain, severe (8-10) Last Admin: 05/26/18 02:33 Dose: 50 mg - Labs Labs: 05/26/18 20:37 05/26/18 20:37
--- NOTE | 2018-05-28 21:29 | CP.PCM.PN ---
Subjective - Date & Time of Evaluation Date of Evaluation: 05/28/18 Time of Evaluation: 21:25 - Subjective Subjective: uncontrolled IDDM with hypoglycemia Objective - Vital Signs/Intake and Output Vital Signs (last 24 hours): Temp Pulse Resp BP Pulse Ox 98.2 F 123 H 20 127/76 98 05/28/18 16:00 05/28/18 20:31 05/28/18 16:00 05/28/18 16:00 05/28/18 16:00 - Medications Medications: Current Medications Diphenhydramine HCl (Benadryl) 25 mg PO HS PRN PRN Reason: Insomnia Last Admin: 05/26/18 22:36 Dose: 25 mg Enoxaparin Sodium (Lovenox) 40 mg SC DAILY [facility] Last Admin: 05/28/18 09:23 Dose: Not Given Gabapentin (Neurontin) 100 mg PO BID [facility] Last Admin: 05/28/18 17:14 Dose: 100 mg Hydromorphone HCl (Dilaudid) 0.5 mg IVP Q15M PRN PRN Reason: Pain, severe (8-10) Last Admin: 05/25/18 17:31 Dose: 0.5 mg Hydromorphone HCl (Dilaudid) 1 mg IVP Q4H PRN PRN Reason: Pain, severe (8-10) Last Admin: 05/28/18 21:17 Dose: 1 mg Metronidazole (Flagyl) 500 mg in 100 mls @ 100 mls/hr IVPB Q8H [facility]; Protocol Last Admin: 05/28/18 17:13 Dose: 100 mls/hr Meropenem 500 mg/ Sodium (Chloride) 100 mls @ 100 mls/hr IVPB Q8H [facility]; Protocol Last Admin: 05/28/18 21:17 Dose: 100 mls/hr Insulin Detemir (Levemir) 8 unit SC Q12H [facility] Last Admin: 05/28/18 21:17 Dose: 8 units Insulin Human Regular (Novolin R) 0 unit SC ACHS [facility]; Protocol Last Admin: 05/28/18 21:17 Dose: Not Given Insulin Human Regular (Novolin R) 7 unit SC TIDPC [facility] Last Admin: 05/28/18 17:28 Dose: Not Given Magnesium Oxide (Mag-Ox) 400 mg PO DAILY [facility] Stop: 05/30/18 10:01 Last Admin: 05/28/18 09:19 Dose: 400 mg Metoprolol Succinate (Toprol Xl) 100 mg PO DAILY [facility] Last Admin: 05/28/18 09:19 Dose: 100 mg Metoprolol Tartrate (Lopressor) 5 mg IVP Q8H PRN PRN Reason: Other Last Admin: 05/23/18 18:15 Dose: 5 mg Potassium Chloride (Potassium Chloride Oral Soln) 20 meq PO DAILY [facility] Last Admin: 05/28/18 09:19 Dose: 20 meq Tramadol HCl (Ultram) 50 mg PO TID PRN PRN Reason: Pain, severe (8-10) Last Admin: 05/26/18 02:33 Dose: 50 mg - Labs Labs: 05/26/18 20:37 05/26/18 20:37 Assessment and Plan (1) Diabetic hypoglycemia Assessment & Plan: Endocrine consult reason for consult: uncontrolled diabetes Source: patient and chart review Binh Garcia is 33 y/o admitted for weakness & poor intake found with UTI found with glucose > 400 as per pt. 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 HEENT: denies earache, change in voice .Respiratory: denies cough, sob . CVS :no chest pain, no palpitations . Abdomen: (-) abdominal pain, no nausea /vomiting, no change bowel movement. MANAGER OF CARE : denies light-headedness, dizziness. Extremities: no edema, no tremors. Skin: no itching, no rash LMP 05/2018 spotting Physical exam Well-developed AAO x3 , ,NAD VSS HEENT: norm cephalic, atraumatic, no lid lag , no exophthalmos NECK: supple, no palpable lymphadenopathy THYROID: no palpable thyromegaly, not tender CHEST: fair air entry, bilateral, CVS: S1,S2 ABDOMEN: bowel sound present, benign, obese, no wide purple striae , no bruises EXTREMITIES: no edema, clubbing or cyanosis, no palpable hand tremors Skin: (+) acanthosis nigricans -lab: wbc 10.9 urine test (-) tsh 1.07 , a1c 13.5 , ldl 60, tg 81 , wbc 17.9 , u/a (+) glucose , blood & nitr ate Assessment: symptomatic hypoglycemia uncontrolled IDDM UTI /bactremia plan : continue Levemir 8 units q 12 h , was decrease to 6 units bid off metfomin continue novoloin R low dose coverage tid & hs change t novoloin R 7 units with breakast & dinner & 5 units with lunch , if eat > 60% we will follow with you. Status: Acute (2) Diabetes mellitus, insulin dependent (IDDM), uncontrolled Status: Acute (3) UTI (urinary tract infection) Status: Acute (4) Abdominal pain Status: Acute
--- NOTE | 2018-05-28 21:54 | CP.PCM.PN ---
Subjective - Date & Time of Evaluation Date of Evaluation: 05/28/18 Time of Evaluation: 08:20 - Subjective Subjective: dictated Objective - Vital Signs/Intake and Output Vital Signs (last 24 hours): Temp Pulse Resp BP Pulse Ox 98.2 F 123 H 20 127/76 98 05/28/18 16:00 05/28/18 20:31 05/28/18 16:00 05/28/18 16:00 05/28/18 16:00 - Medications Medications: Current Medications Diphenhydramine HCl (Benadryl) 25 mg PO HS PRN PRN Reason: Insomnia Last Admin: 05/26/18 22:36 Dose: 25 mg Enoxaparin Sodium (Lovenox) 40 mg SC DAILY [facility] Last Admin: 05/28/18 09:23 Dose: Not Given Gabapentin (Neurontin) 100 mg PO BID [facility] Last Admin: 05/28/18 17:14 Dose: 100 mg Hydromorphone HCl (Dilaudid) 0.5 mg IVP Q15M PRN PRN Reason: Pain, severe (8-10) Last Admin: 05/25/18 17:31 Dose: 0.5 mg Hydromorphone HCl (Dilaudid) 1 mg IVP Q4H PRN PRN Reason: Pain, severe (8-10) Last Admin: 05/28/18 21:17 Dose: 1 mg Metronidazole (Flagyl) 500 mg in 100 mls @ 100 mls/hr IVPB Q8H [facility]; Protocol Last Admin: 05/28/18 17:13 Dose: 100 mls/hr Meropenem 500 mg/ Sodium (Chloride) 100 mls @ 100 mls/hr IVPB Q8H [facility]; Protocol Last Admin: 05/28/18 21:17 Dose: 100 mls/hr Insulin Detemir (Levemir) 8 unit SC Q12H [facility] Last Admin: 05/28/18 21:17 Dose: 8 units Insulin Human Regular (Novolin R) 0 unit SC ACHS [facility]; Protocol Last Admin: 05/28/18 21:17 Dose: Not Given Insulin Human Regular (Novolin R) 7 unit SC TIDPC [facility] Last Admin: 05/28/18 17:28 Dose: Not Given Magnesium Oxide (Mag-Ox) 400 mg PO DAILY [facility] Stop: 05/30/18 10:01 Last Admin: 05/28/18 09:19 Dose: 400 mg Metoprolol Succinate (Toprol Xl) 100 mg PO DAILY [facility] Last Admin: 05/28/18 09:19 Dose: 100 mg Metoprolol Tartrate (Lopressor) 5 mg IVP Q8H PRN PRN Reason: Other Last Admin: 05/23/18 18:15 Dose: 5 mg Potassium Chloride (Potassium Chloride Oral Soln) 20 meq PO DAILY [facility] Last Admin: 05/28/18 09:19 Dose: 20 meq Tramadol HCl (Ultram) 50 mg PO TID PRN PRN Reason: Pain, severe (8-10) Last Admin: 05/26/18 02:33 Dose: 50 mg - Labs Labs: 05/26/18 20:37 05/26/18 20:37
[2018-05-29] MEDS: metroNIDAZOLE IV 500 mg/100 ml 500 MG/100 ML BAG IVPB SCH ×3 (00:44→17:23)
--- NOTE | 2018-05-29 01:07 | PN ---
DATE: 05/28/2018 SUBJECTIVE: The patient is feeling better. She is for home IV infusion versus subacute rehab facility. she is reluctant to go to a subacute rehab facility. I spoke to her. No fever. No chills. Positive tachycardia. PHYSICAL EXAMINATION: VITAL SIGNS: Blood pressure 127/76, pulse 125, respiratory rate 20, and temperature 98.2. LUNGS: Clear. No rales. No rhonchi. CARDIOVASCULAR SYSTEM: S1, S2, regular. Bilaterally axillary nodes. CENTRAL NERVOUS SYSTEM: Awake, alert, oriented x3. ASSESSMENT: 1. Status post incision and drainage of bilateral axillary abscesses. 2. Gram-negative septicemia, resolved. 3. Type 2 diabetes. 4. Hypertension. 5. Sinus tachycardia. PLAN: Monitor the patient. Antibiotics. Follow up the patient. Dru Fontenot MD
[2018-05-29] MEDS: HYDROmorphone 0.5 mg/0.5 ml ISec IVP PRN ×5 (02:53→23:37)
[2018-05-29] MEDS: Meropenem 500 MG in Sodium Chloride 0.9% 100 ML IVPB SCH ×3 (05:40→21:34)
[2018-05-29 09:10] LABS: BASO # 0.1 K/uL (0.0-0.2); BASO % 0.6 % (0.0-2.0); EOS # 0.3 K/uL (0.0-0.7); EOS % 2.2 % (0.0-4.0); HEMOGLOBIN 9.7 g/dL (11.0-16.0); LYMPH # 2.4 K/uL (1.0-4.3); LYMPH % 18.7 % (20.0-40.0); MEAN CELL VOLUME 89.7 fL (81.0-99.0); MEAN CORPUSCULAR HEMOGLOBIN 28.6 pg (27.0-31.0); MEAN CORPUSCULAR HGB CONC 31.8 g/dL (33.0-37.0); MEAN PLATELET VOLUME 7.7 fL (7.2-11.7); MONO # 0.8 K/uL (0.0-0.8); MONO % 6.2 % (0.0-10.0); NEUT # 9.3 K/uL (1.8-7.0); NEUT % 72.3 % (50.0-75.0); RBC 3.39 Mil/uL (3.80-5.20); RED CELL DISTRIBUTION WIDTH 15.9 % (11.5-14.5); WHITE BLOOD COUNT 12.9 K/uL (4.8-10.8)
[2018-05-29] MEDS: Potassium Chloride 20 mEq/15 ml LIQ UD PO SCH (09:26)
[2018-05-29] MEDS: Metoprolol Succinate 100 mg XL Tab PO SCH (09:26)
[2018-05-29] MEDS: Magnesium Oxide 400 mg Tab UD PO SCH (09:27)
[2018-05-29] MEDS: Enoxaparin 40 mg Syringe SC SCH ×2 (09:27→09:31)
[2018-05-29] MEDS: (Novolin R) Insulin Human Regular 100 units/ml vial SC SCH ×7 (09:27→21:35)
[2018-05-29] MEDS: Insulin Detemir 100 units/ml Vial (Levemir) SC SCH ×2 (09:27→21:35)
[2018-05-29 10:01] LABS: ALB/GLOB RATIO 1.2 (1.0-2.1); ALBUMIN 3.3 g/dL (3.5-5.0); ALT/SGPT 16 U/L (9-52); AST/SGOT 31 U/L (14-36); BLOOD UREA NITROGEN 6 mg/dL (7-17); CALCIUM 9.6 mg/dl (8.6-10.4); GFR NON-AFRICAN AMERICAN > 60
--- NOTE | 2018-05-29 11:36 | CP.PCM.PN ---
Subjective - Date & Time of Evaluation Date of Evaluation: 05/29/18 Time of Evaluation: 11:36 - Subjective Subjective: AFEBRILE, TACHYCARDIAC HR 116/MIN NO NEW COMPLAINTS. S/P CT SCAN ABD/PELVIS REVIEWED LABS ; WOUND CULTURE LT AXILLA -STAPH COAGULASE NEGATIVE ? SKIN QING CASE DISCUSSED WITH BUDGET EXAMINER. MS DUEÑAS. PT TO CONTINUE IV MERREM 500MG IVPB Q 8HRLY X 14 DAYS MORE (STARTING 05/28/18 - 06/10/18 ) Objective - Vital Signs/Intake and Output Vital Signs (last 24 hours): Temp Pulse Resp BP Pulse Ox 98.3 F 116 H 20 132/91 H 97 05/29/18 07:00 05/29/18 08:58 05/29/18 07:00 05/29/18 07:00 05/29/18 07:00 Intake and Output: 05/29/18 05/29/18 06:59 18:59 Intake Total 700 440 Balance 700 440 - Medications Medications: Current Medications Diphenhydramine HCl (Benadryl) 25 mg PO HS PRN PRN Reason: Insomnia Last Admin: 05/26/18 22:36 Dose: 25 mg Enoxaparin Sodium (Lovenox) 40 mg SC DAILY [facility] Last Admin: 05/29/18 09:31 Dose: Not Given Gabapentin (Neurontin) 100 mg PO BID [facility] Last Admin: 05/29/18 09:27 Dose: 100 mg Hydromorphone HCl (Dilaudid) 1 mg IVP Q4H PRN PRN Reason: Pain, severe (8-10) Last Admin: 05/29/18 07:45 Dose: 1 mg Metronidazole (Flagyl) 500 mg in 100 mls @ 100 mls/hr IVPB Q8H [facility]; Protocol Last Admin: 05/29/18 09:27 Dose: 100 mls/hr Meropenem 500 mg/ Sodium (Chloride) 100 mls @ 100 mls/hr IVPB Q8H [facility]; Protocol Last Admin: 05/29/18 05:40 Dose: 100 mls/hr Insulin Detemir (Levemir) 8 unit SC Q12H [facility] Last Admin: 05/29/18 09:27 Dose: 8 units Insulin Human Regular (Novolin R) 0 unit SC ACHS [facility]; Protocol Last Admin: 05/29/18 09:27 Dose: 2 units Insulin Human Regular (Novolin R) 7 unit SC ACBD [facility] Last Admin: 05/29/18 09:28 Dose: 7 unit Insulin Human Regular (Novolin R) 5 unit SC ACL [facility] Magnesium Oxide (Mag-Ox) 400 mg PO DAILY [facility] Stop: 05/30/18 10:01 Last Admin: 05/29/18 09:27 Dose: 400 mg Metoprolol Succinate (Toprol Xl) 100 mg PO DAILY [facility] Last Admin: 05/29/18 09:26 Dose: 100 mg Metoprolol Tartrate (Lopressor) 5 mg IVP Q8H PRN PRN Reason: Other Last Admin: 05/23/18 18:15 Dose: 5 mg Potassium Chloride (Potassium Chloride Oral Soln) 20 meq PO DAILY [facility] Last Admin: 05/29/18 09:26 Dose: 20 meq Tramadol HCl (Ultram) 50 mg PO TID PRN PRN Reason: Pain, severe (8-10) Last Admin: 05/26/18 02:33 Dose: 50 mg - Labs Labs: 05/29/18 09:05 05/29/18 09:05 - Constitutional Appears: No Acute Distress - Head Exam Head Exam: NORMAL INSPECTION - Eye Exam Eye Exam: EOMI, PERRL - ENT Exam ENT Exam: Normal Oropharynx - Neck Exam Neck Exam: Normal Inspection - Cardiovascular Exam Cardiovascular Exam: REGULAR RHYTHM, +S1, +S2 - GI/Abdominal Exam GI & Abdominal Exam: Soft, Normal Bowel Sounds. absent: Tenderness - Extremities Exam Extremities Exam: absent: Calf Tenderness, Pedal Edema - Neurological Exam Neurological Exam: Alert, Awake, CN II-XII Intact, Oriented x3, Reflexes Normal - Psychiatric Exam Psychiatric exam: Normal Mood - Skin Skin Exam: Normal Color, Warm Assessment and Plan - Assessment and Plan (Free Text) Assessment: ASSESSMENT POST OPT S/P I&D LEFT AXILLARY ABSCESS 05/25/18 GRAM-NEGATIVE BACTEREMIA -E.COLI RT. PYELONEPHRITIS-COMPLICATED/? DEVELOPING ABSCESS UROSEPSIS +VE ESBL E.COLI HISTORY OF LEFT NEPHRECTOMY. ( WILMS TUMOUR ) DKA.-IDDM-UNCONTROLLED HX OF NEUROMYELITIS OPTICA S/P RITUXIMAB-2018 ANAEMIA- IRON DEFICIENCY/ CH BLOOD LOSS PLAN : CASE DISCUSSED WITH BUDGET EXAMINER MS DUEÑAS ON IV MERREM 500MG IVPB Q 8HRLY 05/20/18. CONTINUE iv mERREM 500 MG EVERY 8 HOURLY X FOR 14 DAYS TO COMPLETE 3 WEEKS OF THERAPY 05/28/18- TO 06/10/18. ON IV FLAGYL 500MG IVPB Q 8HRLY 05/19/18 DAY 11 . JULY D/C fLAGYL ON DISCHARGE CONTACT ISOLATION. PATIENT HAS HISTORY OF esbl E. COLI ( BACTEREMIA AND /UTI )
--- NOTE | 2018-05-29 19:02 | CP.PCM.PN ---
Subjective - Date & Time of Evaluation Date of Evaluation: 05/29/18 Time of Evaluation: 07:20 - Subjective Subjective: dictated Objective - Vital Signs/Intake and Output Vital Signs (last 24 hours): Temp Pulse Resp BP Pulse Ox 98.6 F 110 H 20 115/74 98 05/29/18 15:00 05/29/18 15:00 05/29/18 15:00 05/29/18 15:00 05/29/18 15:00 Intake and Output: 05/29/18 05/30/18 18:59 06:59 Intake Total 1140 Balance 1140 - Medications Medications: Current Medications Diphenhydramine HCl (Benadryl) 25 mg PO HS PRN PRN Reason: Insomnia Last Admin: 05/26/18 22:36 Dose: 25 mg Enoxaparin Sodium (Lovenox) 40 mg SC DAILY [facility] Last Admin: 05/29/18 09:31 Dose: Not Given Gabapentin (Neurontin) 100 mg PO BID [facility] Last Admin: 05/29/18 17:23 Dose: 100 mg Hydromorphone HCl (Dilaudid) 1 mg IVP Q4H PRN PRN Reason: Pain, severe (8-10) Last Admin: 05/29/18 12:34 Dose: 1 mg Metronidazole (Flagyl) 500 mg in 100 mls @ 100 mls/hr IVPB Q8H [facility]; Protocol Last Admin: 05/29/18 17:23 Dose: 100 mls/hr Meropenem 500 mg/ Sodium (Chloride) 100 mls @ 100 mls/hr IVPB Q8H [facility]; Protocol Last Admin: 05/29/18 12:37 Dose: 100 mls/hr Insulin Detemir (Levemir) 8 unit SC Q12H [facility] Last Admin: 05/29/18 09:27 Dose: 8 units Insulin Human Regular (Novolin R) 0 unit SC ACHS [facility]; Protocol Last Admin: 05/29/18 16:59 Dose: Not Given Insulin Human Regular (Novolin R) 7 unit SC ACBD [facility] Last Admin: 05/29/18 17:22 Dose: Not Given Insulin Human Regular (Novolin R) 5 unit SC ACL [facility] Last Admin: 05/29/18 12:37 Dose: 5 unit Magnesium Oxide (Mag-Ox) 400 mg PO DAILY [facility] Stop: 03/24/19 10:01 Last Admin: 05/29/18 09:27 Dose: 400 mg Metoprolol Succinate (Toprol Xl) 100 mg PO DAILY [facility] Last Admin: 05/29/18 09:26 Dose: 100 mg Metoprolol Tartrate (Lopressor) 5 mg IVP Q8H PRN PRN Reason: Other Last Admin: 05/23/18 18:15 Dose: 5 mg Tramadol HCl (Ultram) 50 mg PO TID PRN PRN Reason: Pain, severe (8-10) Last Admin: 05/26/18 02:33 Dose: 50 mg - Labs Labs: 05/29/18 09:05 05/29/18 09:05
[2018-05-30] MEDS: metroNIDAZOLE IV 500 mg/100 ml 500 MG/100 ML BAG IVPB SCH ×3 (00:27→17:07)
[2018-05-30] MEDS: HYDROmorphone 0.5 mg/0.5 ml ISec IVP PRN ×5 (03:47→21:10)
[2018-05-30] MEDS: Meropenem 500 MG in Sodium Chloride 0.9% 100 ML IVPB SCH ×3 (05:56→21:10)
[2018-05-30] MEDS: (Novolin R) Insulin Human Regular 100 units/ml vial SC SCH ×7 (08:30→21:38)
[2018-05-30] MEDS: Magnesium Oxide 400 mg Tab UD PO SCH (09:39)
[2018-05-30] MEDS: Enoxaparin 40 mg Syringe SC SCH (09:39)
[2018-05-30] MEDS: Metoprolol Succinate 100 mg XL Tab PO SCH (09:39)
[2018-05-30] MEDS: Insulin Detemir 100 units/ml Vial (Levemir) SC SCH ×2 (09:43→21:47)
[2018-05-30 16:38] VITALS: RESP 20
--- NOTE | 2018-05-30 21:46 | CP.PCM.PN ---
Subjective - Date & Time of Evaluation Date of Evaluation: 05/30/18 Time of Evaluation: 07:40 - Subjective Subjective: dictated Objective - Vital Signs/Intake and Output Vital Signs (last 24 hours): Temp Pulse Resp BP Pulse Ox 98 F 108 H 20 131/86 97 05/30/18 16:36 05/30/18 16:36 05/30/18 16:36 05/30/18 16:36 05/30/18 16:36 Intake and Output: 05/30/18 05/31/18 18:59 06:59 Intake Total 600 Balance 600 - Medications Medications: Current Medications Diphenhydramine HCl (Benadryl) 25 mg PO HS PRN PRN Reason: Insomnia Last Admin: 05/30/18 00:27 Dose: 25 mg Enoxaparin Sodium (Lovenox) 40 mg SC DAILY [facility] Last Admin: 05/30/18 09:39 Dose: Not Given Gabapentin (Neurontin) 100 mg PO BID [facility] Last Admin: 05/30/18 17:06 Dose: 100 mg Hydromorphone HCl (Dilaudid) 1 mg IVP Q4H PRN PRN Reason: Pain, severe (8-10) Last Admin: 05/30/18 21:10 Dose: 1 mg Metronidazole (Flagyl) 500 mg in 100 mls @ 100 mls/hr IVPB Q8H [facility]; Protocol Last Admin: 05/30/18 17:07 Dose: 100 mls/hr Meropenem 500 mg/ Sodium (Chloride) 100 mls @ 100 mls/hr IVPB Q8H [facility]; Protocol Last Admin: 05/30/18 21:10 Dose: 100 mls/hr Insulin Detemir (Levemir) 8 unit SC Q12H [facility] Last Admin: 05/30/18 09:43 Dose: 8 units Insulin Human Regular (Novolin R) 0 unit SC ACHS [facility]; Protocol Last Admin: 05/30/18 21:38 Dose: Not Given Insulin Human Regular (Novolin R) 7 unit SC ACBD [facility] Last Admin: 05/30/18 16:52 Dose: Not Given Insulin Human Regular (Novolin R) 5 unit SC ACL [facility] Last Admin: 05/30/18 12:30 Dose: 5 unit Metoprolol Succinate (Toprol Xl) 100 mg PO DAILY [facility] Last Admin: 05/30/18 09:39 Dose: 100 mg Metoprolol Tartrate (Lopressor) 5 mg IVP Q8H PRN PRN Reason: Other Last Admin: 05/23/18 18:15 Dose: 5 mg Tramadol HCl (Ultram) 50 mg PO TID PRN PRN Reason: Pain, severe (8-10) Last Admin: 05/26/18 02:33 Dose: 50 mg - Labs Labs: 05/29/18 09:05 05/29/18 09:05
--- NOTE | 2018-05-30 23:35 | CP.PCM.PN ---
Subjective - Date & Time of Evaluation Date of Evaluation: 05/30/18 Time of Evaluation: 23:34 - Subjective Subjective: AFEBRILE, NO NEW COMPLAINTS. LABS ; +VE LEUKOCYTOSIS WOUND CULTURE LT AXILLA -STAPH COAGULASE NEGATIVE ? SKIN QING Objective - Vital Signs/Intake and Output Vital Signs (last 24 hours): Temp Pulse Resp BP Pulse Ox 98 F 108 H 20 131/86 97 05/30/18 16:36 05/30/18 16:36 05/30/18 16:36 05/30/18 16:36 05/30/18 16:36 Intake and Output: 05/30/18 05/31/18 18:59 06:59 Intake Total 600 Balance 600 - Medications Medications: Current Medications Diphenhydramine HCl (Benadryl) 25 mg PO HS PRN PRN Reason: Insomnia Last Admin: 05/30/18 00:27 Dose: 25 mg Enoxaparin Sodium (Lovenox) 40 mg SC DAILY [facility] Last Admin: 05/30/18 09:39 Dose: Not Given Gabapentin (Neurontin) 100 mg PO BID [facility] Last Admin: 05/30/18 17:06 Dose: 100 mg Hydromorphone HCl (Dilaudid) 1 mg IVP Q4H PRN PRN Reason: Pain, severe (8-10) Last Admin: 05/30/18 21:10 Dose: 1 mg Metronidazole (Flagyl) 500 mg in 100 mls @ 100 mls/hr IVPB Q8H [facility]; Protocol Last Admin: 05/30/18 17:07 Dose: 100 mls/hr Meropenem 500 mg/ Sodium (Chloride) 100 mls @ 100 mls/hr IVPB Q8H [facility]; Protocol Last Admin: 05/30/18 21:10 Dose: 100 mls/hr Insulin Detemir (Levemir) 8 unit SC Q12H [facility] Last Admin: 05/30/18 21:47 Dose: 8 units Insulin Human Regular (Novolin R) 0 unit SC ACHS [facility]; Protocol Last Admin: 05/30/18 21:38 Dose: Not Given Insulin Human Regular (Novolin R) 7 unit SC ACBD [facility] Last Admin: 05/30/18 16:52 Dose: Not Given Insulin Human Regular (Novolin R) 5 unit SC ACL [facility] Last Admin: 05/30/18 12:30 Dose: 5 unit Metoprolol Succinate (Toprol Xl) 100 mg PO DAILY [facility] Last Admin: 05/30/18 09:39 Dose: 100 mg Metoprolol Tartrate (Lopressor) 5 mg IVP Q8H PRN PRN Reason: Other Last Admin: 05/23/18 18:15 Dose: 5 mg Tramadol HCl (Ultram) 50 mg PO TID PRN PRN Reason: Pain, severe (8-10) Last Admin: 05/26/18 02:33 Dose: 50 mg - Labs Labs: 05/29/18 09:05 05/29/18 09:05 - Constitutional Appears: No Acute Distress - Head Exam Head Exam: NORMAL INSPECTION - Eye Exam Eye Exam: EOMI, PERRL - ENT Exam ENT Exam: Normal Oropharynx - Neck Exam Neck Exam: Normal Inspection - Respiratory Exam Respiratory Exam: Clear to Ausculation Bilateral - Cardiovascular Exam Cardiovascular Exam: Tachycardia, REGULAR RHYTHM, +S1, +S2 - GI/Abdominal Exam GI & Abdominal Exam: Soft, Normal Bowel Sounds - Extremities Exam Extremities Exam: Normal Capillary Refill (LT AXILLA WOUND HEALING.). absent: Calf Tenderness, Pedal Edema - Neurological Exam Neurological Exam: Alert, Awake, CN II-XII Intact, Oriented x3, Reflexes Normal - Psychiatric Exam Psychiatric exam: Normal Mood - Skin Skin Exam: Normal Color, Warm Assessment and Plan - Assessment and Plan (Free Text) Assessment: ASSESSMENT POST OPT S/P I&D LEFT AXILLARY ABSCESS 05/25/18 GRAM-NEGATIVE BACTEREMIA -E.COLI RT. PYELONEPHRITIS-COMPLICATED/? DEVELOPING ABSCESS UROSEPSIS +VE ESBL E.COLI HISTORY OF LEFT NEPHRECTOMY. ( WILMS TUMOUR ) DKA.-IDDM-UNCONTROLLED HX OF NEUROMYELITIS OPTICA S/P RITUXIMAB-2018 ANAEMIA- IRON DEFICIENCY/ CH BLOOD LOSS PLAN : REPEAT CBC /BMP/LFTS IN AM ON IV MERREM 500MG IVPB Q 8HRLY 05/20/18. CONTINUE iv MERREM 500 MG EVERY 8 HOURLY X FOR 14 DAYS TO COMPLETE 3 WEEKS OF THERAPY 05/28/18- TO 06/10/18. ON IV FLAGYL 500MG IVPB Q 8HRLY 05/19/18 . MAY D/C fLAGYL ON DISCHARGE CONTACT ISOLATION. PATIENT HAS HISTORY OF esbl E. COLI ( BACTEREMIA AND /UTI )
--- NOTE | 2018-05-31 00:47 | CP.PCM.PN ---
Subjective - Date & Time of Evaluation Date of Evaluation: 05/28/18 Time of Evaluation: 13:00 - Subjective Subjective: No complaints. Objective - Vital Signs/Intake and Output Vital Signs (last 24 hours): Temp Pulse Resp BP Pulse Ox 98 F 108 H 20 131/86 97 05/30/18 16:36 05/30/18 16:36 05/30/18 16:36 05/30/18 16:36 05/30/18 16:36 Intake and Output: 05/30/18 05/31/18 18:59 06:59 Intake Total 600 Balance 600 - Medications Medications: Current Medications Diphenhydramine HCl (Benadryl) 25 mg PO HS PRN PRN Reason: Insomnia Last Admin: 05/30/18 23:46 Dose: 25 mg Enoxaparin Sodium (Lovenox) 40 mg SC DAILY [facility] Last Admin: 05/30/18 09:39 Dose: Not Given Gabapentin (Neurontin) 100 mg PO BID [facility] Last Admin: 05/30/18 17:06 Dose: 100 mg Hydromorphone HCl (Dilaudid) 1 mg IVP Q4H PRN PRN Reason: Pain, severe (8-10) Last Admin: 05/30/18 21:10 Dose: 1 mg Metronidazole (Flagyl) 500 mg in 100 mls @ 100 mls/hr IVPB Q8H [facility]; Protocol Last Admin: 05/30/18 17:07 Dose: 100 mls/hr Meropenem 500 mg/ Sodium (Chloride) 100 mls @ 100 mls/hr IVPB Q8H [facility]; Protocol Last Admin: 05/30/18 21:10 Dose: 100 mls/hr Insulin Detemir (Levemir) 8 unit SC Q12H [facility] Last Admin: 05/30/18 21:47 Dose: 8 units Insulin Human Regular (Novolin R) 0 unit SC ACHS [facility]; Protocol Last Admin: 05/30/18 21:38 Dose: Not Given Insulin Human Regular (Novolin R) 7 unit SC ACBD [facility] Last Admin: 05/30/18 16:52 Dose: Not Given Insulin Human Regular (Novolin R) 5 unit SC ACL [facility] Last Admin: 05/30/18 12:30 Dose: 5 unit Metoprolol Succinate (Toprol Xl) 100 mg PO DAILY [facility] Last Admin: 05/30/18 09:39 Dose: 100 mg Metoprolol Tartrate (Lopressor) 5 mg IVP Q8H PRN PRN Reason: Other Last Admin: 05/23/18 18:15 Dose: 5 mg Tramadol HCl (Ultram) 50 mg PO TID PRN PRN Reason: Pain, severe (8-10) Last Admin: 05/26/18 02:33 Dose: 50 mg - Labs Labs: 05/29/18 09:05 05/29/18 09:05 - Head Exam Head Exam: ATRAUMATIC - Eye Exam Eye Exam: Normal appearance - ENT Exam ENT Exam: Mucous Membranes Dry - Respiratory Exam Respiratory Exam: NORMAL BREATHING PATTERN - Cardiovascular Exam Cardiovascular Exam: +S1, +S2 - GI/Abdominal Exam GI & Abdominal Exam: Normal Bowel Sounds Assessment and Plan (1) Anemia Assessment & Plan: iron deficiency and chronic disease will plan to supplement IV when clear of infections s/p PRBC transfusion Status: Acute (2) Leukocytosis Assessment & Plan: improving with abx Status: Acute
--- NOTE | 2018-05-31 00:48 | CP.PCM.PN ---
Subjective - Date & Time of Evaluation Date of Evaluation: 05/29/18 Time of Evaluation: 16:00 - Subjective Subjective: No complaints. Objective - Vital Signs/Intake and Output Vital Signs (last 24 hours): Temp Pulse Resp BP Pulse Ox 98 F 108 H 20 131/86 97 05/30/18 16:36 05/30/18 16:36 05/30/18 16:36 05/30/18 16:36 05/30/18 16:36 Intake and Output: 05/30/18 05/31/18 18:59 06:59 Intake Total 600 Balance 600 - Medications Medications: Current Medications Diphenhydramine HCl (Benadryl) 25 mg PO HS PRN PRN Reason: Insomnia Last Admin: 05/30/18 23:46 Dose: 25 mg Enoxaparin Sodium (Lovenox) 40 mg SC DAILY [facility] Last Admin: 05/30/18 09:39 Dose: Not Given Gabapentin (Neurontin) 100 mg PO BID [facility] Last Admin: 05/30/18 17:06 Dose: 100 mg Hydromorphone HCl (Dilaudid) 1 mg IVP Q4H PRN PRN Reason: Pain, severe (8-10) Last Admin: 05/30/18 21:10 Dose: 1 mg Metronidazole (Flagyl) 500 mg in 100 mls @ 100 mls/hr IVPB Q8H [facility]; Protocol Last Admin: 05/30/18 17:07 Dose: 100 mls/hr Meropenem 500 mg/ Sodium (Chloride) 100 mls @ 100 mls/hr IVPB Q8H [facility]; Protocol Last Admin: 05/30/18 21:10 Dose: 100 mls/hr Insulin Detemir (Levemir) 8 unit SC Q12H [facility] Last Admin: 05/30/18 21:47 Dose: 8 units Insulin Human Regular (Novolin R) 0 unit SC ACHS [facility]; Protocol Last Admin: 05/30/18 21:38 Dose: Not Given Insulin Human Regular (Novolin R) 7 unit SC ACBD [facility] Last Admin: 05/30/18 16:52 Dose: Not Given Insulin Human Regular (Novolin R) 5 unit SC ACL [facility] Last Admin: 05/30/18 12:30 Dose: 5 unit Metoprolol Succinate (Toprol Xl) 100 mg PO DAILY [facility] Last Admin: 05/30/18 09:39 Dose: 100 mg Metoprolol Tartrate (Lopressor) 5 mg IVP Q8H PRN PRN Reason: Other Last Admin: 05/23/18 18:15 Dose: 5 mg Tramadol HCl (Ultram) 50 mg PO TID PRN PRN Reason: Pain, severe (8-10) Last Admin: 05/26/18 02:33 Dose: 50 mg - Labs Labs: 05/29/18 09:05 05/29/18 09:05 - Head Exam Head Exam: ATRAUMATIC - Eye Exam Eye Exam: Normal appearance - ENT Exam ENT Exam: Mucous Membranes Dry - Respiratory Exam Respiratory Exam: NORMAL BREATHING PATTERN - Cardiovascular Exam Cardiovascular Exam: +S1, +S2 - GI/Abdominal Exam GI & Abdominal Exam: Normal Bowel Sounds Assessment and Plan (1) Anemia Assessment & Plan: iron deficiency and chronic disease will plan to supplement IV when clear of infections s/p PRBC transfusion Status: Acute (2) Leukocytosis Assessment & Plan: on antibiotics Status: Acute
[2018-05-31] MEDS: metroNIDAZOLE IV 500 mg/100 ml 500 MG/100 ML BAG IVPB SCH ×3 (01:17→17:07)
[2018-05-31] MEDS: HYDROmorphone 0.5 mg/0.5 ml ISec IVP PRN ×5 (01:17→18:47)
--- NOTE | 2018-05-31 02:26 | PN ---
DATE: 05/30/2018 SUBJECTIVE: The patient is afebrile. The patient is on wound care and she needs IV antibiotics as outpatient. The patient is considering home versus subacute rehab, intravenous antibiotics. No nausea or vomiting. PHYSICAL EXAMINATION: VITAL SIGNS: Blood pressure 131/86, pulse 108, respiratory rate 20, temperature 98. LUNGS: Clear. No rales. No rhonchi. CARDIOVASCULAR SYSTEMS: S1, S2, regular. No heave, no thrill. ABDOMEN: Soft, nontender. Bowel sounds are positive. ASSESSMENT: 1. Bilateral axillary abscess status post incision and drainage. 2. Septicemia due to urinary tract infection, resolved. 3. Tachycardia. 4. Type 2 diabetes. PLAN: Continue current medication. Monitor the patient. Dru Fontenot MD
[2018-05-31] MEDS: Meropenem 500 MG in Sodium Chloride 0.9% 100 ML IVPB SCH ×3 (05:18→21:18)
[2018-05-31 08:05] LABS: BASO # 0.1 K/uL (0.0-0.2); BASO % 0.8 % (0.0-2.0); EOS # 0.3 K/uL (0.0-0.7); LYMPH # 1.9 K/uL (1.0-4.3); LYMPH % 18.6 % (20.0-40.0); MEAN CELL VOLUME 90.7 fL (81.0-99.0); MEAN PLATELET VOLUME 7.9 fL (7.2-11.7); MONO # 0.8 K/uL (0.0-0.8); MONO % 7.9 % (0.0-10.0); NEUT # 7.3 K/uL (1.8-7.0); NEUT % 69.7 % (50.0-75.0); NRBC % 0.1 % (0.0-2.0); RBC 3.66 Mil/uL (3.80-5.20); RED CELL DISTRIBUTION WIDTH 16.3 % (11.5-14.5); WHITE BLOOD COUNT 10.4 K/uL (4.8-10.8)
[2018-05-31 08:20] LABS: BLOOD UREA NITROGEN 5 mg/dL (7-17); CALCIUM 9.6 mg/dl (8.6-10.4); GFR NON-AFRICAN AMERICAN > 60
[2018-05-31] MEDS: (Novolin R) Insulin Human Regular 100 units/ml vial SC SCH ×7 (09:39→21:24)
[2018-05-31] MEDS: Metoprolol Succinate 100 mg XL Tab PO SCH (09:41)
[2018-05-31] MEDS: Insulin Detemir 100 units/ml Vial (Levemir) SC SCH ×2 (09:42→21:18)
[2018-05-31] MEDS: Enoxaparin 40 mg Syringe SC SCH (09:42)
--- NOTE | 2018-05-31 12:05 | CP.PCM.PN ---
Subjective - Date & Time of Evaluation Date of Evaluation: 05/31/18 Time of Evaluation: 12:05 - Subjective Subjective: AFEBRILE, FEELING BETTER, REFUSING TO GO TO REHABILITATION /OR HOME FEELS pORT-a-cATH WILL GET INFECTED. CASE DISCUSSED WITH NURSE PRACTITIONER BRAYDON. Objective - Vital Signs/Intake and Output Vital Signs (last 24 hours): Temp Pulse Resp BP Pulse Ox 98.2 F 103 H 20 109/75 97 05/31/18 09:08 05/31/18 09:08 05/31/18 09:08 05/31/18 09:08 05/31/18 09:08 Intake and Output: 05/31/18 05/31/18 06:59 18:59 Intake Total 1040 Balance 1040 - Medications Medications: Current Medications Diphenhydramine HCl (Benadryl) 25 mg PO HS PRN PRN Reason: Insomnia Last Admin: 05/30/18 23:46 Dose: 25 mg Enoxaparin Sodium (Lovenox) 40 mg SC DAILY [facility] Last Admin: 05/31/18 09:42 Dose: Not Given Gabapentin (Neurontin) 100 mg PO BID [facility] Last Admin: 05/31/18 09:41 Dose: 100 mg Hydromorphone HCl (Dilaudid) 1 mg IVP Q4H PRN PRN Reason: Pain, severe (8-10) Last Admin: 05/31/18 09:54 Dose: 1 mg Metronidazole (Flagyl) 500 mg in 100 mls @ 100 mls/hr IVPB Q8H [facility]; Protocol Last Admin: 05/31/18 09:40 Dose: 100 mls/hr Meropenem 500 mg/ Sodium (Chloride) 100 mls @ 100 mls/hr IVPB Q8H [facility]; Protocol Last Admin: 05/31/18 05:18 Dose: 100 mls/hr Insulin Detemir (Levemir) 8 unit SC Q12H [facility] Last Admin: 05/31/18 09:42 Dose: 8 units Insulin Human Regular (Novolin R) 0 unit SC ACHS [facility]; Protocol Last Admin: 05/31/18 09:39 Dose: 1 units Insulin Human Regular (Novolin R) 7 unit SC ACBD [facility] Last Admin: 05/31/18 09:39 Dose: 7 unit Insulin Human Regular (Novolin R) 5 unit SC ACL [facility] Last Admin: 05/30/18 12:30 Dose: 5 unit Metoprolol Succinate (Toprol Xl) 100 mg PO DAILY [facility] Last Admin: 05/31/18 09:41 Dose: 100 mg Metoprolol Tartrate (Lopressor) 5 mg IVP Q8H PRN PRN Reason: Other Last Admin: 05/23/18 18:15 Dose: 5 mg - Labs Labs: 05/31/18 07:49 05/31/18 07:49 - Constitutional Appears: No Acute Distress - Head Exam Head Exam: NORMAL INSPECTION - Eye Exam Eye Exam: EOMI, PERRL - ENT Exam ENT Exam: Normal Oropharynx - Neck Exam Neck Exam: Normal Inspection - Respiratory Exam Respiratory Exam: Clear to Ausculation Bilateral - Cardiovascular Exam Cardiovascular Exam: REGULAR RHYTHM, +S1, +S2 - GI/Abdominal Exam GI & Abdominal Exam: Soft, Normal Bowel Sounds. absent: Tenderness - Extremities Exam Extremities Exam: Normal Capillary Refill. absent: Calf Tenderness, Pedal Edema - Neurological Exam Neurological Exam: Alert, Awake, CN II-XII Intact, Oriented x3, Reflexes Normal - Psychiatric Exam Psychiatric exam: Normal Mood - Skin Skin Exam: Normal Color, Warm Assessment and Plan - Assessment and Plan (Free Text) Plan: ASSESSMENT POST OPT S/P I&D LEFT AXILLARY ABSCESS 05/25/18 GRAM-NEGATIVE BACTEREMIA -E.COLI RT. PYELONEPHRITIS-COMPLICATED/? DEVELOPING ABSCESS UROSEPSIS +VE ESBL E.COLI HISTORY OF LEFT NEPHRECTOMY. ( WILMS TUMOUR ) DKA.-IDDM-UNCONTROLLED HX OF NEUROMYELITIS OPTICA S/P RITUXIMAB-2018 ANAEMIA- IRON DEFICIENCY/ CH BLOOD LOSS PLAN : WILL DISCUSS WITH PATIENT. PATIENT HAS IMPROVED CONSIDERABLY,WITH REPEAT CAT SCAN BEING NEGATIVE AND LEUKOCYTOSIS IMPROVED PATIENT CAN BE SWITCHED TO PO CIPRO 500MG PO BID X 10DAYS IN AM . PATIENT TO FOLLOW-UP WITH /PMD OPD
[2018-05-31] MEDS: Magnesium Oxide 400 mg Tab UD PO SCH (13:14)
--- NOTE | 2018-05-31 22:51 | CP.PCM.PN ---
Subjective - Date & Time of Evaluation Date of Evaluation: 05/31/18 Time of Evaluation: 08:20 - Subjective Subjective: dictated Objective - Vital Signs/Intake and Output Vital Signs (last 24 hours): Temp Pulse Resp BP Pulse Ox 98.4 F 125 H 20 118/74 98 05/31/18 15:18 05/31/18 15:18 05/31/18 15:18 05/31/18 15:18 05/31/18 15:18 Intake and Output: 05/31/18 06/01/18 18:59 06:59 Intake Total 700 Balance 700 - Medications Medications: Current Medications Diphenhydramine HCl (Benadryl) 25 mg PO HS PRN PRN Reason: Insomnia Last Admin: 05/30/18 23:46 Dose: 25 mg Enoxaparin Sodium (Lovenox) 40 mg SC DAILY [facility] Last Admin: 05/31/18 09:42 Dose: Not Given Gabapentin (Neurontin) 100 mg PO BID [facility] Last Admin: 05/31/18 17:52 Dose: 100 mg Hydromorphone HCl (Dilaudid) 1 mg IVP Q4H PRN PRN Reason: Pain, severe (8-10) Last Admin: 05/31/18 18:47 Dose: 1 mg Metronidazole (Flagyl) 500 mg in 100 mls @ 100 mls/hr IVPB Q8H [facility]; Protocol Last Admin: 05/31/18 17:07 Dose: 100 mls/hr Meropenem 500 mg/ Sodium (Chloride) 100 mls @ 100 mls/hr IVPB Q8H [facility]; Protocol Last Admin: 05/31/18 21:18 Dose: 100 mls/hr Insulin Detemir (Levemir) 8 unit SC Q12H [facility] Last Admin: 05/31/18 21:18 Dose: 8 units Insulin Human Regular (Novolin R) 0 unit SC ACHS [facility]; Protocol Last Admin: 05/31/18 21:24 Dose: Not Given Insulin Human Regular (Novolin R) 7 unit SC ACBD [facility] Last Admin: 05/31/18 17:16 Dose: Not Given Insulin Human Regular (Novolin R) 5 unit SC ACL [facility] Last Admin: 05/31/18 13:14 Dose: 5 unit Magnesium Oxide (Mag-Ox) 400 mg PO DAILY [facility] Stop: 06/03/18 12:16 Last Admin: 05/31/18 13:14 Dose: 400 mg Metoprolol Succinate (Toprol Xl) 100 mg PO DAILY [facility] Last Admin: 05/31/18 09:41 Dose: 100 mg Metoprolol Tartrate (Lopressor) 5 mg IVP Q8H PRN PRN Reason: Other Last Admin: 05/23/18 18:15 Dose: 5 mg - Labs Labs: 05/31/18 07:49 05/31/18 07:49
--- NOTE | 2018-05-31 23:05 | CP.PCM.PN ---
Subjective - Date & Time of Evaluation Date of Evaluation: 05/31/18 Time of Evaluation: 18:00 - Subjective Subjective: Feeling better Objective - Vital Signs/Intake and Output Vital Signs (last 24 hours): Temp Pulse Resp BP Pulse Ox 98.4 F 125 H 20 118/74 98 05/31/18 15:18 05/31/18 15:18 05/31/18 15:18 05/31/18 15:18 05/31/18 15:18 Intake and Output: 05/31/18 06/01/18 18:59 06:59 Intake Total 700 Balance 700 - Medications Medications: Current Medications Diphenhydramine HCl (Benadryl) 25 mg PO HS PRN PRN Reason: Insomnia Last Admin: 05/30/18 23:46 Dose: 25 mg Enoxaparin Sodium (Lovenox) 40 mg SC DAILY [facility] Last Admin: 05/31/18 09:42 Dose: Not Given Gabapentin (Neurontin) 100 mg PO BID [facility] Last Admin: 05/31/18 17:52 Dose: 100 mg Hydromorphone HCl (Dilaudid) 1 mg IVP Q4H PRN PRN Reason: Pain, severe (8-10) Last Admin: 05/31/18 18:47 Dose: 1 mg Metronidazole (Flagyl) 500 mg in 100 mls @ 100 mls/hr IVPB Q8H [facility]; Protocol Last Admin: 05/31/18 17:07 Dose: 100 mls/hr Meropenem 500 mg/ Sodium (Chloride) 100 mls @ 100 mls/hr IVPB Q8H [facility]; Protocol Last Admin: 05/31/18 21:18 Dose: 100 mls/hr Insulin Detemir (Levemir) 8 unit SC Q12H [facility] Last Admin: 05/31/18 21:18 Dose: 8 units Insulin Human Regular (Novolin R) 0 unit SC ACHS [facility]; Protocol Last Admin: 05/31/18 21:24 Dose: Not Given Insulin Human Regular (Novolin R) 7 unit SC ACBD [facility] Last Admin: 05/31/18 17:16 Dose: Not Given Insulin Human Regular (Novolin R) 5 unit SC ACL [facility] Last Admin: 05/31/18 13:14 Dose: 5 unit Magnesium Oxide (Mag-Ox) 400 mg PO DAILY [facility] Stop: 06/03/18 12:16 Last Admin: 05/31/18 13:14 Dose: 400 mg Metoprolol Succinate (Toprol Xl) 100 mg PO DAILY [facility] Last Admin: 05/31/18 09:41 Dose: 100 mg Metoprolol Tartrate (Lopressor) 5 mg IVP Q8H PRN PRN Reason: Other Last Admin: 05/23/18 18:15 Dose: 5 mg - Labs Labs: 05/31/18 07:49 05/31/18 07:49 - Head Exam Head Exam: ATRAUMATIC - Eye Exam Eye Exam: Normal appearance - ENT Exam ENT Exam: Mucous Membranes Dry - Respiratory Exam Respiratory Exam: NORMAL BREATHING PATTERN - Cardiovascular Exam Cardiovascular Exam: +S1, +S2 - GI/Abdominal Exam GI & Abdominal Exam: Normal Bowel Sounds Assessment and Plan (1) Anemia Assessment & Plan: iron deficiency and chronic disease will plan to supplement IV when clear of infections s/p PRBC transfusion Status: Acute
[2018-06-01] MEDS: HYDROmorphone 0.5 mg/0.5 ml ISec IVP PRN ×4 (00:11→13:26)
[2018-06-01] MEDS: metroNIDAZOLE IV 500 mg/100 ml 500 MG/100 ML BAG IVPB SCH ×2 (00:12→09:23)
[2018-06-01] MEDS: Meropenem 500 MG in Sodium Chloride 0.9% 100 ML IVPB SCH ×2 (05:13→13:26)
--- NOTE | 2018-06-01 05:39 | PN ---
DATE: 05/31/2018 SUBJECTIVE: The patient is not able to make any decision between subacute rehab versus home IV antibiotic therapy. The patient prefers to stay in the hospital for IV antibiotics as recommended by ID. PHYSICAL EXAMINATION: VITAL SIGNS: Blood pressure 118/74, pulse 125, respiratory rate 20, temperature 98.4. LUNGS: Bilaterally clear. CARDIOVASCULAR SYSTEM: S1, S2, regular. ABDOMEN: Soft. ASSESSMENT: 1. Bilateral axillary abscess. 2. Urinary tract infection. 3. Type 2 diabetes. 4. Sinus tachycardia. PLAN: Continue outpatient antibiotics. Monitor the patient. Dru Fontenot MD
[2018-06-01] MEDS: (Novolin R) Insulin Human Regular 100 units/ml vial SC SCH ×7 (09:22→22:12)
[2018-06-01] MEDS: Enoxaparin 40 mg Syringe SC SCH (09:45)
[2018-06-01] MEDS: Magnesium Oxide 400 mg Tab UD PO SCH (09:45)
[2018-06-01] MEDS: Metoprolol Succinate 100 mg XL Tab PO SCH (09:45)
[2018-06-01] MEDS: Insulin Detemir 100 units/ml Vial (Levemir) SC SCH ×2 (09:46→22:19)
--- NOTE | 2018-06-01 11:50 | CP.PCM.PN ---
Subjective - Date & Time of Evaluation Date of Evaluation: 06/01/18 Time of Evaluation: 11:50 - Subjective Subjective: AFEBRILE, FEELING BETTER, REFUSING TO GO TO REHABILITATION /OR HOME FEELS pORT-a-cATH WILL GET INFECTED. CASE DISCUSSED WITH NURSE PRACTITIONER RICHARD RobeJasmina Objective - Vital Signs/Intake and Output Vital Signs (last 24 hours): Temp Pulse Resp BP Pulse Ox 97.9 F 106 H 20 118/78 98 06/01/18 08:12 06/01/18 08:12 06/01/18 08:12 06/01/18 08:12 06/01/18 08:12 Intake and Output: 06/01/18 06/01/18 06:59 18:59 Intake Total 700 400 Balance 700 400 - Medications Medications: Current Medications Diphenhydramine HCl (Benadryl) 25 mg PO HS PRN PRN Reason: Insomnia Last Admin: 06/01/18 01:23 Dose: 25 mg Enoxaparin Sodium (Lovenox) 40 mg SC DAILY [facility] Last Admin: 06/01/18 09:45 Dose: Not Given Gabapentin (Neurontin) 100 mg PO BID [facility] Last Admin: 06/01/18 09:45 Dose: 100 mg Hydromorphone HCl (Dilaudid) 1 mg IVP Q4H PRN PRN Reason: Pain, severe (8-10) Last Admin: 06/01/18 09:26 Dose: 1 mg Metronidazole (Flagyl) 500 mg in 100 mls @ 100 mls/hr IVPB Q8H [facility]; Protocol Last Admin: 06/01/18 09:23 Dose: 100 mls/hr Meropenem 500 mg/ Sodium (Chloride) 100 mls @ 100 mls/hr IVPB Q8H [facility]; Protocol Last Admin: 06/01/18 05:13 Dose: 100 mls/hr Insulin Detemir (Levemir) 8 unit SC Q12H [facility] Last Admin: 06/01/18 09:46 Dose: 8 units Insulin Human Regular (Novolin R) 0 unit SC ACHS [facility]; Protocol Last Admin: 06/01/18 09:22 Dose: 1 units Insulin Human Regular (Novolin R) 7 unit SC ACBD [facility] Last Admin: 06/01/18 09:22 Dose: 7 unit Insulin Human Regular (Novolin R) 5 unit SC ACL [facility] Last Admin: 05/31/18 13:14 Dose: 5 unit Magnesium Oxide (Mag-Ox) 400 mg PO DAILY [facility] Stop: 06/03/18 12:16 Last Admin: 06/01/18 09:45 Dose: 400 mg Metoprolol Succinate (Toprol Xl) 100 mg PO DAILY [facility] Last Admin: 06/01/18 09:45 Dose: 100 mg Metoprolol Tartrate (Lopressor) 5 mg IVP Q8H PRN PRN Reason: Other Last Admin: 05/23/18 18:15 Dose: 5 mg - Labs Labs: 05/31/18 07:49 05/31/18 07:49 - Constitutional Appears: No Acute Distress - Head Exam Head Exam: NORMAL INSPECTION - Eye Exam Eye Exam: EOMI, PERRL - ENT Exam ENT Exam: Normal Oropharynx - Neck Exam Neck Exam: Normal Inspection - Respiratory Exam Respiratory Exam: Clear to Ausculation Bilateral - Cardiovascular Exam Cardiovascular Exam: Tachycardia, REGULAR RHYTHM, +S1, +S2 - GI/Abdominal Exam GI & Abdominal Exam: Soft, Normal Bowel Sounds. absent: Tenderness - Extremities Exam Extremities Exam: Normal Capillary Refill. absent: Calf Tenderness, Pedal Edema - Back Exam Back Exam: absent: CVA tenderness (L), CVA tenderness (R) - Neurological Exam Neurological Exam: Alert, Awake, CN II-XII Intact, Normal Gait, Oriented x3, Reflexes Normal - Psychiatric Exam Psychiatric exam: Normal Mood - Skin Skin Exam: Normal Color, Warm Assessment and Plan - Assessment and Plan (Free Text) Assessment: ASSESSMENT POST OPT S/P I&D LEFT AXILLARY ABSCESS 05/25/18 GRAM-NEGATIVE BACTEREMIA -E.COLI RT. PYELONEPHRITIS-COMPLICATED/? DEVELOPING ABSCESS UROSEPSIS +VE ESBL E.COLI HISTORY OF LEFT NEPHRECTOMY. ( WILMS TUMOUR ) DKA.-IDDM-UNCONTROLLED HX OF NEUROMYELITIS OPTICA S/P RITUXIMAB-2018 ANAEMIA- IRON DEFICIENCY/ CH BLOOD LOSS PLAN : DISCUSSED WITH PATIENT. PATIENT HAS IMPROVED CONSIDERABLY,WITH REPEAT CAT SCAN BEING NEGATIVE AND LEUKOCYTOSIS IMPROVED PATIENT CAN BE SWITCHED TO PO CIPRO 500MG PO BID X 10DAYS PT REQUESTING IV ABX. WILL DISCUSS W PMD. PATIENT TO FOLLOW-UP WITH /PMD OPD
--- NOTE | 2018-06-01 13:00 | CP.PCM.PN ---
Subjective - Date & Time of Evaluation Date of Evaluation: 06/01/18 Time of Evaluation: 12:56 - Subjective Subjective: PATIENT SEEN AND EXAMINED AT THE BEDSIDE PATIENT WAS GIVEN THE OPTION TO DISCUSS WITH DR DE LA CRUZ OVER THE PHONE/ PATENT REFUSE TO TALK TO ID DOCTOR ON THE PHONE DISCHARGE INSTRUCTION WAS GIVEN BY INDUSTRIAL ENGINEERING MANAGER AND PATIENT VERBALIZES UNDERSTANDING Objective - Vital Signs/Intake and Output Vital Signs (last 24 hours): Temp Pulse Resp BP Pulse Ox 97.9 F 97 H 20 120/81 100 06/01/18 08:12 06/01/18 09:44 06/01/18 08:12 06/01/18 09:44 06/01/18 09:44 Intake and Output: 06/01/18 06/01/18 06:59 18:59 Intake Total 700 400 Balance 700 400 - Medications Medications: Current Medications Diphenhydramine HCl (Benadryl) 25 mg PO HS PRN PRN Reason: Insomnia Last Admin: 06/01/18 01:23 Dose: 25 mg Enoxaparin Sodium (Lovenox) 40 mg SC DAILY [facility] Last Admin: 06/01/18 09:45 Dose: Not Given Gabapentin (Neurontin) 100 mg PO BID [facility] Last Admin: 06/01/18 09:45 Dose: 100 mg Hydromorphone HCl (Dilaudid) 1 mg IVP Q4H PRN PRN Reason: Pain, severe (8-10) Last Admin: 06/01/18 09:26 Dose: 1 mg Metronidazole (Flagyl) 500 mg in 100 mls @ 100 mls/hr IVPB Q8H [facility]; Protocol Last Admin: 06/01/18 09:23 Dose: 100 mls/hr Meropenem 500 mg/ Sodium (Chloride) 100 mls @ 100 mls/hr IVPB Q8H [facility]; Protocol Last Admin: 06/01/18 05:13 Dose: 100 mls/hr Insulin Detemir (Levemir) 8 unit SC Q12H [facility] Last Admin: 06/01/18 09:46 Dose: 8 units Insulin Human Regular (Novolin R) 0 unit SC ACHS [facility]; Protocol Last Admin: 06/01/18 09:22 Dose: 1 units Insulin Human Regular (Novolin R) 7 unit SC ACBD [facility] Last Admin: 06/01/18 09:22 Dose: 7 unit Insulin Human Regular (Novolin R) 5 unit SC ACL [facility] Last Admin: 05/31/18 13:14 Dose: 5 unit Magnesium Oxide (Mag-Ox) 400 mg PO DAILY [facility] Stop: 06/03/18 12:16 Last Admin: 06/01/18 09:45 Dose: 400 mg Metoprolol Succinate (Toprol Xl) 100 mg PO DAILY [facility] Last Admin: 06/01/18 09:45 Dose: 100 mg Metoprolol Tartrate (Lopressor) 5 mg IVP Q8H PRN PRN Reason: Other Last Admin: 05/23/18 18:15 Dose: 5 mg - Labs Labs: 05/31/18 07:49 05/31/18 07:49 Assessment and Plan - Assessment and Plan (Free Text) Assessment: FOLLOW UP WITH DR KLEIN IN HIS OFFICE -----CALL FOR APPOINTMENT FOLLOW UP WITH DR Chandrika DE LA CRUZ IN HER OFFICE ------CALL FOR APPOINTMENT FOLLOW UP WITH DR RIVAS IN HIS OFFICE ------CALL FOR APPOINTMENT FOLLOW UP WITH DR BOSWELL IN HIS OFFICE-------CALL FOR APPOINTMENT CONTINUE HOME MEDICATION NEW PRESCRIPTION GIVEN CIPRO 500 MG PO BID FOR 10 DAYS ACTIVITY TOLERATED CALL DR KLEIN OR GO TO THE EMERGENCY ROOM IF SYMPTOM RETURN OR WORSENING
--- NOTE | 2018-06-01 20:31 | CP.PCM.PN ---
Subjective - Date & Time of Evaluation Date of Evaluation: 06/01/18 Time of Evaluation: 17:00 - Subjective Subjective: Feeling better. Objective - Vital Signs/Intake and Output Vital Signs (last 24 hours): Temp Pulse Resp BP Pulse Ox 98.1 F 112 H 20 143/90 99 06/01/18 15:00 06/01/18 15:00 06/01/18 15:00 06/01/18 15:00 06/01/18 15:00 Intake and Output: 06/01/18 06/02/18 18:59 06:59 Intake Total 400 Balance 400 - Medications Medications: Current Medications Ciprofloxacin (Cipro) 500 mg PO BID [facility]; Protocol Diphenhydramine HCl (Benadryl) 25 mg PO HS PRN PRN Reason: Insomnia Last Admin: 06/01/18 01:23 Dose: 25 mg Enoxaparin Sodium (Lovenox) 40 mg SC DAILY [facility] Last Admin: 06/01/18 09:45 Dose: Not Given Insulin Detemir (Levemir) 8 unit SC Q12H [facility] Last Admin: 06/01/18 09:46 Dose: 8 units Insulin Human Regular (Novolin R) 0 unit SC ACHS [facility]; Protocol Last Admin: 06/01/18 16:49 Dose: Not Given Insulin Human Regular (Novolin R) 7 unit SC ACBD [facility] Last Admin: 06/01/18 16:49 Dose: Not Given Insulin Human Regular (Novolin R) 5 unit SC ACL [facility] Last Admin: 06/01/18 13:25 Dose: Not Given Magnesium Oxide (Mag-Ox) 400 mg PO DAILY [facility] Stop: 06/03/18 12:16 Last Admin: 06/01/18 09:45 Dose: 400 mg Metoprolol Succinate (Toprol Xl) 100 mg PO DAILY [facility] Last Admin: 06/01/18 09:45 Dose: 100 mg - Labs Labs: 05/31/18 07:49 05/31/18 07:49 - Head Exam Head Exam: ATRAUMATIC - Eye Exam Eye Exam: Normal appearance - ENT Exam ENT Exam: Mucous Membranes Dry - Respiratory Exam Respiratory Exam: NORMAL BREATHING PATTERN - Cardiovascular Exam Cardiovascular Exam: +S1, +S2 - GI/Abdominal Exam GI & Abdominal Exam: Normal Bowel Sounds Assessment and Plan (1) Anemia Assessment & Plan: iron deficiency and chronic disease will plan to supplement IV when clear of infections s/p PRBC transfusion Status: Acute
--- NOTE | 2018-06-01 21:06 | CP.PCM.PN ---
Subjective - Date & Time of Evaluation Date of Evaluation: 06/01/18 Time of Evaluation: 21:04 - Subjective Subjective: uncntrolled dm with hypoglycemia Objective - Vital Signs/Intake and Output Vital Signs (last 24 hours): Temp Pulse Resp BP Pulse Ox 98.1 F 112 H 20 143/90 99 06/01/18 15:00 06/01/18 15:00 06/01/18 15:00 06/01/18 15:00 06/01/18 15:00 Intake and Output: 06/01/18 06/02/18 18:59 06:59 Intake Total 400 Balance 400 - Medications Medications: Current Medications Ciprofloxacin (Cipro) 500 mg PO BID [facility]; Protocol Diphenhydramine HCl (Benadryl) 25 mg PO HS PRN PRN Reason: Insomnia Last Admin: 06/01/18 01:23 Dose: 25 mg Enoxaparin Sodium (Lovenox) 40 mg SC DAILY [facility] Last Admin: 06/01/18 09:45 Dose: Not Given Insulin Detemir (Levemir) 8 unit SC Q12H [facility] Last Admin: 06/01/18 09:46 Dose: 8 units Insulin Human Regular (Novolin R) 0 unit SC ACHS [facility]; Protocol Last Admin: 06/01/18 16:49 Dose: Not Given Insulin Human Regular (Novolin R) 4 unit SC TIDPC [facility] Magnesium Oxide (Mag-Ox) 400 mg PO DAILY [facility] Stop: 06/03/18 12:16 Last Admin: 06/01/18 09:45 Dose: 400 mg Metoprolol Succinate (Toprol Xl) 100 mg PO DAILY [facility] Last Admin: 06/01/18 09:45 Dose: 100 mg - Labs Labs: 05/31/18 07:49 05/31/18 07:49 Assessment and Plan (1) Diabetic hypoglycemia Assessment & Plan: Endocrine consult reason for consult: uncontrolled diabetes Source: patient and chart review Binh Garcia is 33 y/o admitted for weakness & poor intake found with UTI found with glucose > 400 as per pt. 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 HEENT: denies earache, change in voice .Respiratory: denies cough, sob . CVS :no chest pain, no palpitations . Abdomen: (-) abdominal pain, no nausea /vomiting, no change bowel movement. [employer]MER : denies light-headedness, dizziness. Extremities: no edema, no tremors. Sk in: no itching, no rash LMP 05/2018 spotting Physical exam Well-developed AAO x3 , ,NAD VSS HEENT: norm cephalic, atraumatic, no lid lag , no exophthalmos NECK: supple, no palpable lymphadenopathy THYROID: no palpable thyromegaly, not tender CHEST: fair air entry, bilateral, CVS: S1,S2 ABDOMEN: bowel sound present, benign, obese, no wide purple striae , no bruises EXTREMITIES: no edema, clubbing or cyanosis, no palpable hand tremors Skin: (+) acanthosis nigricans -lab: wbc 10.9 urine test (-) tsh 1.07 , a1c 13.5 , ldl 60, tg 81 , wbc 17.9 , u/a (+) glucose , blood & nitrate Assessment: symptomatic hypoglycemia uncontrolled IDDM UTI /bactremia plan : continue Levemir 8 units q 12 h off metfomin continue novoloin R low dose coverage tid & hs decrease novoloin R 4 units with meals if eats > 60% we will follow with you. Status: Acute (2) Diabetes mellitus, insulin dependent (IDDM), uncontrolled Status: Acute (3) UTI (urinary tract infection) Status: Acute (4) Abdominal pain Status: Acute
--- NOTE | 2018-06-01 23:53 | CP.PCM.PN ---
Subjective - Date & Time of Evaluation Date of Evaluation: 06/01/18 Time of Evaluation: 07:20 - Subjective Subjective: dictated Objective - Vital Signs/Intake and Output Vital Signs (last 24 hours): Temp Pulse Resp BP Pulse Ox 98.1 F 112 H 20 143/90 99 06/01/18 15:00 06/01/18 15:00 06/01/18 15:00 06/01/18 15:00 06/01/18 15:00 Intake and Output: 06/01/18 06/02/18 18:59 06:59 Intake Total 400 300 Balance 400 300 - Medications Medications: Current Medications Ciprofloxacin (Cipro) 500 mg PO BID [facility]; Protocol Diphenhydramine HCl (Benadryl) 25 mg PO HS PRN PRN Reason: Insomnia Last Admin: 06/01/18 22:20 Dose: 25 mg Enoxaparin Sodium (Lovenox) 40 mg SC DAILY [facility] Last Admin: 06/01/18 09:45 Dose: Not Given Insulin Detemir (Levemir) 8 unit SC Q12H [facility] Last Admin: 06/01/18 22:19 Dose: 8 units Insulin Human Regular (Novolin R) 0 unit SC ACHS [facility]; Protocol Last Admin: 06/01/18 22:12 Dose: Not Given Insulin Human Regular (Novolin R) 4 unit SC TIDPC [facility] Magnesium Oxide (Mag-Ox) 400 mg PO DAILY [facility] Stop: 06/03/18 12:16 Last Admin: 06/01/18 09:45 Dose: 400 mg Metoprolol Succinate (Toprol Xl) 100 mg PO DAILY [facility] Last Admin: 06/01/18 09:45 Dose: 100 mg - Labs Labs: 05/31/18 07:49 05/31/18 07:49
[2018-06-02] MEDS: (Novolin R) Insulin Human Regular 100 units/ml vial SC SCH ×7 (09:55→21:51)
[2018-06-02] MEDS: Metoprolol Succinate 100 mg XL Tab PO SCH (09:57)
[2018-06-02] MEDS: Insulin Detemir 100 units/ml Vial (Levemir) SC SCH ×2 (09:57→21:55)
[2018-06-02] MEDS: Magnesium Oxide 400 mg Tab UD PO SCH (09:57)
[2018-06-02] MEDS: Enoxaparin 40 mg Syringe SC SCH (09:58)
--- NOTE | 2018-06-02 18:33 | CP.PCM.PN ---
Subjective - Date & Time of Evaluation Date of Evaluation: 06/02/18 Time of Evaluation: 18:33 - Subjective Subjective: AFEBRILE, NO NEW COMPLAINTS TOLERATING PO CIPRO. Objective - Vital Signs/Intake and Output Vital Signs (last 24 hours): Temp Pulse Resp BP Pulse Ox 98.5 F 105 H 20 128/86 99 06/02/18 15:00 06/02/18 15:00 06/02/18 15:00 06/02/18 15:00 06/02/18 15:00 Intake and Output: 06/02/18 06/02/18 06:59 18:59 Intake Total 300 Balance 300 - Medications Medications: Current Medications Ciprofloxacin (Cipro) 500 mg PO BID [facility]; Protocol Last Admin: 06/02/18 17:30 Dose: 500 mg Diphenhydramine HCl (Benadryl) 25 mg PO HS PRN PRN Reason: Insomnia Last Admin: 06/01/18 22:20 Dose: 25 mg Enoxaparin Sodium (Lovenox) 40 mg SC DAILY [facility] Last Admin: 06/02/18 09:58 Dose: Not Given Insulin Detemir (Levemir) 8 unit SC Q12H [facility] Last Admin: 06/02/18 09:57 Dose: 8 units Insulin Human Regular (Novolin R) 0 unit SC ACHS [facility]; Protocol Last Admin: 06/02/18 17:01 Dose: Not Given Insulin Human Regular (Novolin R) 4 unit SC TIDPC [facility] Last Admin: 06/02/18 17:31 Dose: Not Given Magnesium Oxide (Mag-Ox) 400 mg PO DAILY [facility] Stop: 06/03/18 12:16 Last Admin: 06/02/18 09:57 Dose: 400 mg Metoprolol Succinate (Toprol Xl) 100 mg PO DAILY [facility] Last Admin: 06/02/18 09:57 Dose: 100 mg - Labs Labs: 05/31/18 07:49 05/31/18 07:49 - Constitutional Appears: No Acute Distress - Head Exam Head Exam: NORMAL INSPECTION - Eye Exam Eye Exam: EOMI, PERRL - ENT Exam ENT Exam: Normal Oropharynx - Neck Exam Neck Exam: Normal Inspection - Respiratory Exam Respiratory Exam: Clear to Ausculation Bilateral - Cardiovascular Exam Cardiovascular Exam: Tachycardia, REGULAR RHYTHM, +S1, +S2 - GI/Abdominal Exam GI & Abdominal Exam: Soft, Normal Bowel Sounds. absent: Tenderness - Extremities Exam Extremities Exam: Normal Capillary Refill. absent: Calf Tenderness, Pedal Edema - Neurological Exam Neurological Exam: Alert, Awake, CN II-XII Intact, Normal Gait, Oriented x3, Reflexes Normal - Psychiatric Exam Psychiatric exam: Normal Mood - Skin Skin Exam: Normal Color, Warm Assessment and Plan - Assessment and Plan (Free Text) Assessment: ASSESSMENT GRAM-NEGATIVE BACTEREMIA -E.COLI RT. PYELONEPHRITIS-COMPLICATED/? DEVELOPING ABSCESS UROSEPSIS +VE ESBL E.COLI POST OPT S/P I&D LEFT AXILLARY ABSCESS 05/25/18 HISTORY OF LEFT NEPHRECTOMY. ( WILMS TUMOUR ) DKA.-IDDM-UNCONTROLLED HX OF NEUROMYELITIS OPTICA S/P RITUXIMAB-2018 ANAEMIA- IRON DEFICIENCY/ CH BLOOD LOSS PLAN : CONTINUE PO CIPRO 500MG PO BID X 10DAYS ( STARTED 06/02/18 ) PER PMD/ DR BOSWELL
--- NOTE | 2018-06-02 22:41 | CP.PCM.PN ---
Subjective - Date & Time of Evaluation Date of Evaluation: 06/02/18 Time of Evaluation: 20:00 - Subjective Subjective: No complaints. Objective - Vital Signs/Intake and Output Vital Signs (last 24 hours): Temp Pulse Resp BP Pulse Ox 98.5 F 105 H 20 128/86 99 06/02/18 15:00 06/02/18 15:00 06/02/18 15:00 06/02/18 15:00 06/02/18 15:00 - Medications Medications: Current Medications Ciprofloxacin (Cipro) 500 mg PO BID [facility]; Protocol Last Admin: 06/02/18 17:30 Dose: 500 mg Diphenhydramine HCl (Benadryl) 25 mg PO HS PRN PRN Reason: Insomnia Last Admin: 06/02/18 21:55 Dose: 25 mg Enoxaparin Sodium (Lovenox) 40 mg SC DAILY [facility] Last Admin: 06/02/18 09:58 Dose: Not Given Insulin Detemir (Levemir) 8 unit SC Q12H [facility] Last Admin: 06/02/18 21:55 Dose: 8 units Insulin Human Regular (Novolin R) 0 unit SC ACHS [facility]; Protocol Last Admin: 06/02/18 21:51 Dose: Not Given Insulin Human Regular (Novolin R) 4 unit SC TIDPC [facility] Last Admin: 06/02/18 17:31 Dose: Not Given Magnesium Oxide (Mag-Ox) 400 mg PO DAILY [facility] Stop: 06/03/18 12:16 Last Admin: 06/02/18 09:57 Dose: 400 mg Metoprolol Succinate (Toprol Xl) 100 mg PO DAILY [facility] Last Admin: 06/02/18 09:57 Dose: 100 mg - Labs Labs: 05/31/18 07:49 05/31/18 07:49 - Head Exam Head Exam: ATRAUMATIC - Eye Exam Eye Exam: Normal appearance - ENT Exam ENT Exam: Mucous Membranes Dry - Respiratory Exam Respiratory Exam: NORMAL BREATHING PATTERN - Cardiovascular Exam Cardiovascular Exam: +S1, +S2 - GI/Abdominal Exam GI & Abdominal Exam: Normal Bowel Sounds Assessment and Plan (1) Anemia Assessment & Plan: iron deficiency and chronic disease will plan to supplement IV when clear of infections s/p PRBC transfusion Status: Acute
--- NOTE | 2018-06-02 23:46 | CP.PCM.PN ---
Subjective - Date & Time of Evaluation Date of Evaluation: 06/02/18 Time of Evaluation: 12:40 - Subjective Subjective: dictated Objective - Vital Signs/Intake and Output Vital Signs (last 24 hours): Temp Pulse Resp BP Pulse Ox 98.5 F 105 H 20 128/86 99 06/02/18 15:00 06/02/18 15:00 06/02/18 15:00 06/02/18 15:00 06/02/18 15:00 - Medications Medications: Current Medications Ciprofloxacin (Cipro) 500 mg PO BID [facility]; Protocol Last Admin: 06/02/18 17:30 Dose: 500 mg Diphenhydramine HCl (Benadryl) 25 mg PO HS PRN PRN Reason: Insomnia Last Admin: 06/02/18 21:55 Dose: 25 mg Enoxaparin Sodium (Lovenox) 40 mg SC DAILY [facility] Last Admin: 06/02/18 09:58 Dose: Not Given Insulin Detemir (Levemir) 8 unit SC Q12H [facility] Last Admin: 06/02/18 21:55 Dose: 8 units Insulin Human Regular (Novolin R) 0 unit SC ACHS [facility]; Protocol Last Admin: 06/02/18 21:51 Dose: Not Given Insulin Human Regular (Novolin R) 4 unit SC TIDPC [facility] Last Admin: 06/02/18 17:31 Dose: Not Given Magnesium Oxide (Mag-Ox) 400 mg PO DAILY [facility] Stop: 06/03/18 12:16 Last Admin: 06/02/18 09:57 Dose: 400 mg Metoprolol Succinate (Toprol Xl) 100 mg PO DAILY [facility] Last Admin: 06/02/18 09:57 Dose: 100 mg - Labs Labs: 05/31/18 07:49 05/31/18 07:49
[2018-06-03 04:11] VITALS: O2SAT 98
[2018-06-03 07:54] VITALS: BP 118/82; PULSE 120; TEMP 98.5
[2018-06-03] MEDS: Magnesium Oxide 400 mg Tab UD PO SCH (09:00)
[2018-06-03] MEDS: Metoprolol Succinate 100 mg XL Tab PO SCH (09:00)
[2018-06-03] MEDS: Enoxaparin 40 mg Syringe SC SCH ×2 (09:01→09:10)
[2018-06-03] MEDS: Insulin Detemir 100 units/ml Vial (Levemir) SC SCH (09:01)
[2018-06-03] MEDS: (Novolin R) Insulin Human Regular 100 units/ml vial SC SCH ×4 (09:09→13:17)
--- NOTE | 2018-06-03 11:35 | CP.PCM.PN ---
Subjective - Date & Time of Evaluation Date of Evaluation: 06/03/18 Time of Evaluation: 11:35 - Subjective Subjective: afebrile, doing well. ready to go home Objective - Vital Signs/Intake and Output Vital Signs (last 24 hours): Temp Pulse Resp BP Pulse Ox 98.5 F 120 H 20 118/82 98 06/03/18 07:53 06/03/18 07:53 06/03/18 07:53 06/03/18 07:53 06/03/18 07:53 - Medications Medications: Current Medications Ciprofloxacin (Cipro) 500 mg PO BID [facility]; Protocol Last Admin: 06/03/18 09:00 Dose: 500 mg Diphenhydramine HCl (Benadryl) 25 mg PO HS PRN PRN Reason: Insomnia Last Admin: 06/02/18 21:55 Dose: 25 mg Enoxaparin Sodium (Lovenox) 40 mg SC DAILY [facility] Last Admin: 06/03/18 09:10 Dose: Not Given Insulin Detemir (Levemir) 8 unit SC Q12H [facility] Last Admin: 06/03/18 09:01 Dose: 8 units Insulin Human Regular (Novolin R) 0 unit SC ACHS [facility]; Protocol Last Admin: 06/03/18 09:09 Dose: 1 units Insulin Human Regular (Novolin R) 4 unit SC TIDPC [facility] Last Admin: 06/03/18 09:10 Dose: 4 unit Magnesium Oxide (Mag-Ox) 400 mg PO DAILY [facility] Stop: 06/03/18 12:16 Last Admin: 06/03/18 09:00 Dose: 400 mg Metoprolol Succinate (Toprol Xl) 100 mg PO DAILY [facility] Last Admin: 06/03/18 09:00 Dose: 100 mg - Labs Labs: 05/31/18 07:49 05/31/18 07:49 - Constitutional Appears: No Acute Distress - Eye Exam Eye Exam: EOMI, PERRL - ENT Exam ENT Exam: Normal Oropharynx - Neck Exam Neck Exam: Normal Inspection - Respiratory Exam Respiratory Exam: Clear to Ausculation Bilateral - Cardiovascular Exam Cardiovascular Exam: REGULAR RHYTHM, +S1, +S2 - GI/Abdominal Exam GI & Abdominal Exam: Soft, Normal Bowel Sounds. absent: Tenderness - Extremities Exam Extremities Exam: Normal Capillary Refill. absent: Calf Tenderness, Pedal Edema - Neurological Exam Neurological Exam: Alert, Awake, CN II-XII Intact, Oriented x3, Reflexes Normal - Psychiatric Exam Psychiatric exam: Normal Mood - Skin Skin Exam: Normal Color, Warm Assessment and Plan - Assessment and Plan (Free Text) Assessment: ASSESSMENT GRAM-NEGATIVE BACTEREMIA -E.COLI RT. PYELONEPHRITIS-COMPLICATED/? DEVELOPING ABSCESS UROSEPSIS +VE ESBL E.COLI POST OPT S/P I&D LEFT AXILLARY ABSCESS 05/25/18 HISTORY OF LEFT NEPHRECTOMY. ( WILMS TUMOUR ) DKA.-IDDM-UNCONTROLLED HX OF NEUROMYELITIS OPTICA S/P RITUXIMAB-2017 ANAEMIA- IRON DEFICIENCY/ CH BLOOD LOSS PLAN : CONTINUE PO CIPRO 500MG PO BID X 10DAYS ( STARTED 06/02/18 ) PER PMD/ DR BOSWELL
--- NOTE | 2018-06-03 21:52 | CP.PCM.DIS ---
Provider - Provider Date of Admission: 05/17/18 21:37 Attending physician: Dru Fontenot MD Consults: 05/17/18 22:51 Critical Care Consult Routine Comment: Consulting Provider: Sommer Spaulding Consulting Physician: Sommer Spaulding Reason for Consult: critical care 05/18/18 03:40 Endocrinology Consult Routine Comment: Consulting Provider: Marcy Magana Consulting Physician: Marcy Magana Reason for Consult: uncontrolled DM 05/18/18 03:42 Cardiology Consult Routine Comment: Consulting Provider: Enoc Baptiste Consulting Physician: Enoc Baptiste Reason for Consult: tachycardia 05/18/18 04:23 Inpatient PERSON INVESTIGATOR Core Measures Referral Routine Comment: Physician Instructions: Reason For Exam: Triggered: SOB 05/18/18 08:49 Infectious Disease Consult Routine Comment: Consulting Provider: Bonnie Cornejo Consulting Physician: Bonnie Cornejo Reason for Consult: uti 05/18/18 15:47 Physician Consult Routine Comment: uti Consulting Provider: Jennifer Gagnon Consulting Physician: Jennifer Gagnon Reason for Consult: uti 05/20/18 12:58 Hematology Oncology Consult Routine Comment: anemia Consulting Provider: Efrain Guillermo Consulting Physician: Efrain Guillermo Reason for Consult: anemai 05/24/18 15:07 Physician Consult Routine Comment: left armpit boil Consulting Provider: Josh Turner Consulting Physician: Josh Turner Reason for Consult: left armpit boil Time Spent in preparation of Discharge (in minutes): 30 Hospital Course - Lab Results Lab Results: Micro Results 05/25/18 17:02 Axilla Gram Stain - Final 05/25/18 17:02 Axilla Wound Culture - Final Coagulase Neg Staphylococcus 05/21/18 14:29 Blood Blood Culture - Final NO GROWTH AFTER 5 DAYS 05/21/18 14:29 Blood Gram Stain - Final TEST NOT PERFORMED 05/21/18 11:03 Blood Blood Culture - Final NO GROWTH AFTER 5 DAYS 05/21/18 11:03 Blood Gram Stain - Final TEST NOT PERFORMED 05/24/18 07:16 Urine,Clean Catch Urine Culture - Final No Growth (<1,000 CFU/ML) 05/18/18 14:05 Blood-Venous Blood Culture - Final Escherichia Coli 05/18/18 14:05 Blood-Venous Gram Stain - Final 05/18/18 16:30 Blood-Venous Blood Culture - Final Escherichia Coli 05/18/18 16:30 Blood-Venous Gram Stain - Final 05/18/18 19:20 Urine,Clean Catch Urine Culture - Final Escherichia Coli Most Recent Lab Values WBC 10.4 K/uL (4.8-10.8) 05/31/18 07:49 RBC 3.66 Mil/uL (3.80-5.20) L 05/31/18 07:49 Hgb 11.0 g/dL (11.0-16.0) 05/31/18 07:49 Hct 33.2 % (34.0-47.0) L 05/31/18 07:49 MCV 90.7 fL (81.0-99.0) 05/31/18 07:49 MCH 30.0 pg (27.0-31.0) 05/31/18 07:49 MCHC 33.0 g/dL (33.0-37.0) 05/31/18 07:49 RDW 16.3 % (11.5-14.5) H 05/31/18 07:49 Plt Count 458 K/uL (130-400) H 05/31/18 07:49 MPV 7.9 fL (7.2-11.7) 05/31/18 07:49 Neut % (Auto) 69.7 % (50.0-75.0) 05/31/18 07:49 Lymph % (Auto) 18.6 % (20.0-40.0) L 05/31/18 07:49 Morris % (Auto) 7.9 % (0.0-10.0) 05/31/18 07:49 Eos % (Auto) 3.0 % (0.0-4.0) 05/31/18 07:49 Baso % (Auto) 0.8 % (0.0-2.0) 05/31/18 07:49 Neut # (Auto) 7.3 K/uL (1.8-7.0) H 05/31/18 07:49 Lymph # (Auto) 1.9 K/uL (1.0-4.3) 05/31/18 07:49 Morris # (Auto) 0.8 K/uL (0.0-0.8) 05/31/18 07:49 Eos # (Auto) 0.3 K/uL (0.0-0.7) 05/31/18 07:49 Baso # (Auto) 0.1 K/uL (0.0-0.2) 05/31/18 07:49 Neutrophils % (Manual) 93 % (50-75) H 05/19/18 07:23 Band Neutrophils % 1 % (0-2) 05/19/18 07:23 Lymphocytes % (Manual) 4 % (20-40) L 05/19/18 07:23 Monocytes % (Manual) 2 % (0-10) 05/19/18 07:23 Hypersegmented Polys Present 05/17/18 18:38 Smudge Cells Present 05/17/18 18:38 Platelet Estimate Normal (NORMAL) 05/19/18 07:23 Large Platelets Present 05/17/18 18:38 Polychromasia Slight 05/19/18 07:23 Hypochromasia (manual) Slight 05/19/18 07:23 Poikilocytosis (manual Slight 05/17/18 18:38 Anisocytosis (manual) Slight 05/19/18 07:23 Microcytosis (manual) Slight 05/17/18 18:38 Spherocytes Slight 05/17/18 18:38 Tear Drop Cells Slight 05/17/18 18:38 Puncture Site Rba 05/17/18 18:57 pCO2 21 mm/Hg (35-45) L 05/17/18 18:57 pO2 34 mm/Hg (30-55) 05/17/18 20:16 HCO3 16.2 mmol/L (21-28) L 05/17/18 18:57 ABG pH 7.38 (7.35-7.45) 05/17/18 18:57 ABG Total CO2 13.0 mmol/L (22-28) L 05/17/18 18:57 ABG O2 Saturation 99.0 % (95-98) H 05/17/18 18:57 ABG Base Excess -11.2 mmol/L (-2.0-3.0) L 05/17/18 18:57 ABG Hemoglobin 8.9 g/dL (11.7-17.4) L 05/17/18 18:57 ABG Carboxyhemoglobin 2.1 % (0.5-1.5) H 05/17/18 18:57 POC ABG HHb (Measured) 1.0 % (0.0-5.0) 05/17/18 18:57 ABG Methemoglobin 1.5 % (0.0-3.0) 05/17/18 18:57 Renzo Test Pos 05/17/18 18:57 VBG pH 7.32 (7.32-7.43) 05/17/18 20:16 VBG pCO2 27 mmHg (40-60) L 05/17/18 20:16 VBG HCO3 15.6 mmol/L 05/17/18 20:16 VBG Total CO2 14.7 mmol/L (22-28) L 05/17/18 20:16 VBG O2 Sat (Calc) 64.2 % (40-65) 05/17/18 20:16 VBG Base Excess -10.6 mmol/L (0.0-2.0) L 05/17/18 20:16 VBG Potassium 4.1 mmol/L (3.6-5.2) 05/17/18 20:16 A-a O2 Difference 21.0 mm/Hg 05/17/18 18:57 Respiratory Index 0.2 05/17/18 18:57 Hgb O2 Saturation 95.4 % (95.0-98.0) 05/17/18 18:57 Sodium 137.0 mmol/l (132-148) 05/17/18 20:16 Chloride 103.0 mmol/L (98-107) 05/17/18 20:16 Glucose 486 mg/dl (65-105) H* 05/17/18 20:16 Lactate 1.6 mmol/L (0.7-2.1) 05/17/18 20:16 Liter Flow 0 05/17/18 18:57 FiO2 21.0 % 05/17/18 18:57 Crit Value Called To pushpa Oconnell 05/17/18 20:16 Crit Value Called By Justin guzmán 05/17/18 20:16 Crit Value Read Back Y 05/17/18 20:16 Blood Gas Notified Time 201905/17/18 20:16 Sodium 135 mmol/L (132-148) 05/31/18 07:49 Potassium 4.8 mmol/L (3.6-5.2) 05/31/18 07:49 Chloride 99 mmol/L (98-107) 05/31/18 07:49 Carbon Dioxide 30 mmol/L (22-30) 05/31/18 07:49 Anion Gap 11 (10-20) 05/31/18 07:49 BUN 5 mg/dL (7-17) L 05/31/18 07:49 Creatinine 0.5 mg/dL (0.7-1.2) L 05/31/18 07:49 Est GFR ( Amer) > 60 05/31/18 07:49 Est GFR (Non-Af Amer) > 60 05/31/18 07:49 POC Glucose (mg/dL) 212 mg/dL (65-110) H 06/03/18 11:56 Random Glucose 173 mg/dL (65-105) H D 05/31/18 07:49 Hemoglobin A1c 13.5 % (4.2-6.5) H 05/18/18 16:46 Calcium 9.6 mg/dl (8.6-10.4) 05/31/18 07:49 Phosphorus 3.1 mg/dL (2.5-4.5) 05/24/18 07:09 Magnesium 1.5 mg/dL (1.6-2.3) L 05/31/18 07:49 Iron < 10 ug/dL (37-170) L 05/18/18 16:46 TIBC 182 ug/dL (250-450) L 05/18/18 16:46 % Saturation 0.53 (20-55) L 05/18/18 16:46 Total Bilirubin 0.2 mg/dL (0.2-1.3) 05/29/18 09:05 Direct Bilirubin 0.2 mg/dL (0.0-0.4) 05/24/18 07:09 AST 31 U/L (14-36) 05/29/18 09:05 ALT 16 U/L (9-52) 05/29/18 09:05 Alkaline Phosphatase 123 U/L (38-126) 05/29/18 09:05 Total Creatine Kinase < 20 U/L (30-135) L 05/17/18 18:38 CK-MB (Mass) < 0.22 ng/mL (0.0-3.38) 05/17/18 18:38 Troponin I < 0.0120 ng/mL (0.00-0.120) 05/17/18 18:38 Total Protein 6.1 g/dL (6.3-8.3) L 05/29/18 09:05 Albumin 3.3 g/dL (3.5-5.0) L 05/29/18 09:05 Globulin 2.7 gm/dL (2.2-3.9) 05/29/18 09:05 Albumin/Globulin Ratio 1.2 (1.0-2.1) 05/29/18 09:05 Triglycerides 81 mg/dL (0-149) 05/18/18 16:46 Cholesterol 84 mg/dL (0-199) 05/18/18 16:46 LDL Cholesterol Direct 60 mg/dL (0-129) 05/18/18 16:46 HDL Cholesterol 19 mg/dL (30-70) L 05/18/18 16:46 Lipase 49 U/L (23-300) 05/17/18 18:38 Vitamin B12 > 1000 pg/mL (239-931) H 05/18/18 16:46 Folate 7.6 ng/mL 05/18/18 16:46 TSH 3rd Generation 1.07 mIU/L (0.46-4.68) 05/19/18 07:23 Venous Blood Potassium 4.1 mmol/L (3.6-5.2) 05/17/18 20:16 Urine Color Yellow (YELLOW) 05/24/18 07:16 Urine Clarity Clear (Clear) 05/24/18 07:16 Urine pH 6.0 (5.0-8.0) 05/24/18 07:16 Ur Specific [place] 1.005 (1.003-1.030) 05/24/18 07:16 Urine Protein Negative mg/dL (NEGATIVE) 05/24/18 07:16 Urine Glucose (UA) 3+ mg/dL (Normal) H 05/24/18 07:16 Urine Ketones Negative mg/dL (NEGATIVE) 05/24/18 07:16 Urine Blood Negative (NEGATIVE) 05/24/18 07:16 Urine Nitrate Negative (NEGATIVE) 05/24/18 07:16 Urine Bilirubin Negative (NEGATIVE) 05/24/18 07:16 Urine Urobilinogen Normal mg/dL (0.2-1.0) 05/24/18 07:16 Ur Leukocyte Esterase 1+ Celia/uL (Negative) H 05/24/18 07:16 Urine WBC (Auto) 6 /hpf (0-5) H 05/24/18 07:16 Urine RBC (Auto) 1 /hpf (0-3) 05/24/18 07:16 Ur Squamous Epith Cells 1 /hpf (0-5) 05/24/18 07:16 Urine Bacteria Rare (<OCC) 05/24/18 07:16 Urine HCG, Qual Negative (NEGATIVE) 05/25/18 04:28 B-Hydroxybutyrate 7.69 mM (0.02-0.27) H 05/17/18 18:38 Blood Type O POSITIVE 05/20/18 16:28 Antibody Screen Negative 05/20/18 16:28 Discharge Exam - Head Exam Head Exam: NORMAL INSPECTION Discharge Plan - Discharge Medications Prescriptions: Ciprofloxacin HCl [Cipro] 500 mg PO BID 10 Days tab - Follow Up Plan Condition: SERIOUS Disposition: HOME/ ROUTINE Instructions: Ciprofloxacin (Systemic), Diabetes Type 2 (DC), Diabetes and Diet, Urinary Tract Infection in Women (DC) Additional Instructions: FOLLOW UP WITH DR FONTENOT IN HIS OFFICE -----CALL FOR APPOINTMENT FOLLOW UP WITH DR Chandrika CORNEJO IN HER OFFICE ------CALL FOR APPOINTMENT FOLLOW UP WITH DR RIVAS IN HIS OFFICE ------CALL FOR APPOINTMENT FOLLOW UP WITH DR GUILLERMO IN HIS OFFICE-------CALL FOR APPOINTMENT CONTINUE HOME MEDICATION NEW PRESCRIPTION GIVEN CIPRO 500 MG PO BID FOR 10 DA[address] ACT[address] TOLERATED CALL DR FONTENOT OR GO TO THE EMERGENCY ROOM IF SYMPTOM RETURN OR WORSENING Referrals: Efrain Guillermo MD [Staff Provider] - Marcy Magana MD [Staff Provider] - Bonnie Cornejo MD [Staff Provider] - Dru Fontenot MD [Staff Provider] - Jennifer Gagnon MD [Staff Provider] -
--- NOTE | 2018-06-04 01:26 | CP.PCM.PN ---
Subjective - Date & Time of Evaluation Date of Evaluation: 06/03/18 Time of Evaluation: 12:00 - Subjective Subjective: No complaints. Objective - Vital Signs/Intake and Output Vital Signs (last 24 hours): Temp Pulse Resp BP Pulse Ox 98.5 F 120 H 20 118/82 98 06/03/18 07:53 06/03/18 07:53 06/03/18 07:53 06/03/18 07:53 06/03/18 07:53 Intake and Output: 06/03/18 06/04/18 18:59 06:59 Intake Total 360 Balance 360 - Labs Labs: 05/31/18 07:49 05/31/18 07:49 - Head Exam Head Exam: ATRAUMATIC - Eye Exam Eye Exam: Normal appearance - ENT Exam ENT Exam: Mucous Membranes Dry - Respiratory Exam Respiratory Exam: NORMAL BREATHING PATTERN - Cardiovascular Exam Cardiovascular Exam: +S1, +S2 - GI/Abdominal Exam GI & Abdominal Exam: Normal Bowel Sounds Assessment and Plan (1) Anemia Assessment & Plan: iron deficiency and chronic disease will plan to supplement IV when clear of infections s/p PRBC transfusion Status: Acute
== END 2018-06-03 15:04 | disposition home or self-care (01) | DRG 871 ==
LOC: C.ER 17:32 → C.9E 21:37 → C.6T 05-18 00:04 → C.9E 05-18 00:04 → C.5S 05-18 01:13
PROVIDERS: ADMIT Internal Medicine; ATTEND Internal Medicine
PROC: 30233N1 Transfusion of Nonautologous Red Blood Cells into Peripheral Vein, Percutaneous Approach (ICD-10-PCS; 2018-05-20)
PROC: 0HBCXZZ Excision of Left Upper Arm Skin, External Approach (ICD-10-PCS; 2018-05-25)
PROC: 0HBCXZX Excision of Left Upper Arm Skin, External Approach, Diagnostic (ICD-10-PCS; 2018-05-25)
PROC: 0X950ZX Drainage of Left Axilla, Open Approach, Diagnostic (ICD-10-PCS; principal; 2018-05-25 07:45)
DX: A41.50 Gram-negative sepsis, unspecified (principal); E11.10 Type 2 diabetes mellitus with ketoacidosis without coma; E87.1 Hypo-osmolality and hyponatremia; N12 Tubulo-interstitial nephritis, not specified as acute or chronic; L02.412 Cutaneous abscess of left axilla; G36.0 Neuromyelitis optica [Devic]; L03.112 Cellulitis of left axilla; E11.52 Type 2 diabetes mellitus with diabetic peripheral angiopathy with gangrene; I96 Gangrene, not elsewhere classified; R65.20 Severe sepsis without septic shock; N18.9 Chronic kidney disease, unspecified; I12.9 Hypertensive chronic kidney disease with stage 1 through stage 4 chronic kidney disease, or unspecified chronic kidney disease; G35 Multiple sclerosis; Z90.5 Acquired absence of kidney; E87.6 Hypokalemia; E11.65 Type 2 diabetes mellitus with hyperglycemia; E11.22 Type 2 diabetes mellitus with diabetic chronic kidney disease; Z79.4 Long term (current) use of insulin; B96.20 Unspecified Escherichia coli [E. coli] as the cause of diseases classified elsewhere; Z91.14 Patient's other noncompliance with medication regimen; E86.0 Dehydration; D63.1 Anemia in chronic kidney disease